=== PATIENT | male | born 1940 | race Caucasian/White ===

== ENCOUNTER → 2016-09-07 | Outpatient (CLI) | payer MEDICARE, OTHER | END | disposition home or self-care (01) | LOC: LABWHC1 11:14 | PROVIDERS: ATTEND Radiology Diagnostic Radiology | DX: I63.9 Cerebral infarction, unspecified (principal) | CPT/HCPCS: 36415; 82306; 84439; 84443 ==

== ENCOUNTER 2018-12-17 14:10 | Inpatient (IN) | payer MEDICARE, OTHER ==
[2018-12-17] MEDS ORDERED: SODIUM CHLORIDE 0.9% 500 ML 500 ML IV STA (14:45)
--- NOTE | 2018-12-17 14:55 | ED ---
General Adult HPI - General Chief complaint: Weakness Stated complaint: weakness, headache Time Seen by Provider: 12/17/18 14:35 Source: patient Mode of arrival: wheelchair Limitations: no limitations - History of Present Illness Initial comments: 78-year-old male patient presents to the emergency department today for evaluation of elevated blood pressure, shortness of breath, fatigue, and just feeling unwell. The patient states that he has been feeling unwell for the last couple of days. Patient states is unable to sleep last night. States he did have some nasal congestion and a cough for which she took Mucinex. Patient states he has had decreased appetite and bit of nausea today. States he did have one episode of diarrhea but he believes that his reaction to the Mucinex which she has had before. Denies any fever or chills. Denies chest pain. Patient states for the last couple of weeks is been having an intermittent pain to the back between the shoulder blades. States he is having some shortness of breath today. Denies any extremity swelling.Patient denies any recent rash, chest pain, constipation, back pain, numbness, tingling, dizziness, hematuria, dysuria, urinary urgency, urinary frequency, headache, visual changes, or any other complaints. - Related Data Allergies Allergy/AdvReac Type Severity Reaction Status Date / Time No Known Allergies Allergy Verified 12/17/18 14:20 Review of Systems ROS Statement: Those systems with pertinent positive or pertinent negative responses have been documented in the HPI. ROS Other: All systems not noted in ROS Statement are negative. Past Medical History Past Medical History: Chest Pain / Angina History of Any Multi-Drug Resistant Organisms: None Reported Past Surgical History: Heart Catheterization, Orthopedic Surgery Additional Past Surgical History / Comment(s): cardiac bipass. carotid artery surgery Past Psychological History: No Psychological Hx Reported Smoking Status: Never smoker Past Alcohol Use History: Occasional Past Drug Use History: None Reported General Exam Limitations: no limitations General appearance: alert, in no apparent distress, other (This is a well- developed, well-nourished elderly male patient in no acute distress. Vital signs upon presentation are temperature 97.7F, pulse 75, respirations 18, blood pressure 156/90, pulse ox 95% on room air.) Eye exam: Present: normal appearance, PERRL, EOMI. Absent: scleral icterus, conjunctival injection, periorbital swelling ENT exam: Present: normal exam, normal oropharynx, mucous membranes moist Respiratory exam: Present: normal lung sounds bilaterally. Absent: respiratory distress, wheezes, rales, rhonchi, stridor Cardiovascular Exam: Present: regular rate, normal rhythm, normal heart sounds. Absent: systolic murmur, diastolic murmur, rubs, gallop, clicks GI/Abdominal exam: Present: soft, normal bowel sounds. Absent: distended, tenderness, guarding, rebound, rigid Neurological exam: Present: alert, oriented X3, CN II-XII intact Psychiatric exam: Present: normal affect, normal mood Skin exam: Present: warm, dry, intact, normal color. Absent: rash Course Vital Signs 12/17/18 14:15 Temperature 97.7 F Pulse Rate 75 Respiratory 18 Rate Blood Pressure 156/90 O2 Sat by Pulse 95 Oximetry EKG Findings - EKG Comments: EKG Findings:: EKG obtained at 1500 to sinus rhythm with a first-degree AV block, left axis deviation with left bundle branch block. Ventricular rate is 68, ND interval 210, QRS duration 134, QTC 462, QTc 491. Medical Decision Making - Medical Decision Making 78-year-old male patient presents to the emergency department today for evaluation of fatigue, shortness of breath, and congestion. Physical examination did reveal crackles at the bilateral bases. Oxygen saturation betwe en 91 and 93% on room air. Chest x-ray did show bilateral small pleural effusions. Labs reviewed and revealed BNP at 8800. Patient denies history of congestive heart failure. He does see a package checker at [facility]. He'll be admitted to the hospital for IV Lasix and further evaluation by cardiology. Patient is agreeable. - Lab Data Result diagrams: 12/17/18 14:35 12/17/18 14:35 Lab Results 12/17/18 12/17/18 12/17/18 Range/Units 14:35 14:35 14:35 WBC 9.9 (3.8-10.6) k/uL RBC 4.67 (4.30-5.90) m/uL Hgb 14.2 (13.0-17.5) gm/dL Hct 43.4 (39.0-53.0) % MCV 92.9 (80.0-100.0) fL MCH 30.4 (25.0-35.0) pg MCHC 32.7 (31.0-37.0) g/dL RDW 16.7 H (11.5-15.5) % Plt Count 237 (150-450) k/uL Neutrophils % 84 % Lymphocytes % 8 % Monocytes % 5 % Eosinophils % 1 % Basophils % 1 % Neutrophils # 8.4 H (1.3-7.7) k/uL Lymphocytes # 0.8 L (1.0-4.8) k/uL Monocytes # 0.5 (0-1.0) k/uL Eosinophils # 0.1 (0-0.7) k/uL Basophils # 0.1 (0-0.2) k/uL Anisocytosis Slight PT (9.0-12.0) sec INR (<1.2) APTT (22.0-30.0) sec Sodium 140 (137-145) mmol/L Potassium 4.8 (3.5-5.1) mmol/L Chloride 104 (98-107) mmol/L Carbon Dioxide 23 (22-30) mmol/L Anion Gap 13 mmol/L BUN 18 (9-20) mg/dL Creatinine 1.27 H (0.66-1.25) mg/dL Est GFR (CKD-EPI)AfAm 62 (>60 ml/min/1.73 sqM) Est GFR (CKD-EPI)NonAf 53 (>60 ml/min/1.73 sqM) Glucose 141 H (74-99) mg/dL Plasma Lactic Acid Jamari 1.4 (0.7-2.0) mmol/L Calcium 9.9 (8.4-10.2) mg/dL Magnesium 2.1 (1.6-2.3) mg/dL Total Bilirubin 1.4 H (0.2-1.3) mg/dL AST 34 (17-59) U/L ALT 22 (21-72) U/L Alkaline Phosphatase 59 (38-126) U/L Troponin I (0.000-0.034) ng/mL NT-Pro-B Natriuret Pep pg/mL Total Protein 8.7 H (6.3-8.2) g/dL Albumin 4.8 (3.5-5.0) g/dL Urine Color Urine Appearance (Clear) Urine pH (5.0-8.0) Ur Specific Eden (1.001-1.035) Urine Protein (Negative) Urine Glucose (UA) (Negative) Urine Ketones (Negative) Urine Blood (Negative) Urine Nitrite (Negative) Urine Bilirubin (Negative) Urine Urobilinogen (<2.0) mg/dL Ur Leukocyte Esterase (Negative) Urine RBC (0-5) /hpf Urine WBC (0-5) /hpf Ur Squamous Epith Cells (0-4) /hpf Cellular Casts (0) /lpf Hyaline Casts (0-2) /lpf Granular Casts (0) /lpf Urine Mucus (None) /hpf 12/17/18 12/17/18 12/17/18 Range/Units 14:35 14:35 14:35 WBC (3.8-10.6) k/uL RBC (4.30-5.90) m/uL Hgb (13.0-17.5) gm/dL Hct (39.0-53.0) % MCV (80.0-100.0) fL MCH (25.0-35.0) pg MCHC (31.0-37.0) g/dL RDW (11.5-15.5) % Plt Count (150-450) k/uL Neutrophils % % Lymphocytes % % Monocytes % % Eosinophils % % Basophils % % Neutrophils # (1.3-7.7) k/uL Lymphocytes # (1.0-4.8) k/uL Monocytes # (0-1.0) k/uL Eosinophils # (0-0.7) k/uL Basophils # (0-0.2) k/uL Anisocytosis PT 11.0 (9.0-12.0) sec INR 1.0 (<1.2) APTT 26.2 (22.0-30.0) sec Sodium (137-145) mmol/L Potassium (3.5-5.1) mmol/L Chloride (98-107) mmol/L Carbon Dioxide (22-30) mmol/L Anion Gap mmol/L BUN (9-20) mg/dL Creatinine (0.66-1.25) mg/dL Est GFR (CKD-EPI)AfAm (>60 ml/min/1.73 sqM) Est GFR (CKD-EPI)NonAf (>60 ml/min/1.73 sqM) Glucose (74-99) mg/dL Plasma Lactic Acid Jamari (0.7-2.0) mmol/L Calcium (8.4-10.2) mg/dL Magnesium (1.6-2.3) mg/dL Total Bilirubin (0.2-1.3) mg/dL AST (17-59) U/L ALT (21-72) U/L Alkaline Phosphatase (38-126) U/L Troponin I <0.012 (0.000-0.034) ng/mL NT-Pro-B Natriuret Pep 8830 pg/mL Total Protein (6.3-8.2) g/dL Albumin (3.5-5.0) g/dL Urine Color Urine Appearance (Clear) Urine pH (5.0-8.0) Ur Specific Eden (1.001-1.035) Urine Protein (Negative) Urine Glucose (UA) (Negative) Urine Ketones (Negative) Urine Blood (Negative) Urine Nitrite (Negative) Urine Bilirubin (Negative) Urine Urobilinogen (<2.0) mg/dL Ur Leukocyte Esterase (Negative) Urine RBC (0-5) /hpf Urine WBC (0-5) /hpf Ur Squamous Epith Cells (0-4) /hpf Cellular Casts (0) /lpf Hyaline Casts (0-2) /lpf Granular Casts (0) /lpf Urine Mucus (None) /hpf 12/17/18 Range/Units 15:20 WBC (3.8-10.6) k/uL RBC (4.30-5.90) m/uL Hgb (13.0-17.5) gm/dL Hct (39.0-53.0) % MCV (80.0-100.0) fL MCH (25.0-35.0) pg MCHC (31.0-37.0) g/dL RDW (11.5-15.5) % Plt Count (150-450) k/uL Neutrophils % % Lymphocytes % % Monocytes % % Eosinophils % % Basophils % % Neutrophils # (1.3-7.7) k/uL Lymphocytes # (1.0-4.8) k/uL Monocytes # (0-1.0) k/uL Eosinophils # (0-0.7) k/uL Basophils # (0-0.2) k/uL Anisocytosis PT (9.0-12.0) sec INR (<1.2) APTT (22.0-30.0) sec Sodium (137-145) mmol/L Potassium (3.5-5.1) mmol/L Chloride (98-107) mmol/L Carbon Dioxide (22-30) mmol/L Anion Gap mmol/L BUN (9-20) mg/dL Creatinine (0.66-1.25) mg/dL Est GFR (CKD-EPI)AfAm (>60 ml/min/1.73 sqM) Est GFR (CKD-EPI)NonAf (>60 ml/min/1.73 sqM) Glucose (74-99) mg/dL Plasma Lactic Acid Jamari (0.7-2.0) mmol/L Calcium (8.4-10.2) mg/dL Magnesium (1.6-2.3) mg/dL Total Bilirubin (0.2-1.3) mg/dL AST (17-59) U/L ALT (21-72) U/L Alkaline Phosphatase (38-126) U/L Troponin I (0.000-0.034) ng/mL NT-Pro-B Natriuret Pep pg/mL Total Protein (6.3-8.2) g/dL Albumin (3.5-5.0) g/dL Urine Color Yellow Urine Appearance Clear (Clear) Urine pH 5.5 (5.0-8.0) Ur Specific Eden 1.025 (1.001-1.035) Urine Protein 1+ H (Negative) Urine Glucose (UA) Negative (Negative) Urine Ketones Negative (Negative) Urine Blood Negative (Negative) Urine Nitrite Negative (Negative) Urine Bilirubin Negative (Negative) Urine Urobilinogen 2.0 (<2.0) mg/dL Ur Leukocyte Esterase Negative (Negative) Urine RBC 1 (0-5) /hpf Urine WBC 4 (0-5) /hpf Ur Squamous Epith Cells <1 (0-4) /hpf Cellular Casts 3 (0) /lpf Hyaline Casts 35 H (0-2) /lpf Granular Casts 1 (0) /lpf Urine Mucus Few H (None) /hpf - Radiology Data Radiology results: report reviewed, image reviewed Two-view x-ray of the chest is obtained. Report was reviewed in its entirety. Impression by Dr. De Leon shows small bilateral pleural effusions. Disposition Clinical Impression: CHF (congestive heart failure) Disposition: ADMITTED IP TO THIS [facility] Condition: Serious Referrals: Dewey Lombardo MD [Primary Care Provider] - 1-2 days Decision to Admit Reason: Admit from EC Decision Date: 12/17/18 Decision Time: 16:58
[2018-12-17 15:04] LABS: Albumin 4.8 g/dL (3.5-5.0); Anisocytosis Slight; Basophils # (A) 0.1 k/uL (0-0.2); Basophils % (A) 1 %; Calcium 9.9 mg/dL (8.4-10.2); Eosinophils # (A) 0.1 k/uL (0-0.7); Eosinophils % (A) 1 %; HCT 43.4 % (39.0-53.0); HGB 14.2 gm/dL (13.0-17.5); Lymphocytes # (A) 0.8 k/uL (1.0-4.8); Lymphocytes % (A) 8 %; MCH 30.4 pg (25.0-35.0); MCHC 32.7 g/dL (31.0-37.0); MCV 92.9 fL (80.0-100.0); Magnesium 2.1 mg/dL (1.6-2.3); Mean Platelet Volume 7.4; Monocytes # (A) 0.5 k/uL (0-1.0); Monocytes % (A) 5 %; Neutrophils # (A) 8.4 k/uL (1.3-7.7); Neutrophils % (A) 84 %; Platelet Count 237 k/uL (150-450); Potassium 4.8 mmol/L (3.5-5.1); RBC 4.67 m/uL (4.30-5.90); RDW 16.7 % (11.5-15.5); Total Bilirubin 1.4 mg/dL (0.2-1.3); Total Protein 8.7 g/dL (6.3-8.2); WBC 9.9 k/uL (3.8-10.6)
[2018-12-17 15:09] LABS: Partial Thromboplastin Time 26.2 sec (22.0-30.0)
[2018-12-17 15:35] LABS: Appearance,Urine Clear (Clear); Bilirubin,Urine Negative (Negative); Blood,Urine Negative (Negative); Cellular Casts,Urine 3 /lpf (0); Color,Urine Yellow; Glucose,Urine (UA) Negative (Negative); Granular Casts,Urine 1 /lpf (0); Hyaline Casts,Urine 35 /lpf (0-2); Ketones,Urine Negative (Negative); Leukocyte Esterase,Urine Negative (Negative); Mucus,Urine Few /hpf; Nitrite,Urine Negative (Negative); PH, Urine 5.5 (5.0-8.0); Protein,Urine 1+ (Negative); RBC,Urine 1 /hpf (0-5); Specific Gravity,Urine 1.025 (1.001-1.035); Squamous Epithelial Cell,Urine <1 /hpf (0-4); WBC,Urine 4 /hpf (0-5)
--- NOTE | 2018-12-17 15:40 | XR ---
EXAMINATION TYPE: XR chest 2V DATE OF EXAM: 12/17/2018 COMPARISON: None INDICATION: Weakness short of breath TECHNIQUE: Frontal and lateral views of the chest are obtained. FINDINGS: The heart size is normal. The pulmonary vasculature is normal. Minimal posterior pleural effusion is present. IMPRESSION: 1. Small bilateral pleural effusions
[2018-12-17] MEDS ORDERED: NALOXONE 0.4 MG/ML 1 ML VIAL IV PRN (16:55)
[2018-12-17] MEDS ORDERED: FUROSEMIDE 10 MG/ML 4 ML VIAL IV STA (16:57)
[2018-12-17] MEDS: ATORVASTATIN 20 MG TAB PO SCH (22:14)
[2018-12-17] MEDS: CARVEDILOL 6.25 MG TAB PO SCH (22:14)
[2018-12-17] MEDS: FUROSEMIDE 10 MG/ML 4 ML VIAL IV SCH (22:15)
[2018-12-18 02:12] LABS: Potassium 4.4 mmol/L (3.5-5.1)
[2018-12-18] MEDS: CARVEDILOL 6.25 MG TAB PO SCH ×2 (06:42→18:01)
[2018-12-18] MEDS: LEVOTHYROXINE 100 MCG TAB PO SCH (06:42)
[2018-12-18 07:25] LABS: Basophils # (A) 0.1 k/uL (0-0.2); Basophils % (A) 0 %; Eosinophils # (A) 0.1 k/uL (0-0.7); Eosinophils % (A) 1 %; HCT 39.2 % (39.0-53.0); HGB 12.8 gm/dL (13.0-17.5); Lymphocytes % (A) 10 %; MCH 29.9 pg (25.0-35.0); MCHC 32.6 g/dL (31.0-37.0); MCV 91.6 fL (80.0-100.0); Monocytes # (A) 0.8 k/uL (0-1.0); Monocytes % (A) 8 %; Neutrophils # (A) 8.7 k/uL (1.3-7.7); Neutrophils % (A) 80 %; Platelet Count 225 k/uL (150-450); RBC 4.28 m/uL (4.30-5.90); RDW 15.6 % (11.5-15.5); WBC 10.9 k/uL (3.8-10.6)
[2018-12-18 07:48] LABS: Calcium 9.4 mg/dL (8.4-10.2)
[2018-12-18] MEDS: FISH OIL CAPS PO SCH (09:34)
[2018-12-18] MEDS: ASPIRIN 81 MG PO SCH (09:35)
[2018-12-18] MEDS: FUROSEMIDE 10 MG/ML 4 ML VIAL IV SCH ×3 (09:35→20:31)
[2018-12-18] MEDS: EZETIMIBE 10 MG TAB PO SCH (09:35)
[2018-12-18 11:44] VITALS: BMI 26.6
--- NOTE | 2018-12-18 11:47 | ECHOF ---
Referral Reason:chf MEASUREMENTS -------- HEIGHT: 180.3 cm WEIGHT: 83.9 kg BP: RVIDd: 2.4 cm (< 3.3) IVSd: 0.9 cm (0.6 - 1.1) LVIDd: 5.3 cm (3.9 - 5.3) LVPWd: 0.9 cm (0.6 - 1.1) IVSs: 1.2 cm LVIDs: 4.7 cm LVPWs: 1.4 cm LAESV Index (A-L): 39.22 ml/m Ao Diam: 2.4 cm (2.0 - 3.7) AV Cusp: 1.9 cm (1.5 - 2.6) LA Diam: 3.1 cm (2.7 - 3.8) MV EXCURSION: 13.189 mm (> 18.000) MV EF SLOPE: 45 mm/s (70 - 150) EPSS: 1.8 cm MV E Javi: 0.65 m/s MV DecT: 237 ms MV A Javi: 0.28 m/s MV E/A Ratio: 2.36 RAP: 5.00 mmHg RVSP: 13.29 mmHg FINDINGS -------- Resting bradycardia (HR<60bpm). This was a technically adequate study. The left ventricular size is normal. Left ventricular wall thickness is normal. Overall left vent ricular systolic function is moderate-severely impaired with, an EF between 30 - 35 %. Basal anteri or LV wall motion is hypokinetic. Basal inferoseptal LV wall motion is hypokinetic. Mid anterio r LV wall motion is hypokinetic. Mid inferoseptal LV wall motion is hypokinetic. Mid to basal i nferiorlateral is hypokinetic The right ventricle is normal in size. LA is moderately dilated 34-39 ml/m2 The right atrial size is normal. Interatrial and interventricular septum intact. Aortic valve is trileaflet and is mildly thickened. The mitral valve is normal. The mitral valve leaflets are mildly thickened. Moderate mitral regur gitation is present. The tricuspid valve appears structurally normal. Trace tricuspid regurgitation present. Right sonali tricular systolic pressure is normal at < 35 mmHg. There is no pulmonic regurgitation present. The aortic root size is normal. Normal inferior vena cava with normal inspiratory collapse consistent with estimated right atrial pre ssure of 5 mmHg. There is no pericardial effusion. CONCLUSIONS -------- 1. Resting bradycardia (HR<60bpm). 2. This was a technically adequate study. 3. The left ventricular size is normal. 4. Left ventricular wall thickness is normal. 5. Overall left ventricular systolic function is moderate-severely impaired with, an EF between 30 - 35 %. 6. Basal anterior LV wall motion is hypokinetic. 7. Basal inferoseptal LV wall motion is hypokinetic. 8. Mid anterior LV wall motion is hypokinetic. 9. Mid inferoseptal LV wall motion is hypokinetic. 10. Mid to basal inferiorlateral is hypokinetic 11. The right ventricle is normal in size. 12. LA is moderately dilated 34-39 ml/m2 13. The right atrial size is normal. 14. Interatrial and interventricular septum intact. 15. Aortic valve is trileaflet and is mildly thickened. 16. The mitral valve is normal. 17. The mitral valve leaflets are mildly thickened. 18. Moderate mitral regurgitation is present. 19. The tricuspid valve appears structurally normal. 20. Trace tricuspid regurgitation present. 21. Right ventricular systolic pressure is normal at < 35 mmHg. 22. There is no pulmonic regurgitation present. 23. The aortic root size is normal. 24. Normal inferior vena cava with normal inspiratory collapse consistent with estimated right atrial pressure of 5 mmHg. 25. There is no pericardial effusion. SMOKING PIPE COATER: Marline Christensen RDCS
--- NOTE | 2018-12-18 15:02 | CONS ---
CONSULTATION Mr. Hernandez is a 78-year-old male followed by Dr. Lombardo, has a history of coronary artery disease, status post coronary artery bypass grafting done in [place] in 1990. He had sustained a myocardial infarction, underwent angioplasty, subsequent repeat angioplasty in 1993 and subsequently 4 or 5 years ago he had 4-way bypass. He presented with symptoms of progressive fatigue, lack of energy and dyspnea. He has no chest discomfort. He denies any dizziness, palpitation. He denies any clear PND, orthopnea in the past. He has occasional peripheral edema. He has no documented history of malignant arrhythmia. His coronary risk factor is remarkable for hyperlipidemia and hypertension. He is nondiabetic. He stopped smoking in the 80s. MEDICATIONS: Include Crestor 10 mg daily, Zetia 10 mg daily, Coreg 6.5 mg twice a day, and aspirin once a day. REVIEW OF SYSTEMS: RESPIRATORY SYSTEM: He had dyspnea on exertion. No recent wheezing or cough and he has no history of obstructive lung disease. GI SYSTEM: No recent GI bleed. No peptic ulcer disease. SYSTEM: No dysuria or hematuria. NERVOUS SYSTEM: No history of seizure. He has a history of TIA. Past surgical history is marked for coronary artery bypass grafting and right carotid endarterectomy. PHYSICAL EXAMINATION: A 78-year-old male, alert, oriented, in no apparent distress. Blood pressure 113/60 with a heart rate in the 60s. HEAD: Normocephalic. EYES: Sclerae nonicteric. NECK: With soft bruit bilaterally. LUNGS: With a few crackles at the bases. HEART: Regular rate and rhythm S1, S2. No S3 with systolic murmur at the base, ejection type, no diastolic murmur, no rub. ABDOMEN: Soft, nontender. Positive bowel sounds, no organomegaly. EXTREMITIES: No edema. LAB DATA: Revealed BUN and creatinine of 21 and 1.2. Troponin less than 0.012. NT proBNP of 8830. Hemoglobin 12.8, white blood cell of 10.9. EKG revealed a sinus mechanism, rate of 68, first-degree block, left axis deviation with a left bundle branch block. Chest x-ray shows evidence of congestion. IMPRESSION: 1. Symptoms of dyspnea with element of congestive heart failure, probably LV systolic function unknown. 2. Status post coronary artery bypass grafting with no clear evidence of ischemia. 3. History of carotid disease, status post carotid endarterectomy. 4. Hyperlipidemia. RECOMMENDATION: From the cardiac standpoint, I will continue IV diuretics for 24 hours, follow his renal function. I will obtain echocardiogram with Doppler. 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 Thank you for this consult. We will follow with you. LINCOLN / RODOLFO: [id number] /
--- NOTE | 2018-12-18 17:11 | P.HPIM ---
History of Present Illness H&P Date: 12/18/18 This is a 78-year-old gentleman patient of Dr. Lombardo, with Dr. Beaulieu cardiology up in [place], he has underlying history of CAD with prior TIA, CABG, carotid endarterectomy right side admitted through the ER secondary to shortness of breath, fatigue, not feeling well. He has been sick for the past for 5 days, was seen in our clinic a few days ago, and was given Mucinex, patient did not receive any antibiotic, he also has decreased appetite, wheezing episodes, trouble breathing, and increasing weakness. Patient denies fever no chest pain no palpitations, he has one episode of diarrhea from the Mucinex, otherwise it did not persist. Patient denies any hematuria or dysuria no falls loss predicte d events, no headache no purulence, and was seen in the emergency room secondary to above symptoms symptoms including weakness, and an overall not feeling better In the emergency room, chest x-ray shows some element of congestive heart failure, small pleural effusion bilateral troponins are 0.012 and the proBNP 8830 creatinine 1.27, urinalysis negative, admission normal 2.0, hemoglobin of 12.8, WBC count of 9.9., Patient is admitted with IV diuretics for the CHF, consult cardiology, echocardiogram . Review of Systems Constitutional: Reports as per HPI, Denies anorexia, Denies chills, Denies chronic headaches, Denies chronic pain, Denies daytime sleepiness, Denies fatigue, Denies fever, Denies lethargy, Denies malaise, Denies night sweats, Denies poor appetite, Denies sweats, Denies weakness, Denies weight gain, Denies weight loss Ears, nose, mouth and throat: Reports as per HPI, Denies ant. neck pain, Denies bleeding gums, Denies dental pain, Denies dysphagia, Denies epistaxis, Denies headache, Denies hoarseness, Denies mouth pain, Denies nasal congestion, Denies nasal discharge, Denies neck fullness/pressure, Denies neck lump, Denies nose pain, Denies odynophagia, Denies post-nasal drip, Denies sinus pain, Denies sinus pressure, Denies swelling in mouth, Denies swelling in throat, Denies sore throat, Denies vertigo, Denies voice changes Cardiovascular: Reports as per HPI, Reports dyspnea on exertion, Reports shortness of breath, Denies chest pain, Denies claudication, Denies decreased exercise tolerance, Denies edema, Denies high blood pressure, Denies irregular heart beat, Denies leg edema, Denies lightheadedness, Denies orthopnea, Denies palpitations, Denies paroxysmal nocturnal dyspnea, Denies phlebitis, Denies rapid heart beat, Denies syncope Respiratory: Reports as per HPI, Denies congestion, Denies cough, Denies cough with sputum, Denies dyspnea, Denies excessive sputum, Denies hemoptysis, Denies home oxygen, Denies pain, Denies pain on inspiration, Denies pleurisy, Denies respiratory infections, Denies sleep apnea, Denies snoring, Denies wheezing Gastrointestinal: Reports as per HPI, Denies abdominal pain, Denies belching, Denies bloating, Denies BRBPR, Denies change in bowel habits, Denies coffee ground emesis, Denies constipation, Denies diarrhea, Denies dyspepsia, Denies early satiety, Denies excessive gas, Denies heartburn, Denies hematemesis, Denies hematochezia, Denies indigestion, Denies jaundice, Denies lactose intolerance, Denies loss of appetite, Denies melena, Denies nausea, Denies vomiting Genitourinary: Reports as per HPI, Denies decreased libido, Denies difficulties fathering child, Denies discharge, Denies dysuria, Denies erectile dysfunction, Denies flank pain, Denies genital pain, Denies genital sores, Denies hematuria, Denies impotence, Denies incontinence, Denies kidney stones, Denies nocturia, Denies polyuria, Denies testicular lump, Denies testicular pain, Denies urinary frequency, Denies urinary hesitancy, Denies urinary retention Musculoskeletal: Reports as per HPI, Denies arm numbness/tingling, Denies atrophy, Denies fractures, Denies frequent falls, Denies gait dysfunction, Denies hot joints, Denies leg numbness/tingling, Denies limitation of motion, Denies loss of height, Denies low back pain, Denies morning stiffness, Denies muscle cramps, Denies muscle weakness, Denies myalgias, Denies neck pain, Denies neck stiffness, Denies prior amputations, Denies redness of joints, Denies shooting arm pain, Denies shooting leg pain Integumentary: Reports as per HPI, Denies acne, Denies boils, Denies brittle nails, Denies change in hair/nails, Denies color changes, Denies darkening of skin, Denies depigmentation, Denies dryness, Denies foot/leg ulcers, Denies growths, Denies hirsutism, Denies lesions, Denies onychomycosis, Denies pruritus, Denies rash, Denies sores, Denies striae, Denies unusual bruising, Denies wounds Neurological: Reports as per HPI, Denies aphasia, Denies ataxia, Denies balance difficulties, Denies burning pain, Denies change in mentation, Denies change in smell/taste, Denies change in speech, Denies confusion, Denies convulsions, Denies double vision, Denies gait dysfunction, Denies head injury, Denies headaches, Denies hearing difficulties, Denies lack of coordination, Denies loss of vision, Denies memory loss, Denies migraines, Denies motor disturbance, Denies numbness, Denies paralysis, Denies paresthesias, Denies seizures, Denies sensory deficit, Denies spasticity, Denies syncope, Denies tic, Denies tingling, Denies transient paralysis, Denies tremors, Denies vertigo, Denies weakness, Denies visual changes Psychiatric: Reports as per HPI, Denies anhedonia, Denies anxiety, Denies anxiety attacks, Denies change in appetite, Denies change in libido, Denies change in sleep habits, Denies confusion, Denies depression, Denies difficulty concentrating, Denies disorientation, Denies hallucinations, Denies hopelessness, Denies hypersomnia, Denies insomnia, Denies irritability, Denies memory loss, Denies mood swings, Denies paranoia, Denies sadness/tearfulness, Denies sleep disturbances, Denies suicidal ideation Endocrine: Reports as per HPI Hematologic/Lymphatic: Reports as per HPI, Denies easy bleeding, Denies easy bruising, Denies lymphadenopathy, Denies lymphedema, Denies thrombophilia Allergic/Immunologic: Reports as per HPI, Denies allergic rhinitis, Denies anaphylaxis, Denies angioedema, Denies gluten intolerance, Denies persistent infections, Denies seasonal allergies, Denies urticaria, Denies wheezing Past Medical History Past Medical History: Coronary Artery Disease (CAD), Chest Pain / Angina, Hyperlipidemia, Myocardial Infarction ([place]), Thyroid Disorder Last Myocardial Infarction Date:: 1990 History of Any Multi-Drug Resistant Organisms: None Reported Past Surgical History: Heart Catheterization, Orthopedic Surgery Additional Past Surgical History / Comment(s): cardiac bipass 2014. carotid artery surgery 2017 Past Anesthesia/Blood Transfusion Reactions: No Reported Reaction Past Psychological History: No Psychological Hx Reported Smoking Status: Former smoker Past Alcohol Use History: None Reported Past Drug Use History: None Reported - Past Family History Father Family Medical History: Coronary Artery Disease (CAD), Myocardial Infarction ([place]) Mother Family Medical History: Coronary Artery Disease (CAD), Myocardial Infarction ([place]) Brother(s) Family Medical History: Hypertension Sister(s) Family Medical History: Congestive Heart Failure (CHF) (Atrial fibrillation) Son(s) Family Medical History: No Reported History Medications and Allergies Home Medications Medication Instructions Recorded Confirmed Type Aspirin EC [Ecotrin Low Dose] 81 mg PO DAILY 12/17/18 12/17/18 History Carvedilol [Coreg] 6.25 mg PO BID 12/17/18 12/17/18 History Cholecalciferol [Vitamin D3 (25 2,000 unit PO DAILY 12/17/18 12/17/18 History Mcg = 1000 Iu)] Ezetimibe [Zetia] 10 mg PO DAILY 12/17/18 12/17/18 History Fish Oil/Dha/Epa [Fish Oil 1,200 2 cap PO DAILY 12/17/18 12/17/18 History mg Fish Oil] Levothyroxine Sodium [Synthroid] 100 mcg PO DAILY 12/17/18 12/17/18 History Rosuvastatin [Crestor] 10 mg PO HS 12/17/18 12/17/18 History Ubidecarenone [Co Q-10] 400 mg PO DAILY 12/17/18 12/17/18 History Allergies Allergy/AdvReac Type Severity Reaction Status Date / Time No Known Allergies Allergy Verified 12/17/18 17:15 Physical Exam Vitals: Vital Signs Temp Pulse Pulse Resp BP BP Pulse Ox 12/18/18 12:55 98.0 F 59 L 16 112/56 12/18/18 10:20 98.0 F 51 L 16 97/53 12/18/18 10:14 51 L 16 12/18/18 04:00 67 17 113/59 12/18/18 00:00 65 17 118/61 12/17/18 21:09 77 16 12/17/18 20:48 98.2 F 77 16 158/98 12/17/18 19:38 98.2 F 77 18 158/98 12/17/18 18:30 76 16 150/98 98 12/17/18 18:00 73 17 145/97 89 L 12/17/18 17:00 75 18 152/98 91 L Intake and Output 12/18/18 12/18/18 12/18/18 06:59 14:59 22:59 Intake Total 400 340 Output Total 1050 Balance -650 340 Intake: Oral 400 340 Output: Urine 1050 Other: Voiding Method Urinal # Voids 1 0 # Bowel Movements 0 Weight 84.2 kg 84.2 kg - Constitutional General appearance: cooperative, no acute distress - EENT Eyes: anicteric sclerae, EOMI, PERRLA, dentition normal ENT: NA/AT, normal oropharynx - Neck Neck: normal ROM - Respiratory Respiratory: bilateral: CTA, negative: diminished, dullness, rales - Cardiovascular Rhythm: regular Heart sounds: normal: S1, S2 Abnormal Heart Sounds: systolic murmur, no diastolic murmur, no rub, no S3 Gallop, no S4 Gallop, no click, no other - Gastrointestinal General gastrointestinal: normal bowel sounds, soft - Neurologic Neurologic: CNII-XII intact - Musculoskeletal Musculoskeletal: gait normal, strength equal bilaterally - Psychiatric Psychiatric: A&O x's 3, appropriate affect, intact judgment & insight Results CBC & Chem 7: 12/18/18 06:30 12/18/18 06:30 Labs: Abnormal Lab Results - Last 24 Hours (Table) 12/18/18 12/18/18 Range/Units 06:30 06:30 WBC 10.9 H (3.8-10.6) k/uL RBC 4.28 L (4.30-5.90) m/uL Hgb 12.8 L (13.0-17.5) gm/dL RDW 15.6 H (11.5-15.5) % Neutrophils # 8.7 H (1.3-7.7) k/uL BUN 21 H (9-20) mg/dL Thrombosis Risk Factor Assmnt - DVT/VTE Prophylaxis DVT/VTE Prophylaxis: Pharmacologic Prophylaxis ordered, Low risk, early ambulation encouraged - Choose All That Apply Any of the Below Risk Factors Present?: Yes Each Factor Represents 1 point: Acute [place], Heart failure (<1month), Swollen legs (current) Other Risk Factors: Yes Each Risk Factor Represents 3 Points: Age 75 years or older Thrombosis Risk Factor Assessment Total Risk Factor Score: 6 Thrombosis Risk Factor Assessment Level: High Risk Assessment and Plan Plan: 1. Acute CHF exacerbation, diastolic component, known history of CAD, patient is on IV Lasix 40 mg every 12 hours, continue on Coreg, TSH is normal, cardi ology is consulted, and echocardiogram performed 2. Known CAD with prior 4 vessel CABG in the past Dr. Beaulieu cardiology is routinely following the patient, he is to continue on Coreg and crestor and aspirin patient is not on any PARKER inhibition or arbs secondary to marginally low blood pressures 3. Hyperlipidemia on Crestor 10 4. Hypothyroidism on Synthroid 100 g daily TSH is controlled 5. Acute kidney injury again CK D stage III, prior creatinine was at CK D stage II, however this values are from 2016, continue on gentle hydration and diuresing, and labs to be monitored, avoid hypotension and nephrotoxins 6. BPH without lower tract symptomatology DVT prophylaxis with subcu lvoenox GI prophylaxis
[2018-12-18] MEDS: ENOXAPARIN 40 MG/0.4 ML SYRINGE SQ SCH (17:59)
[2018-12-18] MEDS: ATORVASTATIN 20 MG TAB PO SCH (18:06)
[2018-12-18] MEDS ORDERED: FAMOTIDINE 20 MG TAB PO SCH (21:00)
[2018-12-19] MEDS: CARVEDILOL 6.25 MG TAB PO SCH (07:13)
[2018-12-19] MEDS: LEVOTHYROXINE 100 MCG TAB PO SCH (07:13)
[2018-12-19 07:51] LABS: Anisocytosis Slight; Basophils # (A) 0.1 k/uL (0-0.2); Basophils % (A) 1 %; Eosinophils # (A) 0.2 k/uL (0-0.7); Eosinophils % (A) 2 %; HCT 43.3 % (39.0-53.0); HGB 14.1 gm/dL (13.0-17.5); Lymphocytes # (A) 1.1 k/uL (1.0-4.8); Lymphocytes % (A) 10 %; MCH 29.8 pg (25.0-35.0); MCHC 32.5 g/dL (31.0-37.0); MCV 91.7 fL (80.0-100.0); Mean Platelet Volume 7.4; Monocytes % (A) 9 %; Neutrophils # (A) 8.7 k/uL (1.3-7.7); Neutrophils % (A) 78 %; Platelet Count 240 k/uL (150-450); RBC 4.71 m/uL (4.30-5.90); RDW 16.4 % (11.5-15.5); WBC 11.2 k/uL (3.8-10.6)
[2018-12-19 07:57] LABS: Calcium 9.6 mg/dL (8.4-10.2)
[2018-12-19 08:30] VITALS: RESP 16
[2018-12-19] MEDS: EZETIMIBE 10 MG TAB PO SCH (09:50)
[2018-12-19] MEDS: ASPIRIN 81 MG PO SCH (09:50)
[2018-12-19] MEDS: FISH OIL CAPS PO SCH (09:51)
[2018-12-19] MEDS: ENOXAPARIN 40 MG/0.4 ML SYRINGE SQ SCH (09:51)
[2018-12-19] MEDS: FUROSEMIDE 10 MG/ML 4 ML VIAL IV SCH (09:51)
[2018-12-19 12:35] VITALS: BP 108/68; PULSE 53; TEMP 98.1
[2018-12-19] MEDS ORDERED: LISINOPRIL 2.5 MG TAB PO SCH (13:30)
--- NOTE | 2018-12-19 14:23 | PN ---
PROGRESS NOTE Mr. Hernandez is a 78-year-old male with a history of coronary artery disease, status post coronary artery bypass grafting, history of carotid disease who presented with progressive dyspnea, who had evidence of congestive heart failure. He is feeling much better today. His breathing is better. He believes that he is back to his baseline. He is denying any chest pain. No dizziness. No palpitation. He denies any nausea. He continues to be on aspirin 81 mg daily, Lipitor 10 mg daily, Coreg 6.5 mg twice a day, Zetia 10 mg daily, Lasix 40 mg IV q.12 hours. PHYSICAL EXAMINATION: Blood pressure 108/60 with a heart rate in the 60s. LUNGS: A few crackles at the bases. HEART: Regular rate and rhythm, S1, S2. No S3 with systolic ejection murmur, no diastolic murmur, no rub. ABDOMEN: Soft and nontender. EXTREMITIES: No edema. LAB DATA: Revealed BUN and creatinine 28 and 1.34, potassium of 4.0, hemoglobin of 14.1. Echocardiogram performed showed an impaired systolic function. Ejection fraction estimated at 30% to 35% with segmental wall motion abnormality consistent with coronary artery disease. IMPRESSION: 1. Congestive heart failure with impaired systolic function. Reviewing his old data, patient has a known history of ischemic cardiomyopathy. 2. Status post coronary artery bypass grafting with prior percutaneous revascularization. 3. History of peripheral vascular disease. 4. History of hyperlipidemia. RECOMMENDATION: I will stop his IV diuretics. I will switch him to oral diuretics. I will add a low- dose PARKER inhibitor to his regimen. Increase his level of activity. If he remains stable, he may be able to be discharged home in the next 24 hours. The patient will need to follow up with his primary orange grower in [place] next week. MMODL / IJN: [id number] /
--- NOTE | 2018-12-19 15:52 | P.DS ---
Providers Date of admission: 12/18/18 13:34 Expected date of discharge: 12/19/18 Attending physician: Kelsie Knight Consults: 12/17/18 16:56 Consult Physician Routine Consulting Provider: [facility] Consult Reason/Comments: CHF Do you want consulting provider notified?: Yes Primary care physician: Dewey Lombardo [facility] Course: This is a 78-year-old gentleman patient of Dr. Lombardo, with Dr. Beaulieu cardiology up in [place], he has underlying history of CAD with prior TIA, CABG, carotid endarterectomy right side admitted through the ER secondary to shortness of breath, fatigue, not feeling well. He has been sick for the past for 5 days, was seen in our clinic a few days ago, and was given Mucinex, patient did not receive any antibiotic, he also has decreased appetite, wheezing episodes, trouble breathing, and increasing weakness. Patient denies fever no chest pain no palpitations, he has one episode of diarrhea from the Mucinex, otherwise it did not persist. Patient denies any hematuria or dysuria no falls loss predicted events, no headache no purulence, and was seen in the emergency room secondary to above symptoms symptoms including weakness, and an overall not feeling better In the emergency room, chest x-ray shows some element of congestive heart failure, small pleural effusion bilateral troponins are 0.012 and the proBNP 8830 creatinine 1.27, urinalysis negative, admission normal 2.0, hemoglobin of 12.8, WBC count of 9.9., Patient is admitted with IV diuretics for the CHF, consult cardiology, echocardiogram 12/19: Patient has been seen by cardiology and changed his IV diuretics to oral. His changed his PARKER inhibitor to 2.5 mg twice daily. Plan is for patient to follow-up with his primary jogger operator in [place] next week which appointment has been made. Patient states his breathing is back to baseline. He denies any shortness of breath. He has walked in the hallway and back without shortness of breath or chest pain. He has been afebrile, heart rate 60, blood pressure 108/62 and pulse ox 95% on room air. Patient will be discharged home today in stable condition. Discharge diagnoses: 1. Acute diastolic heart failure 2. Known CAD with prior 4 vessel CABG in the past Dr. Beaulieu cardiology 3. Hyperlipidemia 4. Hypothyroidism 5. Acute kidney injury, CK D stage III, 6. BPH Discharge plan: Home Impression and plan of care have been directed as dictated by the signing physician. Kayleen Rowley nurse practitioner acting as scribe for signing physician. Patient Condition at Discharge: Good Plan - Discharge Summary Discharge Rx Participant: Yes New Discharge Prescriptions: New Furosemide [Lasix] 20 mg PO BID #60 tab Continue Ubidecarenone [Co Q-10] 400 mg PO DAILY Cholecalciferol [Vitamin D3 (25 Mcg = 1000 Iu)] 2,000 unit PO DAILY Levothyroxine Sodium [Synthroid] 100 mcg PO DAILY Fish Oil/Dha/Epa [Fish Oil 1,200 mg Fish Oil] 2 cap PO DAILY Ezetimibe [Zetia] 10 mg PO DAILY Carvedilol [Coreg] 6.25 mg PO BID Aspirin EC [Ecotrin Low Dose] 81 mg PO DAILY Rosuvastatin [Crestor] 10 mg PO HS Changed Lisinopril [Zestril] 2.5 mg PO BID #0 Discharge Medication List Aspirin EC [Ecotrin Low Dose] 81 mg PO DAILY 12/17/18 [History] Carvedilol [Coreg] 6.25 mg PO BID 12/17/18 [History] Cholecalciferol [Vitamin D3 (25 Mcg = 1000 Iu)] 2,000 unit PO DAILY 12/17/18 [History] Ezetimibe [Zetia] 10 mg PO DAILY 12/17/18 [History] Fish Oil/Dha/Epa [Fish Oil 1,200 mg Fish Oil] 2 cap PO DAILY 12/17/18 [History] Levothyroxine Sodium [Synthroid] 100 mcg PO DAILY 12/17/18 [History] Rosuvastatin [Crestor] 10 mg PO HS 12/17/18 [History] Ubidecarenone [Co Q-10] 400 mg PO DAILY 12/17/18 [History] Furosemide [Lasix] 20 mg PO BID #60 tab 12/19/18 [Rx] Lisinopril [Zestril] 2.5 mg PO BID #0 12/19/18 [Rx] Follow up Appointment(s)/Referral(s): [place] Beaulieu MD [REFERRING] - 12/26/18 9:45 am Dewey Lombardo MD [Primary Care Provider] - 1 Week (Please call office when open) Patient Instructions/Handouts: Heart Failure (DC) Discharge Disposition: HOME SELF-CARE
[2018-12-19] MEDS ORDERED: FUROSEMIDE 20 MG TAB PO SCH (21:00)
== END 2018-12-19 16:37 | disposition home or self-care (01) | DRG 292 ==
LOC: EC 14:10 → 3SCARD 16:55 → OBSVTOIN 12-18 13:34
PROVIDERS: ADMIT Family Medicine; ATTEND Family Medicine
DX: I50.31 Acute diastolic (congestive) heart failure (principal); N17.9 Acute kidney failure, unspecified; N40.0 Benign prostatic hyperplasia without lower urinary tract symptoms; E78.5 Hyperlipidemia, unspecified; E03.9 Hypothyroidism, unspecified; N18.3 Chronic kidney disease, stage 3 (moderate); I25.10 Atherosclerotic heart disease of native coronary artery without angina pectoris; I25.5 Ischemic cardiomyopathy; I73.9 Peripheral vascular disease, unspecified; Z95.1 Presence of aortocoronary bypass graft; Z79.82 Long term (current) use of aspirin; I25.2 Old myocardial infarction; Z79.890 Hormone replacement therapy; Z79.899 Other long term (current) drug therapy; Z82.49 Family history of ischemic heart disease and other diseases of the circulatory system; Z86.73 Personal history of transient ischemic attack (TIA), and cerebral infarction without residual deficits; Z87.891 Personal history of nicotine dependence; Z98.890 Other specified postprocedural states
CPT/HCPCS: 36415; 71046; 80048; 80053; 81001; 83605; 83735; 83880; 84132; 84484; 85025; 85610; 85730; 93005; 93306; 96361; 96374; 99285

== ENCOUNTER → 2021-03-29 | Outpatient (CLI) | payer MEDICARE, OTHER ==
[2021-03-30 03:11] LABS: African American GFR (CKD) 65.3 (60.0-200.0); Anion Gap 12.5 mmol/L (10.00-18.00); BUN/Creat Ratio 14.92 Ratio (12.00-20.00); Blood Urea Nitrogen 17.9 mg/dL (9.0-27.0); Calcium 8.9 mg/dL (8.7-10.3); Carbon Dioxide 19.5 mmol/L (20.0-27.5); Magnesium 2.4 mg/dL (1.5-2.4); Non-African American GFR(CKD) 56.4 (60.0-200.0); Potassium 4.6 mmol/L (3.5-5.5)
== END | disposition home or self-care (01) ==
LOC: LABWHC1 13:59
PROVIDERS: ATTEND Specialist
DX: I42.8 Other cardiomyopathies (principal); I47.2 Ventricular tachycardia; E78.00 Pure hypercholesterolemia, unspecified; R06.02 Shortness of breath
CPT/HCPCS: 36415; 80048; 83735

== ENCOUNTER → 2021-04-04 | Outpatient (CLI) | payer MEDICARE, OTHER ==
[2021-04-05 05:08] LABS: African American GFR (CKD) 72.6 (60.0-200.0); Anion Gap 14.5 mmol/L (10.00-18.00); BUN/Creat Ratio 17.73 Ratio (12.00-20.00); Blood Urea Nitrogen 19.5 mg/dL (9.0-27.0); Calcium 9.5 mg/dL (8.7-10.3); Carbon Dioxide 21.5 mmol/L (20.0-27.5); Magnesium 2.2 mg/dL (1.5-2.4); Non-African American GFR(CKD) 62.6 (60.0-200.0); Potassium 4.7 mmol/L (3.5-5.5)
== END | disposition home or self-care (01) ==
LOC: LABWHC1 16:18
PROVIDERS: ATTEND Specialist
DX: I42.8 Other cardiomyopathies (principal); I47.2 Ventricular tachycardia; E78.00 Pure hypercholesterolemia, unspecified; R06.02 Shortness of breath
CPT/HCPCS: 36415; 80048; 83735

== ENCOUNTER 2022-10-06 05:56 | Inpatient (IN) | payer MEDICARE, OTHER ==
[2022-10-06] MEDS ORDERED: DEXTROSE 5% IN WATER 100 ML with AMIODARONE 150 MG IV ONE (06:04)
[2022-10-06] MEDS ORDERED: SODIUM CHLORIDE 0.9% 1,000 ML IV STA (06:06)
--- NOTE | 2022-10-06 06:10 | ED ---
General Adult HPI - General Stated complaint: Chest Pain - History of Present Illness Initial comments: Dictation was produced using [employer] dictation software. please excuse any grammatical, word or spelling errors. Chief Complaint: 82-year-old male past medical history of coronary artery disease, status post bypass presents to the ER for chest pain History of Present Illness: Is 82-year-old male presents emergency department for chief complaint of chest pain. Patient had a bout of chest pressure prompting him to call the EMS service. Upon EMS evaluation patient was slightly tachycardic. Initial assessment done by prehospital providers was SVT. Pro vided patient with 6 kg of adenosine followed by 12 mg of adenosine with no resolution. Patient is given aspirin. He did take nitro prior to EMS arrival. Patient states that his pain in his chest is gone he does complain of some neck pain. States that the pain is dull. Nonradiating. The ROS documented in this emergency department record has been reviewed and confirmed by me. Those systems with pertinent positive or negative responses have been documented in the HPI. All other systems are other negative and/or noncontributory. - Related Data Home Medications Medication Instructions Recorded Confirmed Aspirin EC [Ecotrin Low Dose] 81 mg PO DAILY 12/17/18 10/06/22 Cholecalciferol [Vitamin D3 (25 125 mcg PO DAILY 12/17/18 10/06/22 Mcg = 1000 Iu)] Ezetimibe [Zetia] 10 mg PO DAILY 12/17/18 10/06/22 Levothyroxine Sodium [Synthroid] 100 mcg PO DAILY 12/17/18 10/06/22 Ubidecarenone [Co Q-10] 100 mg PO DAILY 12/17/18 10/06/22 Ferrous Sulfate [Iron] 325 mg PO DAILY 10/06/22 10/06/22 Furosemide [Lasix] 20 mg PO DAILY@1400 10/06/22 10/06/22 Furosemide [Lasix] 40 mg PO DAILY 10/06/22 10/06/22 Midodrine HCl [ProAmatine] 10 mg PO TID 10/06/22 10/06/22 Pantoprazole [Protonix] 40 mg PO DAILY 10/06/22 10/06/22 Sacubitril/Valsartan [Entresto 24 0.5 tab PO BID 10/06/22 10/06/22 mg-26 mg Tablet] Spironolactone 25 mg PO DAILY 10/06/22 10/06/22 allopurinoL 100 mg PO DAILY 10/06/22 10/06/22 metOLazone 2.5 mg PO DAILY 10/06/22 10/06/22 Allergies Allergy/AdvReac Type Severity Reaction Status Date / Time No Known Allergies Allergy Verified 10/06/22 13:42 Review of Systems ROS Statement: Those systems with pertinent positive or pertinent negative responses have been documented in the HPI. ROS Other: All systems not noted in ROS Statement are negative. Past Medical History Past Medical History: Coronary Artery Disease (CAD), Chest Pain / Angina, Hyperlipidemia, Myocardial Infarction ([place]), Thyroid Disorder Last Myocardial Infarction Date:: 1990 History of Any Multi-Drug Resistant Organisms: None Reported Past Surgical History: Heart Catheterization, Orthopedic Surgery Additional Past Surgical History / Comment(s): cardiac bipass 2014. carotid artery surgery 2017 Past Anesthesia/Blood Transfusion Reactions: No Reported Reaction Past Psychological History: No Psychological Hx Reported Past Alcohol Use History: None Reported Past Drug Use History: None Reported - Past Family History Father Family Medical History: Coronary Artery Disease (CAD), Myocardial Infarction ([place]) Mother Family Medical History: Coronary Artery Disease (CAD), Myocardial Infarction ([place]) Brother(s) Family Medical History: Hypertension Sister(s) Family Medical History: Congestive Heart Failure (CHF) (Atrial fibrillation) Son(s) Family Medical History: No Reported History General Exam - General Exam Comments Initial Comments: PHYSICAL EXAM: General Impression: Alert and oriented x3, not in acute distress HEENT: Normocephalic atraumatic, extra-ocular movements intact, pupils equal and reactive to light bilaterally, mucous membranes moist. Cardiovascular: Tachycardic Chest: Able to complete full sentences, no retractions, no tachypnea Abdomen: abdomen soft, non-tender, non-distended, no organomegaly Musculoskeletal: Pulses present and equal in all extremities, no peripheral edema Motor: no focal deficits noted Neurological: CN II-XII grossly intact, no focal motor or sensory deficits noted Skin: Intact with no visualized rashes Psych: Normal affect and mood Course Vital Signs 10/06/22 10/06/22 10/06/22 05:56 07:30 08:22 Temperature 98.4 F Pulse Rate 160 H 70 68 Pulse Rate [ Left Pulse Oximetery] Respiratory 22 18 18 Rate Blood Pressure 92/68 91/71 90/62 Blood Pressure [Left Arm Supine] O2 Sat by Pulse 94 L 94 L 96 Oximetry 10/06/22 08:30 Temperature 98.4 F Pulse Rate Pulse Rate [ 64 Left Pulse Oximetery] Respiratory 17 Rate Blood Pressure Blood Pressure 86/53 [Left Arm Supine] O2 Sat by Pulse 97 Oximetry - Reevaluation(s) Reevaluation #1: 10/06/22 06:09 Patient seen and evaluated in trauma bay #2. Patient is hooked to the monitor. Monitors showed ventricular tachycardia. Patient appears to be in no acute distress. Mildly hypotensive however denies any chest pain. Clinical presentation consistent with stable ventricular tachycardia. Patient started on amiodarone therapy. EKG Findings - EKG Comments: EKG Findings:: My EKG interpretation: Ventricular rate 164, R complex tachycardia consistent with ventricular tachycardia. QRS 168, QTc 432. Previous EKG was reviewed showing patient has history of left bundle-branch blo ck however 2019 that QRS duration is 134. Procedures - Procedural Sedation *Procedural Sedation Start Time: 06:38 *Procedural Sedation Stop Time: 07:05 *Indications: other *Previous Adverse Reaction to Anesthesia/Sedation?: No *ASA Class: II *Mallampati Airway Score: 2 Preparation: tire installer applied, pulse oximeter, capnometry used, supplemental O2 applied, reversal agents at bedside, suction/airway equipment at bedside, IV secured IV Etomidate Dose (mgs): 20 Complications: hypoventilation Interventions: oxygen applied, airway repositioned, assist by BVM Patient Tolerated Procedure: well Medical Decision Making - Medical Decision Making Was pt. sent in by a medical professional or institution (, PA, PRECISION MACHINING INSTRUCTOR, urgent care, hospital, or long term...) When possible be specific @ -No Did you speak to anyone other than the patient for history (EMS, parent, family, police, friend...)? What history was obtained from this source @ -Case discussed with EMS as described above in the history of present illness Did you review nursing and triage notes (agree or disagree)? Why? @ -I reviewed and agree with nursing and triage notes Were old charts reviewed (outside hosp., previous admission, EMS record, old EKG, old radiological studies, urgent care reports/EKG's, long term records)? Report findings @ -No old charts were reviewed Differential Diagnosis (chest pain, altered mental status, abdominal pain women, abdominal pain men, vaginal bleeding, musculoskeletal, weakness, fever, dyspnea, syncope, headache, dizziness, GI bleed, back pain, seizure, CVA, palpatations, mental health)? @ -Differential Chest Pain: Stable Angina, Unstable Angina, STEMI, NSTEMI Aortic Dissection, Pneumothorax, Musculoskeletal, Esophageal Spasm GERD, Cholecystitis, Pancreatitis, Zoster, this is not meant to be an all-inclusive list. EKG interpreted by me (3pts min.). @ -See above X-rays interpreted by me (1pt min.). @ -Portable chest x-ray shows cardiomegaly with pulmonary vascular congestion CT interpreted by me (1pt min.). @ -None done U/S interpreted by me (1pt. min.). @ -None done What testing was considered but not performed or refused? (CT, X-rays, U/S, labs)? Why? @ -None What meds were considered but not given or refused? Why? @ -None Did you discuss the management of the patient with other professionals (professionals i.e. , PA, PRECISION MACHINING INSTRUCTOR, lab, RT, psych nurse, social insurance administrator, executive assistant to general counsel, teacher, minesweeping officer, case aide)? Give summary @ -Clinical presentation labs and cardioversion procedure with responses discussed with stone driller rn international Dr. Moctezuma Was smoking cessation discussed for >3mins.? @ -No Was critical care preformed (if so, how long)? @ -73 minutes Were there social determinants of health that impacted care today? How? (Homelessness, low income, unemployed, alcoholism, drug addiction, transportation, low edu. Level, literacy, decrease access to med. care, [facility], rehab)? @ -No Was there de-escalation of care discussed even if they declined (Discuss DNR or withdrawal of care, Hospice)? DNR status @ -No What co-morbidities impacted this encounter? (DM, HTN, Smoking, COPD, CAD, Cancer, CVA, ARF, Chemo, Hep., AIDS, mental health diagnosis, sleep apnea, morbid obesity)? @ -CD, history of bypass Was patient admitted / discharged? Hospital course, mention meds given and route, prescriptions, significant lab abnormalities, going to OR and other pertinent info. @ -82-year-old male presents emergency department for ACS. Upon arrival patient appeared to be in ventricular tachycardia. Initially he was stable however was slowly decompensating. Decision made to perform cardioversion. Conversion was successful and patient now and ventricular paced rhythm. There is some concern that perhaps there is a malfunctioning to his AICD pacemaker. Laboratory evaluation obtained. CBC, coag panel unremarkable. Creatinine is 2.83. There is a component of acute kidney injury. Troponin elevated 0.04. Patient started on heparin for ACS symptoms. He is currently on amiodarone infusion. Case is discussed with Dr. Moctezuma would does not feel the patient needs to be admitted to the ICU if he is stable. Patient reevaluated at bedside states that he feels much better and is chest pain free after cardioversion procedure. Undiagnosed new problem with uncertain prognosis? @ -No Drug Therapy requiring intensive monitoring for toxicity (Heparin, Nitro, Insulin, Cardizem)? @ -No Were any procedures done? @ -Synchronized cardioversion Diagnosis/symptom? Acute, or Chronic, or Acute on Chronic? Uncomplicated (without systemic symptoms) or Complicated (systemic symptoms)? @ -1. ACS, 2. Ventricular tachycardia Side effects of treatment? @ -No Exacerbation, Progression, or Severe Exacerbation? @ -No Poses a threat to life or bodily function? How? (Chest pain, [place], [place], pneumonia, PE, COPD, DKA, ARF, appy, cholecystitis, CVA, Diverticulitis, Homicidal, Suicidal, threat to staff... and all critical care pts) @ -yes - Lab Data Result diagrams: 10/06/22 06:26 10/07/22 03:20 Lab Results 10/06/22 10/06/22 10/06/22 Range/Units 06:26 06:26 06:26 WBC 7.6 (3.8-10.6) k/uL RBC 3.49 L (4.30-5.90) m/uL Hgb 10.9 L (13.0-17.5) gm/dL Hct 34.8 L (39.0-53.0) % MCV 99.8 (80.0-100.0) fL MCH 31.3 (25.0-35.0) pg MCHC 31.4 (31.0-37.0) g/dL RDW 18.3 H (11.5-15.5) % Plt Count 234 (150-450) k/uL MPV 7.9 Neutrophils % 82 % Lymphocytes % 7 % Monocytes % 6 % Eosinophils % 2 % Basophils % 0 % Neutrophils # 6.2 (1.3-7.7) k/uL Lymphocytes # 0.5 L (1.0-4.8) k/uL Monocytes # 0.4 (0-1.0) k/uL Eosinophils # 0.1 (0-0.7) k/uL Basophils # 0.0 (0-0.2) k/uL Anisocytosis Slight Macrocytosis Slight PT 11.9 (9.0-12.0) sec INR 1.2 H (<1.2) APTT 25.4 (22.0-30.0) sec Sodium 137 (137-145) mmol/L Potassium 4.2 (3.5-5.1) mmol/L Chloride 101 (98-107) mmol/L Carbon Dioxide 22 (22-30) mmol/L Anion Gap 14 mmol/L BUN 72 H (9-20) mg/dL Creatinine 2.83 H (0.66-1.25) mg/dL Est GFR (CKD-EPI)AfAm 23 (>60 ml/min/1.73 sqM) Est GFR (CKD-EPI)NonAf 20 (>60 ml/min/1.73 sqM) Glucose 122 H (74-99) mg/dL Plasma Lactic Acid Jamari (0.7-2.0) mmol/L Calcium 9.6 (8.4-10.2) mg/dL Magnesium 2.4 H (1.6-2.3) mg/dL Total Bilirubin 1.2 (0.2-1.3) mg/dL AST 33 (17-59) U/L ALT 20 (4-49) U/L Alkaline Phosphatase 95 (38-126) U/L Troponin I (0.000-0.034) ng/mL NT-Pro-B Natriuret Pep pg/mL Total Protein 8.2 (6.3-8.2) g/dL Albumin 4.2 (3.5-5.0) g/dL 10/06/22 10/06/22 10/06/22 Range/Units 06:26 06:26 06:26 WBC (3.8-10.6) k/uL RBC (4.30-5.90) m/uL Hgb (13.0-17.5) gm/dL Hct (39.0-53.0) % MCV (80.0-100.0) fL MCH (25.0-35.0) pg MCHC (31.0-37.0) g/dL RDW (11.5-15.5) % Plt Count (150-450) k/uL MPV Neutrophils % % Lymphocytes % % Monocytes % % Eosinophils % % Basophils % % Neutrophils # (1.3-7.7) k/uL Lymphocytes # (1.0-4.8) k/uL Monocytes # (0-1.0) k/uL Eosinophils # (0-0.7) k/uL Basophils # (0-0.2) k/uL Anisocytosis Macrocytosis PT (9.0-12.0) sec INR (<1.2) APTT (22.0-30.0) sec Sodium (137-145) mmol/L Potassium (3.5-5.1) mmol/L Chloride (98-107) mmol/L Carbon Dioxide (22-30) mmol/L Anion Gap mmol/L BUN (9-20) mg/dL Creatinine (0.66-1.25) mg/dL Est GFR (CKD-EPI)AfAm (>60 ml/min/1.73 sqM) Est GFR (CKD-EPI)NonAf (>60 ml/min/1.73 sqM) Glucose (74-99) mg/dL Plasma Lactic Acid Jamari 1.6 (0.7-2.0) mmol/L Calcium (8.4-10.2) mg/dL Magnesium (1.6-2.3) mg/dL Total Bilirubin (0.2-1.3) mg/dL AST (17-59) U/L ALT (4-49) U/L Alkaline Phosphatase (38-126) U/L Troponin I 0.040 H* (0.000-0.034) ng/mL NT-Pro-B Natriuret Pep 38593 pg/mL Total Protein (6.3-8.2) g/dL Albumin (3.5-5.0) g/dL Disposition Clinical Impression: V-tach, ACS (acute coronary syndrome) Disposition: ADMITTED IP TO THIS HOSP Condition: Critical
[2022-10-06] MEDS ORDERED: AMIODARONE 360 MG in DEXTROSE 5% IN WATER 200 ML IV ONE ×2 (06:15)
[2022-10-06 06:41] LABS: Anisocytosis Slight; Basophils % (A) 0 %; Eosinophils # (A) 0.1 k/uL (0-0.7); Eosinophils % (A) 2 %; HCT 34.8 % (39.0-53.0); HGB 10.9 gm/dL (13.0-17.5); Lymphocytes # (A) 0.5 k/uL (1.0-4.8); Lymphocytes % (A) 7 %; MCH 31.3 pg (25.0-35.0); MCHC 31.4 g/dL (31.0-37.0); MCV 99.8 fL (80.0-100.0); Macrocytosis Slight; Mean Platelet Volume 7.9; Monocytes # (A) 0.4 k/uL (0-1.0); Monocytes % (A) 6 %; Neutrophils # (A) 6.2 k/uL (1.3-7.7); Neutrophils % (A) 82 %; Platelet Count 234 k/uL (150-450); RBC 3.49 m/uL (4.30-5.90); RDW 18.3 % (11.5-15.5); WBC 7.6 k/uL (3.8-10.6)
--- NOTE | 2022-10-06 06:53 | XR ---
EXAMINATION TYPE: XR chest 1V portable DATE OF EXAM: 10/06/2022 6:38 AM COMPARISON: Chest radiographs from 12/18/2018 TECHNIQUE: XR chest 1V portable Frontal view of the chest. CLINICAL INDICATION:Male, 82 years old with history of vtach; FINDINGS: Lungs/Pleura: There is no evidence of pleural effusion, focal consolidation, or pneumothorax. Pulmonary vascularity: And mild pulmonary vascular congestion. Heart/mediastinum: Cardiomediastinal silhouette is enlarged and stable. Atherosclerotic calcificatio ns are seen in the aorta. Three lead cardiac conduction device overlying the left hemithorax with saw d tips projecting over the right ventricle, right atrium and coronary sinus. Musculoskeletal: No acute osseous pathology. IMPRESSION: Cardiomegaly there may be mild pulmonary vascular congestion. Correlate with BNP for congestive heart failure.
[2022-10-06 06:54] LABS: ALT 20 U/L (4-49); AST 33 U/L (17-59); African American GFR (CKD) 23 (>60 ml/min/1.73 sqM); Albumin 4.2 g/dL (3.5-5.0); Alkaline Phosphatase 95 U/L (38-126); Anion Gap 14 mmol/L; Blood Urea Nitrogen 72 mg/dL (9-20); Calcium 9.6 mg/dL (8.4-10.2); Carbon Dioxide 22 mmol/L (22-30); Chloride 101 mmol/L (98-107); Glucose 122 mg/dL (74-99); Magnesium 2.4 mg/dL (1.6-2.3); Non-African American GFR(CKD) 20 (>60 ml/min/1.73 sqM); Potassium 4.2 mmol/L (3.5-5.1); Sodium 137 mmol/L (137-145); Total Bilirubin 1.2 mg/dL (0.2-1.3); Total Protein 8.2 g/dL (6.3-8.2)
[2022-10-06 06:55] LABS: INR 1.2 (<1.2); Partial Thromboplastin Time 25.4 sec (22.0-30.0); Prothrombin Time 11.9 sec (9.0-12.0)
[2022-10-06] MEDS ORDERED: HEPARIN SODIUM 1,000 UN/ML (10ML VL) IV PRN (07:15)
[2022-10-06] MEDS ORDERED: HEPARIN SODIUM 1,000 UN/ML (10ML VL) IV ONE (07:15)
[2022-10-06] MEDS ORDERED: NALOXONE 0.4 MG/ML 1 ML VIAL IV PRN (07:21)
--- NOTE | 2022-10-06 10:53 | P.HPIM ---
History of Present Illness 82-year-old with history of for CABG in the past could not a disease EF of around 30-35% has a pacemaker in place came in tachycardic was initially believed to have SVT was given a dose and without any resolution of symptoms and patient was subsequently cardioverted thinking patient may have V. tach. Brief evaluation and assessment of defibrillator revealed that the pacemaker is not functioning appropriately. Patient creatinine went up to 2.83 baseline is around 1. Patient denied any orthopnea proximal nocturnal dyspnea although chest x-ray showed some pulmonary edema BNP is elevated to 11,000 troponin is mildly elevated patient was having chest pain. Patient is presently on amiodarone. Patient is any fever chills patient denied any cough with sputum production patient blood pressure is low. REVIEW OF SYSTEMS: CONSTITUTIONAL: No fever, no malaise, no fatigue. HEENT: No recent visual problems or hearing problems. Denied any sore throat. CARDIOVASCULAR: No orthopnea, PND, no palpitations, no syncope. PULMONARY: No shortness of breath, no cough, no hemoptysis. GASTROINTESTINAL: No diarrhea, no nausea, no vomiting, no abdominal pain. NEUROLOGICAL: No headaches, no weakness, no numbness. HEMATOLOGICAL: Denies any bleeding or petechiae. GENITOURINARY: Denies any burning micturition, frequency, or urgency. MUSCULOSKELETAL/RHEUMATOLOGICAL: Denies any joint pain, swelling, or any muscle pain. ENDOCRINE: Denies any polyuria or polydipsia. The rest of the 14-point review of systems is negative. PHYSICAL EXAMINATION: GENERAL: The patient is alert and oriented x3, not in any acute distress. Well developed, well nourished. HEENT: Pupils are round and equally reacting to light. EOMI. No scleral icterus. No conjunctival pallor. Normocephalic, atraumatic. No pharyngeal erythema. No thyromegaly. CARDIOVASCULAR: S1 and S2 present. No murmurs, rubs, or gallops. PULMONARY: Chest is clear to auscultation, no wheezing or crackles. ABDOMEN: Soft, nontender, nondistended, normoactive bowel sounds. No palpable organomegaly. MUSCULOSKELETAL: No joint swelling or deformity. EXTREMITIES: No cyanosis or clubbing, bilateral lower extremity pitting pedal edema extending up to the midshin area NEUROLOGICAL: Gross neurological examination did not reveal any focal deficits. SKIN: No rashes. Assessment and plan -Ventricular tachycardia versus SVT: Patient will be continued on amiodarone drip, cardiology will evaluate the patient pacemaker evaluation. Patient may need an echocardiogram with addition to cardiology. -Continue start failure chronic systolic dysfunction with mild acute exacerb ation patient was started on IV Lasix weekly patient will be given Lasix if his blood pressure can tolerate with the urine output monitoring -Acute renal failure: Probably secondary to heart failure exacerbation as well as medications which includes entresto which will be held -Hyperlipidemia -Coronary artery disease with CABG in the past -hyperthyroidism -Chest pain, with a troponin elevation type I ND cannot be ruled out cardiology evaluation continue with IV heparin DVT prophylaxis: Patient is on IV heparin Past Medical History Past Medical History: Coronary Artery Disease (CAD), Chest Pain / Angina, Hyperlipidemia, Myocardial Infarction ([place]), Thyroid Disorder Last Myocardial Infarction Date:: 1990 History of Any Multi-Drug Resistant Organisms: None Reported Past Surgical History: Heart Catheterization, Orthopedic Surgery Additional Past Surgical History / Comment(s): cardiac bipass 2014. carotid artery surgery 2016 Past Anesthesia/Blood Transfusion Reactions: No Reported Reaction Past Psychological History: No Psychological Hx Reported Past Alcohol Use History: None Reported Past Drug Use History: None Reported - Past Family History Father Family Medical History: Coronary Artery Disease (CAD), Myocardial Infarction ([place]) Mother Family Medical History: Coronary Artery Disease (CAD), Myocardial Infarction ([place]) Brother(s) Family Medical History: Hypertension Sister(s) Family Medical History: Congestive Heart Failure (CHF) (Atrial fibrillation) Son(s) Family Medical History: No Reported History Medications and Allergies Home Medications Medication Instructions Recorded Confirmed Type Aspirin EC [Ecotrin Low Dose] 81 mg PO DAILY 12/17/18 10/06/22 History Cholecalciferol [Vitamin D3 (25 125 mcg PO DAILY 12/17/18 10/06/22 History Mcg = 1000 Iu)] Ezetimibe [Zetia] 10 mg PO DAILY 12/17/18 10/06/22 History Levothyroxine Sodium [Synthroid] 100 mcg PO DAILY 12/17/18 10/06/22 History Ubidecarenone [Co Q-10] 100 mg PO DAILY 12/17/18 10/06/22 History Ferrous Sulfate [Iron] 325 mg PO DAILY 10/06/22 10/06/22 History Furosemide [Lasix] 20 mg PO DAILY 10/06/22 10/06/22 History Furosemide [Lasix] 40 mg PO DAILY 10/06/22 10/06/22 History Midodrine HCl [ProAmatine] 10 mg PO TID 10/06/22 10/06/22 History Pantoprazole [Protonix] 40 mg PO DAILY 10/06/22 10/06/22 History Sacubitril/Valsartan [Entresto 24 0.5 tab PO BID 10/06/22 10/06/22 History mg-26 mg Tablet] Spironolactone 25 mg PO DAILY 10/06/22 10/06/22 History allopurinoL 100 mg PO DAILY 10/06/22 10/06/22 History metOLazone 2.5 mg PO DAILY 10/06/22 10/06/22 History Allergies Allergy/AdvReac Type Severity Reaction Status Date / Time No Known Allergies Allergy Verified 12/17/18 17:15 Physical Exam Vitals: Vital Signs Temp Pulse Resp BP Pulse Ox 10/06/22 09:27 98 10/06/22 08:22 68 18 90/62 96 10/06/22 07:30 70 18 91/71 94 L 10/06/22 05:56 98.4 F 160 H 22 92/68 94 L Intake and Output 10/05/22 10/06/22 10/06/22 22:59 06:59 14:59 Intake Total 540 Output Total 0 Balance 540 Intake: Oral 540 Output: Urine 0 Other: Weight 80.286 kg Results CBC & Chem 7: 10/06/22 06:26 10/06/22 06:26 Labs: Abnormal Lab Results - Last 24 Hours (Table) 10/06/22 10/06/22 10/06/22 Range/Units 06:26 06:26 06:26 RBC 3.49 L (4.30-5.90) m/uL Hgb 10.9 L (13.0-17.5) gm/dL Hct 34.8 L (39.0-53.0) % RDW 18.3 H (11.5-15.5) % Lymphocytes # 0.5 L (1.0-4.8) k/uL INR 1.2 H (<1.2) BUN 72 H (9-20) mg/dL Creatinine 2.83 H (0.66-1.25) mg/dL Glucose 122 H (74-99) mg/dL Magnesium 2.4 H (1.6-2.3) mg/dL Troponin I (0.000-0.034) ng/mL 10/06/22 Range/Units 06:26 RBC (4.30-5.90) m/uL Hgb (13.0-17.5) gm/dL Hct (39.0-53.0) % RDW (11.5-15.5) % Lymphocytes # (1.0-4.8) k/uL INR (<1.2) BUN (9-20) mg/dL Creatinine (0.66-1.25) mg/dL Glucose (74-99) mg/dL Magnesium (1.6-2.3) mg/dL Troponin I 0.040 H* (0.000-0.034) ng/mL
[2022-10-06] MEDS ORDERED: FUROSEMIDE 10 MG/ML 4 ML VIAL IV SCH (11:00)
[2022-10-06] MEDS: AMIODARONE 450 MG in DEXTROSE 5% IN WATER 250 ML IV SCH ×2 (11:53)
[2022-10-06] MEDS: HEPARIN SOD,PORK IN 0.45% NACL 25,000 UNIT in 0.45% NACL 1 250ML.BAG IV SCH (12:01)
[2022-10-06] MEDS: SODIUM CHLORIDE 0.9% 1,000 ML IV SCH (12:01)
[2022-10-06] MEDS: MIDODRINE 5 MG TAB PO SCH ×2 (12:16→16:50)
--- NOTE | 2022-10-06 12:54 | P.CRDCN ---
History of Present Illness Consult date: 10/06/22 Chief complaint: Chest pain History of present illness: The patient is an 82-year-old gentleman with CAD and status post CABG was performed in [place] long time ago with unknown details as well as history of ischemic cardiomyopathy status post AICD as well as dyslipidemia as well as chronic kidney disease. The patient was brought to the hospital by ambulance. He was in his usual state of health until yesterday when he was laying in bed reading a book and suddenly he started experiencing discomfort in the chest associated with a feeling of heart racing. No dizziness or lightheadedness and no presyncope or syncope. Subsequently he called ambulance and when the ambulance was arrived he was diagnosed with "SVT" where he received 6 mg of adenosine and subsequently 12 mg of adenosine with no improvement. Subsequently the patient was brought to the hospital where an EKG was performed and showed wide complex rhythm and he received cardioversion. The EKG following that showed atrial sensed ventricular paced rhythm. He was slightly hypotensive with a systolic pressure in the 80s and 90s millimeters mercury. He also underwent further workup including first set of troponin came in to be slightly abnormal and creatinine came in to be abnormal. He is known to have chronic kidney disease is definitely above the baseline. Beside that he underwent NT proBNP came in to be elevated. The chest x-ray did not show any acute abnormalities. He was admitted to the hospital and started on Lasix IV as well as midodrine. The patient was seen and evaluated at bedside today. He is still having mild ongoing chest discomfort about 5/10 in intensity but definitely has improved compared to before. Further blood work ordered including second set of troponin as well as an echocardiogram is in process to be done. The last echocardiogram was in 2018 showing an EF between 30-35%. Currently the patient is on heparin as well as is on amiodarone IV. He does not recall receiving any shock. The examination is remarkable for distant heart sounds with a systolic murmur at the right and left upper sternal border with clear breathing sounds bilaterally and no lower extremities edema noted Assessment Chest discomfort Evidence of myocardial injury Wide complex tachycardia, differential diagnosis is ventricular tachycardia versus with aberrancy Hypotension Acute on chronic renal failure likely secondary to hypotension History of CAD and status post CABG History of ischemic cardiomyopathy and status post AICD Plan Continue amiodarone IV Continue heparin IV Continue aspirin and add Plavix to the current medical regimen Decrease the dose of Lasix IV in the light of low blood pressure Add a small dose of beta yoseph to the current medical regimen Add statin to the current medical regimen Obtain an echocardiogram for further risk stratification Serial cardiac enzymes Further recommendation to follow and assess the need for coronary angiogram Past Medical History Past Medical History: Coronary Artery Disease (CAD), Chest Pain / Angina, Hyperlipidemia, Myocardial Infarction ([place]), Thyroid Disorder Last Myocardial Infarction Date:: 1990 History of Any Multi-Drug Resistant Organisms: None Reported Past Surgical History: Heart Catheterization, Orthopedic Surgery Additional Past Surgical History / Comment(s): cardiac bipass 2014. carotid artery surgery 2017 Past Anesthesia/Blood Transfusion Reactions: No Reported Reaction Past Psychological History: No Psychological Hx Reported Past Alcohol Use History: None Reported Past Drug Use History: None Reported - Past Family History Father Family Medical History: Coronary Artery Disease (CAD), Myocardial Infarction ([place]) Mother Family Medical History: Coronary Artery Disease (CAD), Myocardial Infarction ([place]) Brother(s) Family Medical History: Hypertension Sister(s) Family Medical History: Congestive Heart Failure (CHF) (Atrial fibrillation) Son(s) Family Medical History: No Reported History Medications and Allergies Home Medications Medication Instructions Recorded Confirmed Type Aspirin EC [Ecotrin Low Dose] 81 mg PO DAILY 12/17/18 10/06/22 History Cholecalciferol [Vitamin D3 (25 125 mcg PO DAILY 12/17/18 10/06/22 History Mcg = 1000 Iu)] Ezetimibe [Zetia] 10 mg PO DAILY 12/17/18 10/06/22 History Levothyroxine Sodium [Synthroid] 100 mcg PO DAILY 12/17/18 10/06/22 History Ubidecarenone [Co Q-10] 100 mg PO DAILY 12/17/18 10/06/22 History Ferrous Sulfate [Iron] 325 mg PO DAILY 10/06/22 10/06/22 History Furosemide [Lasix] 20 mg PO DAILY 10/06/22 10/06/22 History Furosemide [Lasix] 40 mg PO DAILY 10/06/22 10/06/22 History Midodrine HCl [ProAmatine] 10 mg PO TID 10/06/22 10/06/22 History Pantoprazole [Protonix] 40 mg PO DAILY 10/06/22 10/06/22 History Sacubitril/Valsartan [Entresto 24 0.5 tab PO BID 10/06/22 10/06/22 History mg-26 mg Tablet] Spironolactone 25 mg PO DAILY 10/06/22 10/06/22 History allopurinoL 100 mg PO DAILY 10/06/22 10/06/22 History metOLazone 2.5 mg PO DAILY 10/06/22 10/06/22 History Allergies Allergy/AdvReac Type Severity Reaction Status Date / Time No Known Allergies Allergy Verified 12/17/18 17:15 Physical Exam Vitals: Vital Signs Temp Pulse Pulse Resp BP BP Pulse Ox 10/06/22 12:17 81/53 10/06/22 11:51 98.4 F 64 17 78/51 98 10/06/22 09:27 98 10/06/22 08:30 98.4 F 67 17 86/53 97 10/06/22 08:22 68 18 90/62 96 10/06/22 07:30 70 18 91/71 94 L 10/06/22 05:56 98.4 F 160 H 22 92/68 94 L Intake and Output 10/05/22 10/06/22 10/06/22 22:59 06:59 14:59 Intake Total 540 Output Total 0 Balance 540 Intake: Oral 540 Output: Urine 0 Other: # Voids 1 Weight 80.286 kg Results 10/06/22 06:26 10/06/22 06:26 Cardiac Enzymes 10/06/22 10/06/22 Range/Units 06:26 06:26 AST 33 (17-59) U/L Troponin I 0.040 H* (0.000-0.034) ng/mL Coagulation 10/06/22 Range/Units 06:26 PT 11.9 (9.0-12.0) sec APTT 25.4 (22.0-30.0) sec CBC 10/06/22 Range/Units 06:26 WBC 7.6 (3.8-10.6) k/uL RBC 3.49 L (4.30-5.90) m/uL Hgb 10.9 L (13.0-17.5) gm/dL Hct 34.8 L (39.0-53.0) % Plt Count 234 (150-450) k/uL Comprehensive Metabolic Panel 10/06/22 Range/Units 06:26 Sodium 137 (137-145) mmol/L Potassium 4.2 (3.5-5.1) mmol/L Chloride 101 (98-107) mmol/L Carbon Dioxide 22 (22-30) mmol/L BUN 72 H (9-20) mg/dL Creatinine 2.83 H (0.66-1.25) mg/dL Glucose 122 H (74-99) mg/dL Calcium 9.6 (8.4-10.2) mg/dL AST 33 (17-59) U/L ALT 20 (4-49) U/L Alkaline Phosphatase 95 (38-126) U/L Total Protein 8.2 (6.3-8.2) g/dL Albumin 4.2 (3.5-5.0) g/dL Current Medications Generic Name Dose Route Start Last Admin Trade Name Freq PRN Reason Stop Dose Admin Allopurinol 100 mg 10/07/22 09:00 Allopurinol 100 Mg Tab PO DAILY [facility] Aspirin 81 mg 10/07/22 09:00 Aspirin 81 Mg PO DAILY [facility] Clopidogrel Bisulfate 75 mg 10/07/22 09:00 Clopidogrel 75 Mg Tab PO DAILY [facility] Furosemide 20 mg 10/06/22 21:00 Furosemide 10 Mg/Ml 2 Ml Vial IV Q12HR [facility] Heparin Sodium (Porcine) 0 unit 10/06/22 07:15 Heparin Sodium 1,000 Un/Ml (10ml Vl) IV PER PROTOCOL PRN Low PTT Protocol Amiodarone HCl 450 mg/ 250 mls @ 16.667 mls/hr 10/06/22 12:15 10/06/22 11:53 Dextrose/Water IV 10/07/22 06:14 0.5 mg/min .Q15H [facility] 16.667 mls/hr Administration Protocol 0.5 MG/MIN Heparin Sodium/Sodium Chloride 250 mls @ 9.634 mls/hr 10/06/22 07:15 10/06/22 12:01 25,000 unit/ Sodium Chloride IV 12 units/kg/hr .Q24H [facility] 9.634 mls/hr Administration Protocol 12 UNITS/KG/HR Sodium Chloride 1,000 mls @ 20 mls/hr 10/06/22 07:30 10/06/22 12:01 Saline 0.9% IV 20 mls/hr .Q24H [facility] Administration Levothyroxine Sodium 100 mcg 10/07/22 06:30 Levothyroxine 100 Mcg Tab PO DAILY@0630 [facility] Metoprolol Tartrate 12.5 mg 10/06/22 21:00 Metoprolol Tartrate 12.5 Mg Tab PO BID [facility] Midodrine 10 mg 10/06/22 12:30 10/06/22 12:16 Midodrine 5 Mg Tab PO 10 mg AC-TID [facility] Administration Naloxone HCl 0.2 mg 10/06/22 07:21 Naloxone 0.4 Mg/Ml 1 Ml Vial IV Q2M PRN Opioid Reversal Pantoprazole Sodium 40 mg 10/07/22 07:30 Pantoprazole 40 Mg Tablet PO AC-BRKFST [facility] Intake and Output 10/05/22 10/06/22 10/06/22 22:59 06:59 14:59 Intake Total 540 Output Total 0 Balance 540 Intake: Oral 540 Output: Urine 0 Other: # Voids 1 Weight 80.286 kg 10/06/22 06:26 10/06/22 06:26
[2022-10-06] MEDS ORDERED: MORPHINE SULFATE 2 MG/ML SYRINGE IVP PRN ×2 (17:23)
[2022-10-06] MEDS ORDERED: METOPROLOL TARTRATE 12.5 MG TAB PO SCH (21:00)
[2022-10-06] MEDS: FUROSEMIDE 10 MG/ML 2 ML VIAL IV SCH (21:21)
[2022-10-07] MEDS: AMIODARONE 450 MG in DEXTROSE 5% IN WATER 250 ML IV SCH ×2 (01:46)
[2022-10-07 04:37] LABS: African American GFR (CKD) 20 (>60 ml/min/1.73 sqM); Anion Gap 11 mmol/L; Blood Urea Nitrogen 79 mg/dL (9-20); Calcium 8.5 mg/dL (8.4-10.2); Carbon Dioxide 20 mmol/L (22-30); Chloride 102 mmol/L (98-107); Glucose 94 mg/dL (74-99); Magnesium 2.3 mg/dL (1.6-2.3); Non-African American GFR(CKD) 17 (>60 ml/min/1.73 sqM); Potassium 4.6 mmol/L (3.5-5.1); Sodium 133 mmol/L (137-145)
[2022-10-07] MEDS: PANTOPRAZOLE 40 MG TABLET PO SCH (06:41)
[2022-10-07] MEDS: LEVOTHYROXINE 100 MCG TAB PO SCH (06:41)
[2022-10-07] MEDS: MIDODRINE 5 MG TAB PO SCH ×3 (06:41→17:52)
--- NOTE | 2022-10-07 07:23 | P.PN ---
Subjective Progress Note Date: 10/07/22 Principal diagnosis: Acute coronary syndrome The patient is an 82-year-old gentleman with CAD and status post CABG was performed in [place] long time ago with unknown details as well as history of ischemic cardiomyopathy status post AICD as well as dyslipidemia as well as chronic kidney disease. The patient was seen by myself in the office recently as a new patient a few weeks ago. The patient was brought to the hospital by ambulance. He was in his usual state of health until yesterday when he was laying in bed reading a book and suddenly he started experiencing discomfort in the chest associated with a feeling of heart racing. No dizziness or lightheadedness and no presyncope or syncope. Subsequently he called ambulance and when the ambulance was arrived he was diagnosed with "SVT" where he received 6 mg of adenosine and subsequently 12 mg of adenosine with no improvement. Subsequently the patient was brought to the hospital where an EKG was performed and showed wide complex rhythm and he received cardioversion. The EKG following that showed atrial sensed ventricular paced rhythm. He was slightly hypotensive with a systolic pressure in the 80s and 90s millimeters mercury. He also underwent further workup including first set of troponin came in to be slightly abnormal and creatinine came in to be abnormal. He is known to have chronic kidney disease is definitely above the baseline. Beside that he underwent NT proBNP came in to be elevated. The chest x-ray did not show any acute abnormalities. He was admitted to the hospital and started on Lasix IV as well as midodrine. The patient was seen and evaluated at bedside today. He is still having mild ongoing chest discomfort about 5/10 in intensity but definitely has improved compared to before. Further blood work ordered including second set of troponin as well as an echocardiogram is in process to be done. The last echocardiogram was in 2018 showing an EF between 30-35%. Currently the patient is on heparin as well as is on amiodarone IV. He does not recall receiving any shock. October [id number] The patient was seen and evaluated this morning. Currently he is chest pain- free. Unfortunately his creatinine is worse today. Yesterday I decrease the dose of Lasix and I will suggest to stop the Lasix completely but I would leave that to the nephrology team. He is not in any overt heart failure at this point. The hemoglobin from this morning continues to be pending. His vitals are stable with a soft blood pressure. I'm going to stop the Lopressor which could be contributing to the low blood pressure contributing to worsening kidney function. Beside that I will suggest to stop the Lasix. In addition to that he is on dual antiplatelet therapy and statin which we are going to continue. He is on amiodarone IV which going to switch him to amiodarone by mouth. The AICD interrogation was reviewed and showed ventricular tachycardia terminated by antitachycardia pacing. I would hold on doing any heart catheterization at this point in the light off worsening kidney function as well as the absence of any chest pain or chest discomfort. We will consider doing the heart catheterization once the creatinine is back to baseline. The examination is remarkable for distant heart sounds with a systolic murmur at the right and left upper sternal border with clear breathing sounds bilaterally and no lower extremities edema noted Assessment Chest discomfort which has improved Evidence of myocardial injury Sustained ventricular tachycardia Hypotension Acute on chronic renal failure likely secondary to hypotension History of CAD and status post CABG History of ischemic cardiomyopathy and status post AICD Plan Follow up on the echocardiogram DC amiodarone IV and start the patient on amiodarone orally DC metoprolol Continue dual antiplatelet therapy as well as intermediate intensity statin The Lasix to be addressed by the nephrology team. Hold on doing heart catheterization at this point in the light of worsening kidney function Follow-up with the patient Objective - Vital Signs Vital signs: Vital Signs Temp 98.4 F 10/07/22 04:00 Pulse 52 L 10/07/22 04:00 Resp 16 10/07/22 04:00 BP 93/58 10/07/22 04:00 Pulse Ox 96 10/07/22 04:00 FiO2 Intake & Output 10/06/22 10/07/22 10/07/22 18:59 06:59 18:59 Intake Total 1198 972.713 Output Total 0 150 Balance 1198 822.713 Weight 80.286 kg Intake: Intake, IV Titration 432.713 Amount Amiodarone 450 mg In 231.394 Dextrose 5% in Water 250 ml @ 0.5 MG/MIN 16.667 mls/hr IV .Q15H [facility] Rx#: [id number] Heparin Sod,Pork in 0.45% 201.319 NaCl 25,000 unit In 0.45 % NaCl 1 250ml.bag @ 12 UNITS/KG/HR 9.634 mls/hr IV .Q24H [facility] Rx#: [id number] Oral 1198 540 Output: Urine 0 150 Other: Voiding Method Urinal Urinal # Voids 2 # Bowel Movements 1 - Labs CBC & Chem 7: 10/06/22 06:26 10/07/22 03:20 Labs: Abnormal Lab Results - Last 24 Hours (Table) 10/06/22 10/06/22 10/07/22 Range/Units 13:15 17:54 03:20 APTT 39.1 H (22.0-30.0) sec Sodium 133 L (137-145) mmol/L Carbon Dioxide 20 L (22-30) mmol/L BUN 79 H (9-20) mg/dL Creatinine 3.19 H (0.66-1.25) mg/dL Troponin I 0.849 H* (0.000-0.034) ng/mL 10/07/22 Range/Units 03:20 APTT 91.6 H (22.0-30.0) sec Sodium (137-145) mmol/L Carbon Dioxide (22-30) mmol/L BUN (9-20) mg/dL Creatinine (0.66-1.25) mg/dL Troponin I (0.000-0.034) ng/mL
[2022-10-07] MEDS: FUROSEMIDE 10 MG/ML 2 ML VIAL IV SCH ×2 (10:08→20:53)
[2022-10-07] MEDS: AMIODARONE 200 MG TAB PO SCH ×2 (10:15→20:53)
--- NOTE | 2022-10-07 11:05 | P.PN ---
Subjective 82-year-old with history of for CABG in the past could not a disease EF of around 30-35% has a pacemaker in place came in tachycardic was initially believed to have SVT was given a dose and without any resolution of symptoms and patient was subsequently cardioverted thinking patient may have V. tach. Brief evaluation and assessment of defibrillator revealed that the pacemaker is not functioning appropriately. Patient creatinine went up to 2.83 baseline is around 1. Patient denied any orthopnea proximal nocturnal dyspnea although chest x-ray showed some pulmonary edema BNP is elevated to 11,000 troponin is mildly elevated patient was having chest pain. Patient is presently on amiodarone. Patient is any fever chills patient denied any cough with sputum production patient blood pressure is low. 10/07/2022 Patient overall clinical condition is bit worse with patient is more short of breath, patient still has bilateral pedal edema. Blood pressure remains low, patient creatinine went up to 3.19 and hyponatremic patient is unable to receive any Lasix. Patient may need dobutamine. Patient remains on amiodarone. Nephrology was consulted. Constitutional: Denied any fatigue denied any fever. Cardio vascular: No chest pain but does have shortness of breath Gastrointestinal denied any nausea vomiting Pulmonary: As mentioned above Neurologic denied any new focal deficits All inpatient medications were reviewed and appropriate changes in these medications as dictated in the interval history and assessment and plan. PHYSICAL EXAMINATION: GENERAL: The patient is alert and oriented x3, not in any acute distress. Well d eveloped, well nourished. HEENT: Pupils are round and equally reacting to light. EOMI. No scleral icterus. No conjunctival pallor. Normocephalic, atraumatic. No pharyngeal erythema. No thyromegaly. CARDIOVASCULAR: S1 and S2 present. No murmurs, rubs, or gallops. PULMONARY: Chest is clear to auscultation, no wheezing or crackles. ABDOMEN: Soft, nontender, nondistended, normoactive bowel sounds. No palpable organomegaly. MUSCULOSKELETAL: No joint swelling or deformity. EXTREMITIES: No cyanosis or clubbing, bilateral lower extremity pitting pedal edema extending up to the midshin area NEUROLOGICAL: Gross neurological examination did not reveal any focal deficits. SKIN: No rashes. Assessment and plan -Ventricular tachycardia versus SVT: Patient will be continued on amiodarone drip, cardiology will evaluate the patient pacemaker evaluation. Echocardiogram showed EF of around 30-35% -Continue start failure chronic systolic dysfunction with mild acute exacerbation patient was started on IV Lasix, patient did not receive Lasix because of poor renal function patient will be given Lasix if his blood pressure can tolerate with the urine output monitoring. Patient may need a dobutamine drip -Acute renal failure: Probably secondary to heart failure exacerbation as well as medications which includes entresto which will be held -Hyperlipidemia -Coronary artery disease with CABG in the past -hyperthyroidism -Chest pain, with a troponin elevation type I MO cannot be ruled out cardiology evaluation continue with IV heparin Objective - Vital Signs Vital signs: Vital Signs Temp 98.4 F 10/07/22 08:15 Pulse 55 L 10/07/22 08:15 Resp 18 10/07/22 08:15 BP 79/43 10/07/22 08:15 Pulse Ox 92 L 10/07/22 09:11 FiO2 Intake & Output 10/06/22 10/07/22 10/07/22 18:59 06:59 18:59 Intake Total 1198 972.713 32.728 Output Total 0 150 Balance 1198 822.713 32.728 Weight 80.286 kg Intake: Intake, IV Titration 432.713 32.728 Amount Amiodarone 450 mg In 231.394 Dextrose 5% in Water 250 ml @ 0.5 MG/MIN 16.667 mls/hr IV .Q15H [facility] Rx#: [id number] Heparin Sod,Pork in 0.45% 201.319 32.728 NaCl 25,000 unit In 0.45 % NaCl 1 250ml.bag @ 12 UNITS/KG/HR 9.634 mls/hr IV .Q24H [facility] Rx#: [id number] Oral 1198 540 Output: Urine 0 150 Other: Voiding Method Urinal Urinal Urinal # Voids 2 # Bowel Movements 1 - Labs CBC & Chem 7: 10/06/22 06:26 10/07/22 03:20 Labs: Abnormal Lab Results - Last 24 Hours (Table) 10/06/22 10/06/22 10/07/22 Range/Units 13:15 17:54 03:20 APTT 39.1 H (22.0-30.0) sec Sodium 133 L (137-145) mmol/L Carbon Dioxide 20 L (22-30) mmol/L BUN 79 H (9-20) mg/dL Creatinine 3.19 H (0.66-1.25) mg/dL Troponin I 0.849 H* (0.000-0.034) ng/mL 10/07/22 Range/Units 03:20 APTT 91.6 H (22.0-30.0) sec Sodium (137-145) mmol/L Carbon Dioxide (22-30) mmol/L BUN (9-20) mg/dL Creatinine (0.66-1.25) mg/dL Troponin I (0.000-0.034) ng/mL
--- NOTE | 2022-10-07 11:59 | P.NPCON ---
History of Present Illness - Reason for Consult acute renal failure - History of Present Illness Patient is an 82-year-old male with history of coronary artery disease and cardiomyopathy with ejection fraction of 30-35%. Patient was admitted to the hospital with complaints of chest pain and shortness of breath. EMS was called and patient states that he was diagnosed with SVT and received adenosine. Noted to have wide complex tachycardia and is currently maintained on amiodarone which was switched to oral this morning. Chest x-ray shows evidence of pulmonary vascular congestion. Patient is current ly being diuresed. Maintained on 3 L nasal cannula with O2 sats at 92-96% Blood pressure has been low with systolic in the 70s and 80s. Maintained on midodrine Patient has been voiding however urine output is not accurately charted. He has not voided at all this morning. Review of Systems As per HPI. Past Medical History Past Medical History: Coronary Artery Disease (CAD), Chest Pain / Angina, Hyperlipidemia, Myocardial Infarction ([place]), Thyroid Disorder Last Myocardial Infarction Date:: 1990 History of Any Multi-Drug Resistant Organisms: None Reported Past Surgical History: Heart Catheterization, Orthopedic Surgery Additional Past Surgical History / Comment(s): cardiac bipass 2014. carotid artery surgery 2017 Past Anesthesia/Blood Transfusion Reactions: No Reported Reaction Past Psychological History: No Psychological Hx Reported Past Alcohol Use History: None Reported Past Drug Use History: None Reported - Past Family History Father Family Medical History: Coronary Artery Disease (CAD), Myocardial Infarction ([place]) Mother Family Medical History: Coronary Artery Disease (CAD), Myocardial Infarction ([place]) Brother(s) Family Medical History: Hypertension Sister(s) Family Medical History: Congestive Heart Failure (CHF) (Atrial fibrillation) Son(s) Family Medical History: No Reported History Medications and Allergies Home Medications Medication Instructions Recorded Confirmed Type Aspirin EC [Ecotrin Low Dose] 81 mg PO DAILY 12/17/18 10/06/22 History Cholecalciferol [Vitamin D3 (25 125 mcg PO DAILY 12/17/18 10/06/22 History Mcg = 1000 Iu)] Ezetimibe [Zetia] 10 mg PO DAILY 12/17/18 10/06/22 History Levothyroxine Sodium [Synthroid] 100 mcg PO DAILY 12/17/18 10/06/22 History Ubidecarenone [Co Q-10] 100 mg PO DAILY 12/17/18 10/06/22 History Ferrous Sulfate [Iron] 325 mg PO DAILY 10/06/22 10/06/22 History Furosemide [Lasix] 20 mg PO DAILY@1400 10/06/22 10/06/22 History Furosemide [Lasix] 40 mg PO DAILY 10/06/22 10/06/22 History Midodrine HCl [ProAmatine] 10 mg PO TID 10/06/22 10/06/22 History Pantoprazole [Protonix] 40 mg PO DAILY 10/06/22 10/06/22 History Sacubitril/Valsartan [Entresto 24 0.5 tab PO BID 10/06/22 10/06/22 History mg-26 mg Tablet] Spironolactone 25 mg PO DAILY 10/06/22 10/06/22 History allopurinoL 100 mg PO DAILY 10/06/22 10/06/22 History metOLazone 2.5 mg PO DAILY 10/06/22 10/06/22 History Allergies Allergy/AdvReac Type Severity Reaction Status Date / Time No Known Allergies Allergy Verified 10/06/22 13:42 Physical Exam Vitals: Vital Signs Temp Pulse Resp BP BP Pulse Ox 10/07/22 09:11 92 L 10/07/22 08:15 98.4 F 55 L 18 79/43 83/52 95 10/07/22 08:00 55 L 18 10/07/22 04:00 98.4 F 52 L 16 93/58 96 10/07/22 02:00 61 16 10/07/22 00:00 97.1 F L 61 16 96/57 97 10/06/22 20:00 97.2 F L 60 16 88/52 97 10/06/22 15:27 98.1 F 64 16 92/54 98 10/06/22 13:52 64 17 10/06/22 12:17 81/53 10/06/22 11:51 98.4 F 64 17 78/51 98 Intake and Output 10/06/22 10/07/22 10/07/22 22:59 06:59 14:59 Intake Total 1150.489 362.224 32.728 Output Total 150 Balance 1150.489 212.224 32.728 Intake: Intake, IV Titration 70.489 362.224 32.728 Amount Amiodarone 450 mg In 231.394 Dextrose 5% in Water 250 ml @ 0.5 MG/MIN 16.667 mls/hr IV .Q[facility]H [facility] Rx#: [id number] Heparin Sod,Pork in 0.45% 70.489 130.83 32.728 NaCl 25,000 unit In 0.45 % NaCl 1 250ml.bag @ 12 UNITS/KG/HR 9.634 mls/hr IV .Q24H [facility] Rx#: [id number] Oral 1080 0 Output: Urine 150 Other: Voiding Method Urinal Urinal Urinal # Voids 2 # Bowel Movements 1 Patient is awake, comfortable, in no acute distress. Examination of the heart S1 and S2 Examination of the lungs decreased breath sounds at the bases with basilar crackles Abdomen is soft nontender Examination of the lower extremities shows no significant edema [employer] exam grossly intact Results - Lab Results Most recent lab results Calcium 8.5 mg/dL (8.4-10.2) 10/07/22 03:20 Magnesium 2.3 mg/dL (1.6-2.3) 10/07/22 03:20 10/06/22 06:26 10/07/22 03:20 Assessment and Plan Assessment: 1. Acute kidney injury, cardiorenal , currently oliguric. Rule out urine retention. Blood pressure remains low and patient is maintained on midodrine. Check urine analysis. Lasix was decreased. 2. Ischemic cardiomyopathy with ejection fraction 30-35% status post AICD 3. Elevated troponins with possible acute [place] 4. Sustained ventricular tachycardia maintained on amiodarone 5. CHF, acute on chronic, systolic with decreased ejection fraction at 30-35% Plan: Check bladder scan and rule out urine retention Check urine analysis Continue current dose of IV Lasix Repeat chest x-ray Consider inotropic agents given the significantly low ejection fraction and hypotension. Check ultrasound of the kidneys next Thank you for the consultation. We will continue to follow the patient with you during his hospitalization.
[2022-10-07] MEDS: HEPARIN SOD,PORK IN 0.45% NACL 25,000 UNIT in 0.45% NACL 1 250ML.BAG IV SCH (12:08)
[2022-10-07] MEDS: SODIUM CHLORIDE 0.9% 1,000 ML IV SCH (12:10)
[2022-10-07] MEDS: ONDANSETRON 4 MG/2 ML VIAL IVP PRN ×2 (13:21→20:53)
[2022-10-07] MEDS: allopurinoL 100 MG TAB PO SCH (13:21)
[2022-10-07] MEDS: ASPIRIN 81 MG PO SCH (13:25)
[2022-10-07] MEDS: CLOPIDOGREL 75 MG TAB PO SCH (13:25)
--- NOTE | 2022-10-07 13:52 | XR ---
EXAMINATION TYPE: XR chest 1V DATE OF EXAM: 10/07/2022 1:24 PM COMPARISON: Chest radiographs from 10/06/2022 TECHNIQUE: XR chest 1V Frontal view of the chest. CLINICAL INDICATION:Male, 82 years old with history of chf; FINDINGS: Lungs/Pleura: There is no evidence of pleural effusion, focal consolidation, or pneumothorax. Pulmonary vascularity: Unremarkable. Heart/mediastinum: Cardiomediastinal silhouette is enlarged and stable. Atherosclerotic calcificatio ns are seen in the aorta. Three lead cardiac conduction device overlying the left hemithorax with saw d tips projecting over the right ventricle, right atrium and coronary sinus. Musculoskeletal: No acute osseous pathology. IMPRESSION: Cardiomegaly without evidence for acute heart failure at this time.
--- NOTE | 2022-10-07 14:39 | US ---
EXAMINATION TYPE: US kidneys/renal and bladder DATE OF EXAM: 10/07/2022 COMPARISON: NONE CLINICAL INDICATION: Male, 82 years old with history of carson; CARSON EXAM MEASUREMENTS: Right Kidney: 10.5 x 4.9 x 5.1 cm Left Kidney: 10.9 x 5.1 x 5.7 cm Right Kidney: Cortex appears thin Left Kidney: Cortex appears thin Bladder: Not fully distended-unable to evaluate due to bladder being almost empty. Bilateral Jets seen: No Fluid was seen within the midline lower abdomen near the bladder. IMPRESSION: 1. No evidence for obstructive uropathy. 2. Trace ascites. 3. Cortical thinning suggestive of medical renal disease.
--- NOTE | 2022-10-07 15:26 | CA ---
Transthoracic Echo Report Name: Ayo Hernandez Age: 82 Gender: M : 1940 Exam Date: 10/06/2022 14:07 Exam Location: [facility] Ht (in): 70 Wt (lb): 177 Ordering Physician: George Moctezuma MD ([id number]) Attending/Referring Phys: Portfolio Specialist Luann Hsu RDCS Procedure CPT: Indications: Chest Pain Cardiac Hx: Technical Quality: Good Contrast 1: Total Dose (mL): Contrast 2: Total Dose (mL): MEASUREMENTS (Male / Female) Normal Values 2D ECHO LV Diastolic Diameter PLAX 6.1 cm 4.2 - 5.9 / 3.9 - 5.3 cm LV Systolic Diameter PLAX 5.2 cm IVS Diastolic Thickness 1.2 cm 0.6 - 1.0 / 0.6 - 0.9 cm LVPW Diastolic Thickness 1.0 cm 0.6 - 1.0 / 0.6 - 0.9 cm LV Relative Wall Thickness 0.4 RV Internal Dim ED PLAX 3.5 cm LA Systolic Diameter LX 4.3 cm 3.0 - 4.0 / 2.7 - 3.8 cm LV Diastolic Volume MOD BP 196.4 cm??? 67 - 155 / 56 - 104 cm??? LV Systolic Volume MOD BP 129.9 cm??? 22 - 58 / 19 - 49 cm??? LV Ejection Fraction MOD BP 33.9 % >= 55 % LV Diastolic Volume MOD 4C 183.8 cm??? LV Systolic Volume MOD 4C 129.4 cm??? LV Ejection Fraction MOD 4C 29.6 % LV Diastolic Length 4C 8.5 cm LV Systolic Length 4C 7.9 cm LV Diastolic Volume MOD 2C 196.6 cm??? LV Systolic Volume MOD 2C 126.0 cm??? LV Ejection Fraction MOD 2C 35.9 % LV Diastolic Length 2C 9.2 cm LV Systolic Length 2C 8.4 cm LA Volume 62.5 cm??? 18 - 58 / 22 - 52 cm??? M-MODE Aortic Root Diameter MM 2.9 cm MV E Point Septal Separation 1.8 cm AV Cusp Separation MM 2.1 cm DOPPLER AV Peak Velocity 120.2 cm/s AV Peak Gradient 5.8 mmHg MV Area PHT 3.9 cm??? MV Deceleration Time 250.4 ms TR Peak Velocity 277.1 cm/s TR Peak Gradient 30.7 mmHg Right Ventricular Systolic Press 35.6 mmHg FINDINGS Left Ventricle Left ventricular ejection fraction is estimated at 20 %. Severely increased left ventricular systolicMildly increased septal wall thickness. Mildly increased left ventricular diastolic diameter. Moderately increased left ventricular diastolic volume. Severely increased left ventricular systolic volume. Severly decreased left ventricular ejection fraction. Right Ventricle Mild right ventricular dilatation. Mild pulmonary hypertension. Right Atrium Normal right atrial size. Left Atrium Mildly increased left atrial diameter. Mildly increased left atrial volume. Mitral Valve Mitral valve thickened. Mild mitral annular calcification. [id number] mitral regurgitation. Aortic Valve Aortic valve not well visualized. Aortic valve sclerosis. Tricuspid Valve Structurally normal tricuspid valve. Moderate tricuspid regurgitation. Pulmonic Valve Pulmonic valve not well visualized. Pericardium Normal pericardium. No pericardial effusion. Aorta Normal size aortic root and proximal ascending aorta. CONCLUSIONS Dilated LV with severely impaired LV function and EF at to 20% with global hypokinesia Intact mitral valve leaflets with moderate to severe mitral regurgitation likely secondary to cardiomyopathy Mild pulmonary hypertension Moderate tricuspid regurgitation Previewed by: Dr. George Moctezuma MD (Electronically Signed) Final Date: 07 October 2022 15:25
[2022-10-07] MEDS: ACETAMINOPHEN TAB 325 MG TAB PO PRN (22:29)
[2022-10-08 00:55] LABS: Appearance,Urine Cloudy (Clear); Bilirubin,Urine 1+ (Negative); Blood,Urine Negative (Negative); Color,Urine Dark Yellow; Glucose,Urine (UA) Negative (Negative); Hyaline Casts,Urine 28 /lpf (0-2); Ketones,Urine Trace (Negative); Leukocyte Esterase,Urine Negative (Negative); Mucus,Urine Rare /hpf; Nitrite,Urine Negative (Negative); Protein,Urine 1+ (Negative); RBC,Urine 1 /hpf (0-5); Specific Gravity,Urine 1.019 (1.001-1.035); Squamous Epithelial Cell,Urine 3 /hpf (0-4); WBC,Urine 5 /hpf (0-5)
[2022-10-08] MEDS: CALCIUM CARBONATE 500 MG CHEWABLE PO PRN ×2 (02:00→21:03)
[2022-10-08] MEDS: MIDODRINE 5 MG TAB PO SCH ×3 (06:21→16:40)
[2022-10-08] MEDS: LEVOTHYROXINE 100 MCG TAB PO SCH (06:21)
[2022-10-08] MEDS: PANTOPRAZOLE 40 MG TABLET PO SCH (06:21)
[2022-10-08] MEDS: SODIUM CHLORIDE 0.9% 1,000 ML IV SCH (06:22)
[2022-10-08] MEDS: CLOPIDOGREL 75 MG TAB PO SCH (08:19)
[2022-10-08] MEDS: ASPIRIN 81 MG PO SCH (08:19)
[2022-10-08] MEDS: AMIODARONE 200 MG TAB PO SCH ×2 (08:19→20:53)
[2022-10-08] MEDS: allopurinoL 100 MG TAB PO SCH (08:19)
[2022-10-08 09:01] LABS: African American GFR (CKD) 13 (>60 ml/min/1.73 sqM); Anion Gap 17 mmol/L; Blood Urea Nitrogen 96 mg/dL (9-20); Calcium 8.7 mg/dL (8.4-10.2); Carbon Dioxide 16 mmol/L (22-30); Chloride 98 mmol/L (98-107); Glucose 97 mg/dL (74-99); Non-African American GFR(CKD) 12 (>60 ml/min/1.73 sqM); Potassium 4.8 mmol/L (3.5-5.1); Sodium 131 mmol/L (137-145)
[2022-10-08] MEDS: FUROSEMIDE 10 MG/ML 2 ML VIAL IV SCH (09:53)
[2022-10-08] MEDS: HEPARIN SOD,PORK IN 0.45% NACL 25,000 UNIT in 0.45% NACL 1 250ML.BAG IV SCH ×2 (09:54→22:58)
[2022-10-08] MEDS: METOPROLOL TARTRATE 12.5 MG TAB PO SCH ×2 (09:57→20:53)
[2022-10-08] MEDS: FUROSEMIDE 40 MG TAB PO SCH (09:57)
[2022-10-08] MEDS ORDERED: SODIUM CHLORIDE 0.9% 500 ML 250 ML IV ONE (10:57)
[2022-10-08] MEDS ORDERED: SODIUM CHLORIDE 0.9% 1,000 ML IV SCH (11:00)
[2022-10-08] MEDS ORDERED: SODIUM CHLORIDE 0.9% 250 ML IV ONE (11:34)
--- NOTE | 2022-10-08 11:52 | P.PN ---
Subjective Patient is seen for follow-up for acute kidney injury. Patient has underlying cardiomyopathy with ejection fraction of 30-35%. He was admitted to the hospital with shortness of breath and noted to be in SVT and wide-complex tachycardia for which he is maintained on amiodarone. Initial chest x-ray showed evidence of pulmonary vascular congestion and patient was being diuresed. Blood pressure has been low with systolic in the 70s and 80s Renal function has been progressively worsening with serum creatinine up to 4.4 today from 2.8 on initial admission. Previous creatinine 1.1 on 04/04/2021. Patient has been voiding No urine retention Ultrasound is unremarkable Diuretics have been decreased. Patient is maintained on midodrine. Chest x-ray from yesterday did not show significant pulmonary vascular congestion. O2 sats 94% on 2 L nasal cannula. Troponins have been borderline elevated at 0.849 with no plans for urgent cardiac catheterization. Objective - Vital Signs Vital signs: Vital Signs Temp 97.6 F 10/08/22 08:00 Pulse 55 L 10/08/22 11:09 Resp 18 10/08/22 11:09 BP 81/53 10/08/22 11:09 Pulse Ox 94 L 10/08/22 11:09 FiO2 Intake & Output 10/07/22 10/08/22 10/08/22 18:59 06:59 18:59 Intake Total 92.752 45.119 172.955 Output Total 168 Balance -75.248 45.119 172.955 Weight 89.5 kg Intake: Intake, IV Titration 92.752 45.119 54.955 Amount Heparin Sod,Pork in 0.45% 92.752 45.119 54.955 NaCl 25,000 unit In 0.45 % NaCl 1 250ml.bag @ 12 UNITS/KG/HR 9.634 mls/hr IV .Q24H [facility] Rx#: [id number] Oral 0 118 Output: Post Void Residual 168 Other: Voiding Method Urinal Urinal Urinal - Exam Patient is awake, comfortable, no acute distress Alert oriented 3 Examination of the heart S1 and S2 Examination of the lungs bilateral breath sounds are heard Decreased breath sounds at the bases Abdomen is soft nontender Examination of lower extremities shows no significant edema. - Labs CBC & Chem 7: 10/06/22 06:26 10/08/22 07:55 Labs: Abnormal Lab Results - Last 24 Hours (Table) 10/07/22 10/08/22 10/08/22 Range/Units 16:35 00:06 00:10 APTT 94.4 H 59.2 H (22.0-30.0) sec Sodium (137-145) mmol/L Carbon Dioxide (22-30) mmol/L BUN (9-20) mg/dL Creatinine (0.66-1.25) mg/dL Urine Protein 1+ H (Negative) Urine Ketones Trace H (Negative) Urine Bilirubin 1+ H (Negative) Hyaline Casts 28 H (0-2) /lpf Urine Mucus Rare H (None) /hpf 10/08/22 10/08/22 Range/Units 07:55 07:55 APTT 50.4 H (22.0-30.0) sec Sodium 131 L (137-145) mmol/L Carbon Dioxide 16 L (22-30) mmol/L BUN 96 H (9-20) mg/dL Creatinine 4.41 H (0.66-1.25) mg/dL Urine Protein (Negative) Urine Ketones (Negative) Urine Bilirubin (Negative) Hyaline Casts (0-2) /lpf Urine Mucus (None) /hpf Assessment and Plan Assessment: 1. Acute kidney injury, cardiorenal , currently oliguric. No evidence of urine retention. Blood pressure remains low and patient is maintained on midodrine. UA is benign. Lasix has been decreased. 2. Ischemic cardiomyopathy with ejection fraction 30-35% status post AICD 3. Elevated troponins with possible acute ID 4. Sustained ventricular tachycardia maintained on amiodarone 5. CHF, acute on chronic, systolic with decreased ejection fraction at 30-35%. Clinically not in significant failure. Plan: Challenge with IV fluids Check cortisol to rule out other causes of hypotension Continue with midodrine Place Armando catheter Repeat labs in a.m. Avoid any other nephrotoxic agents.
--- NOTE | 2022-10-08 12:01 | P.PN ---
Subjective Progress Note Date: 10/08/22 Acute coronary syndrome The patient is an 82-year-old gentleman with CAD and status post CABG was performed in [place] long time ago with unknown details as well as history of ischemic cardiomyopathy status post AICD as well as dyslipidemia as well as chronic kidney disease. The patient was seen by myself in the office recently as a new patient a few weeks ago. The patient was brought to the hospital by ambulance. He was in his usual state of health until yesterday when he was laying in bed reading a book and suddenly he started experiencing discomfort in the chest associated with a feeling of heart racing. No dizziness or lightheadedness and no presyncope or syncope. Subsequently he called ambulance and when the ambulance was arrived he was diagnosed with "SVT" where he received 6 mg of adenosine and subsequently 12 mg of adenosine with no improvement. Subsequently the patient was brought to the hospital where an EKG was performed and showed wide complex rhythm and he received cardioversion. The EKG following that showed atrial sensed ventricular paced rhythm. He was slightly hypotensive with a systolic pressure in the 80s and 90s millimeters mercury. He also underwent further workup including first set of troponin came in to be slightly abnormal and creatinine came in to be abnormal. He is known to have chronic kidney disease is definitely above the baseline. Beside that he underwent NT proBNP came in to be elevated. The chest x-ray did not show any acute abnormalities. He was admitted to the hospital and started on Lasix IV as well as midodrine. The patient was seen and evaluated at bedside today. He is still having mild ongoing chest discomfort about 5/10 in intensity but definitely has improved compared to before. Further blood work ordered including second set of troponin as well as an echocardiogram is in process to be done. The last echocardiogram was in 2018 showing an EF between 30-35%. Currently the patient is on heparin as well as is on amiodarone IV. He does not recall receiving any shock. October 072022 The patient was seen and evaluated this morning. Currently he is chest pain- free. Unfortunately his creatinine is worse today. Yesterday I decrease the dose of Lasix and I will suggest to stop the Lasix completely but I would leave that to the nephrology team. He is not in any overt heart failure at this point. The hemoglobin from this morning continues to be pending. His vitals are stable with a soft blood pressure. I'm going to stop the Lopressor which could be contributing to the low blood pressure contributing to worsening kidney function. Beside that I will suggest to stop the Lasix. In addition to that he is on dual antiplatelet therapy and statin which we are going to continue. He is on amiodarone IV which going to switch him to amiodarone by mouth. The AICD interrogation was reviewed and showed ventricular tachycardia terminated by antitachycardia pacing. I would hold on doing any heart catheterization at this point in the light off worsening kidney function as well as the absence of any chest pain or chest discomfort. We will consider doing the heart catheterization once the creatinine is back to baseline. 10/08 Patient has been seen today in follow-up. Patient had IV Lasix order which has been held because of low blood pressures, systolics in the 80s. Heart rate is in the 50s. BUN is 96 and creatinine 4.41. Chest x-ray cardiomegaly without evidence of acute heart failure. Echocardiogram reveals dilated LV with severely impaired LV function EF 20% with global hypokinesia. Intact mitral valve leaflets with moderate to severe mitral regurgitation likely secondary to cardiomyopathy. Mild pulmonary hypertension. Moderate tricuspid regurgitation. The examination is remarkable for distant heart sounds with a systolic murmur at the right and left upper sternal border with clear breathing sounds bilaterally and no lower extremities edema noted Assessment Chest discomfort which has resolved Evidence of myocardial injury Sustained ventricular tachycardia Hypotension Acute on chronic renal failure likely secondary to hypotension History of CAD and status post CABG History of ischemic cardiomyopathy and status post AICD Plan Continue patient on oral amiodarone, resume low-dose metoprolol 12.5 mg twice daily Discontinue IV Lasix and start patient back on lower dose of home Lasix 40 mg daily only if okay with nephrology Continue dual antiplatelet therapy as well as intermediate intensity statin Hold on doing heart catheterization at this point in the light of worsening kidney function Follow-up with the patient Nurse practitioner note has been reviewed, I agree with the documented findings and plan of care. Patient was seen and examined. Objective - Vital Signs Vital signs: Vital Signs Temp 97.6 F 10/08/22 08:00 Pulse 50 L 10/08/22 08:00 Resp 18 10/08/22 02:00 BP 91/55 10/08/22 08:00 Pulse Ox 98 10/08/22 08:00 FiO2 Intake & Output 10/07/22 10/08/22 10/08/22 18:59 06:59 18:59 Intake Total 92.752 45.119 118 Output Total 168 Balance -75.248 45.119 118 Weight 89.5 kg Intake: Intake, IV Titration 92.752 45.119 Amount Heparin Sod,Pork in 0.45% 92.752 45.119 NaCl 25,000 unit In 0.45 % NaCl 1 250ml.bag @ 12 UNITS/KG/HR 9.634 mls/hr IV .Q24H [facility] Rx#: [id number] Oral 0 118 Output: Post Void Residual 168 Other: Voiding Method Urinal Urinal - Labs CBC & Chem 7: 10/06/22 06:26 10/08/22 07:55 Labs: Abnormal Lab Results - Last 24 Hours (Table) 10/07/22 10/08/22 10/08/22 Range/Units 16:35 00:06 00:10 APTT 94.4 H 59.2 H (22.0-30.0) sec Sodium (137-145) mmol/L Carbon Dioxide (22-30) mmol/L BUN (9-20) mg/dL Creatinine (0.66-1.25) mg/dL Urine Protein 1+ H (Negative) Urine Ketones Trace H (Negative) Urine Bilirubin 1+ H (Negative) Hyaline Casts 28 H (0-2) /lpf Urine Mucus Rare H (None) /hpf 10/08/22 10/08/22 Range/Units 07:55 07:55 APTT 50.4 H (22.0-30.0) sec Sodium 131 L (137-145) mmol/L Carbon Dioxide 16 L (22-30) mmol/L BUN 96 H (9-20) mg/dL Creatinine 4.41 H (0.66-1.25) mg/dL Urine Protein (Negative) Urine Ketones (Negative) Urine Bilirubin (Negative) Hyaline Casts (0-2) /lpf Urine Mucus (None) /hpf
[2022-10-08] MEDS: DEXTROSE 5% IN WATER 1,000 ML with SODIUM BICARB (1 MEQ/ML) 150 ML IV SCH (20:53)
--- NOTE | 2022-10-09 03:28 | PN ---
PROGRESS NOTE DATE OF SERVICE: 10/08/2022 SUBJECTIVE: This is an 82-year-old gentleman who was admitted after ventricle tachycardia, was on amiodarone drip. The patient also had CHF. The patient was closely monitored. No chest pain, no palpitations, no fever. The patient also has renal failure, creatinine is 4.41. PAST MEDICAL HISTORY: Reviewed. REVIEW OF SYSTEMS: A 14-point review is negative except as mentioned earlier. CURRENT MEDICATIONS: Reviewed, Cordarone 400 mg, rest of the medications and rest of the dose also reviewed. OBJECTIVE: VITAL SIGNS: Pulse is 53, blood pressure 82/56, respirations 18. HEENT: Conjunctivae normal. NECK: No jugular venous distention. CARDIOVASCULAR: S1, S2. RESPIRATIONS: Few scattered rhonchi. ABDOMEN: Soft. NERVOUS SYSTEM: Nonfocal. LABORATORY DATA: Reviewed. ASSESSMENT: 1. Ventricular tachycardia, sustained. 2. Ejection fraction 30% to 35% with chronic systolic CHF. 3. Acute renal failure, possibly multifactorial. 4. Hyperlipidemia. 5. CAD, CABG. 6. Hyperthyroidism. 7. Multiple medical issues. RECOMMENDATIONS AND DISCUSSION: Recommended to continue current medications, continue symptomatic treatment. Otherwise, incentive spirometry. Will monitor creatinine closely which is worsening at this point and closely follow with Cardiology, Nephrology. Prognosis extremely guarded. Further recommendations to follow, see orders for details. MMODL / IJN: [id number] /
[2022-10-09] MEDS: PANTOPRAZOLE 40 MG TABLET PO SCH (05:47)
[2022-10-09] MEDS: LEVOTHYROXINE 100 MCG TAB PO SCH (05:47)
[2022-10-09] MEDS: MIDODRINE 5 MG TAB PO SCH ×3 (05:47→16:57)
[2022-10-09] MEDS: FUROSEMIDE 40 MG TAB PO SCH (08:33)
[2022-10-09] MEDS: allopurinoL 100 MG TAB PO SCH (08:33)
[2022-10-09] MEDS: METOPROLOL TARTRATE 12.5 MG TAB PO SCH ×2 (08:33→19:57)
[2022-10-09] MEDS: ASPIRIN 81 MG PO SCH (08:33)
[2022-10-09] MEDS: AMIODARONE 200 MG TAB PO SCH ×2 (08:33→19:55)
[2022-10-09] MEDS: CALCIUM CARBONATE 500 MG CHEWABLE PO PRN (08:33)
[2022-10-09] MEDS: CLOPIDOGREL 75 MG TAB PO SCH (08:33)
[2022-10-09 08:49] LABS: Anisocytosis Slight; Basophils # (A) 0.1 k/uL (0-0.2); Basophils % (A) 1 %; Eosinophils # (A) 0.1 k/uL (0-0.7); Eosinophils % (A) 1 %; HGB 10.8 gm/dL (13.0-17.5); Hypochromasia Slight; Lymphocytes # (A) 0.6 k/uL (1.0-4.8); Lymphocytes % (A) 5 %; MCH 32.6 pg (25.0-35.0); MCHC 31.7 g/dL (31.0-37.0); MCV 102.9 fL (80.0-100.0); Macrocytosis Moderate; Mean Platelet Volume 8.5; Monocytes # (A) 0.7 k/uL (0-1.0); Monocytes % (A) 7 %; Neutrophils # (A) 8.6 k/uL (1.3-7.7); Neutrophils % (A) 84 %; Platelet Count 239 k/uL (150-450); RDW 18.6 % (11.5-15.5); WBC 10.2 k/uL (3.8-10.6)
[2022-10-09 09:12] LABS: ALT 78 U/L (4-49); AST 143 U/L (17-59); African American GFR (CKD) 11 (>60 ml/min/1.73 sqM); Albumin 3.6 g/dL (3.5-5.0); Alkaline Phosphatase 80 U/L (38-126); Anion Gap 18 mmol/L; Calcium 8.6 mg/dL (8.4-10.2); Carbon Dioxide 16 mmol/L (22-30); Chloride 97 mmol/L (98-107); Glucose 96 mg/dL (74-99); Non-African American GFR(CKD) 10 (>60 ml/min/1.73 sqM); Potassium 4.9 mmol/L (3.5-5.1); Sodium 131 mmol/L (137-145); Total Bilirubin 1.9 mg/dL (0.2-1.3); Total Protein 7.3 g/dL (6.3-8.2)
[2022-10-09 09:30] LABS: Blood Urea Nitrogen 105 mg/dL (9-20)
--- NOTE | 2022-10-09 11:54 | CDI ---
Documentation Clarification Form Date: 10/09/2022 11:36:35 AM From: Carrie Jovel RN CCDS Phone: [phone] Admit Date: 10/06/2022 07:22:00 AM Patient Name: Ayo Hernandez Visit Number: [id number] Discharge Date: ATTENTION: The Clinical Documentation Specialists (CDI) and [facility] Coding Staff appreciate your assistance in clarifying documentation. Please respond to the clarification below the line at the bottom and electronically sign. The CDI & [facility] Coding staff will review the response and follow-up if needed. Please note: Queries are made part of the Legal Health Record. If you have any questions, please contact the author of this message via ITS. Dr. Yvonne Ruano Chronic systolic dysfunction with mild dysfunction with mild acute exacerbation. H&P, 10/06, but is not noted in subsequent documentation. Clarification is requested. History/Risk Factors: 82-year-old male presents with chest pain and pressure. EMS initial evaluation the patient was tachycardia and in SVT. Medical history: CHF, Pacemaker, CAD, Chest pain / Angina; OR and CAD. Clinical Indicators: VSS: 10/06: B/P 92/68; HR 160; Temp 98.4 F Oral; RR 22; SpO2 94% room air BNP , 10/06: 29683 Troponin I, 10/06: 0.040; 0.849 CXR, 10/06: Cardiomegaly there may be mild pulmonary vascular congestion. Treatment: 10/06 10/08 Lasix iv 20 mg Q12HR; 10/06 Lopressor 12.5mg PO x 1; 10/08 Lasix 40mg PO daily; 10/08 Lopressor 12.5mg PO BID Please clarify if the Acute systolic heart failure is: [ ] Acute and chronic systolic heart failure confirmed, remains under treatment [ ] Acute and chronic systolic heart failure confirmed, resolved [ ] Acute systolic heart failure ruled out [ ] Other condition, please specify [ ] Unable to determine (Template Last Revised: June 2020) Acute and chronic systolic heart failure confirmed, remains under treatment MTDD
--- NOTE | 2022-10-09 12:17 | CDI ---
Documentation Clarification Form Date: 10/09/2022 11:55:53 AM From: Carrie Jovel RN CCDS Phone: [phone] Admit Date: 10/06/2022 07:22:00 AM Patient Name: Ayo Hernandez Visit Number: [id number] Discharge Date: ATTENTION: The Clinical Documentation Specialists (CDI) and [facility] Coding Staff appreciate your assistance in clarifying documentation. Please respond to the clarification below the line at the bottom and electronically sign. The CDI & [facility] Coding staff will review the response and follow-up if needed. Please note: Queries are made part of the Legal Health Record. If you have any questions, please contact the author of this message via ITS. Dr. Yvonne Ruano Type 1 CT is documented H&P, 10/06 and Medicine note, 10/07, but is not noted in subsequent documentation. Clarification is requested. History/Risk Factors: 82-year-old male presents with chest pain and pressure. EMS initial evaluation the patient was tachycardia and in SVT. Medical history: CHF, Pacemaker, CAD, Chest pain / Angina; CT and CAD.H&P 10/06 Clinical Indicators: VSS: 10/06: B/P 92/68; HR 160; Temp 98.4 F Oral; RR 22; SpO2 94% room air CXR: 10/06 Cardiomegaly there may be mild pulmonary vascular congestion. BNP , 10/06: 26404 Troponin I, 10/06: 0.040; 0.849 ECHO, 10/06: Dilated LV with severely impaired LV function and EF at to 20% with global Hypokinesia Intact mitral valve leaflets with moderate to severe mitral regurgitation likely secondary to cardiomyopathy Mild pulmonary hypertension Moderate tricuspid regurgitation. 10/06, EKG: Uncertain regular rhythm. Intraventricular conduction delay. Lateral myocardial infarction of indeterminate age. Cardiology note, 10/07: Evidence of myocardial injury. Continue dual antiplatelet therapy as well as intermediate intensity statin. Treatment: 10/06 Heparin IV 2,000 units; 10/06 10/09 Heparin 250mls @0.634 mls/hr 12units/kg/hr; Holding heart catheterization at this point in the light of worsening kidney function. 10/07 Plavix 75mg PO daily; Please clarify if the Type 1 CT is: [ ] Type 1 CT confirmed [ ] Type 1 CT ruled out [ ] Other condition, please specify [ ] Unable to determine (Template Last Revised: June 2020) Type [address] CT ruled out MTDD
--- NOTE | 2022-10-09 12:28 | P.PN ---
Subjective Patient is seen for follow-up for acute kidney injury. Patient has underlying cardiomyopathy with ejection fraction of 30-35%. He was admitted to the hospital with shortness of breath and noted to be in SVT and wide-complex tachycardia for which he is maintained on amiodarone. Initial chest x-ray showed evidence of pulmonary vascular congestion and patient was being diuresed. Blood pressure has been low with systolic in the 70s and 80s Renal function has been progressively worsening with serum creatinine up to 5.1 today from 2.8 on initial admission. Previous creatinine 1.1 on 04/04/2021. Patient has been voiding No urine retention Ultrasound is unremarkable Diuretics have been held. Patient is maintained on midodrine. Chest x-ray did not show significant pulmonary vascular congestion. Patient was started on gentle IV hydration yesterday. O2 sats 94% on 2 L nasal cannula. Troponins have been borderline elevated at 0.849 with no plans for urgent cardiac catheterization. Urine output remains low with only 125 mL for 24 hours. Armando catheter was placed yesterday. Discuss renal replacement therapy with the patient. Also discussed challenges with hemodialysis given the significantly low blood pressure and poor cardiac output. I will add dobutamine if okay with cardiology. Patient is agreeable to stop trial of dialysis if no further improvement in urine output/renal function by tomorrow. Objective - Vital Signs Vital signs: Vital Signs Temp 97.6 F 10/09/22 08:31 Pulse 52 L 10/09/22 11:43 Resp 15 10/09/22 11:43 BP 92/56 10/09/22 11:43 Pulse Ox 94 L 10/09/22 11:43 FiO2 Intake & Output 10/08/22 10/09/22 10/09/22 18:59 06:59 18:59 Intake Total 612.955 86.603 75.911 Output Total 125 Balance 612.955 -38.397 75.911 Intake: Intake, IV Titration 54.955 86.603 75.911 Amount Heparin Sod,Pork in 0.45% 54.955 86.603 75.911 NaCl 25,000 unit In 0.45 % NaCl 1 250ml.bag @ 12 UNITS/KG/HR 9.634 mls/hr IV .Q24H [facility] Rx#: [id number] Oral 558 0 Output: Urine 125 Other: Voiding Method Indwelling Catheter Indwelling Catheter Indwelling Catheter - Exam Patient is awake, comfortable, no acute distress Alert oriented 3 Examination of the heart S1 and S2 Examination of the lungs bilateral breath sounds are heard Decreased breath sounds at the bases Abdomen is soft nontender Examination of lower extremities shows no significant edema. - Labs CBC & Chem 7: 10/09/22 07:41 10/09/22 07:41 Labs: Abnormal Lab Results - Last 24 Hours (Table) 10/09/22 10/09/22 10/09/22 Range/Units 07:41 07:41 07:41 RBC 3.30 L (4.30-5.90) m/uL Hgb 10.8 L (13.0-17.5) gm/dL Hct 34.0 L (39.0-53.0) % MCV 102.9 H (80.0-100.0) fL RDW 18.6 H (11.5-15.5) % Neutrophils # 8.6 H (1.3-7.7) k/uL Lymphocytes # 0.6 L (1.0-4.8) k/uL APTT 45.7 H (22.0-30.0) sec Sodium 131 L (137-145) mmol/L Chloride 97 L (98-107) mmol/L Carbon Dioxide 16 L (22-30) mmol/L BUN 105 H* (9-20) mg/dL Creatinine 5.15 H (0.66-1.25) mg/dL Total Bilirubin 1.9 H (0.2-1.3) mg/dL AST 143 H (17-59) U/L ALT 78 H (4-49) U/L Assessment and Plan Assessment: 1. Acute kidney injury, cardiorenal , currently oliguric. No evidence of urine retention. Blood pressure remains low and patient is maintained on midodrine. UA is benign. Lasix has been decreased. Started IV fluids yesterday. I will add dobutamine if okay with cardiology 2. Ischemic cardiomyopathy with ejection fraction 30-35% status post AICD 3. Elevated troponins with possible acute NE 4. Sustained ventricular tachycardia maintained on amiodarone 5. CHF, acute on chronic, systolic with decreased ejection fraction at 30-35%. Clinically not in significant failure. Plan: Continue with IV fluids Continue with midodrine Repeat labs in a.m. Avoid any other nephrotoxic agents. Add dobutamine if okay with cardiology Patient is agreeable to starting dialysis if no further improvement in urine output/renal function by tomorrow.
--- NOTE | 2022-10-09 12:45 | P.PN ---
Subjective Progress Note Date: 10/09/22 Acute coronary syndrome The patient is an 82-year-old gentleman with CAD and status post CABG was performed in [place] long time ago with unknown details as well as history of ischemic cardiomyopathy status post AICD as well as dyslipidemia as well as chronic kidney disease. The patient was seen by myself in the office recently as a new patient a few weeks ago. The patient was brought to the hospital by ambulance. He was in his usual state of health until yesterday when he was laying in bed reading a book and suddenly he started experiencing discomfort in the chest associated with a feeling of heart racing. No dizziness or lightheadedness and no presyncope or syncope. Subsequently he called ambulance and when the ambulance was arrived he was diagnosed with "SVT" where he received 6 mg of adenosine and subsequently 12 mg of adenosine with no improvement. Subsequently the patient was brought to the hospital where an EKG was performed and showed wide complex rhythm and he received cardioversion. The EKG following that showed atrial sensed ventricular paced rhythm. He was slightly hypotensive with a systolic pressure in the 80s and 90s millimeters mercury. He also underwent further workup including first set of troponin came in to be slightly abnormal and creatinine came in to be abnormal. He is known to have chronic kidney disease is definitely above the baseline. Beside that he underwent NT proBNP came in to be elevated. The chest x-ray did not show any acute abnormalities. He was admitted to the hospital and started on Lasix IV as well as midodrine. The patient was seen and evaluated at bedside today. He is still having mild ongoing chest discomfort about 5/10 in intensity but definitely has improved compared to before. Further blood work ordered including second set of troponin as well as an echocardiogram is in process to be done. The last echocardiogram was in 2018 showing an EF between 30-35%. Currently the patient is on heparin as well as is on amiodarone IV. He does not recall receiving any shock. October 072022 The patient was seen and evaluated this morning. Currently he is chest pain- free. Unfortunately his creatinine is worse today. Yesterday I decrease the dose of Lasix and I will suggest to stop the Lasix completely but I would leave that to the nephrology team. He is not in any overt heart failure at this point. The hemoglobin from this morning continues to be pending. His vitals are stable with a soft blood pressure. I'm going to stop the Lopressor which could be contributing to the low blood pressure contributing to worsening kidney function. Beside that I will suggest to stop the Lasix. In addition to that he is on dual antiplatelet therapy and statin which we are going to continue. He is on amiodarone IV which going to switch him to amiodarone by mouth. The AICD interrogation was reviewed and showed ventricular tachycardia terminated by antitachycardia pacing. I would hold on doing any heart catheterization at this point in the light off worsening kidney function as well as the absence of any chest pain or chest discomfort. We will consider doing the heart catheterization once the creatinine is back to baseline. 10/08 Patient has been seen today in follow-up. Patient had IV Lasix order which has been held because of low blood pressures, systolics in the 80s. Heart rate is in the 50s. BUN is 96 and creatinine 4.41. Chest x-ray cardiomegaly without evidence of acute heart failure. Echocardiogram reveals dilated LV with severely impaired LV function EF 20% with global hypokinesia. Intact mitral valve leaflets with moderate to severe mitral regurgitation likely secondary to cardiomyopathy. Mild pulmonary hypertension. Moderate tricuspid regurgitation. 10/09 Patient is seen today in follow-up. He denies having any chest pain. No cardiac catheterization will be planned at this time. Reviewed V. tach which is most likely scar base and not due to ischemic changes. Patient is currently on a heparin drip and yesterday was switched to oral Lasix. Repeat blood work reveals worsening renal function with BUN of 105 and creatinine 5.15. Sodium 131, potassium 4.9, chloride 97, CO2 16. Hemoglobin is 10.8. Liver function tests are elevated as well. The examination is remarkable for distant heart sounds with a systolic murmur at the right and left upper sternal border with clear breathing sounds bilaterally and no lower extremities edema noted Assessment Chest discomfort which has resolved Evidence of myocardial injury Sustained ventricular tachycardia Hypotension Acute on chronic renal failure likely secondary to hypotension History of CAD and status post CABG History of ischemic cardiomyopathy and status post AICD Plan Continue patient on oral amiodarone at 400 mg twice daily for 2 weeks and then daily for one month. Amiodarone will be tapered as an outpatient. Continue metoprolol 12.5 mg twice daily Continue dual antiplatelet therapy as well as intermediate intensity statin Discontinue heparin drip Follow-up with the patient Nurse practitioner note has been reviewed, I agree with the documented findings and plan of care. Patient was seen and examined. Objective - Vital Signs Vital signs: Vital Signs Temp 97.6 F 10/09/22 08:31 Pulse 50 L 10/09/22 08:38 Resp 17 10/09/22 08:31 BP 84/53 10/09/22 08:31 Pulse Ox 92 L 10/09/22 08:31 FiO2 Intake & Output 10/08/22 10/09/22 10/09/22 18:59 06:59 18:59 Intake Total 612.955 86.603 0 Output Total 125 Balance 612.955 -38.397 0 Intake: Intake, IV Titration 54.955 86.603 Amount Heparin Sod,Pork in 0.45% 54.955 86.603 NaCl 25,000 unit In 0.45 % NaCl 1 250ml.bag @ 12 UNITS/KG/HR 9.634 mls/hr IV .Q24H [facility] Rx#: [id number] Oral 558 0 Output: Urine 125 Other: Voiding Method Indwelling Catheter Indwelling Catheter Indwelling Catheter - Labs CBC & Chem 7: 10/09/22 07:41 10/09/22 07:41 Labs: Abnormal Lab Results - Last 24 Hours (Table) 10/09/22 10/09/22 Range/Units 07:41 07:41 RBC 3.30 L (4.30-5.90) m/uL Hgb 10.8 L (13.0-17.5) gm/dL Hct 34.0 L (39.0-53.0) % MCV 102.9 H (80.0-100.0) fL RDW 18.6 H (11.5-15.5) % Neutrophils # 8.6 H (1.3-7.7) k/uL Lymphocytes # 0.6 L (1.0-4.8) k/uL APTT 45.7 H (22.0-30.0) sec
[2022-10-09] MEDS: DEXTROSE 5% IN WATER 1,000 ML with SODIUM BICARB (1 MEQ/ML) 150 ML IV SCH (15:43)
--- NOTE | 2022-10-10 05:29 | PN ---
PROGRESS NOTE DATE OF SERVICE: 10/09/2022 SUBJECTIVE: This is an 82-year-old gentleman who was admitted with ventricular tachycardia, also had worsening renal failure. The patient's urine output appears to be reduced, and the patient's urine is colored. Multiple consultants are following the patient closely. REVIEW OF SYSTEMS: 14-point review is negative as mentioned earlier. CURRENT MEDICATIONS: Reviewed and include Cordarone, doses and rest of medication noted. PHYSICAL EXAMINATION: VITAL SIGNS: Pulse is 52, blood pressure 92/ , respirations 15. HEENT: Conjunctivae normal. NECK: No jugular venous distention. CARDIOVASCULAR: S1, S2. RESPIRATORY: Breath sounds diminished at the bases. Few scattered rhonchi. ABDOMEN: Soft. LEGS: No edema. NERVOUS SYSTEM: Nonfocal. LABORATORY DATA: Reviewed. Creatinine is 5.15. ASSESSMENT: 1. Ventricular tachycardia, sustained, present on admission. 2. Acute on chronic kidney failure, worsening. 3. Ejection fraction 30%-50% with chronic systolic congestive heart failure. 4. Acute on chronic systolic congestive heart failure. 5. Hyperlipidemia. 6. Coronary artery disease and coronary artery bypass graft history. 7. Hypothyroidism. 8. Multiple medical issues. RECOMMENDATIONS: Recommend to continue current management and symptomatic treatment. Repeat labs. Closely follow with Nephrology. Monitor urine output. Avoid nephrotoxic medications. The prognosis is guarded because of multiple complex medical issues. Further recommendations to follow. LINCOLN / RODOLFO: [id number] /
[2022-10-10] MEDS: MIDODRINE 5 MG TAB PO SCH (06:12)
[2022-10-10] MEDS: LEVOTHYROXINE 100 MCG TAB PO SCH (06:12)
[2022-10-10] MEDS: PANTOPRAZOLE 40 MG TABLET PO SCH (06:12)
[2022-10-10 07:54] LABS: Anisocytosis Slight; Basophils # (A) 0.1 k/uL (0-0.2); Basophils % (A) 1 %; Eosinophils # (A) 0.1 k/uL (0-0.7); Eosinophils % (A) 2 %; HCT 32.6 % (39.0-53.0); HGB 10.5 gm/dL (13.0-17.5); Hypochromasia Slight; Lymphocytes # (A) 0.4 k/uL (1.0-4.8); Lymphocytes % (A) 5 %; MCH 32.7 pg (25.0-35.0); MCHC 32.1 g/dL (31.0-37.0); Macrocytosis Moderate; Mean Platelet Volume 8.7; Monocytes # (A) 0.8 k/uL (0-1.0); Monocytes % (A) 9 %; Neutrophils # (A) 7.2 k/uL (1.3-7.7); Neutrophils % (A) 82 %; Platelet Count 226 k/uL (150-450); RDW 18.6 % (11.5-15.5); WBC 8.8 k/uL (3.8-10.6)
[2022-10-10 08:09] LABS: African American GFR (CKD) 10 (>60 ml/min/1.73 sqM); Anion Gap 14 mmol/L; Calcium 8.3 mg/dL (8.4-10.2); Carbon Dioxide 21 mmol/L (22-30); Chloride 93 mmol/L (98-107); Glucose 92 mg/dL (74-99); Magnesium 2.4 mg/dL (1.6-2.3); Non-African American GFR(CKD) 8 (>60 ml/min/1.73 sqM); Phosphorus 6.6 mg/dL (2.5-4.5); Potassium 4.4 mmol/L (3.5-5.1); Sodium 128 mmol/L (137-145)
[2022-10-10 08:11] LABS: Blood Urea Nitrogen 113 mg/dL (9-20)
[2022-10-10] MEDS: METOPROLOL TARTRATE 12.5 MG TAB PO SCH ×2 (08:50→21:12)
[2022-10-10] MEDS: allopurinoL 100 MG TAB PO SCH (08:50)
[2022-10-10] MEDS: ASPIRIN 81 MG PO SCH (08:50)
[2022-10-10] MEDS: FUROSEMIDE 40 MG TAB PO SCH (08:50)
[2022-10-10] MEDS: AMIODARONE 200 MG TAB PO SCH ×2 (08:50→21:12)
[2022-10-10] MEDS: CLOPIDOGREL 75 MG TAB PO SCH (08:50)
--- NOTE | 2022-10-10 09:55 | P.PN ---
Subjective Patient is seen in follow-up for acute kidney injury. Renal function continues to worsen. Currently receiving bicarb drip as well as oral Lasix. Urine output 70 mL overnight. Denies chest pain or shortness of breath. Blood pressure stable in the systolic 80s. Midodrine discontinued by cardiology this morning. Vital signs are stable. Blood pressure in the lower side General: No acute distress. HEENT: Head exam is unremarkable. On nasal cannula. LUNGS: No audible rhonchi or wheezes. HEART: Rate and Rhythm are regular. ABDOMEN: Nontender. EXTREMITITES: No edema. Objective - Vital Signs Vital signs: Vital Signs Temp 97.5 F L 10/10/22 08:44 Pulse 67 10/10/22 08:44 Resp 16 10/10/22 08:44 BP 82/51 10/10/22 08:44 Pulse Ox 95 10/10/22 08:44 FiO2 Intake & Output 10/09/22 10/10/22 10/10/22 18:59 06:59 18:59 Intake Total 100.911 125 Output Total 100 150 Balance 0.911 -150 125 Intake: Intake, IV Titration 75.911 Amount Heparin Sod,Pork in 0.45% 75.911 NaCl 25,000 unit In 0.45 % NaCl 1 250ml.bag @ 12 UNITS/KG/HR 9.634 mls/hr IV .Q24H [facility] Rx#: [id number] Oral 25 125 Output: Urine 100 150 Other: Voiding Method Indwelling Catheter Indwelling Catheter Indwelling Catheter # Bowel Movements 1 - Labs CBC & Chem 7: 10/10/22 07:02 10/10/22 07:02 Labs: Abnormal Lab Results - Last 24 Hours (Table) 10/10/22 10/10/22 Range/Units 07:02 07:02 RBC 3.20 L (4.30-5.90) m/uL Hgb 10.5 L (13.0-17.5) gm/dL Hct 32.6 L (39.0-53.0) % MCV 102.0 H (80.0-100.0) fL RDW 18.6 H (11.5-15.5) % Lymphocytes # 0.4 L (1.0-4.8) k/uL Sodium 128 L (137-145) mmol/L Chloride 93 L (98-107) mmol/L Carbon Dioxide 21 L (22-30) mmol/L BUN 113 H* (9-20) mg/dL Creatinine 5.73 H (0.66-1.25) mg/dL Calcium 8.3 L (8.4-10.2) mg/dL Phosphorus 6.6 H (2.5-4.5) mg/dL Magnesium 2.4 H (1.6-2.3) mg/dL Assessment and Plan Plan: Assessment: 1. Acute kidney injury secondary to ATN secondary to cardiorenal syndrome. No hydronephrosis noted on imaging. Renal function worsening. Creatinine 5.7. Oliguric. 2. Acute on chronic systolic CHF with ejection fraction of 20% with moderate to severe mitral and tricuspid regurgitation. 3. Hyponatremia secondary to acute kidney injury. 4. Metabolic acidosis secondary to acute kidney injury maintain a bicarb drip. Improved. 5. Hypotension due to underlying cardiomyopathy. 6. V. tach on admission on oral amiodarone. Cardiology following. 7. Hyperphosphatemia due to CARSON. Plan: Stop Lasix. Stop bicarb drip. Check chest x-ray. Add phoslo with meals. Midodrine discontinued by cardiology this morning. No dobutamine per cardiology. Due to worsening renal function, oliguria, discussed initiating renal repl acement therapy. Patient agreeable. Discussed with patient that due to low blood pressure and underlying cardiomyopathy, there is risk of arrhythmia and that he may not be able to tolerate renal replacement therapy. He understands. Consult vascular surgery for dialysis catheter placement. Plan for first treatment of hemodialysis today and assess on daily basis.
[2022-10-10] MEDS: CALCIUM ACETATE 667 MG TAB PO SCH ×2 (10:14→18:04)
--- NOTE | 2022-10-10 11:22 | P.PN ---
Subjective Progress Note Date: 10/10/22 Acute coronary syndrome The patient is an 82-year-old gentleman with CAD and status post CABG was performed in [place] long time ago with unknown details as well as history of ischemic cardiomyopathy status post AICD as well as dyslipidemia as well as chronic kidney disease. The patient was seen by myself in the office recently as a new patient a few weeks ago. The patient was brought to the hospital by ambulance. He was in his usual state of health until yesterday when he was laying in bed reading a book and suddenly he started experiencing discomfort in the chest associated with a feeling of heart racing. No dizziness or lightheadedness and no presyncope or syncope. Subsequently he called ambulance and when the ambulance was arrived he was diagnosed with "SVT" where he received 6 mg of adenosine and subsequently 12 mg of adenosine with no improvement. Subsequently the patient was brought to the hospital where an EKG was performed and showed wide complex rhythm and he received cardioversion. The EKG following that showed atrial sensed ventricular paced rhythm. He was slightly hypotensive with a systolic pressure in the 80s and 90s millimeters mercury. He also underwent further workup including first set of troponin came in to be slightly abnormal and creatinine came in to be abnormal. He is known to have chronic kidney disease is definitely above the baseline. Beside that he underwent NT proBNP came in to be elevated. The chest x-ray did not show any acute abnormalities. He was admitted to the hospital and started on Lasix IV as well as midodrine. The patient was seen and evaluated at bedside today. He is still having mild ongoing chest discomfort about 5/10 in intensity but definitely has improved compared to before. Further blood work ordered including second set of troponin as well as an echocardiogram is in process to be done. The last echocardiogram was in 2018 showing an EF between 30-35%. Currently the patient is on heparin as well as is on amiodarone IV. He does not recall receiving any shock. October 072022 The patient was seen and evaluated this morning. Currently he is chest pain- free. Unfortunately his creatinine is worse today. Yesterday I decrease the dose of Lasix and I will suggest to stop the Lasix completely but I would leave that to the nephrology team. He is not in any overt heart failure at this point. The hemoglobin from this morning continues to be pending. His vitals are stable with a soft blood pressure. I'm going to stop the Lopressor which could be contributing to the low blood pressure contributing to worsening kidney function. Beside that I will suggest to stop the Lasix. In addition to that he is on dual antiplatelet therapy and statin which we are going to continue. He is on amiodarone IV which going to switch him to amiodarone by mouth. The AICD interrogation was reviewed and showed ventricular tachycardia terminated by antitachycardia pacing. I would hold on doing any heart catheterization at this point in the light off worsening kidney function as well as the absence of any chest pain or chest discomfort. We will consider doing the heart catheterization once the creatinine is back to baseline. 10/08 Patient has been seen today in follow-up. Patient had IV Lasix order which has been held because of low blood pressures, systolics in the 80s. Heart rate is in the 50s. BUN is 96 and creatinine 4.41. Chest x-ray cardiomegaly without evidence of acute heart failure. Echocardiogram reveals dilated LV with severely impaired LV function EF 20% with global hypokinesia. Intact mitral valve leaflets with moderate to severe mitral regurgitation likely secondary to cardiomyopathy. Mild pulmonary hypertension. Moderate tricuspid regurgitation. 10/09 Patient is seen today in follow-up. He denies having any chest pain. No cardiac catheterization will be planned at this time. Reviewed V. tach which is most likely scar base and not due to ischemic changes. Patient is currently on a heparin drip and yesterday was switched to oral Lasix. Repeat blood work reveals worsening renal function with BUN of 105 and creatinine 5.15. Sodium 131, potassium 4.9, chloride 97, CO2 16. Hemoglobin is 10.8. Liver function tests are elevated as well. 10/10 Patient is seen today in follow-up. His heart rate remains in the 50s, systolic blood pressure in the 80s despite use of midodrine. Patient states at home his blood pressure is normally about 108. Midodrine was started by his PCP. Patient denies any lightheadedness or dizziness. No lower extremity edema. Repeat blood work reveals worsening renal function with BUN 113 and creatinine 5.7. Sodium is 128. Hemoglobin 10.5. Potassium is 4.4. The examination is remarkable for distant heart sounds with a systolic murmur at the right and left upper sternal border with clear breathing sounds bilaterally and no lower extremities edema noted Assessment Chest discomfort which has resolved Evidence of myocardial injury Sustained ventricular tachycardia Hypotension Acute on chronic renal failure likely secondary to hypotension History of CAD and status post CABG History of ischemic cardiomyopathy and status post AICD Plan Continue patient on oral amiodarone at 400 mg twice daily for 2 weeks and then daily for one month. Amiodarone will be tapered as an outpatient. Continue metoprolol 12.5 mg twice daily Continue dual antiplatelet therapy as well as intermediate intensity statin Discontinue midodrine and watch patient's blood pressure. Follow-up with the patient Nurse practitioner note has been reviewed, I agree with the documented findings and plan of care. Patient was seen and examined. Objective - Vital Signs Vital signs: Vital Signs Temp 97.9 F 10/10/22 04:00 Pulse 50 L 10/10/22 04:00 Resp 16 10/10/22 04:00 BP 87/53 10/10/22 04:00 Pulse Ox 97 10/10/22 04:00 FiO2 Intake & Output 10/09/22 10/10/22 10/10/22 18:59 06:59 18:59 Intake Total 100.911 Output Total 100 150 Balance 0.911 -150 Intake: Intake, IV Titration 75.911 Amount Heparin Sod,Pork in 0.45% 75.911 NaCl 25,000 unit In 0.45 % NaCl 1 250ml.bag @ 12 UNITS/KG/HR 9.634 mls/hr IV .Q24H [facility] Rx#: [id number] Oral 25 Output: Urine 100 150 Other: Voiding Method Indwelling Catheter Indwelling Catheter # Bowel Movements 1 - Labs CBC & Chem 7: 10/10/22 07:02 10/10/22 07:02 Labs: Abnormal Lab Results - Last 24 Hours (Table) 10/09/22 10/09/22 10/09/22 Range/Units 07:41 07:41 07:41 RBC 3.30 L (4.30-5.90) m/uL Hgb 10.8 L (13.0-17.5) gm/dL Hct 34.0 L (39.0-53.0) % MCV 102.9 H (80.0-100.0) fL RDW 18.6 H (11.5-15.5) % Neutrophils # 8.6 H (1.3-7.7) k/uL Lymphocytes # 0.6 L (1.0-4.8) k/uL APTT 45.7 H (22.0-30.0) sec Sodium 131 L (137-145) mmol/L Chloride 97 L (98-107) mmol/L Carbon Dioxide 16 L (22-30) mmol/L BUN 105 H* (9-20) mg/dL Creatinine 5.15 H (0.66-1.25) mg/dL Total Bilirubin 1.9 H (0.2-1.3) mg/dL AST 143 H (17-59) U/L ALT 78 H (4-49) U/L 10/10/22 Range/Units 07:02 RBC 3.20 L (4.30-5.90) m/uL Hgb 10.5 L (13.0-17.5) gm/dL Hct 32.6 L (39.0-53.0) % MCV 102.0 H (80.0-100.0) fL RDW 18.6 H (11.5-15.5) % Neutrophils # (1.3-7.7) k/uL Lymphocytes # 0.4 L (1.0-4.8) k/uL APTT (22.0-30.0) sec Sodium (137-145) mmol/L Chloride (98-107) mmol/L Carbon Dioxide (22-30) mmol/L BUN (9-20) mg/dL Creatinine (0.66-1.25) mg/dL Total Bilirubin (0.2-1.3) mg/dL AST (17-59) U/L ALT (4-49) U/L
--- NOTE | 2022-10-10 12:00 | XR ---
EXAMINATION TYPE: XR chest 1V DATE OF EXAM: 10/10/2022 COMPARISON: 10/08/2019 INDICATION: Short of breath TECHNIQUE: Single frontal view of the chest is obtained. FINDINGS: The heart size is mildly prominent. The pulmonary vasculature is slightly prominent. Some minimal infiltrate is along the lateral left diaphragm. Correlate for atelectasis. Early pneumon ia could be considered. Pacemaker overlies left chest. Sternotomy wires are in the midline. IMPRESSION: 1. Minimal infiltrate along the lateral left diaphragm. Correlate for mild atelectasis or early pneum onia. Minimal left pleural effusion may be present.
--- NOTE | 2022-10-10 12:40 | PN ---
PROGRESS NOTE DATE OF SERVICE: 10/10/2022 SUBJECTIVE: This is an 82-year-old gentleman, who was admitted with ventricular tachycardia, also had renal failure, which is worsening. 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 No chest pain. No palpitation. OBJECTIVE: VITAL SIGNS: Pulse is 50, blood pressure 94/56, respirations 16. CHEST: Clear to auscultation. CARDIOVASCULAR: S1, S2. ABDOMEN: Soft. LABORATORY DATA: Creatinine is 5.73. ASSESSMENT: 1. Ventricular tachycardia, sustained, present on admission. 2. Acute on chronic kidney failure, worsening, for possible hemodialysis. 3. Ejection fraction 30% to 50% with acute on chronic systolic dysfunction and heart failure. 4. Hyperlipidemia. 5. Coronary artery disease, coronary artery bypass graft history. 6. Hypothyroidism. 7. Multiple medical issues. RECOMMENDATIONS: Recommend to continue current medications, continue symptomatic treatment. Otherwise, recommend repeat labs. Closely follow with Nephrology and possible hemodialysis. Further recommendations to follow. MMODL / IJN: [id number] /
[2022-10-10] MEDS ORDERED: HEPARIN SODIUM 1,000 UN/ML (10ML VL) IVP STA (17:47)
--- NOTE | 2022-10-10 18:08 | P.GSCN ---
History of Present Illness History of present illness: 82-year-old gentleman patient has been admitted with cardiomyopathy ejection fraction of 30 of 35%. Patient has acute kidney injury creatinine is 5.1 and consulted for placement of a dialysis catheter. Chest examination chest is clear few crackles the lung. Bases first and second sound present Abdomen soft nontender Femorals are 1+ bilateral Plan is placement of dialysis catheter right femoral approach risk and complication discussed Past Medical History Past Medical History: Coronary Artery Disease (CAD), Chest Pain / Angina, Hyperlipidemia, Myocardial Infarction (OK), Thyroid Disorder Last Myocardial Infarction Date:: 1990 History of Any Multi-Drug Resistant Organisms: None Reported Past Surgical History: Heart Catheterization, Orthopedic Surgery Additional Past Surgical History / Comment(s): cardiac bipass 2014. carotid artery surgery 2017 Past Anesthesia/Blood Transfusion Reactions: No Reported Reaction Past Psychological History: No Psychological Hx Reported Past Alcohol Use History: None Reported Past Drug Use History: None Reported - Past Family History Father Family Medical History: Coronary Artery Disease (CAD), Myocardial Infarction (OK) Mother Family Medical History: Coronary Artery Disease (CAD), Myocardial Infarction (OK) Brother(s) Family Medical History: Hypertension Sister(s) Family Medical History: Congestive Heart Failure (CHF) (Atrial fibrillation) Son(s) Family Medical History: No Reported History Medications and Allergies Home Medications Medication Instructions Recorded Confirmed Type Aspirin EC [Ecotrin Low Dose] 81 mg PO DAILY 12/17/18 10/06/22 History Cholecalciferol [Vitamin D3 (25 125 mcg PO DAILY 12/17/18 10/06/22 History Mcg = 1000 Iu)] Ezetimibe [Zetia] 10 mg PO DAILY 12/17/18 10/06/22 History Levothyroxine Sodium [Synthroid] 100 mcg PO DAILY 12/17/18 10/06/22 History Ubidecarenone [Co Q-10] 100 mg PO DAILY 12/17/18 10/06/22 History Ferrous Sulfate [Iron] 325 mg PO DAILY 10/06/22 10/06/22 History Furosemide [Lasix] 20 mg PO DAILY@1400 10/06/22 10/06/22 History Furosemide [Lasix] 40 mg PO DAILY 10/06/22 10/06/22 History Midodrine HCl [ProAmatine] 10 mg PO TID 10/06/22 10/06/22 History Pantoprazole [Protonix] 40 mg PO DAILY 10/06/22 10/06/22 History Sacubitril/Valsartan [Entresto 24 0.5 tab PO BID 10/06/22 10/06/22 History mg-26 mg Tablet] Spironolactone 25 mg PO DAILY 10/06/22 10/06/22 History allopurinoL 100 mg PO DAILY 10/06/22 10/06/22 History metOLazone 2.5 mg PO DAILY 10/06/22 10/06/22 History Allergies Allergy/AdvReac Type Severity Reaction Status Date / Time No Known Allergies Allergy Verified 10/06/22 13:42 Surgical - Exam Vital Signs Temp Pulse Resp BP Pulse Ox 98.4 F 160 H 22 92/68 94 L 10/06/22 05:56 10/06/22 05:56 10/06/22 05:56 10/06/22 05:56 10/06/22 05:56 Results - Labs 10/10/22 07:02 10/10/22 07:02 Abnormal Lab Results - Last 24 Hours (Table) 10/10/22 10/10/22 Range/Units 07:02 07:02 RBC 3.20 L (4.30-5.90) m/uL Hgb 10.5 L (13.0-17.5) gm/dL Hct 32.6 L (39.0-53.0) % MCV 102.0 H (80.0-100.0) fL RDW 18.6 H (11.5-15.5) % Lymphocytes # 0.4 L (1.0-4.8) k/uL Sodium 128 L (137-145) mmol/L Chloride 93 L (98-107) mmol/L Carbon Dioxide 21 L (22-30) mmol/L BUN 113 H* (9-20) mg/dL Creatinine 5.73 H (0.66-1.25) mg/dL Calcium 8.3 L (8.4-10.2) mg/dL Phosphorus 6.6 H (2.5-4.5) mg/dL Magnesium 2.4 H (1.6-2.3) mg/dL Diabetes panel 10/10/22 Range/Units 07:02 Sodium 128 L (137-145) mmol/L Potassium 4.4 (3.5-5.1) mmol/L Chloride 93 L (98-107) mmol/L Carbon Dioxide 21 L (22-30) mmol/L BUN 113 H* (9-20) mg/dL Creatinine 5.73 H (0.66-1.25) mg/dL Glucose 92 (74-99) mg/dL Calcium 8.3 L (8.4-10.2) mg/dL Calcium panel 10/10/22 Range/Units 07:02 Calcium 8.3 L (8.4-10.2) mg/dL Phosphorus 6.6 H (2.5-4.5) mg/dL Pituitary panel 10/10/22 Range/Units 07:02 Sodium 128 L (137-145) mmol/L Potassium 4.4 (3.5-5.1) mmol/L Chloride 93 L (98-107) mmol/L Carbon Dioxide 21 L (22-30) mmol/L BUN 113 H* (9-20) mg/dL Creatinine 5.73 H (0.66-1.25) mg/dL Glucose 92 (74-99) mg/dL Calcium 8.3 L (8.4-10.2) mg/dL Adrenal panel 10/10/22 Range/Units 07:02 Sodium 128 L (137-145) mmol/L Potassium 4.4 (3.5-5.1) mmol/L Chloride 93 L (98-107) mmol/L Carbon Dioxide 21 L (22-30) mmol/L BUN 113 H* (9-20) mg/dL Creatinine 5.73 H (0.66-1.25) mg/dL Glucose 92 (74-99) mg/dL Calcium 8.3 L (8.4-10.2) mg/dL
--- NOTE | 2022-10-10 18:11 | P.PCN ---
Description of Procedure: Preop diagnoses is acute chronic renal failure Posterior same procedure ultrasound-guided dialysis Catheter placed to femoral approach Right groin was prepped and draped applied sterile manner 1% lidocaine with infected groin area. Ultrasound-guided micropuncture introducer right femoral vein micropuncture guidewire was passed and 4-Paraguayan dilator advanced top the guidewire. After that we passed a regular guidewire. Then dilator advanced top the guidewire. Then replaced dialysis catheter. The guidewire guidewire was removed flushed with heparin saline and Hep-Lock secured with 3-0 nylon dressing applied patient are to the procedure well
[2022-10-10] MEDS: MIDODRINE 5 MG TAB PO PRN (18:16)
[2022-10-10] MEDS ORDERED: HEPARIN SODIUM 1,000 UN/ML (10ML VL) ONE (20:30)
[2022-10-11 02:46] LABS: Hepatitis B Surface Antigen Nonreactive
[2022-10-11 02:49] LABS: Hepatitis B Surface AB- Quant 3.5 mIU/mL
[2022-10-11] MEDS: CLOPIDOGREL 75 MG TAB PO SCH (07:32)
[2022-10-11] MEDS: AMIODARONE 200 MG TAB PO SCH ×2 (07:32→20:21)
[2022-10-11] MEDS: ASPIRIN 81 MG PO SCH (07:32)
[2022-10-11] MEDS: METOPROLOL TARTRATE 12.5 MG TAB PO SCH ×2 (07:32→20:21)
[2022-10-11] MEDS: CALCIUM ACETATE 667 MG TAB PO SCH ×2 (07:32→16:52)
[2022-10-11] MEDS: LEVOTHYROXINE 100 MCG TAB PO SCH (07:32)
[2022-10-11] MEDS: PANTOPRAZOLE 40 MG TABLET PO SCH (07:32)
[2022-10-11] MEDS: allopurinoL 100 MG TAB PO SCH (07:33)
--- NOTE | 2022-10-11 09:55 | P.PN ---
Subjective Patient is seen in follow-up for acute kidney injury. Renal function continues to worsen. Off IV fluids. Oliguric. Denies chest pain or shortness of breath. Blood pressure stable in the systolic 80s-90s. Midodrine discontinued by cardiology. Started on hemodialysis 10/10/2022. No problems with dialysis yesterday. Vital signs are stable. Blood pressure on the lower side General: No acute distress. HEENT: Head exam is unremarkable. On nasal cannula. LUNGS: No audible rhonchi or wheezes. HEART: Rate and Rhythm are regular. ABDOMEN: Nontender. EXTREMITITES: No edema. Objective - Vital Signs Vital signs: Vital Signs Temp 97.5 F L 10/11/22 07:30 Pulse 51 L 10/11/22 07:41 Resp 17 10/11/22 07:30 BP 85/51 10/11/22 07:30 Pulse Ox 91 L 10/11/22 07:35 FiO2 Intake & Output 10/10/22 10/11/22 10/11/22 18:59 06:59 18:59 Intake Total 125 300 0 Output Total 150 450 Balance -25 -150 0 Intake: Oral 125 0 Hemodialysis 300 Output: Urine 150 150 Hemodialysis 300 Other: Voiding Method Indwelling Catheter Indwelling Catheter Indwelling Catheter - Labs CBC & Chem 7: 10/10/22 07:02 10/10/22 07:02 Assessment and Plan Plan: Assessment: 1. Acute kidney injury secondary to ATN secondary to cardiorenal syndrome. No hydronephrosis noted on imaging. Renal function worsening. Creatinine up to 5.73 10/10/2022. Started on hemodialysis 10/10/2022. Has a femoral catheter. Oliguric. Creatinine near 1.1 and 1.2 in March 2021. 2. Acute on chronic systolic CHF with ejection fraction of 20% with moderate to severe mitral and tricuspid regurgitation. 3. Hyponatremia secondary to acute kidney injury. 4. Metabolic acidosis secondary to acute kidney injury s/p bicarb drip. Expect improvement postdialysis. 5. Hypotension due to underlying cardiomyopathy. 6. V. tach on admission on oral amiodarone. Cardiology following. 7. Hyperphosphatemia due to CARSON. On PhosLo. Plan: Second treatment of hemodialysis today. No dobutamine per cardiology. Midodrine also discontinued. Monitor for renal recovery.
--- NOTE | 2022-10-11 10:22 | P.PN ---
Subjective Progress Note Date: 10/11/22 Acute coronary syndrome The patient is an 82-year-old gentleman with CAD and status post CABG was performed in [place] long time ago with unknown details as well as history of ischemic cardiomyopathy status post AICD as well as dyslipidemia as well as chronic kidney disease. The patient was seen by myself in the office recently as a new patient a few weeks ago. The patient was brought to the hospital by ambulance. He was in his usual state of health until yesterday when he was laying in bed reading a book and suddenly he started experiencing discomfort in the chest associated with a feeling of heart racing. No dizziness or lightheadedness and no presyncope or syncope. Subsequently he called ambulance and when the ambulance was arrived he was diagnosed with "SVT" where he received 6 mg of adenosine and subsequently 12 mg of adenosine with no improvement. Subsequently the patient was brought to the hospital where an EKG was performed and showed wide complex rhythm and he received cardioversion. The EKG following that showed atrial sensed ventricular paced rhythm. He was slightly hypotensive with a systolic pressure in the 80s and 90s millimeters mercury. He also underwent further workup including first set of troponin came in to be slightly abnormal and creatinine came in to be abnormal. He is known to have chronic kidney disease is definitely above the baseline. Beside that he underwent NT proBNP came in to be elevated. The chest x-ray did not show any acute abnormalities. He was admitted to the hospital and started on Lasix IV as well as midodrine. The patient was seen and evaluated at bedside today. He is still having mild ongoing chest discomfort about 5/10 in intensity but definitely has improved compared to before. Further blood work ordered including second set of troponin as well as an echocardiogram is in process to be done. The last echocardiogram was in 2018 showing an EF between 30-35%. Currently the patient is on heparin as well as is on amiodarone IV. He does not recall receiving any shock. October 072022 The patient was seen and evaluated this morning. Currently he is chest pain- free. Unfortunately his creatinine is worse today. Yesterday I decrease the dose of Lasix and I will suggest to stop the Lasix completely but I would leave that to the nephrology team. He is not in any overt heart failure at this point. The hemoglobin from this morning continues to be pending. His vitals are stable with a soft blood pressure. I'm going to stop the Lopressor which could be contributing to the low blood pressure contributing to worsening kidney function. Beside that I will suggest to stop the Lasix. In addition to that he is on dual antiplatelet therapy and statin which we are going to continue. He is on amiodarone IV which going to switch him to amiodarone by mouth. The AICD interrogation was reviewed and showed ventricular tachycardia terminated by antitachycardia pacing. I would hold on doing any heart catheterization at this point in the light off worsening kidney function as well as the absence of any chest pain or chest discomfort. We will consider doing the heart catheterization once the creatinine is back to baseline. 10/08 Patient has been seen today in follow-up. Patient had IV Lasix order which has been held because of low blood pressures, systolics in the 80s. Heart rate is in the 50s. BUN is 96 and creatinine 4.41. Chest x-ray cardiomegaly without evidence of acute heart failure. Echocardiogram reveals dilated LV with severely impaired LV function EF 20% with global hypokinesia. Intact mitral valve leaflets with moderate to severe mitral regurgitation likely secondary to cardiomyopathy. Mild pulmonary hypertension. Moderate tricuspid regurgitation. 10/09 Patient is seen today in follow-up. He denies having any chest pain. No cardiac catheterization will be planned at this time. Reviewed V. tach which is most likely scar base and not due to ischemic changes. Patient is currently on a heparin drip and yesterday was switched to oral Lasix. Repeat blood work reveals worsening renal function with BUN of 105 and creatinine 5.15. Sodium 131, potassium 4.9, chloride 97, CO2 16. Hemoglobin is 10.8. Liver function tests are elevated as well. 10/10 Patient is seen today in follow-up. His heart rate remains in the 50s, systolic blood pressure in the 80s despite use of midodrine. Patient states at home his blood pressure is normally about 108. Midodrine was started by his PCP. Patient denies any lightheadedness or dizziness. No lower extremity edema. Repeat blood work reveals worsening renal function with BUN 113 and creatinine 5.7. Sodium is 128. Hemoglobin 10.5. Potassium is 4.4. 10/11 Patient denies any shortness of breath, no chest pain. His blood pressure remains marginal and he has been off midodrine. He did receive 1 dose of midodrine for hemodialysis. Yesterday, it was decided that he would start on hemodialysis. Heart rate was in the 50s and 60s. No repeat blood work available today. The examination is remarkable for distant heart sounds with a systolic murmur at the right and left upper sternal border with clear breathing sounds bilaterally and no lower extremities edema noted Assessment Chest discomfort which has resolved Evidence of myocardial injury Sustained ventricular tachycardia Hypotension Acute on chronic renal failure likely secondary to hypotension History of CAD and status post CABG History of ischemic cardiomyopathy and status post AICD Plan Continue patient on oral amiodarone at 400 mg twice daily for 2 weeks and then daily for one month. Amiodarone will be tapered as an outpatient. Continue metoprolol 12.5 mg twice daily Continue dual antiplatelet therapy as well as intermediate intensity statin Re: Midodrine, would minimize use of midodrine only for dialysis treatments due to vascular congestion and underlying severe systolic dysfunction. Avoid use of dobutamine due to patient's history of ventricular tachycardia. Cardiology will sign off and follow on an as-needed basis. Please reconsult for any new concerns. Nurse practitioner note has been reviewed, I agree with the documented findings and plan of care. Patient was seen and examined. Objective - Vital Signs Vital signs: Vital Signs Temp 97.5 F L 10/11/22 07:30 Pulse 51 L 10/11/22 07:41 Resp 17 10/11/22 07:30 BP 85/51 10/11/22 07:30 Pulse Ox 91 L 10/11/22 07:35 FiO2 Intake & Output 10/10/22 10/11/22 10/11/22 18:59 06:59 18:59 Intake Total 125 300 Output Total 150 450 Balance -25 -150 Intake: Oral 125 Hemodialysis 300 Output: Urine 150 150 Hemodialysis 300 Other: Voiding Method Indwelling Catheter Indwelling Catheter Indwelling Catheter - Labs CBC & Chem 7: 10/10/22 07:02 10/10/22 07:02 Labs: Abnormal Lab Results - Last 24 Hours (Table) 10/10/22 Range/Units 07:02 Sodium 128 L (137-145) mmol/L Chloride 93 L (98-107) mmol/L Carbon Dioxide 21 L (22-30) mmol/L BUN 113 H* (9-20) mg/dL Creatinine 5.73 H (0.66-1.25) mg/dL Calcium 8.3 L (8.4-10.2) mg/dL Phosphorus 6.6 H (2.5-4.5) mg/dL Magnesium 2.4 H (1.6-2.3) mg/dL
[2022-10-11] MEDS: MIDODRINE 5 MG TAB PO PRN (10:47)
[2022-10-11 10:54] LABS: Anisocytosis Slight; Basophils % (A) 1 %; Eosinophils # (A) 0.1 k/uL (0-0.7); Eosinophils % (A) 1 %; HCT 32.8 % (39.0-53.0); HGB 10.5 gm/dL (13.0-17.5); Hypochromasia Slight; Lymphocytes # (A) 0.5 k/uL (1.0-4.8); Lymphocytes % (A) 6 %; MCH 32.8 pg (25.0-35.0); MCHC 32.1 g/dL (31.0-37.0); MCV 102.1 fL (80.0-100.0); Macrocytosis Moderate; Mean Platelet Volume 8.5; Monocytes # (A) 0.7 k/uL (0-1.0); Monocytes % (A) 8 %; Neutrophils # (A) 6.9 k/uL (1.3-7.7); Neutrophils % (A) 83 %; Platelet Count 173 k/uL (150-450); RBC 3.21 m/uL (4.30-5.90); RDW 18.4 % (11.5-15.5); WBC 8.3 k/uL (3.8-10.6)
[2022-10-11 11:03] LABS: African American GFR (CKD) 11 (>60 ml/min/1.73 sqM); Anion Gap 14 mmol/L; Blood Urea Nitrogen 99 mg/dL (9-20); Calcium 8.6 mg/dL (8.4-10.2); Carbon Dioxide 22 mmol/L (22-30); Chloride 93 mmol/L (98-107); Glucose 92 mg/dL (74-99); Non-African American GFR(CKD) 9 (>60 ml/min/1.73 sqM); Potassium 4.4 mmol/L (3.5-5.1); Sodium 129 mmol/L (137-145)
--- NOTE | 2022-10-11 23:43 | PN ---
PROGRESS NOTE DATE OF SERVICE: 10/11/2022 SUBJECTIVE: This is an 82-year-old gentleman, who was admitted with systemic ventricular tachycardia, also had worsening renal failure. Nephrology is starting hemodialysis today. The patient appears to be tolerating dialysis well. OBJECTIVE: VITAL SIGNS: Pulse 54, blood pressure 93/58, respirations 16. CHEST: Clear to auscultation. CARDIOVASCULAR: S1, S2. ABDOMEN: Soft, obese. LABORATORY DATA: Labs are reviewed. Creatinine 5.36. ASSESSMENT: 1. Ventricular tachycardia, sustained, present on admission. 2. Acute on chronic kidney failure, worsening, started on new onset hemodialysis. 3. Ejection fraction 30% to 50% with acute on chronic systolic dysfunction and congestive heart failure. 4. Hyperlipidemia. 5. Coronary artery disease, coronary artery bypass graft history. 6. Hypothyroidism. 7. Multiple medical issues. RECOMMENDATIONS: Recommend to continue current management, continue symptomatic treatment. Repeat labs in the morning. Closely follow with Cardiology and Nephrology. Guarded prognosis. Further recommendations to follow. MMODL / IJN: [id number] /
[2022-10-12] MEDS: LEVOTHYROXINE 100 MCG TAB PO SCH (06:35)
[2022-10-12] MEDS: CALCIUM ACETATE 667 MG TAB PO SCH ×2 (06:35→17:05)
[2022-10-12] MEDS: PANTOPRAZOLE 40 MG TABLET PO SCH (06:35)
[2022-10-12 08:25] LABS: Anisocytosis Slight; Basophils % (A) 0 %; Eosinophils # (A) 0.1 k/uL (0-0.7); Eosinophils % (A) 1 %; HCT 32.6 % (39.0-53.0); HGB 10.4 gm/dL (13.0-17.5); Hypochromasia Slight; Lymphocytes # (A) 0.5 k/uL (1.0-4.8); Lymphocytes % (A) 6 %; MCH 31.9 pg (25.0-35.0); MCHC 31.8 g/dL (31.0-37.0); MCV 100.2 fL (80.0-100.0); Macrocytosis Moderate; Mean Platelet Volume 9.5; Monocytes # (A) 0.5 k/uL (0-1.0); Monocytes % (A) 6 %; Neutrophils # (A) 6.7 k/uL (1.3-7.7); Neutrophils % (A) 84 %; Platelet Count 157 k/uL (150-450); RBC 3.26 m/uL (4.30-5.90); RDW 18.7 % (11.5-15.5)
[2022-10-12 08:49] LABS: African American GFR (CKD) 13 (>60 ml/min/1.73 sqM); Anion Gap 12 mmol/L; Blood Urea Nitrogen 70 mg/dL (9-20); Calcium 8.5 mg/dL (8.4-10.2); Carbon Dioxide 24 mmol/L (22-30); Chloride 94 mmol/L (98-107); Glucose 124 mg/dL (74-99); Magnesium 2.2 mg/dL (1.6-2.3); Non-African American GFR(CKD) 11 (>60 ml/min/1.73 sqM); Sodium 130 mmol/L (137-145)
[2022-10-12] MEDS: AMIODARONE 200 MG TAB PO SCH ×2 (08:58→19:56)
[2022-10-12] MEDS: METOPROLOL TARTRATE 12.5 MG TAB PO SCH ×2 (08:58→19:57)
[2022-10-12] MEDS: CLOPIDOGREL 75 MG TAB PO SCH (08:58)
[2022-10-12] MEDS: ASPIRIN 81 MG PO SCH (08:58)
[2022-10-12] MEDS: allopurinoL 100 MG TAB PO SCH (08:58)
--- NOTE | 2022-10-12 09:52 | P.PN ---
Subjective This is a pleasant 82 years old male with multiple medical problems as below. Presents because of chest pain on 10/06, his been evaluated by bread racker and sent of the case. However patient noticed to have significantly worsening kidney function with creatinine 5.3. He was started on hemodialysis by nephrology team and he was diagnosed with acute kidney injury secondary to cardiorenal syndrome. He has evidence of dilated cardiomyopathy with severely impaired ejection fraction 20% with moderate to severe mitral regurgitation and moderate tricuspid regurgitation Currently kept on aspirin and Plavix, midodrine 5 mg and metoprolol 12.5 mg and amiodarone 400 mg. Nephrology team months patient to have permacath, get hemodialysis tomorrow and possible discharge on Saturday Patient himself denies any other new complaints Vitals and labs are reviewed. Sodium 129, blood pressure 86/51 and 79/52 Objective - Vital Signs Vital signs: Vital Signs Temp 97.7 F 10/12/22 08:55 Pulse 60 10/12/22 08:55 Resp 16 10/12/22 08:55 BP 79/52 10/12/22 08:55 Pulse Ox 93 L 10/12/22 08:55 FiO2 Intake & Output 10/11/22 10/12/22 10/12/22 18:59 06:59 18:59 Intake Total 300 Output Total 350 100 Balance -50 -100 Intake: Oral 0 Hemodialysis 300 Output: Urine 50 100 Hemodialysis 300 Other: Voiding Method Indwelling Catheter Indwelling Catheter # Bowel Movements 1 1 - Exam GENERAL: The patient is alert and oriented x3, not in any acute distress. Well developed, well nourished. HEENT: Pupils are round and equally reacting to light. EOMI. No scleral icterus. No conjunctival pallor. Normocephalic, atraumatic. No pharyngeal erythema. No thyromegaly. CARDIOVASCULAR: S1 and S2 present. No murmurs, rubs, or gallops. PULMONARY: Chest is clear to auscultation, no wheezing or crackles. ABDOMEN: Soft, nontender, nondistended, normoactive bowel sounds. No palpable organomegaly. MUSCULOSKELETAL: No joint swelling or deformity. EXTREMITIES: No cyanosis, clubbing, or pedal edema. NEUROLOGICAL: Gross neurological examination did not reveal any focal deficits. SKIN: No rashes. no petechiae. - Labs CBC & Chem 7: 10/12/22 08:00 10/12/22 08:00 Labs: Abnormal Lab Results - Last 24 Hours (Table) 10/11/22 10/11/22 10/12/22 Range/Units 10:45 10:45 08:00 RBC 3.21 L (4.30-5.90) m/uL Hgb 10.5 L (13.0-17.5) gm/dL Hct 32.8 L (39.0-53.0) % MCV 102.1 H (80.0-100.0) fL RDW 18.4 H (11.5-15.5) % Lymphocytes # 0.5 L (1.0-4.8) k/uL Sodium 129 L 130 L (137-145) mmol/L Chloride 93 L 94 L (98-107) mmol/L BUN 99 H 70 H (9-20) mg/dL Creatinine 5.36 H 4.57 H (0.66-1.25) mg/dL Glucose 124 H (74-99) mg/dL 10/12/22 Range/Units 08:00 RBC 3.26 L (4.30-5.90) m/uL Hgb 10.4 L (13.0-17.5) gm/dL Hct 32.6 L (39.0-53.0) % MCV 100.2 H (80.0-100.0) fL RDW 18.7 H (11.5-15.5) % Lymphocytes # 0.5 L (1.0-4.8) k/uL Sodium (137-145) mmol/L Chloride (98-107) mmol/L BUN (9-20) mg/dL Creatinine (0.66-1.25) mg/dL Glucose (74-99) mg/dL Assessment and Plan Assessment: Acute kidney injury secondary to cardiorenal syndrome requiring hemodialysis started during this admission Dilated cardiomyopathy with systolic function impairment and EF 20% Moderate tricuspid regurgitation and moderate to severe mitral regurgitation Hyponatremia secondary to HPI Borderline low blood pressure secondary to above Plan: Continue with hemodialysis tomorrow The permacath. Web Marketing Intern team recommendation s iron worker consult to find an you hemodialysis slot as an outpatient Director Inbound Sales team signed off the case Labs and medication were reviewed.. Continue same treatment. Continue with symptomatic treatment. Resume home medication. Monitor labs and vitals. DVT and GI prophylaxis. Further recommendations as per clinical course of the patient DVT prophylaxis: Subcutaneous heparin GI Prophylaxis: Ppi Prognosis is guarded
--- NOTE | 2022-10-12 10:20 | P.PN ---
Subjective Patient is seen in follow-up for acute kidney injury. Off IV fluids. Oliguric. Denies chest pain or shortness of breath. Blood pressure remains on the lower side. Midodrine discontinued by cardiology. Started on hemodialysis 10/10/2022. No problems with dialysis yesterday. Vital signs are stable. Blood pressure on the lower side General: No acute distress. HEENT: Head exam is unremarkable. On nasal cannula. LUNGS: No audible rhonchi or wheezes. HEART: Rate and Rhythm are regular. ABDOMEN: Nontender. EXTREMITITES: No edema. Objective - Vital Signs Vital signs: Vital Signs Temp 97.7 F 10/12/22 08:55 Pulse 60 10/12/22 08:55 Resp 16 10/12/22 08:55 BP 79/52 10/12/22 08:55 Pulse Ox 93 L 10/12/22 08:55 FiO2 Intake & Output 10/11/22 10/12/22 10/12/22 18:59 06:59 18:59 Intake Total 300 Output Total 350 100 Balance -50 -100 Intake: Oral 0 Hemodialysis 300 Output: Urine 50 100 Hemodialysis 300 Other: Voiding Method Indwelling Catheter Indwelling Catheter # Bowel Movements 1 1 - Labs CBC & Chem 7: 10/12/22 08:00 10/12/22 08:00 Labs: Abnormal Lab Results - Last 24 Hours (Table) 10/11/22 10/11/22 10/12/22 Range/Units 10:45 10:45 08:00 RBC 3.21 L (4.30-5.90) m/uL Hgb 10.5 L (13.0-17.5) gm/dL Hct 32.8 L (39.0-53.0) % MCV 102.1 H (80.0-100.0) fL RDW 18.4 H (11.5-15.5) % Lymphocytes # 0.5 L (1.0-4.8) k/uL Sodium 129 L 130 L (137-145) mmol/L Chloride 93 L 94 L (98-107) mmol/L BUN 99 H 70 H (9-20) mg/dL Creatinine 5.36 H 4.57 H (0.66-1.25) mg/dL Glucose 124 H (74-99) mg/dL 10/12/22 Range/Units 08:00 RBC 3.26 L (4.30-5.90) m/uL Hgb 10.4 L (13.0-17.5) gm/dL Hct 32.6 L (39.0-53.0) % MCV 100.2 H (80.0-100.0) fL RDW 18.7 H (11.5-15.5) % Lymphocytes # 0.5 L (1.0-4.8) k/uL Sodium (137-145) mmol/L Chloride (98-107) mmol/L BUN (9-20) mg/dL Creatinine (0.66-1.25) mg/dL Glucose (74-99) mg/dL Assessment and Plan Plan: Assessment: 1. Acute kidney injury secondary to ATN secondary to cardiorenal syndrome. No hydronephrosis noted on imaging. Renal function worsened - Creatinine up to 5.73 10/10/2022. Started on hemodialysis 10/10/2022. Has a femoral catheter. Oliguric. Creatinine near 1.1 and 1.2 in March 2021. 2. Acute on chronic systolic CHF with ejection fraction of 20% with moderate to severe mitral and tricuspid regurgitation. 3. Hyponatremia secondary to acute kidney injury. Improving. 4. Metabolic acidosis secondary to acute kidney injury s/p bicarb drip. Improved postdialysis. 5. Hypotension due to underlying cardiomyopathy. Cortisol level not low. 6. V. tach on admission on oral amiodarone. Cardiology following. 7. Hyperphosphatemia due to CARSON. On PhosLo. Plan: Plan for dialysis tomorrow. That will be his third treatment. No dobutamine per cardiology. Monitor for renal recovery. Vascular surgery notified for cath placement and removal of femoral catheter. soda fountain manager to set up outpatient dialysis.
[2022-10-12 12:51] VITALS: BMI 28.3
[2022-10-12] MEDS: ACETAMINOPHEN TAB 325 MG TAB PO PRN (17:05)
[2022-10-12] MEDS: HEPARIN SODIUM,PORCINE/PF 5,000 UNIT/0.5 ML SYRINGE SQ SCH (19:56)
[2022-10-13] MEDS: HEPARIN SODIUM,PORCINE/PF 5,000 UNIT/0.5 ML SYRINGE SQ SCH ×2 (08:43→20:15)
[2022-10-13] MEDS: ASPIRIN 81 MG PO SCH (08:43)
[2022-10-13] MEDS: AMIODARONE 200 MG TAB PO SCH ×2 (08:43→20:15)
[2022-10-13] MEDS: CLOPIDOGREL 75 MG TAB PO SCH (08:43)
[2022-10-13] MEDS: CALCIUM ACETATE 667 MG TAB PO SCH ×2 (08:43→18:31)
[2022-10-13] MEDS: PANTOPRAZOLE 40 MG TABLET PO SCH (08:43)
[2022-10-13] MEDS: CALCIUM CARBONATE 500 MG CHEWABLE PO PRN ×2 (08:43→23:33)
[2022-10-13] MEDS: allopurinoL 100 MG TAB PO SCH (08:43)
[2022-10-13] MEDS: LEVOTHYROXINE 100 MCG TAB PO SCH (08:43)
[2022-10-13] MEDS: MIDODRINE 5 MG TAB PO PRN (08:45)
--- NOTE | 2022-10-13 11:32 | XR ---
EXAMINATION TYPE: XR KUB portable DATE OF EXAM: 10/13/2022 COMPARISON: NONE HISTORY: Pain TECHNIQUE: Single supine KUB image of the abdomen is obtained FINDINGS: Minimally prominent left midabdominal small bowel loops. Distended segment of sigmoid colon. No convincing evidence for pneumoperitoneum. No unusual calcifications. The lung bases are clear. The osseous structures are intact. IMPRESSION: 1. Nonspecific nonobstructive bowel gas pattern.
--- NOTE | 2022-10-13 14:54 | P.PN ---
Subjective Progress Note Date: 10/13/22 Follow for acute kidney injury on dialysis. Had dialysis today, hypotensive episodes. Objective - Vital Signs Vital signs: Vital Signs Temp 97.3 F L 10/13/22 13:19 Pulse 43 L 10/13/22 13:19 Resp 18 10/13/22 13:19 BP 87/52 10/13/22 13:19 Pulse Ox 90 L 10/13/22 11:42 FiO2 Intake & Output 10/12/22 10/13/22 10/13/22 18:59 06:59 18:59 Intake Total 930 655 Output Total 110 106 Balance 820 549 Weight 89.5 kg Intake: IV 10 Invasive Line 6 10 Oral 930 145 Hemodialysis 500 Output: Urine 110 50 Hemodialysis 56 Other: Voiding Method Indwelling Catheter Indwelling Catheter # Bowel Movements 1 - Exam No acute distress S1-S2 heard Decreased breath sounds Right groin Edward No edema - Labs CBC & Chem 7: 10/12/22 08:00 10/12/22 08:00 Assessment and Plan Assessment: #1 oliguric acute kidney injury secondary to ATN/CRS. Currently on dialysis started on 10/10/2022. -Baseline creatinine 1.1-1.2 in March 2021. #2 CHF with systolic dysfunction EF of 20%. #3 hypotensive episodes #4 V. tach on admission on midodrine. #5 hyponatremia, hypervolemic Plan: #1 currently on dialysis, discussed with vascular surgery plan to place permacath. #2 midodrine for hemodynamic support #3 avoid nephrotoxic agents and hypotensive episodes. #4 monitor for renal recovery
[2022-10-13] MEDS: METOPROLOL TARTRATE 12.5 MG TAB PO SCH ×2 (16:02→20:15)
[2022-10-13] MEDS: DOCUSATE 100 MG CAP PO SCH ×2 (16:02→20:15)
[2022-10-13] MEDS ORDERED: IOPAMIDOL CONTRAST (ORAL USE) VIAL PO PRN (17:30)
--- NOTE | 2022-10-13 17:36 | P.PN ---
Subjective This is a pleasant 82 years old male with multiple medical problems as below. Presents because of chest pain on 10/06, his been evaluated by graining press operator and sent of the case. However patient noticed to have significantly worsening kidney function with creatinine 5.3. He was started on hemodialysis by nephrology team and he was diagnosed with acute kidney injury secondary to cardiorenal syndrome. He has evidence of dilated cardiomyopathy with severely impaired ejection fraction 20% with moderate to severe mitral regurgitation and moderate tricuspid regurgitation Currently kept on aspirin and Plavix, midodrine 5 mg and metoprolol 12.5 mg and amiodarone 400 mg. Nephrology team months patient to have permacath, get hemodialysis tomorrow and possible discharge on Saturday Patient himself denies any other new complaints Vitals and labs are reviewed. Sodium 129, blood pressure 86/51 and 79/52 10/13/2022 Patient's was admitted with cardiac arrhythmia given his ischemic cardiomyopathy he is status post AICD and currently controlled on tapered dose of amiodarone per Cut And Print Machine Operator Patient also has a new onset hemodialysis, is getting permacath tomorrow Patient is not eating well and has abdominal distention which is mild, no significant abdominal pain or tenderness KUB showed no abnormality, also we will order CT of the abdomen with oral contrast Check liver enzymes Objective - Vital Signs Vital signs: Vital Signs Temp 97.3 F L 10/13/22 13:19 Pulse 43 L 10/13/22 13:19 Resp 18 10/13/22 13:19 BP 87/52 10/13/22 13:19 Pulse Ox 90 L 10/13/22 11:42 FiO2 Intake & Output 10/12/22 10/13/22 10/13/22 18:59 06:59 18:59 Intake Total 930 655 Output Total 110 106 Balance 820 549 Weight 89.5 kg Intake: IV 10 Invasive Line 6 10 Oral 930 145 Hemodialysis 500 Output: Urine 110 50 Hemodialysis 56 Other: Voiding Method Indwelling Catheter Indwelling Catheter # Bowel Movements 1 - Exam GENERAL: The patient is alert and oriented x3, not in any acute distress. Well developed, well nourished. HEENT: Pupils are round and equally reacting to light. EOMI. No scleral icterus. No conjunctival pallor. Normocephalic, atraumatic. No pharyngeal erythema. No thyromegaly. CARDIOVASCULAR: S1 and S2 present. No murmurs, rubs, or gallops. PULMONARY: Chest is clear to auscultation, no wheezing or crackles. ABDOMEN: Soft, nontender, nondistended, normoactive bowel sounds. No palpable organomegaly. MUSCULOSKELETAL: No joint swelling or deformity. EXTREMITIES: No cyanosis, clubbing, or pedal edema. NEUROLOGICAL: Gross neurological examination did not reveal any focal deficits. SKIN: No rashes. no petechiae. - Labs CBC & Chem 7: 10/12/22 08:00 10/12/22 08:00 Assessment and Plan Assessment: Acute kidney injury secondary to cardiorenal syndrome requiring hemodialysis started during this admission Dilated cardiomyopathy with systolic function impairment and EF 20% Moderate tricuspid regurgitation and moderate to severe mitral regurgitation Hyponatremia secondary to HPI Borderline low blood pressure secondary to above Plan: Continue with hemodialysis per nephrology team Tomorrow to be placed The permacath. Vascular surgery on the case cotton farmworker consult to find an you hemodialysis slot as an outpatient Cut And Print Machine Operator team signed off the case Check CT of the abdomen and pelvis and liver enzymes. Labs and medication were reviewed.. Continue same treatment. Continue with symptomatic treatment. Resume home medication. Monitor labs and vitals. DVT and GI prophylaxis. Further recommendations as per clinical course of the patient DVT prophylaxis: Subcutaneous heparin GI Prophylaxis: Ppi Prognosis is guarded
[2022-10-13 18:18] LABS: Albumin 3.3 g/dL (3.5-5.0); Bilirubin, Conjugated 0.2 mg/dL (0.0-0.3); Bilirubin, Delta 1.2 mg/dL (0.0-0.2); Bilirubin,Unconjugated 0.5 mg/dL (0.0-1.1); Total Bilirubin 1.9 mg/dL (0.2-1.3); Total Protein 6.8 g/dL (6.3-8.2)
--- NOTE | 2022-10-13 19:47 | CT ---
EXAMINATION TYPE: CT abdomen pelvis w con DATE OF EXAM: 10/13/2022 COMPARISON: None INDICATION: abd distension, loss of appetite DLP: 1441.6 mGycm, Automated exposure control for dose reduction was used. CONTRAST: 80ml mL of Isovue 300. Study performed without Oral Contrast TECHNIQUE: Axial images were obtained from above the diaphragm to the pubic rami in the axial plane a t 5 mm thick sections. Reconstructed images are reviewed on the computer in the coronal plane. FINDINGS: Limited CT sections are obtained the lung bases. Small bilateral pleural effusions are present. Mild cardiomegaly may be present. Minimal compressive atelectasis adjacent to the effusions.. CT ABDOMEN:Ascites is present adjacent to the liver and spleen and in the paracolic gutters. Some flu id is within the mesentery and through the pelvis. Liver: There is diffuse loss of density through the liver compared to the spleen compatible with mode rate fatty dictation liver. Spleen: Normal Pancreas: Normal Adrenal glands: The adrenal glands are normal. Gallbladder: Small gallstones may be within the dependent gallbladder. Kidneys: No masses are evident. No hydronephrosis is present. No cysts are present. Punctate calci fications at the upper pole left kidney without evidence of obstruction. Aorta: Aneurysmal dilatation of the abdominal aorta is present measuring 4.5 cm AP. An aortic dissect ion appears to be present within the aortic aneurysm. These begin inferior to the renal arteries and terminates at the bifurcation. No aneurysm or dissection within the iliac vessels is evident. No aneu rysmal dilatation of the descending thoracic aorta within the [id number] of the proximal abdominal aorta is evident. Celiac axis and superior mesenteric artery takeoff and calcification but are other brown unremarkable. Renal artery takeoffs have calcification. Inferior vena cava: Normal. CT PELVIS: Loops of bowel within the abdomen and pelvis are normal. This study is lateral contrast limits mariusz wel evaluation. Appendix: Not identified. No dilated tubular structure or inflammatory changes are evident. Urinary bladder: Urinary bladder is decompressed with a Armando catheter. Some air is within the urinar y bladder. Genitourinary structures: Prostate is prominent Osseous structures: No suspicious lytic or sclerotic lesions. IMPRESSIONS: 1. Abdominal aortic aneurysm 4.5 cm. This is infrarenal and terminates at the bifurcation. There suyapa ears to be a dissection within the abdominal aorta without extension into or out of the aneurysm. 2. Small bilateral pleural effusions. 3. Ascites.. 4. Moderate fatty infiltration of the liver. 5. Small gallstones. 6. Nonobstructing punctate left renal stone
[2022-10-14 00:47] LABS: African American GFR (CKD) 13 (>60 ml/min/1.73 sqM); Anion Gap 14 mmol/L; Blood Urea Nitrogen 55 mg/dL (9-20); Calcium 8.6 mg/dL (8.4-10.2); Carbon Dioxide 21 mmol/L (22-30); Chloride 95 mmol/L (98-107); Glucose 100 mg/dL (74-99); Non-African American GFR(CKD) 11 (>60 ml/min/1.73 sqM); Sodium 130 mmol/L (137-145)
[2022-10-14 01:38] LABS: Anisocytosis Slight; HCT 33.8 % (39.0-53.0); HGB 10.4 gm/dL (13.0-17.5); Hypochromasia Slight; MCH 31.1 pg (25.0-35.0); MCHC 30.9 g/dL (31.0-37.0); MCV 100.6 fL (80.0-100.0); Macrocytosis Moderate; Mean Platelet Volume 9.7; Platelet Count 139 k/uL (150-450); RBC 3.36 m/uL (4.30-5.90); RDW 17.9 % (11.5-15.5)
[2022-10-14 02:35] LABS: Eosinophils # (M) 0.11 k/uL (0-0.7); Lymphocytes # (M) 0.43 k/uL (1.0-4.8); Monocytes # (M) 0.75 k/uL (0-1.0); Neutrophils # (M) 9.52 k/uL (1.3-7.7); Neutrophils % (M) 89 %; Nucleated Red Blood Cells 2 /100 WBC (0-0); Total Cells Counted 200; WBC 10.7 k/uL (3.8-10.6)
[2022-10-14 02:36] LABS: Polychromasia Present
[2022-10-14] MEDS: LEVOTHYROXINE 100 MCG TAB PO SCH (06:23)
[2022-10-14] MEDS: PANTOPRAZOLE 40 MG TABLET PO SCH (06:23)
[2022-10-14] MEDS: ACETAMINOPHEN TAB 325 MG TAB PO PRN ×2 (08:46→17:22)
[2022-10-14] MEDS ORDERED: IV FLUID CONTINUATION 1,000 ML IV ONE (10:00)
[2022-10-14] MEDS ORDERED: MIDAZOLAM 2 MG/2 ML VIAL IV ONE (10:15)
[2022-10-14] MEDS ORDERED: LIDOCAINE 1% INJ 10MG/ML (30 ML VIAL-PF) SQ ONE (10:15)
[2022-10-14] MEDS ORDERED: LIDOCAINE 1% INJ 10MG/ML (20 ML MDV) SQ ONE (10:30)
[2022-10-14] MEDS ORDERED: IOPAMIDOL-250 100ML BTL IV ONE (10:45)
--- NOTE | 2022-10-14 11:08 | P.PCN ---
Description of Procedure: Preop diagnoses is failure Postop same patient has a AICD placement of biventricular leads CABG and right carotid endarterectomy Procedure #1 is inferior venacavogram #2 placement of a 44 cm dialysis catheter right femoral approach sedation time was 30 minutes. This patient brought to the Mechanical Engineering Professor right groin and Maximiliano of Draped for Manner this patient has a right carotid and directly done in the past and also patient has AICD and biventricular leads and had a CABG and right carotid endarterectomy done in the past discuss with nephrology we will place a permanent dialysis catheter this patient had a right temporary dialysis catheter the catheter was prepped and we gave 2 g of Guidewire Was Passed and Old Catheter Removed This Patient Is on Plavix 8 a Tendon Was Created through the Terminal Be Brought Foot for Cipro Does Catheter. Sheath Was Advanced. The Guidewire through the Sheath We Placed That Dialysis Catheter below the Renal Vein andSheath Was Removed Flushed with Heparin Saline and Hep-Lock Secured with Vicryl and and Nylon Dressing Applied Patient Tolerated the Procedure Well Patient Transferred to the [facility] Condition
[2022-10-14] MEDS: CALCIUM ACETATE 667 MG TAB PO SCH ×2 (12:15→17:21)
[2022-10-14] MEDS: allopurinoL 100 MG TAB PO SCH (12:15)
[2022-10-14] MEDS: DOCUSATE 100 MG CAP PO SCH ×2 (12:15→20:20)
[2022-10-14] MEDS: METOPROLOL TARTRATE 12.5 MG TAB PO SCH ×2 (12:15→20:20)
[2022-10-14] MEDS: ASPIRIN 81 MG PO SCH (12:15)
[2022-10-14] MEDS: CLOPIDOGREL 75 MG TAB PO SCH (12:15)
[2022-10-14] MEDS: AMIODARONE 200 MG TAB PO SCH ×2 (12:15→20:19)
[2022-10-14] MEDS: HEPARIN SODIUM,PORCINE/PF 5,000 UNIT/0.5 ML SYRINGE SQ SCH ×2 (12:17→20:20)
--- NOTE | 2022-10-14 14:27 | P.PN ---
Subjective This is a pleasant 82 years old male with multiple medical problems as below. Presents because of chest pain on 10/06, his been evaluated by electrotyper and sent of the case. However patient noticed to have significantly worsening kidney function with creatinine 5.3. He was started on hemodialysis by nephrology team and he was diagnosed with acute kidney injury secondary to cardiorenal syndrome. He has evidence of dilated cardiomyopathy with severely impaired ejection fraction 20% with moderate to severe mitral regurgitation and moderate tricuspid regurgitation Currently kept on aspirin and Plavix, midodrine 5 mg and metoprolol 12.5 mg and amiodarone 400 mg. Nephrology team months patient to have permacath, get hemodialysis tomorrow and possible discharge on Saturday Patient himself denies any other new complaints Vitals and labs are reviewed. Sodium 129, blood pressure 86/51 and 79/52 10/13/2022 Patient's was admitted with cardiac arrhythmia given his ischemic cardiomyopathy he is status post AICD and currently controlled on tapered dose of amiodarone per Wet Finisher Wool Patient also has a new onset hemodialysis, is getting permacath tomorrow Patient is not eating well and has abdominal distention which is mild, no significant abdominal pain or tenderness KUB showed no abnormality, also we will order CT of the abdomen with oral contrast Check liver enzymes 10/14/2022 Patient is started a new hemodialysis, he is going for permacath placement today and possible hemodialysis tomorrow. Blood pressure on the low side but patient is asymptomatic. Wet Finisher Wool recommended to hold on midodrine except for dialysis time. Patient also notices is not eating well, his abdomen is mildly distended but there is no tenderness, we ordered a CT of the abdomen and pelvis yesterday which showed unremarkable bowel but he has dissecting infrarenal abdominal aortic aneurysm and vascular surgical team were consulted also he has small gallstone and renal stones. Also he has mild ascites and mild pleural effusion. Labs and vitals are reviewed and LOOKS stable from today. Objective - Vital Signs Vital signs: Vital Signs Temp 98.4 F 10/14/22 08:47 Pulse 62 10/14/22 12:13 Resp 16 10/14/22 12:13 BP 82/47 10/14/22 12:13 Pulse Ox 97 10/14/22 08:47 FiO2 Intake & Output 06/24/23 06/25/23 06/25/23 18:59 06:59 18:59 Intake Total 665 20 110 Output Total 106 50 Balance 559 -30 110 Intake: IV 20 20 110 Invasive Line 6 20 20 10 Oral 145 Hemodialysis 500 Output: Urine 50 50 Hemodialysis 56 Other: Voiding Method Indwelling Catheter Indwelling Catheter Indwelling Catheter - Exam GENERAL: The patient is alert and oriented x3, not in any acute distress. Well developed, well nourished. HEENT: Pupils are round and equally reacting to light. EOMI. No scleral icterus. No conjunctival pallor. Normocephalic, atraumatic. No pharyngeal erythema. No thyromegaly. CARDIOVASCULAR: S1 and S2 present. No murmurs, rubs, or gallops. PULMONARY: Chest is clear to auscultation, no wheezing or crackles. ABDOMEN: Soft, nontender, nondistended, normoactive bowel sounds. No palpable organomegaly. MUSCULOSKELETAL: No joint swelling or deformity. EXTREMITIES: No cyanosis, clubbing, or pedal edema. NEUROLOGICAL: Gross neurological examination did not reveal any focal deficits. SKIN: No rashes. no petechiae. - Labs CBC & Chem 7: 10/13/22 23:49 10/13/22 23:49 Labs: Abnormal Lab Results - Last 24 Hours (Table) 10/13/22 10/13/22 10/13/22 Range/Units 17:56 23:49 23:49 WBC 10.7 H (3.8-10.6) k/uL RBC 3.36 L (4.30-5.90) m/uL Hgb 10.4 L (13.0-17.5) gm/dL Hct 33.8 L (39.0-53.0) % MCV 100.6 H (80.0-100.0) fL MCHC 30.9 L (31.0-37.0) g/dL RDW 17.9 H (11.5-15.5) % Plt Count 139 L (150-450) k/uL Neutrophils # (Manual) 9.52 H (1.3-7.7) k/uL Lymphocytes # (Manual) 0.43 L (1.0-4.8) k/uL Nucleated RBCs 2 H (0-0) /100 WBC Sodium 130 L (137-145) mmol/L Chloride 95 L (98-107) mmol/L Carbon Dioxide 21 L (22-30) mmol/L BUN 55 H (9-20) mg/dL Creatinine 4.62 H (0.66-1.25) mg/dL Glucose 100 H (74-99) mg/dL Total Bilirubin 1.9 H (0.2-1.3) mg/dL Delta Bilirubin 1.2 H (0.0-0.2) mg/dL ALT 62 H (4-49) U/L Albumin 3.3 L (3.5-5.0) g/dL Assessment and Plan Assessment: Ventricular tachycardia Acute kidney injury secondary to cardiorenal syndrome requiring hemodialysis started during this admission Dilated cardiomyopathy with systolic function impairment and EF 20% 4.5 cm abdominal aortic aneurysm, with dissection Moderate tricuspid regurgitation and moderate to severe mitral regurgitation Hyponatremia secondary to HPI Borderline low blood pressure secondary to above Plan: Continue with hemodialysis per nephrology team Tomorrow patient is status post permacath. Vascular surgery on the case Consults vascular surgery team for dissecting aortic aneurysm telephone worker consult to find an you hemodialysis slot as an outpatient Wet Finisher Wool team signed off the case. Recommend to continue with amiodarone and dual antiplatelet therapy Check CT of the abdomen and pelvis and liver enzymes. Labs and medication were reviewed.. Continue same treatment. Continue with symptomatic treatment. Resume home medication. Monitor labs and vitals. DVT and GI prophylaxis. Further recommendations as per clinical course of the patient DVT prophylaxis: Subcutaneous heparin GI Prophylaxis: Ppi Prognosis is guarded including shelter prognosis is very guarded
--- NOTE | 2022-10-14 15:30 | P.PN ---
Subjective Progress Note Date: 10/14/22 Follow for acute kidney injury on dialysis. Had dialysis yesterday, low blood pressures. Permacath placed in the groin today. Objective - Vital Signs Vital signs: Vital Signs Temp 98.4 F 10/14/22 08:47 Pulse 62 10/14/22 14:22 Resp 16 10/14/22 12:13 BP 82/47 10/14/22 12:13 Pulse Ox 97 10/14/22 08:47 FiO2 Intake & Output 10/13/22 10/14/22 10/14/22 18:59 06:59 18:59 Intake Total 665 20 120 Output Total 106 50 Balance 559 -30 120 Intake: IV 20 20 120 Invasive Line 6 20 20 20 Oral 145 Hemodialysis 500 Output: Urine 50 50 Hemodialysis 56 Other: Voiding Method Indwelling Catheter Indwelling Catheter Indwelling Catheter - Exam No acute distress S1-S2 heard Decreased breath sounds Right groin PermCath No edema - Labs CBC & Chem 7: 10/13/22 23:49 10/13/22 23:49 Labs: Abnormal Lab Results - Last 24 Hours (Table) 10/13/22 10/13/22 10/13/22 Range/Units 17:56 23:49 23:49 WBC 10.7 H (3.8-10.6) k/uL RBC 3.36 L (4.30-5.90) m/uL Hgb 10.4 L (13.0-17.5) gm/dL Hct 33.8 L (39.0-53.0) % MCV 100.6 H (80.0-100.0) fL MCHC 30.9 L (31.0-37.0) g/dL RDW 17.9 H (11.5-15.5) % Plt Count 139 L (150-450) k/uL Neutrophils # (Manual) 9.52 H (1.3-7.7) k/uL Lymphocytes # (Manual) 0.43 L (1.0-4.8) k/uL Nucleated RBCs 2 H (0-0) /100 WBC Sodium 130 L (137-145) mmol/L Chloride 95 L (98-107) mmol/L Carbon Dioxide 21 L (22-30) mmol/L BUN 55 H (9-20) mg/dL Creatinine 4.62 H (0.66-1.25) mg/dL Glucose 100 H (74-99) mg/dL Total Bilirubin 1.9 H (0.2-1.3) mg/dL Delta Bilirubin 1.2 H (0.0-0.2) mg/dL ALT 62 H (4-49) U/L Albumin 3.3 L (3.5-5.0) g/dL Assessment and Plan Assessment: #1 oliguric acute kidney injury secondary to ATN/CRS. Currently on dialysis sta rted on 10/10/2022. -Baseline creatinine 1.1-1.2 in March 2021. #2 CHF with systolic dysfunction EF of 20%. #3 hypotensive episodes #4 V. tach on admission on midodrine. #5 hyponatremia, hypervolemic Plan: #1 currently on dialysis, plan dialysis tomorrow. #2 midodrine for hemodynamic support #3 avoid nephrotoxic agents and hypotensive episodes. #4 monitor for renal recovery #5 outpatient dialysis placement.
--- NOTE | 2022-10-14 15:45 | IR ---
Fluoroscopy History: RENAL FAILURE 14.5X44CM 2.1MIN FLUORO RENAL FAILURE 14.5X44CM 2.1MIN FLUORO
[2022-10-15] MEDS: LEVOTHYROXINE 100 MCG TAB PO SCH (06:23)
[2022-10-15] MEDS: CALCIUM ACETATE 667 MG TAB PO SCH ×2 (06:23→20:18)
[2022-10-15] MEDS: PANTOPRAZOLE 40 MG TABLET PO SCH (06:23)
[2022-10-15] MEDS ORDERED: HEPARIN SODIUM,PORCINE 2,500 UNIT in SODIUM CHLORIDE 0.9% 250 ML IRRIGATION PRN (07:00)
[2022-10-15] MEDS ORDERED: HEPARIN SODIUM,PORCINE 10,000 UNIT in SODIUM CHLORIDE 0.9% 1,000 ML IRRIGATION PRN (07:00)
[2022-10-15 08:33] LABS: African American GFR (CKD) 9 (>60 ml/min/1.73 sqM); Anion Gap 14 mmol/L; Blood Urea Nitrogen 69 mg/dL (9-20); Calcium 8.5 mg/dL (8.4-10.2); Carbon Dioxide 24 mmol/L (22-30); Chloride 93 mmol/L (98-107); Glucose 92 mg/dL (74-99); Non-African American GFR(CKD) 8 (>60 ml/min/1.73 sqM); Potassium 4.1 mmol/L (3.5-5.1); Sodium 131 mmol/L (137-145)
[2022-10-15] MEDS: MIDODRINE 5 MG TAB PO PRN ×2 (08:51→11:25)
[2022-10-15] MEDS: ACETAMINOPHEN TAB 325 MG TAB PO PRN (08:51)
--- NOTE | 2022-10-15 12:33 | P.GSCN ---
History of Present Illness Consult date: 10/15/22 Reason for Consult: Abdominal aortic aneurysm, dissecting Requesting physician: Tomas E Sheet History of present illness: 82-year-old male with a significant history of coronary artery disease who had presented to the emergency department 9 days ago with complaints of chest pain, irregular heartbeat and was found to be in V. tach with acute coronary syndrome. Patient initially was on amiodarone and heparin drip and switched over to oral amiodarone. He also has a past medical history including coronary artery di sease status post CABG, ischemic cardiomyopathy status post AICD, dyslipidemia and chronic kidney disease with acute and chronic kidney failure at this time requiring a temporary HD catheter placement followed by a tunneled femoral HD catheter placement on currently getting hemodialysis. Cardiology has been following patient closely and according to their notes deferred cardiac catheterization due to kidney function. Looks like the patient has some concerns with abdominal bloating, he had an abdominal x-ray Reported nonspecific nonobstructive bowel gas pattern. He also underwent a CT of the abdomen and pelvis with contrast reporting abdominal aortic aneurysm 4.5 cm infrarenal and terminates at the bifurcation. There appears to be dissection within the abdominal aorta without extension into or out of the aneurysm. Small bilateral pleural effusions, ascites, moderately fatty infiltration of liver, small gallstones on nonobstructive left renal stone. Vascular surgery was consulted f or abdominal aortic aneurysm possible dissection. The patient states he currently has no abdominal pain and no pain radiating to his back. He states he has some back discomfort from lying in bed. But no acute back or abdominal pain. Currently denies any shortness breath or chest pain, no fevers or chills. He is currently undergoing hemodialysis. States that he has had CABG, and 4 stents done at [facility] as well as [facility]. He follows with Dr. Beaulieu and Dr. Moctzeuma. He was known to have an abdominal aortic aneurysm that they have been watching. Review of Systems A 14 point review systems was completed all pertinent positives and negatives as stated in the HPI. Past Medical History Past Medical History: Coronary Artery Disease (CAD), Chest Pain / Angina, Hyperlipidemia, Myocardial Infarction (PR), Thyroid Disorder Last Myocardial Infarction Date:: 1990 History of Any Multi-Drug Resistant Organisms: None Reported Past Surgical History: Heart Catheterization, Orthopedic Surgery Additional Past Surgical History / Comment(s): cardiac bipass 2015. carotid artery surgery 2017 Past Anesthesia/Blood Transfusion Reactions: No Reported Reaction Past Psychological History: No Psychological Hx Reported Past Alcohol Use History: None Reported Past Drug Use History: None Reported - Past Family History Father Family Medical History: Coronary Artery Disease (CAD), Myocardial Infarction (PR) Mother Family Medical History: Coronary Artery Disease (CAD), Myocardial Infarction (PR) Brother(s) Family Medical History: Hypertension Sister(s) Family Medical History: Congestive Heart Failure (CHF) (Atrial fibrillation) Son(s) Family Medical History: No Reported History Medications and Allergies Home Medications Medication Instructions Recorded Confirmed Type Aspirin EC [Ecotrin Low Dose] 81 mg PO DAILY 12/17/18 10/06/22 History Cholecalciferol [Vitamin D3 (25 125 mcg PO DAILY 12/17/18 10/06/22 History Mcg = 1000 Iu)] Ezetimibe [Zetia] 10 mg PO DAILY 12/17/18 10/06/22 History Levothyroxine Sodium [Synthroid] 100 mcg PO DAILY 12/17/18 10/06/22 History Ubidecarenone [Co Q-10] 100 mg PO DAILY 12/17/18 10/06/22 History Ferrous Sulfate [Iron] 325 mg PO DAILY 10/06/22 10/06/22 History Furosemide [Lasix] 20 mg PO DAILY@1400 10/06/22 10/06/22 History Furosemide [Lasix] 40 mg PO DAILY 10/06/22 10/06/22 History Midodrine HCl [ProAmatine] 10 mg PO TID 10/06/22 10/06/22 History Pantoprazole [Protonix] 40 mg PO DAILY 10/06/22 10/06/22 History Sacubitril/Valsartan [Entresto 24 0.5 tab PO BID 10/06/22 10/06/22 History mg-26 mg Tablet] Spironolactone 25 mg PO DAILY 10/06/22 10/06/22 History allopurinoL 100 mg PO DAILY 10/06/22 10/06/22 History metOLazone 2.5 mg PO DAILY 10/06/22 10/06/22 History Allergies Allergy/AdvReac Type Severity Reaction Status Date / Time No Known Allergies Allergy Verified 10/06/22 13:42 Surgical - Exam Vital Signs Temp Pulse Resp BP Pulse Ox 98.4 F 160 H 22 92/68 94 L 10/06/22 05:56 10/06/22 05:56 10/06/22 05:56 10/06/22 05:56 10/06/22 05:56 General appearance: The patient is alert, oriented, appears in no acute distress. HET: Head is normocephalic and atraumatic. Pupils are equal and reactive. Neck: Supple. Heart: Regular. Lungs: Equal expansion, normal respiratory effort. Abdomen: Soft, nontender, nondistended. Extremities: Normal skin color and turgor. Neurological: No focal deficits. Results - Labs 10/13/22 23:49 10/15/22 06:38 Abnormal Lab Results - Last 24 Hours (Table) 10/15/22 Range/Units 06:38 Sodium 131 L (137-145) mmol/L Chloride 93 L (98-107) mmol/L BUN 69 H (9-20) mg/dL Creatinine 6.01 H (0.66-1.25) mg/dL Diabetes panel 10/15/22 Range/Units 06:38 Sodium 131 L (137-145) mmol/L Potassium 4.1 (3.5-5.1) mmol/L Chloride 93 L (98-107) mmol/L Carbon Dioxide 24 (22-30) mmol/L BUN 69 H (9-20) mg/dL Creatinine 6.01 H (0.66-1.25) mg/dL Glucose 92 (74-99) mg/dL Calcium 8.5 (8.4-10.2) mg/dL Calcium panel 10/15/22 Range/Units 06:38 Calcium 8.5 (8.4-10.2) mg/dL Pituitary panel 10/15/22 Range/Units 06:38 Sodium 131 L (137-145) mmol/L Potassium 4.1 (3.5-5.1) mmol/L Chloride 93 L (98-107) mmol/L Carbon Dioxide 24 (22-30) mmol/L BUN 69 H (9-20) mg/dL Creatinine 6.01 H (0.66-1.25) mg/dL Glucose 92 (74-99) mg/dL Calcium 8.5 (8.4-10.2) mg/dL Adrenal panel 10/15/22 Range/Units 06:38 Sodium 131 L (137-145) mmol/L Potassium 4.1 (3.5-5.1) mmol/L Chloride 93 L (98-107) mmol/L Carbon Dioxide 24 (22-30) mmol/L BUN 69 H (9-20) mg/dL Creatinine 6.01 H (0.66-1.25) mg/dL Glucose 92 (74-99) mg/dL Calcium 8.5 (8.4-10.2) mg/dL Assessment and Plan Assessment: 1. 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 Chest pain with myocardial injury, stabilized 3. Sustained ventricular tachycardia 4. History of coronary artery disease status post CABG 5. Acute on chronic renal failure requiring hemodialysis 6. History of ischemic cardiomyopathy status post AICD Plan: Discussed with patient findings of this CT abdomen and pelvis of saccular abdominal aortic aneurysm and risk for rupture. At this time patient needs to be medically optimized and cleared by cardiology before proceeding with endovascular abdominal aortic aneurysm repair. Patient is not experiencing any pain he is hemodynamically stable and this can be done as outpatient in near future. Will need medical and cardiac clearance for endovascular AAA repair. The impression and plan of care has been dictated as directed. I performed a history and examination of this patient, discussed the same with the dictator. I agree with the dictator's note ,documented as a scribe. Any additional findings or plans will be noted.
[2022-10-15] MEDS ORDERED: SODIUM CHLORIDE 0.9% 1,000 ML in EMPTY BAG 1 BAG IV ONE (12:51)
[2022-10-15] MEDS ORDERED: ALPRAZolam 0.5 MG TAB PO PRN (12:51)
[2022-10-15] MEDS ORDERED: ALPRAZolam 0.25 MG TAB PO PRN (12:51)
[2022-10-15] MEDS ORDERED: ATORVASTATIN 80 MG TAB PO STA (12:51)
[2022-10-15] MEDS ORDERED: ASPIRIN 325 MG TAB PO STA (12:51)
[2022-10-15] MEDS ORDERED: NITROGLYCERIN SL TABS 0.4 MG TAB SUBLINGUAL PRN (12:51)
--- NOTE | 2022-10-15 13:07 | P.PN ---
Subjective HISTORY OF PRESENT ILLNESS: The patient is an 82-year-old gentleman with CAD and status post CABG was performed in [place] long time ago with unknown details as well as history of ischemic cardiomyopathy status post AICD as well as dyslipidemia as well as chronic kidney disease. The patient was seen by myself in the office recently as a new patient a few weeks ago. The patient was brought to the hospital by ambulance. He was in his usual state of health until yesterday when he was laying in bed reading a book and suddenly he started experiencing discomfort in the chest associated with a feeling of heart racing. No dizziness or lightheadedness and no presyncope or syncope. Subsequently he called ambulance and when the ambulance was arrived he was diagnosed with "SVT" where he received 6 mg of adenosine and subsequently 12 mg of adenosine with no improvement. Subsequently the patient was brought to the hospital where an EKG was performed and showed wide complex rhythm and he received cardioversion. The EKG following that showed atrial sensed ventricular paced rhythm. He was slightly hypotensive with a systolic pressure in the 80s and 90s millimeters mercury. He also underwent further workup including first set of troponin came in to be slightly abnormal and creatinine came in to be abnormal. He is known to have chronic kidney disease is definitely above the baseline. Beside that he underwent NT proBNP came in to be elevated. The chest x-ray did not show any acute abnormalities. He was admitted to the hospital and started on Lasix IV as well as midodrine. The patient was seen and evaluated at bedside today. He is still having mild ongoing chest discomfort about 5/10 in intensity but definitely has improved compared to before. Further blood work ordered including second set of troponin as well as an echocardiogram is in process to be done. The last echocardiogram was in 2018 showing an EF between 30-35%. Currently the patient is on heparin as well as is on amiodarone IV. He does not recall receiving any shock. October [id number] The patient was seen and evaluated this morning. Currently he is chest pain- free. Unfortunately his creatinine is worse today. Yesterday I decrease the dose of Lasix and I will suggest to stop the Lasix completely but I would leave that to the nephrology team. He is not in any overt heart failure at this point. The hemoglobin from this morning continues to be pending. His vitals are stable with a soft blood pressure. I'm going to stop the Lopressor which could be contributing to the low blood pressure contributing to worsening kidney function. Beside that I will suggest to stop the Lasix. In addition to that he is on dual antiplatelet therapy and statin which we are going to continue. He is on amiodarone IV which going to switch him to amiodarone by mouth. The AICD interrogation was reviewed and showed ventricular tachycardia terminated by antitachycardia pacing. I would hold on doing any heart catheterization at this point in the light off worsening kidney function as well as the absence of any chest pain or chest discomfort. We will consider doing the heart catheterization once the creatinine is back to baseline. 10/08 Patient has been seen today in follow-up. Patient had IV Lasix order which has been held because of low blood pressures, systolics in the 80s. Heart rate is in the 50s. BUN is 96 and creatinine 4.41. Chest x-ray cardiomegaly without evidence of acute heart failure. Echocardiogram reveals dilated LV with severely impaired LV function EF 20% with global hypokinesia. Intact mitral valve leaflets with moderate to severe mitral regurgitation likely secondary to cardiomyopathy. Mild pulmonary hypertension. Moderate tricuspid regurgitation. 10/09 Patient is seen today in follow-up. He denies having any chest pain. No cardiac catheterization will be planned at this time. Reviewed V. tach which is most likely scar base and not due to ischemic changes. Patient is currently on a heparin drip and yesterday was switched to oral Lasix. Repeat blood work reveals worsening renal function with BUN of 105 and creatinine 5.15. Sodium 131, potassium 4.9, chloride 97, CO2 16. Hemoglobin is 10.8. Liver function tests are elevated as well. 10/10 Patient is seen today in follow-up. His heart rate remains in the 50s, systolic blood pressure in the 80s despite use of midodrine. Patient states at home his blood pressure is normally about 108. Midodrine was started by his PCP. Patie nt denies any lightheadedness or dizziness. No lower extremity edema. Repeat blood work reveals worsening renal function with BUN 113 and creatinine 5.7. Sodium is 128. Hemoglobin 10.5. Potassium is 4.4. 10/11 Patient denies any shortness of breath, no chest pain. His blood pressure remains marginal and he has been off midodrine. He did receive 1 dose of midodrine for hemodialysis. Yesterday, it was decided that he would start on hemodialysis. Heart rate was in the 50s and 60s. No repeat blood work available today. 10/15/2022 Cardiology was reconsulted for cardiac clearance for patient to undergo AAA repair with vascular surgery. Patient examined at the bedside. He just finished hemodialysis. He denies chest pain or pressure. Denies SOB. Blood pressure remains on the lower side. He is receiving Midodrine. PHYSICAL EXAM: VITAL SIGNS: Reviewed. GENERAL: Well-developed in no acute distress. NECK: Supple. No JVD or thyromegaly LUNGS: Respirations even and unlabored. Lungs essentially clear to auscultation bilaterally. HEART: Regular rate and rhythm. S1 and S2 heard. EXTREMITIES: Normal range of motion. No clubbing or cyanosis. Peripheral pulses intact. 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 Moctezuma Cardiac clearance pending cath results Further recommendations pending patient course Nurse practitioner note has been reviewed by physician. Signing provider agrees with the documented findings, assessment, and plan of care. Objective - Vital Signs Vital signs: Vital Signs Temp 97.6 F 10/15/22 07:50 Pulse 54 L 10/15/22 07:50 Resp 18 10/15/22 07:50 BP 77/47 10/15/22 07:50 Pulse Ox 96 10/15/22 10:01 FiO2 Intake & Output 10/14/22 10/15/22 10/15/22 18:59 06:59 18:59 Intake Total 120 20 Output Total 25 Balance 120 -5 Weight 89.5 kg Intake: IV 120 20 Invasive Line 6 20 20 Output: Urine 25 Other: Voiding Method Indwelling Catheter Indwelling Catheter Indwelling Catheter # Bowel Movements 1 - Labs CBC & Chem 7: 10/13/22 23:49 10/15/22 06:38 Labs: Abnormal Lab Results - Last 24 Hours (Table) 10/15/22 Range/Units 06:38 Sodium 131 L (137-145) mmol/L Chloride 93 L (98-107) mmol/L BUN 69 H (9-20) mg/dL Creatinine 6.01 H (0.66-1.25) mg/dL
[2022-10-15] MEDS: allopurinoL 100 MG TAB PO SCH (13:22)
[2022-10-15] MEDS: DOCUSATE 100 MG CAP PO SCH ×2 (13:22→20:39)
[2022-10-15] MEDS: AMIODARONE 200 MG TAB PO SCH ×2 (13:22→20:39)
[2022-10-15] MEDS: CLOPIDOGREL 75 MG TAB PO SCH (13:22)
[2022-10-15] MEDS: METOPROLOL TARTRATE 12.5 MG TAB PO SCH ×2 (13:23→20:39)
[2022-10-15] MEDS: ASPIRIN 81 MG PO SCH (13:23)
--- NOTE | 2022-10-15 13:31 | P.PN ---
Subjective Patient is seen for follow-up for acute kidney injury. Underlying history of severe cardiomyopathy with ejection fraction of 20%. Patient was started on hemodialysis on 10/10/2022 for worsening oliguric acute kidney injury. Patient has a femoral permacath and outpatient chair time is most likely Saturday schedule. Currently seen on hemodialysis. Blood pressure remains low. Patient is asymptomatic and tolerating treatment well Objective - Vital Signs Vital signs: Vital Signs Temp 97.6 F 10/15/22 07:50 Pulse 54 L 10/15/22 07:50 Resp 18 10/15/22 07:50 BP 77/47 10/15/22 07:50 Pulse Ox 96 10/15/22 10:01 FiO2 Intake & Output 10/14/22 10/15/22 10/15/22 18:59 06:59 18:59 Intake Total 120 20 Output Total 25 Balance 120 -5 Weight 89.5 kg Intake: IV 120 20 Invasive Line 6 20 20 Output: Urine 25 Other: Voiding Method Indwelling Catheter Indwelling Catheter Indwelling Catheter # Bowel Movements 1 - Exam Patient is awake, comfortable, no acute distress Alert oriented 3 Examination of the heart S1 and S2 Examination of the lungs bilateral breath sounds are heard Decreased breath sounds at the bases Abdomen is soft nontender Examination of lower extremities shows trace edema - Labs CBC & Chem 7: 10/13/22 23:49 10/15/22 06:38 Labs: Abnormal Lab Results - Last 24 Hours (Table) 10/15/22 Range/Units 06:38 Sodium 131 L (137-145) mmol/L Chloride 93 L (98-107) mmol/L BUN 69 H (9-20) mg/dL Creatinine 6.01 H (0.66-1.25) mg/dL Assessment and Plan Assessment: 1. Acute kidney injury, cardiorenal , currently oliguric. No evidence of urine retention. UA is benign. Started hemodialysis on 10/10/2022 for worsening oliguric acute kidney injury. 2. Ischemic cardiomyopathy with ejection fraction 30-35% status post AICD 3. Elevated troponins with possible acute [place] 4. Sustained ventricular tachycardia maintained on amiodarone 5. CHF, acute on chronic, systolic with decreased ejection fraction at 30-35%. Plan: Patient will continue with hemodialysis as outpatient on a TTS schedule.
[2022-10-15] MEDS: HEPARIN SODIUM,PORCINE/PF 5,000 UNIT/0.5 ML SYRINGE SQ SCH ×2 (13:57→20:40)
[2022-10-15] MEDS ORDERED: MIDODRINE 5 MG TAB PO ONE (20:26)
--- NOTE | 2022-10-15 21:45 | P.PN ---
Subjective This is a pleasant 82 years old male with multiple medical problems as below. Presents because of chest pain on 10/06, his been evaluated by business writer and sent of the case. However patient noticed to have significantly worsening kidney function with creatinine 5.3. He was started on hemodialysis by nephrology team and he was diagnosed with acute kidney injury secondary to cardiorenal syndrome. He has evidence of dilated cardiomyopathy with severely impaired ejection fraction 20% with moderate to severe mitral regurgitation and moderate tricuspid regurgitation Currently kept on aspirin and Plavix, midodrine 5 mg and metoprolol 12.5 mg and amiodarone 400 mg. Nephrology team months patient to have permacath, get hemodialysis tomorrow and possible discharge on Saturday Patient himself denies any other new complaints Vitals and labs are reviewed. Sodium 129, blood pressure 86/51 and 79/52 10/13/2022 Patient's was admitted with cardiac arrhythmia given his ischemic cardiomyopathy he is status post AICD and currently controlled on tapered dose of amiodarone per [facility] Patient also has a new onset hemodialysis, is getting permacath tomorrow Patient is not eating well and has abdominal distention which is mild, no significant abdominal pain or tenderness KUB showed no abnormality, also we will order CT of the abdomen with oral contrast Check liver enzymes 10/14/2022 Patient is started a new hemodialysis, he is going for permacath placement today and possible hemodialysis tomorrow. Blood pressure on the low side but patient is asymptomatic. [facility] recommended to hold on midodrine except for dialysis time. Patient also notices is not eating well, his abdomen is mildly distended but there is no tenderness, we ordered a CT of the abdomen and pelvis yesterday which showed unremarkable bowel but he has dissecting infrarenal abdominal aortic aneurysm and vascular surgical team were consulted also he has small gallstone and renal stones. Also he has mild ascites and mild pleural effusion. Labs and vitals are reviewed and LOOKS stable from today. 10/15/2022 Patient mildly generally weak, physical therapy reevaluated the patient today still is doing well and he still can go home with home health care which is ordered now His hemodialysis catheter in place, and plan to continue with hemodialysis as an outpatient and neonatal social worker's said a short time for him to go to dialysis as an outpatient. Hydro Operator team on the case, blood pressure on the low side, as symptomatic. Patient may benefit from midodrine, deferred to her farm machinery erector team. [facility] team are planning for cardiac cath today Vascular surgery team recommended repair office dissecting aortic aneurysm of the abdomen an outpatient the near future after medical and cardiac clearance. We will continue to follow Objective - Vital Signs Vital signs: Vital Signs Temp 97.9 F 10/15/22 04:00 Pulse 58 L 10/15/22 04:00 Resp 16 10/15/22 04:00 BP 88/46 10/15/22 04:00 Pulse Ox 96 10/15/22 10:01 FiO2 Intake & Output 10/14/22 10/15/22 10/15/22 18:59 06:59 18:59 Intake Total 120 20 Output Total 25 Balance 120 -5 Intake: IV 120 20 Invasive Line 6 20 20 Output: Urine 25 Other: Voiding Method Indwelling Catheter Indwelling Catheter # Bowel Movements 1 - Exam GENERAL: The patient is alert and oriented x3, not in any acute distress. Well developed, well nourished. HEENT: Pupils are round and equally reacting to light. EOMI. No scleral icterus. No conjunctival pallor. Normocephalic, atraumatic. No pharyngeal erythema. No thyromegaly. CARDIOVASCULAR: S1 and S2 present. No murmurs, rubs, or gallops. PULMONARY: Chest is clear to auscultation, no wheezing or crackles. ABDOMEN: Soft, nontender, nondistended, normoactive bowel sounds. No palpable organomegaly. MUSCULOSKELETAL: No joint swelling or deformity. EXTREMITIES: No cyanosis, clubbing, or pedal edema. NEUROLOGICAL: Gross neurological examination did not reveal any focal deficits. SKIN: No rashes. no petechiae. - Labs CBC & Chem 7: 10/13/22 23:49 10/15/22 06:38 Labs: Abnormal Lab Results - Last 24 Hours (Table) 10/15/22 Range/Units 06:38 Sodium 131 L (137-145) mmol/L Chloride 93 L (98-107) mmol/L BUN 69 H (9-20) mg/dL Creatinine 6.01 H (0.66-1.25) mg/dL Assessment and Plan Assessment: Ventricular tachycardia Acute kidney injury secondary to cardiorenal syndrome requiring hemodialysis started during this admission Dilated cardiomyopathy with systolic function impairment and EF 20% 4.5 cm abdominal aortic aneurysm, with dissection Moderate tricuspid regurgitation and moderate to severe mitral regurgitation Hyponatremia secondary to HPI Borderline low blood pressure secondary to above Plan: Continue with hemodialysis per nephrology team status post permacath. Vascular surgery on the case Consults vascular surgery team for dissecting aortic aneurysm, recommend out patient repair in the near future composition worker consult to find an you hemodialysis slot as an outpatient [facility] team are planning for cardiac cath now, this afternoon. And they recommended to continue with amiodarone and dual antiplatelet therapy Check CT of the abdomen and pelvis and liver enzymes. Labs and medication were reviewed.. Continue same treatment. Continue with symptomatic treatment. Resume home medication. Monitor labs and vitals. DVT and GI prophylaxis. Further recommendations as per clinical course of the patient DVT prophylaxis: Subcutaneous heparin GI Prophylaxis: Ppi Prognosis is guarded including pega developer prognosis is very guarded
[2022-10-15] MEDS: CALCIUM CARBONATE 500 MG CHEWABLE PO PRN (23:36)
[2022-10-16] MEDS: PANTOPRAZOLE 40 MG TABLET PO SCH (06:22)
[2022-10-16] MEDS: CALCIUM ACETATE 667 MG TAB PO SCH ×2 (06:22→19:02)
[2022-10-16] MEDS: LEVOTHYROXINE 100 MCG TAB PO SCH (06:22)
[2022-10-16] MEDS ORDERED: ASPIRIN 325 MG TAB PO STA (08:35)
[2022-10-16] MEDS: ACETAMINOPHEN TAB 325 MG TAB PO PRN (09:00)
[2022-10-16] MEDS: METOPROLOL TARTRATE 12.5 MG TAB PO SCH ×2 (09:00→21:15)
[2022-10-16] MEDS: allopurinoL 100 MG TAB PO SCH (09:00)
[2022-10-16] MEDS: DOCUSATE 100 MG CAP PO SCH ×2 (09:00→21:15)
[2022-10-16] MEDS: CLOPIDOGREL 75 MG TAB PO SCH (09:00)
[2022-10-16] MEDS: HEPARIN SODIUM,PORCINE/PF 5,000 UNIT/0.5 ML SYRINGE SQ SCH ×2 (09:00→21:15)
[2022-10-16] MEDS: AMIODARONE 200 MG TAB PO SCH ×2 (09:00→21:15)
[2022-10-16] MEDS: ASPIRIN 81 MG PO SCH (09:01)
[2022-10-16] MEDS: CALCIUM CARBONATE 500 MG CHEWABLE PO PRN (09:03)
[2022-10-16] MEDS ORDERED: polyethylene glycoL 3350 17 GM POWD.PACK PO STA (09:56)
--- NOTE | 2022-10-16 10:50 | US ---
EXAMINATION TYPE: US arterial LE single level DATE OF EXAM: 10/16/2022 10:33 AM Exam done portable CLINICAL INDICATION: Male, 82 years old with history of non palpable DP/PT pulses; History of: Smoker: Previous Hypertension: No Diabetic: No Hyperlipidemia: Yes TIA/CVA: Yes - TIA Previous Vascular Surgery: Yes - Cardiac bypass x4 2014 OR: Yes Vascular Ulcers: No Claudication: No Gangrene: No Doppler Waveforms: Right: Biphasic Left: Biphasic Right Brachial Pressure: Deferred due to IV site Left Brachial Pressure: 88 Ankle-Brachial Indices: (Vessel hardening > 1.4; Normal 0.9 - 1.4, Moderate 0.7 - 0.9, Severe 0.5-0.7 ) Right: 1.89 Left: CNO Toe Brachial Indices: (Vessel hardening > 1.4; Normal 0.9 - 1.4, Moderate 0.7 - 0.9, Severe 0.5-0.7) Right: 0.67 Left: 0.67 IMPRESSION: Severe bilateral peripheral vascular disease in the feet. There is suggestion of vessel hardening wit hin the ankle brachial index on the right. The left ankle-brachial index was not visualized obtained
--- NOTE | 2022-10-16 11:28 | P.PN ---
Subjective Patient is seen for follow-up for acute kidney injury. Underlying history of severe cardiomyopathy with ejection fraction of 20%. Patient was started on hemodialysis on 10/10/2022 for worsening oliguric acute kidney injury. Patient has a femoral permacath and outpatient chair time is most likely Saturday schedule. Status post hemodialysis yesterday with 1.5 L of ultrafiltration. Going for cardiac catheterization today. Objective - Vital Signs Vital signs: Vital Signs Temp 97.4 F L 10/16/22 08:58 Pulse 55 L 10/16/22 08:58 Resp 18 10/16/22 08:58 BP 84/50 10/16/22 08:58 Pulse Ox 97 10/16/22 09:20 FiO2 Intake & Output 10/15/22 10/16/22 10/16/22 18:59 06:59 18:59 Intake Total 400 240 Output Total 1500 10 10 Balance -1100 230 -10 Weight 89.5 kg Intake: Oral 240 Hemodialysis 400 Output: Stool 10 10 Hemodialysis 1500 Other: Voiding Method Indwelling Catheter Indwelling Catheter Indwelling Catheter # Bowel Movements 3 - Exam Patient is awake, comfortable, no acute distress Alert oriented 3 Examination of the heart S1 and S2 Examination of the lungs bilateral breath sounds are heard Decreased breath sounds at the bases Abdomen is soft nontender Examination of lower extremities shows trace edema - Labs CBC & Chem 7: 10/13/22 23:49 10/15/22 06:38 Assessment and Plan Assessment: 1. Acute kidney injury, cardiorenal , currently oliguric. No evidence of urine retention. UA is benign. Started hemodialysis on 10/10/2022 for worsening oliguric acute kidney injury. 2. Ischemic cardiomyopathy with ejection fraction 30-35% status post AICD 3. Elevated troponins with possible acute [place] 4. Sustained ventricular tachycardia maintained on amiodarone 5. CHF, acute on chronic, systolic with decreased ejection fraction at 30-35%. Plan: Hemodialysis today post cardiac catheterization Patient will continue with hemodialysis as outpatient on a TTS schedule.
--- NOTE | 2022-10-16 11:55 | P.PN ---
Subjective Progress Note Date: 10/16/22 Principal diagnosis: Abdominal aortic aneurysm Patient was seen and examined today as a follow-up. He has no new complaints other than some abdominal gas pain and he's had some loose stool. The patient is scheduled to undergo cardiac catheterization today. He is denying any s hortness of breath or chest pain. No back pain. Objective - Vital Signs Vital signs: Vital Signs Temp 97.4 F L 10/16/22 08:58 Pulse 55 L 10/16/22 08:58 Resp 18 10/16/22 08:58 BP 84/50 10/16/22 08:58 Pulse Ox 97 10/16/22 08:58 FiO2 Intake & Output 10/15/22 10/16/22 10/16/22 18:59 06:59 18:59 Intake Total 400 240 Output Total 1500 10 Balance -1100 230 Weight 89.5 kg Intake: Oral 240 Hemodialysis 400 Output: Stool 10 Hemodialysis 1500 Other: Voiding Method Indwelling Catheter Indwelling Catheter # Bowel Movements 3 - Exam General appearance: The patient is alert, oriented, appears in no acute distress. HET: Head is normocephalic and atraumatic. Pupils are equal and reactive. Neck: Supple. Heart: Irregular. Lungs: Equal expansion, normal respiratory effort. Abdomen: Soft, nontender, nondistended. Extremities: Normal skin color and turgor. Lower extremity edema. Nonpalpable PT and DP pulses. Right lower extremity with multiphasic PT signal, left foot with monophasic PT signal. No DP signal bilaterally. Neurological: No focal deficits. Strength and sensation are grossly intact. - Labs CBC & Chem 7: 10/13/22 23:49 10/15/22 06:38 Assessment and Plan Assessment: 1. 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 Chest pain with myocardial injury, stabilized 3. Sustained ventricular tachycardia 4. History of coronary artery disease status post CABG 5. Acute on chronic renal failure requiring hemodialysis 6. History of ischemic cardiomyopathy status post AICD Plan: Discussed with patient findings of this CT abdomen and pelvis of saccular abdominal aortic aneurysm and risk for rupture. Patient would like to proceed with intervention at some point. At this time patient needs to be medically optimized and cleared by cardiology before proceeding with endovascular abdominal aortic aneurysm repair. Patient undergoing cardiac catheterization today. Arterial duplex of lower extremities ordered for nonpalpable DP pulses. Patient is not experiencing any pain he is hemodynamically stable and this can be done as outpatient in near future. Will need medical and cardiac clearance for endovascular AAA repair. The impression and plan of care has been dictated as directed. I performed a history and examination of this patient, discussed the same with the dictator. I agree with the dictator's note ,documented as a scribe. Any additional findings or plans will be noted.
--- NOTE | 2022-10-16 12:06 | P.PN ---
Subjective HISTORY OF PRESENT ILLNESS: The patient is an 82-year-old gentleman with CAD and status post CABG was performed in [place] long time ago with unknown details as well as history of ischemic cardiomyopathy status post AICD as well as dyslipidemia as well as chronic kidney disease. The patient was seen by myself in the office recently as a new patient a few weeks ago. The patient was brought to the hospital by ambulance. He was in his usual state of health until yesterday when he was laying in bed reading a book and suddenly he started experiencing discomfort in the chest associated with a feeling of heart racing. No dizziness or lightheadedness and no presyncope or syncope. Subsequently he called ambulance and when the ambulance was arrived he was diagnosed with "SVT" where he received 6 mg of adenosine and subsequently 12 mg of adenosine with no improvement. Subsequently the patient was brought to the hospital where an EKG was performed and showed wide complex rhythm and he received cardioversion. The EKG following that showed atrial sensed ventricular paced rhythm. He was slightly hypotensive with a systolic pressure in the 80s and 90s millimeters mercury. He also underwent further workup including first set of troponin came in to be slightly abnormal and creatinine came in to be abnormal. He is known to have chronic kidney disease is definitely above the baseline. Beside that he underwent NT proBNP came in to be elevated. The chest x-ray did not show any acute abnormalities. He was admitted to the hospital and started on Lasix IV as well as midodrine. The patient was seen and evaluated at bedside today. He is still having mild ongoing chest discomfort about 5/10 in intensity but definitely has improved compared to before. Further blood work ordered including second set of troponin as well as an echocardiogram is in process to be done. The last echocardiogram was in 2018 showing an EF between 30-35%. Currently the patient is on heparin as well as is on amiodarone IV. He does not recall receiving any shock. October [id number] The patient was seen and evaluated this morning. Currently he is chest pain- free. Unfortunately his creatinine is worse today. Yesterday I decrease the dose of Lasix and I will suggest to stop the Lasix completely but I would leave that to the nephrology team. He is not in any overt heart failure at this point. The hemoglobin from this morning continues to be pending. His vitals are stable with a soft blood pressure. I'm going to stop the Lopressor which could be contributing to the low blood pressure contributing to worsening kidney function. Beside that I will suggest to stop the Lasix. In addition to that he is on dual antiplatelet therapy and statin which we are going to continue. He is on amiodarone IV which going to switch him to amiodarone by mouth. The AICD interrogation was reviewed and showed ventricular tachycardia terminated by antitachycardia pacing. I would hold on doing any heart catheterization at this point in the light off worsening kidney function as well as the absence of any chest pain or chest discomfort. We will consider doing the heart catheterization once the creatinine is back to baseline. 10/08 Patient has been seen today in follow-up. Patient had IV Lasix order which has been held because of low blood pressures, systolics in the 80s. Heart rate is in the 50s. BUN is 96 and creatinine 4.41. Chest x-ray cardiomegaly without evidence of acute heart failure. Echocardiogram reveals dilated LV with severely impaired LV function EF 20% with global hypokinesia. Intact mitral valve leaflets with moderate to severe mitral regurgitation likely secondary to cardiomyopathy. Mild pulmonary hypertension. Moderate tricuspid regurgitation. 10/09 Patient is seen today in follow-up. He denies having any chest pain. No cardiac catheterization will be planned at this time. Reviewed V. tach which is most likely scar base and not due to ischemic changes. Patient is currently on a heparin drip and yesterday was switched to oral Lasix. Repeat blood work reveals worsening renal function with BUN of 105 and creatinine 5.15. Sodium 131, potassium 4.9, chloride 97, CO2 16. Hemoglobin is 10.8. Liver function tests are elevated as well. 10/10 Patient is seen today in follow-up. His heart rate remains in the 50s, systolic blood pressure in the 80s despite use of midodrine. Patient states at home his blood pressure is normally about 108. Midodrine was started by his PCP. Patie nt denies any lightheadedness or dizziness. No lower extremity edema. Repeat blood work reveals worsening renal function with BUN 113 and creatinine 5.7. Sodium is 128. Hemoglobin 10.5. Potassium is 4.4. 10/11 Patient denies any shortness of breath, no chest pain. His blood pressure remains marginal and he has been off midodrine. He did receive 1 dose of midodrine for hemodialysis. Yesterday, it was decided that he would start on hemodialysis. Heart rate was in the 50s and 60s. No repeat blood work available today. 10/15/2022 Cardiology was reconsulted for cardiac clearance for patient to undergo AAA repair with vascular surgery. Patient examined at the bedside. He just finished hemodialysis. He denies chest pain or pressure. Denies SOB. Blood pressure remains on the lower side. He is receiving Midodrine. 10/16/2022 Patient examined this morning at the bedside. Patient denies chest pain or pressure. Denies SOB. Blood pressures remain soft. He is receiving Midodrine. PHYSICAL EXAM: VITAL SIGNS: Reviewed. GENERAL: Well-developed in no acute distress. NECK: Supple. No JVD or thyromegaly LUNGS: Respirations even and unlabored. Lungs essentially clear to auscultation bilaterally. HEART: Regular rate and rhythm. S1 and S2 heard. EXTREMITIES: Normal range of motion. No clubbing or cyanosis. Peripheral pulses intact. 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 Moctezuma Cardiac clearance pending cath results Further recommendations pending patient course Nurse practitioner note has been reviewed by physician. Signing provider agrees with the documented findings, assessment, and plan of care. Objective - Vital Signs Vital signs: Vital Signs Temp 97.4 F L 10/16/22 08:58 Pulse 55 L 10/16/22 11:48 Resp 16 10/16/22 11:48 BP 88/52 10/16/22 11:48 Pulse Ox 97 10/16/22 11:48 FiO2 Intake & Output 10/15/22 10/16/22 10/16/22 18:59 06:59 18:59 Intake Total 400 240 Output Total 1500 10 10 Balance -1100 230 -10 Weight 89.5 kg Intake: Oral 240 Hemodialysis 400 Output: Stool 10 10 Hemodialysis 1500 Other: Voiding Method Indwelling Catheter Indwelling Catheter Indwelling Catheter # Bowel Movements 3 - Labs CBC & Chem 7: 10/13/22 23:49 10/15/22 06:38
[2022-10-16] MEDS ORDERED: IV FLUID CONTINUATION 1,000 ML IV ONE (13:10)
[2022-10-16] MEDS ORDERED: HEPARIN SODIUM 1,000 UN/ML (10ML VL) ONE (13:13)
[2022-10-16] MEDS ORDERED: LIDOCAINE 1% INJ 10MG/ML (20 ML MDV) ONE (13:13)
[2022-10-16] MEDS ORDERED: fentaNYL (PF) 50 MCG/ML 2 ML AMP ONE (13:17)
[2022-10-16] MEDS ORDERED: LIDOCAINE 1% INJ 10MG/ML (20 ML MDV) SQ ONE (13:18)
[2022-10-16] MEDS ORDERED: fentaNYL (PF) 50 MCG/ML 2 ML AMP IV ONE (13:18)
[2022-10-16] MEDS ORDERED: IOPAMIDOL-370 100ML BTL INJ ONE ×2 (13:35→13:47)
[2022-10-16] MEDS ORDERED: RX INFO: IV CONTRAST WAS GIVEN 1 EACH MISC MISCELLANE PRN (13:58)
[2022-10-16] MEDS ORDERED: SODIUM CHLORIDE 0.9% 1,000 ML IV SCH (14:00)
[2022-10-16] MEDS: MIDODRINE 5 MG TAB PO PRN ×2 (15:32→16:21)
--- NOTE | 2022-10-16 19:24 | P.PCN ---
Date of Procedure: 10/16/22 Operative Findings: CARDIAC CATHETERIZATION PERFORMING PHYSICIAN: George Moctezuma MD, RPVI PROCEDURE PERFORMED: 1. Selective right and left coronary angiogram 2. FLOOD into LAD angiogram, SVG to diagonal angiogram, SVG to LCx angiogram 3. 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 Local anesthesia was performed using lidocaine subcutaneously. The left common femoral artery was cannulated using Seldinger technique, the guidewire passed easily, following that we advanced a 6 Dutch sheath dilator as sembly, the wire and dilator were removed and sheath was flushed. Selective right and left coronary angiogram using a 6-Dutch JR4 and JL catheters. The FLOOD into LAD angiogram and SVG to diagonal angiogram and SVG to LCx angiogram performed using the JR4 catheter. Subsequently echo did not opacify the SVG to left circumflex but we did an aortic root angiogram using 6- Dutch pigtail catheter. The procedure was completed was no complication The procedure was completed there was no complication. SELECTIVE CORONARY ANGIOGRAM: The right coronary artery: Is chronically occluded. Left main: Appears to be disease in the range of 50-60%. The left circumflex: As critical lesion in the proximal portion. The left anterior descending artery: Subtotally occluded in the proximal to midportion Coronary bypasses angiogram: The FLOOD to LAD is patent The SVG to diagonal is patent TheSVG to LCx is patent AORTIC ROOT ANGIOGRAM: Was performed in the JASPREET projection and using a power injection. The aortic root appears to be mildly elevated but no evidence of SVG to RCA opacify medication. CONCLUSION: 1. Severe triple-vessel coronary artery disease 2. Patent FLOOD into LAD and patent SVG to diagonal and patent SVG to LCx 3. Occluded SVG to RCA POSTPROCEDURE MANAGEMENT: Medical treatment and follow-up with the patient
--- NOTE | 2022-10-16 23:36 | P.PN ---
Subjective This is a pleasant 82 years old male with multiple medical problems as below. Presents because of chest pain on 10/06, his been evaluated by lsat instructor and sent of the case. However patient noticed to have significantly worsening kidney function with creatinine 5.3. He was started on hemodialysis by nephrology team and he was diagnosed with acute kidney injury secondary to cardiorenal syndrome. He has evidence of dilated cardiomyopathy with severely impaired ejection fraction 20% with moderate to severe mitral regurgitation and moderate tricuspid regurgitation Currently kept on aspirin and Plavix, midodrine 5 mg and metoprolol 12.5 mg and amiodarone 400 mg. Nephrology team months patient to have permacath, get hemodialysis tomorrow and possible discharge on Saturday Patient himself denies any other new complaints Vitals and labs are reviewed. Sodium 129, blood pressure 86/51 and 79/52 10/13/2022 Patient's was admitted with cardiac arrhythmia given his ischemic cardiomyopathy he is status post AICD and currently controlled on tapered dose of amiodarone per Supervisor [employer] Patient also has a new onset hemodialysis, is getting permacath tomorrow Patient is not eating well and has abdominal distention which is mild, no significant abdominal pain or tenderness KUB showed no abnormality, also we will order CT of the abdomen with oral contrast Check liver enzymes 10/14/2022 Patient is started a new hemodialysis, he is going for permacath placement today and possible hemodialysis tomorrow. Blood pressure on the low side but patient is asymptomatic. Supervisor [employer] recommended to hold on midodrine except for dialysis time. Patient also notices is not eating well, his abdomen is mildly distended but there is no tenderness, we ordered a CT of the abdomen and pelvis yesterday which showed unremarkable bowel but he has dissecting infrarenal abdominal aortic aneurysm and vascular surgical team were consulted also he has small gallstone and renal stones. Also he has mild ascites and mild pleural effusion. Labs and vitals are reviewed and LOOKS stable from today. 10/15/2022 Patient mildly generally weak, physical therapy reevaluated the patient today still is doing well and he still can go home with home health care which is ordered now His hemodialysis catheter in place, and plan to continue with hemodialysis as an outpatient and mental health social worker's said a short time for him to go to dialysis as an outpatient. Presentation Manager team on the case, blood pressure on the low side, as symptomatic. Patient may benefit from midodrine, deferred to her radiation protection specialist team. Supervisor [employer] team are planning for cardiac cath today Vascular surgery team recommended repair office dissecting aortic aneurysm of the abdomen an outpatient the near future after medical and cardiac clearance. We will continue to follow 10/16/2022 Patient clinically looks the same over the last few days, hip uncomfortable. Denies any specific symptoms. Mildly tired but hemodynamically stable. Vitals stable, blood pressure is low normal with systolic 80s to 90s but patient is as symptomatic over several days Labs reviewed and looks stable as well. Today he underwent to test once his arterial ultrasound showing severe peripheral artery disease especially in the feet Anchored to the afternoon he underwent cardiac cath showing severe triple vessel coronary artery disease with patent FLOOD and patent SVG to the circumflex but occluded SVG to RCA. Supervisor [employer] recommended medical management and follow-up with the patient Her meds on aspirin and Plavix Objective - Vital Signs Vital signs: Vital Signs Temp 97.4 F L 10/16/22 08:58 Pulse 55 L 10/16/22 11:48 Resp 16 10/16/22 11:48 BP 88/52 10/16/22 11:48 Pulse Ox 97 10/16/22 11:48 FiO2 Intake & Output 10/15/22 10/16/22 10/16/22 18:59 06:59 18:59 Intake Total 400 240 Output Total 1500 10 10 Balance -1100 230 -10 Weight 89.5 kg Intake: Oral 240 Hemodialysis 400 Output: Stool 10 10 Hemodialysis 1500 Other: Voiding Method Indwelling Catheter Indwelling Catheter Indwelling Catheter # Bowel Movements 3 - Exam GENERAL: The patient is alert and oriented x3, not in any acute distress. Well developed, well nourished. HEENT: Pupils are round and equally reacting to light. EOMI. No scleral icterus. No conjunctival pallor. Normocephalic, atraumatic. No pharyngeal erythema. No thyromegaly. CARDIOVASCULAR: S1 and S2 present. No murmurs, rubs, or gallops. PULMONARY: Chest is clear to auscultation, no wheezing or crackles. ABDOMEN: Soft, nontender, nondistended, normoactive bowel sounds. No palpable organomegaly. MUSCULOSKELETAL: No joint swelling or deformity. EXTREMITIES: No cyanosis, clubbing, or pedal edema. NEUROLOGICAL: Gross neurological examination did not reveal any focal deficits. SKIN: No rashes. no petechiae. - Labs CBC & Chem 7: 10/13/22 23:49 10/15/22 06:38 Assessment and Plan Assessment: -Ventricular tachycardia -Coronary artery disease, cardiac cath showing severe triple vessel coronary artery disease with patent FLOOD and patent SVG to the circumflex but occluded SVG to RCA. Supervisor [employer] recommended medical management and follow-up with the patient -severe peripheral artery disease especially in the feet -Acute kidney injury secondary to cardiorenal syndrome requiring hemodialysis started during this admission -Dilated cardiomyopathy with systolic function impairment and EF 20% -4.5 cm abdominal aortic aneurysm, with dissection, vascular surgery recommended outpatient follow-up -Moderate tricuspid regurgitation and moderate to severe mitral regurgitation -Hyponatremia secondary to HPI -Borderline low blood pressure secondary to above Plan: Continue with hemodialysis per nephrology team status post permacath. Vascular surgery on the case Consults vascular surgery team for dissecting aortic aneurysm, recommend o utpatient repair in the near future general i farmworker consult to find an you hemodialysis slot as an outpatient Supervisor [employer] recommended medical management for his severe triple-vessel coronary artery disease Labs and medication were reviewed.. Continue same treatment. Continue with symptomatic treatment. Resume home medication. Monitor labs and vitals. DVT and GI prophylaxis. Further recommendations as per clinical course of the patient DVT prophylaxis: Subcutaneous heparin GI Prophylaxis: Ppi Prognosis is guarded including terminal operations supervisor prognosis is very guarded Possible discharge in a
[2022-10-17] MEDS: LEVOTHYROXINE 100 MCG TAB PO SCH (05:56)
[2022-10-17] MEDS: PANTOPRAZOLE 40 MG TABLET PO SCH (05:56)
[2022-10-17] MEDS: CALCIUM ACETATE 667 MG TAB PO SCH (05:57)
[2022-10-17 07:20] LABS: Anisocytosis Slight; Basophils % (A) 0 %; Eosinophils # (A) 0.1 k/uL (0-0.7); Eosinophils % (A) 1 %; HCT 32.4 % (39.0-53.0); Hypochromasia Moderate; Lymphocytes # (A) 1.8 k/uL (1.0-4.8); Lymphocytes % (A) 17 %; MCH 31.3 pg (25.0-35.0); MCHC 30.8 g/dL (31.0-37.0); MCV 101.5 fL (80.0-100.0); Macrocytosis Moderate; Mean Platelet Volume 9.4; Monocytes # (A) 0.6 k/uL (0-1.0); Monocytes % (A) 6 %; Neutrophils # (A) 7.6 k/uL (1.3-7.7); Neutrophils % (A) 74 %; Poikilocytosis Slight; RBC 3.19 m/uL (4.30-5.90); RDW 18.1 % (11.5-15.5); WBC 10.4 k/uL (3.8-10.6)
[2022-10-17 07:38] LABS: African American GFR (CKD) 17 (>60 ml/min/1.73 sqM); Anion Gap 14 mmol/L; Blood Urea Nitrogen 36 mg/dL (9-20); Calcium 8.1 mg/dL (8.4-10.2); Carbon Dioxide 21 mmol/L (22-30); Chloride 98 mmol/L (98-107); Glucose 105 mg/dL (74-99); Non-African American GFR(CKD) 15 (>60 ml/min/1.73 sqM); Potassium 3.9 mmol/L (3.5-5.1); Sodium 133 mmol/L (137-145)
[2022-10-17 08:17] LABS: Platelet Count 97 k/uL (150-450)
[2022-10-17] MEDS: AMIODARONE 200 MG TAB PO SCH (08:38)
[2022-10-17] MEDS: DOCUSATE 100 MG CAP PO SCH (08:38)
[2022-10-17] MEDS: allopurinoL 100 MG TAB PO SCH (08:38)
[2022-10-17] MEDS: METOPROLOL TARTRATE 12.5 MG TAB PO SCH (08:38)
[2022-10-17] MEDS: CLOPIDOGREL 75 MG TAB PO SCH (08:38)
[2022-10-17] MEDS: ASPIRIN 81 MG PO SCH (08:38)
[2022-10-17] MEDS: HEPARIN SODIUM,PORCINE/PF 5,000 UNIT/0.5 ML SYRINGE SQ SCH (08:38)
--- NOTE | 2022-10-17 12:09 | P.PN ---
Subjective Progress Note Date: 10/17/22 Principal diagnosis: Abdominal aortic aneurysm Patient was seen and examined today as follow-up. Yesterday he underwent cardiac catheterization with Dr. Moctezuma reporting severe triple-vessel coronary artery disease, patent FLOOD into LAD and patent SVG to diagonal and patent SVG t o LCx, occluded SVG to RCA. Patient denies any shortness of breath or chest pain. States he has some abdominal fullness, apparently patient has urinary retention and will be getting an indwelling Armando catheter placed. Objective - Vital Signs Vital signs: Vital Signs Temp 97.4 F L 10/16/22 21:15 Pulse 52 L 10/17/22 04:00 Resp 16 10/17/22 04:00 BP 85/53 10/17/22 04:00 Pulse Ox 96 10/17/22 08:49 FiO2 Intake & Output 10/16/22 10/17/22 10/17/22 18:59 06:59 18:59 Intake Total 418 118 Output Total 910 Balance -492 118 Intake: Oral 118 118 Hemodialysis 300 Output: Stool 10 Hemodialysis 900 Other: Voiding Method Indwelling Catheter Indwelling Catheter # Voids 1 # Bowel Movements 1 - Exam General appearance: The patient is alert, oriented, appears in no acute distress. HET: Head is normocephalic and atraumatic. Pupils are equal and reactive. Neck: Supple. Heart: Irregular. Lungs: Equal expansion, normal respiratory effort. Abdomen: Soft, nontender, nondistended. Extremities: Normal skin color and turgor. Lower extremity edema. Nonpalpable PT and DP pulses. Right lower extremity with multiphasic PT signal, left foot with monophasic PT signal. No DP signal bilaterally. Neurological: No focal deficits. Strength and sensation are grossly intact. - Labs CBC & Chem 7: 10/17/22 06:34 10/17/22 06:34 Labs: Abnormal Lab Results - Last 24 Hours (Table) 10/17/22 10/17/22 Range/Units 06:34 06:34 RBC 3.19 L (4.30-5.90) m/uL Hgb 10.0 L (13.0-17.5) gm/dL Hct 32.4 L (39.0-53.0) % MCV 101.5 H (80.0-100.0) fL MCHC 30.8 L (31.0-37.0) g/dL RDW 18.1 H (11.5-15.5) % Plt Count 97 L (150-450) k/uL Sodium 133 L (137-145) mmol/L Carbon Dioxide 21 L (22-30) mmol/L BUN 36 H (9-20) mg/dL Creatinine 3.61 H (0.66-1.25) mg/dL Glucose 105 H (74-99) mg/dL Calcium 8.1 L (8.4-10.2) mg/dL Assessment and Plan Assessment: 1. 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 Chest pain with myocardial injury, stabilized 3. Sustained ventricular tachycardia 4. History of coronary artery disease status post CABG. Severe triple-vessel coronary artery disease, Occluded SVG to RCA per cardiac catheterization. 5. Acute on chronic renal failure requiring hemodialysis 6. History of ischemic cardiomyopathy status post AICD Plan: Discussed with patient findings of this CT abdomen and pelvis of saccular abdominal aortic aneurysm and risk for rupture. Patient would like to proceed with intervention at some point. At this time patient needs to be medically optimized and cleared by cardiology before proceeding with endovascular abdominal aortic aneurysm repair. Patient underwent cardiac catheterization and recommendation is medical management. Patient is cleared to proceed for abdominal aortic aneurysm as high risk. Patient is cleared for discharge from vascular surgery. The impression and plan of care has been dictated as directed. I performed a history and examination of this patient, discussed the same with the dictator. I agree with the dictator's note ,documented as a scribe. Any additional findings or plans will be noted.
--- NOTE | 2022-10-17 12:32 | P.PN ---
Subjective Progress Note Date: 10/17/22 HISTORY OF PRESENT ILLNESS: The patient is an 82-year-old gentleman with CAD and status post CABG was performed in [place] long time ago with unknown details as well as history of isc hemic cardiomyopathy status post AICD as well as dyslipidemia as well as chronic kidney disease. The patient was seen by myself in the office recently as a new patient a few weeks ago. The patient was brought to the hospital by ambulance. He was in his usual state of health until yesterday when he was laying in bed reading a book and suddenly he started experiencing discomfort in the chest asso ciated with a feeling of heart racing. No dizziness or lightheadedness and no presyncope or syncope. Subsequently he called ambulance and when the ambulance was arrived he was diagnosed with "SVT" where he received 6 mg of adenosine and subsequently 12 mg of adenosine with no improvement. Subsequently the patient was brought to the hospital where an EKG was performed and showed wide complex rhythm and he received cardioversion. The EKG following that showed atrial sensed ventricular paced rhythm. He was slightly hypotensive with a systolic pressure in the 80s and 90s millimeters mercury. He also underwent further workup including first set of troponin came in to be slightly abnormal and creatinine came in to be abnormal. He is known to have chronic kidney disease is definitely above the baseline. Beside that he underwent NT proBNP came in to be elevated. The chest x-ray did not show any acute abnormalities. He was admitted to the hospital and started on Lasix IV as well as midodrine. The patient was seen and evaluated at bedside today. He is still having mild ongoing chest discomfort about 5/10 in intensity but definitely has improved compared to before. Further blood work ordered including second set of troponin as well as an echocardiogram is in process to be done. The last echocardiogram was in 2018 showing an EF between 30-35%. Currently the patient is on heparin as well as is on amiodarone IV. He does not recall receiving any shock. October [id number] The patient was seen and evaluated this morning. Currently he is chest pain- free. Unfortunately his creatinine is worse today. Yesterday I decrease the dose of Lasix and I will suggest to stop the Lasix completely but I would leave that to the nephrology team. He is not in any overt heart failure at this point. The hemoglobin from this morning continues to be pending. His vitals are stable with a soft blood pressure. I'm going to stop the Lopressor which could be contributing to the low blood pressure contributing to worsening kidney function. Beside that I will suggest to stop the Lasix. In addition to that he is on dual antiplatelet therapy and statin which we are going to continue. He is on amiodarone IV which going to switch him to amiodarone by mouth. The AICD interrogation was reviewed and showed ventricular tachycardia terminated by antitachycardia pacing. I would hold on doing any heart catheterization at this point in the light off worsening kidney function as well as the absence of any chest pain or chest discomfort. We will consider doing the heart catheterization once the creatinine is back to baseline. 10/08 Patient has been seen today in follow-up. Patient had IV Lasix order which has been held because of low blood pressures, systolics in the 80s. Heart rate is in the 50s. BUN is 96 and creatinine 4.41. Chest x-ray cardiomegaly without evidence of acute heart failure. Echocardiogram reveals dilated LV with severely impaired LV function EF 20% with global hypokinesia. Intact mitral valve leaflets with moderate to severe mitral regurgitation likely secondary to cardiomyopathy. Mild pulmonary hypertension. Moderate tricuspid regurgitation. 10/09 Patient is seen today in follow-up. He denies having any chest pain. No cardiac catheterization will be planned at this time. Reviewed V. tach which is most likely scar base and not due to ischemic changes. Patient is currently on a heparin drip and yesterday was switched to oral Lasix. Repeat blood work reveals worsening renal function with BUN of 105 and creatinine 5.15. Sodium 131, potassium 4.9, chloride 97, CO2 16. Hemoglobin is 10.8. Liver function tests are elevated as well. 10/10 Patient is seen today in follow-up. His heart rate remains in the 50s, systolic blood pressure in the 80s despite use of midodrine. Patient states at home his blood pressure is normally about 108. Midodrine was started by his PCP. Patient denies any lightheadedness or dizziness. No lower extremity edema. Repeat blood work reveals worsening renal function with BUN 113 and creatinine 5.7. Sodium is 128. Hemoglobin 10.5. Potassium is 4.4. 10/11 Patient denies any shortness of breath, no chest pain. His blood pressure remains marginal and he has been off midodrine. He did receive 1 dose of midodrine for hemodialysis. Yesterday, it was decided that he would start on hemodialysis. Heart rate was in the 50s and 60s. No repeat blood work available today. 10/15/2022 Cardiology was reconsulted for cardiac clearance for patient to undergo AAA repair with vascular surgery. Patient examined at the bedside. He just finished hemodialysis. He denies chest pain or pressure. Denies SOB. Blood pressure remains on the lower side. He is receiving Midodrine. 10/16/2022 Patient examined this morning at the bedside. Patient denies chest pain or pressure. Denies SOB. Blood pressures remain soft. He is receiving Midodrine. 10/17/2022 Patient examined this might bedside. Patient underwent cardiac catheterization yesterday revealing severe triple vessel coronary artery disease. Patent FLOOD to LAD. Patent SVG to diagonal and patent SVG to left circumflex. Occluded SVG to RCA. Medical management was recommended. PHYSICAL EXAM: VITAL SIGNS: Reviewed. GENERAL: Well-developed in no acute distress. NECK: Supple. No JVD or thyromegaly LUNGS: Respirations even and unlabored. Lungs essentially clear to auscultation bilaterally. HEART: Regular rate and rhythm. S1 and S2 heard. EXTREMITIES: Normal range of motion. No clubbing or cyanosis. Peripheral pulses intact. 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 However there are no absolute contraindications from a cardiac standpoint Patient may be discharged home today from a cardiac standpoint and follow up on an outpatient basis. Nurse practitioner note has been reviewed by physician. Signing provider agrees with the documented findings, assessment, and plan of care. Objective - Vital Signs Vital signs: Vital Signs Temp 97.8 F 10/17/22 08:00 Pulse 56 L 10/17/22 08:00 Resp 18 10/17/22 08:00 BP 80/52 10/17/22 08:00 Pulse Ox 96 10/17/22 08:49 FiO2 Intake & Output 10/16/22 10/17/22 10/17/22 18:59 06:59 18:59 Intake Total 418 118 Output Total 910 10 Balance -492 108 Intake: Oral 118 118 Hemodialysis 300 Output: Stool 10 10 Hemodialysis 900 Other: Voiding Method Indwelling Catheter Indwelling Catheter Indwelling Catheter # Voids 1 # Bowel Movements 1 - Labs CBC & Chem 7: 10/17/22 06:34 10/17/22 06:34 Labs: Abnormal Lab Results - Last 24 Hours (Table) 10/17/22 10/17/22 Range/Units 06:34 06:34 RBC 3.19 L (4.30-5.90) m/uL Hgb 10.0 L (13.0-17.5) gm/dL Hct 32.4 L (39.0-53.0) % MCV 101.5 H (80.0-100.0) fL MCHC 30.8 L (31.0-37.0) g/dL RDW 18.1 H (11.5-15.5) % Plt Count 97 L (150-450) k/uL Sodium 133 L (137-145) mmol/L Carbon Dioxide 21 L (22-30) mmol/L BUN 36 H (9-20) mg/dL Creatinine 3.61 H (0.66-1.25) mg/dL Glucose 105 H (74-99) mg/dL Calcium 8.1 L (8.4-10.2) mg/dL
[2022-10-17 14:39] VITALS: BP 89/51; RESP 20; TEMP 98
[2022-10-17 14:40] VITALS: PULSE 56
--- NOTE | 2022-10-17 15:14 | XR ---
EXAMINATION TYPE: XR chest 1V portable DATE OF EXAM: 10/17/2022 3:10 PM COMPARISON: Chest radiographs from 10/10/2022 TECHNIQUE: XR chest 1V portable Frontal view of the chest. CLINICAL INDICATION:Male, 82 years old with history of n/o SOB; FINDINGS: Lungs/Pleura: No evidence of focal consolidation or pneumothorax. Blunting of the costophrenic angles is present. Pulmonary vascularity: Unremarkable. Heart/mediastinum: Cardiomediastinal silhouette is unremarkable. Three lead cardiac conduction device overlying the left hemithorax with lead tips projecting over the right ventricle, right atrium and c oronary sinus. Musculoskeletal: No acute osseous pathology. Midline sternotomy wires are noted. IMPRESSION: Cardiomegaly, pulmonary vascular congestion and bilateral pleural effusions. Correlate with BNP for c ongestive heart failure.
--- NOTE | 2022-10-17 21:13 | P.DS ---
Providers Date of admission: 10/06/22 07:22 Attending physician: Yvonne Ruano Consults: 10/06/22 07:16 Consult Physician Stat Consulting Provider: George Moctezuma Consult Reason/Comments: vtach, acs Do you want consulting provider notified?: Already Contacted 10/07/22 10:07 Consult Physician Routine Consulting Provider: Marily Maya Consult Reason/Comments: CARSON Do you want consulting provider notified?: Yes 10/10/22 09:16 Consult Physician Routine Consulting Provider: Gutierrez Cardoso Consult Reason/Comments: temp dialysis catheter Do you want consulting provider notified?: Yes 10/14/22 00:24 Consult Physician Urgent Consulting Provider: Renetta Armando Consult Reason/Comments: AAA, dissecting Do you want consulting provider notified?: Yes, Notify in am 10/15/22 12:28 Consult Physician Routine Consulting Provider: Latrell Zelaya Consult Reason/Comments: Cardiac clearance for endovascular AAA repair Do you want consulting provider notified?: Already Contacted Primary care physician: [facility] Hospital Course: Diagnoses: -Ventricular tachycardia -Coronary artery disease, cardiac cath showing severe triple vessel coronary artery disease with patent FLOOD and patent SVG to the circumflex but occluded SVG to RCA. Washing Machine Striper recommended medical management and follow-up with the patient -severe peripheral artery disease especially in the feet -Acute kidney injury secondary to cardiorenal syndrome requiring hemodialysis started during this admission -Dilated cardiomyopathy with systolic function impairment and EF 20% -4.5 cm abdominal aortic aneurysm, with dissection, vascular surgery recommended outpatient follow-up -Moderate tricuspid regurgitation and moderate to severe mitral regurgitation -Hyponatremia secondary to HPI -Borderline low blood pressure secondary to above Hospital course: This is a pleasant 82 years old male with multiple medical problems as below. Presents because of chest pain on 10/06, his been evaluated by pearl cutter and sent of the case. Also patient found to have cardiac arrhythmia and she is been evaluated by pearl cutter, her crit is been stabilized with amiodarone with recommendation to discharge the patient on tapered amiodarone patient informed and he agrees (see discharge instructions) However patient noticed to have significantly worsening kidney function with creatinine 5.3. He was started on hemodialysis by nephrology team and he was diagnosed with acute kidney injury secondary to cardiorenal syndrome. He has evidence of dilated cardiomyopathy with severely impaired ejection fraction 20% with moderate to severe mitral regurgitation and moderate tricuspid regurgitation Currently kept on aspirin and Plavix, midodrine 5 mg and metoprolol 12.5 mg and amiodarone 400 mg. permacath was placed and manager social responsibility arrange outpatient hemodialysis arrangements for the patient to which he agreeable. Blood pressure was on the low normal, however is asymptomatic and stable on midodrine. Due to his cardiac arrhythmia and abnormal cardiac function patient underwent cardiac cath yesterday: showing severe triple vessel coronary artery disease with patent FLOOD and patent SVG to the circumflex but occluded SVG to RCA. Ca rdiologist recommended medical management and follow-up with the patient patient was on aspirin at home, Plavix added for him, risk of bleeding expected for him extensively and he agrees. Patient was not eating well and was complaining of from mild abdominal discomfort and distention, CT of the abdomen with oral contrast obtained showing dissecting infrarenal abdominal aortic aneurysm and vascular surgical team were consulted who recommended close outpatient follow-up for surgical repair of his aneurysm and patient verbalized understanding and acceptance, pearl cutter its preop evaluation and found to be high-risk for such procedure, however there is a contraindication. he underwent to test once his arterial ultrasound showing severe peripheral artery disease especially in the feet Patient clinically got stabilized, today he is as symptomatic denies chest pain dyspnea, no abdominal pain, physical therapy recommended home with home care as he is able to ambulates, no other new complaints and patient is able to be discharged home today Patient was cleared for discharge by all consultants including pearl cutter, vascular surgery team, crocodile farmer Problems and management plan were discussed with the patient and he verbalized understanding and acceptance Patient was found stable and can be discharged home in guarded prognosis however he needs follow-up as an outpatient. Patient was instructed to follow up with PCP Dr. Baker within one week and patient agrees Patient was instructed to follow up with Dr. Armando in 1 week after discharge and he verbalized understanding and acceptance to call and make appointment Also patient was instructed to follow up with his pearl cutter Dr. Moctezuma in one week after discharge. Patient also follow for hemodialysis instructed to follow up with crocodile farmer Dr. Duong/Dr. Maya in 1-2 weeks and he agrees Physical exam Gen: patient is a AAOx3, no distress CVS: S1-S2, RRR, no murmur Lungs: B/L CTA, no wheezing Abdomen: soft, no distention, no tenderness, positive bowel sounds Extremity: no leg edema or induration Time spent more than 35 minutes Patient Condition at Discharge: Critical Plan - Discharge Summary Discharge Rx Participant: No New Discharge Prescriptions: New Amiodarone [Cordarone] 400 mg PO BID 14 Days #28 tab Amiodarone [Cordarone] 400 mg PO DAILY #30 tablet Metoprolol Tartrate [Lopressor] 12.5 mg PO BID #60 tab Nitroglycerin Sl Tabs [Nitrostat] 0.4 mg SUBLINGUAL Q5M PRN #20 tab PRN Reason: Chest Pain Calcium Acetate [PhosLo] 667 mg PO BID-W/MEALS #60 tab Clopidogrel [Plavix] 75 mg PO DAILY #30 tab Docusate [Colace] 100 mg PO BID #40 cap Midodrine [ProAmatine] 5 mg PO AC-TID #90 tab Calcium Carbonate [Tums] 500 mg PO QID PRN #60 tab PRN Reason: Heartburn Continue Ubidecarenone [Co Q-10] 100 mg PO DAILY Cholecalciferol [Vitamin D3 (25 Mcg = 1000 Iu)] 125 mcg PO DAILY Levothyroxine Sodium [Synthroid] 100 mcg PO DAILY Ezetimibe [Zetia] 10 mg PO DAILY allopurinoL 100 mg PO DAILY Aspirin EC [Ecotrin Low Dose] 81 mg PO DAILY #30 tab Pantoprazole [Protonix] 40 mg PO DAILY Ferrous Sulfate [Iron] 325 mg PO DAILY Discontinued Furosemide [Lasix] 20 mg PO DAILY@1400 Furosemide [Lasix] 40 mg PO DAILY metOLazone 2.5 mg PO DAILY Spironolactone 25 mg PO DAILY Midodrine HCl [ProAmatine] 10 mg PO TID Sacubitril/Valsartan [Entresto 24 mg-26 mg Tablet] 0.5 tab PO BID Discharge Medication List Cholecalciferol [Vitamin D3 (25 Mcg = 1000 Iu)] 125 mcg PO DAILY 12/17/18 [History] Ezetimibe [Zetia] 10 mg PO DAILY 12/17/18 [History] Levothyroxine Sodium [Synthroid] 100 mcg PO DAILY 12/17/18 [History] Ubidecarenone [Co Q-10] 100 mg PO DAILY 12/17/18 [History] Ferrous Sulfate [Iron] 325 mg PO DAILY 10/06/22 [History] Pantoprazole [Protonix] 40 mg PO DAILY 10/06/22 [History] allopurinoL 100 mg PO DAILY 10/06/22 [History] Amiodarone [Cordarone] 400 mg PO BID 14 Days #28 tab 10/17/22 [Rx] Amiodarone [Cordarone] 400 mg PO DAILY #30 tablet 10/17/22 [Rx] Aspirin EC [Ecotrin Low Dose] 81 mg PO DAILY #30 tab 10/17/22 [Rx] Calcium Acetate [PhosLo] 667 mg PO BID-W/MEALS #60 tab 10/17/22 [Rx] Calcium Carbonate [Tums] 500 mg PO QID PRN #60 tab 10/17/22 [Rx] Clopidogrel [Plavix] 75 mg PO DAILY #30 tab 10/17/22 [Rx] Docusate [Colace] 100 mg PO BID #40 cap 10/17/22 [Rx] Metoprolol Tartrate [Lopressor] 12.5 mg PO BID #60 tab 10/17/22 [Rx] Midodrine [ProAmatine] 5 mg PO AC-TID #90 tab 10/17/22 [Rx] Nitroglycerin Sl Tabs [Nitrostat] 0.4 mg SUBLINGUAL Q5M PRN #20 tab 10/17/22 [Rx] Follow up Appointment(s)/Referral(s): Marily Maya MD [STAFF PHYSICIAN] - 2 Weeks (kid doctor ) Chico Beaulieu MD [Family Provider] - 1 Week Dewey Lombardo MD [Primary Care Provider] - 1-2 days Renetta Armando DO [STAFF PHYSICIAN] - 1 Week (vascular surgeon for your aortic abdominal aneurysm) Latrell Zelaya MD [STAFF PHYSICIAN] - 2 Weeks (heart dr) [facility] Visiting Nurse, [NON-STAFF] - Patient Instructions/Handouts: Heart Failure (DC), Dialysis Diet (DC) Activity/Diet/Wound Care/Special Instructions: Outpatient hemodialysis at [facility] - Saturday, , Saturday @1150 a.m. Start date 10/18/22 - arrive at 11:30 on this day. HEART HEALTHY DIET, RENAL DIET Activity is restricted till you see your doctor about Amiodarone: Continue on oral amiodarone at 400 mg ((twice daily)) for 2 weeks and then ((daily)) for one month. Amiodarone will be tapered as an outpatient. follow up with your heart doctor Discharge Disposition: HOME WITH HOME HEALTH SERVICES
--- NOTE | 2022-10-18 21:15 | CONS ---
CONSULTATION ADDENDUM: This is an addendum to the cardiology consultation that has already been dictated by my nurse practitioner. The patient came to hospital following a sudden loss of consciousness at home. I reviewed all the information including the recent cardiac catheterization, rhythm strips from the EMS. The exact etiology for his loss of consciousness is unclear at this moment. I doubt cardiac etiology at this time. He has an elevated D-dimer and has renal insufficiency and we have not been able to test him for pulmonary embolism. Pulmonary embolism could have very well caused the loss of consciousness. Hence, we are going to start him on heparin provided the hemoglobin is stable from the draw that he had earlier this morning. There is nothing to suggest the patient is having rupture of the abdominal aortic aneurysm. He did not have any abdominal symptoms prior. LINCOLN / RODOLFO: [id number] /
== END 2022-10-17 18:10 | disposition home health service (06) | DRG 280 ==
LOC: EC 05:56 → 3SCARD 07:22
PROVIDERS: ADMIT Hospitalist; ATTEND Hospitalist
PROC: 5A2204Z Restoration of Cardiac Rhythm, Single (ICD-10-PCS; 2022-10-06)
PROC: 4B02XTZ Measurement of Cardiac Defibrillator, External Approach (ICD-10-PCS; 2022-10-07)
PROC: 06HY33Z Insertion of Infusion Device into Lower Vein, Percutaneous Approach (ICD-10-PCS; principal; 2022-10-10)
PROC: 5A1D70Z Performance of Urinary Filtration, Intermittent, Less than 6 Hours Per Day (ICD-10-PCS; 2022-10-10)
PROC: 06HY33Z Insertion of Infusion Device into Lower Vein, Percutaneous Approach (ICD-10-PCS; 2022-10-14)
PROC: B2111ZZ Fluoroscopy of Multiple Coronary Arteries using Low Osmolar Contrast (ICD-10-PCS; 2022-10-16)
PROC: B3101ZZ Fluoroscopy of Thoracic Aorta using Low Osmolar Contrast (ICD-10-PCS; 2022-10-16)
PROC: 4A023N7 Measurement of Cardiac Sampling and Pressure, Left Heart, Percutaneous Approach (ICD-10-PCS; 2022-10-16 13:00)
DX: I47.20 Ventricular tachycardia, unspecified (principal); I21.4 Non-ST elevation (NSTEMI) myocardial infarction; I50.23 Acute on chronic systolic (congestive) heart failure; I71.02 Dissection of abdominal aorta; N18.6 End stage renal disease; I13.2 Hypertensive heart and chronic kidney disease with heart failure and with stage 5 chronic kidney disease, or end stage renal disease; N17.9 Acute kidney failure, unspecified; I42.0 Dilated cardiomyopathy; E87.20 Acidosis, unspecified; R18.8 Other ascites; E87.1 Hypo-osmolality and hyponatremia; E83.39 Other disorders of phosphorus metabolism; I27.20 Pulmonary hypertension, unspecified; K76.0 Fatty (change of) liver, not elsewhere classified; I95.9 Hypotension, unspecified; Z99.2 Dependence on renal dialysis; I73.9 Peripheral vascular disease, unspecified; E05.90 Thyrotoxicosis, unspecified without thyrotoxic crisis or storm; I08.1 Rheumatic disorders of both mitral and tricuspid valves; E03.9 Hypothyroidism, unspecified; I44.7 Left bundle-branch block, unspecified; E78.5 Hyperlipidemia, unspecified; I25.5 Ischemic cardiomyopathy; R33.9 Retention of urine, unspecified; N20.0 Calculus of kidney; I49.8 Other specified cardiac arrhythmias; Z82.49 Family history of ischemic heart disease and other diseases of the circulatory system; I25.2 Old myocardial infarction; Z95.810 Presence of automatic (implantable) cardiac defibrillator; Z79.899 Other long term (current) drug therapy; Z79.890 Hormone replacement therapy; Z79.82 Long term (current) use of aspirin; Z95.1 Presence of aortocoronary bypass graft; Z87.891 Personal history of nicotine dependence
CPT/HCPCS: 36415; 36581; 71045; 74018; 74177; 76770; 80048; 80053; 80076; 81001; 82533; 83605; 83735; 83880; 84100; 84443; 84484; 85025; 85610; 85730; 86706; 87340; 90935; 92960; 93005; 93306; 93455; 93567; 93922; 94760; 96374; 99291

== ENCOUNTER 2022-10-18 11:54 | Inpatient (IN) | payer MEDICARE, OTHER ==
[2022-10-18] MEDS ORDERED: SODIUM CHLORIDE 0.9% 500 ML 500 ML IV ONE (12:12)
--- NOTE | 2022-10-18 12:12 | ED ---
General Adult HPI - General Stated complaint: Cardiac,YONG Time Seen by Provider: 10/18/22 11:54 Source: patient, RN notes reviewed, old records reviewed - History of Present Illness Initial comments: This is an 82-year-old male who presents emergency Department after he collapsed from her family. According to EMS when they arrived he was in asystole they started CPR 3 rounds of epi were given patient started to have a pulse and a paced rhythm. Patient was intubated at the scene and according to EMS he took about 5 minutes to get there and about another 5 minutes prior to risk getting pulses back. No other history is available this time no family is with the patient at this time. According to EMS he does not believe any CPR was done at the scene - Related Data Home Medications Medication Instructions Recorded Confirmed Ezetimibe [Zetia] 10 mg PO DAILY 12/17/18 10/18/22 Levothyroxine Sodium [Synthroid] 100 mcg PO DAILY 12/17/18 10/18/22 Ferrous Sulfate [Iron] 325 mg PO DAILY 10/06/22 10/18/22 Pantoprazole [Protonix] 40 mg PO DAILY 10/06/22 10/18/22 allopurinoL 100 mg PO DAILY 10/06/22 10/18/22 Amiodarone [Cordarone] 400 mg PO DIRECTED 10/18/22 10/18/22 Cholecalciferol [Vitamin D3 (125 125 mcg PO DAILY 10/18/22 10/18/22 Mcg = 5000 Iu)] Metoprolol Tartrate [Lopressor] 12.5 mg PO BID 10/18/22 10/18/22 Ubidecarenone [Coenzyme Q10] 100 mg PO DAILY 10/18/22 10/18/22 Previous Rx's Medication Instructions Recorded Amiodarone [Cordarone] 400 mg PO BID 14 Days #28 tab 10/17/22 Aspirin EC [Ecotrin Low Dose] 81 mg PO DAILY #30 tab 10/17/22 Calcium Acetate [PhosLo] 667 mg PO BID-W/MEALS #60 tab 10/17/22 Calcium Carbonate [Tums] 500 mg PO QID PRN #60 tab 10/17/22 Clopidogrel [Plavix] 75 mg PO DAILY #30 tab 10/17/22 Docusate [Colace] 100 mg PO BID #40 cap 10/17/22 Midodrine [ProAmatine] 5 mg PO AC-TID #90 tab 10/17/22 Nitroglycerin Sl Tabs [Nitrostat] 0.4 mg SUBLINGUAL Q5M PRN #20 tab 10/17/22 Allergies Allergy/AdvReac Type Severity Reaction Status Date / Time No Known Allergies Allergy Verified 10/18/22 12:40 Review of Systems ROS Statement: Those systems with pertinent positive or pertinent negative responses have been documented in the HPI. ROS Other: All systems not noted in ROS Statement are negative. Past Medical History Past Medical History: Coronary Artery Disease (CAD), Chest Pain / Angina, Hyperlipidemia, Myocardial Infarction (CO), Thyroid Disorder Last Myocardial Infarction Date:: 1990 History of Any Multi-Drug Resistant Organisms: None Reported Past Surgical History: Heart Catheterization, Orthopedic Surgery Additional Past Surgical History / Comment(s): cardiac bipass 2014. carotid artery surgery 2017 Past Anesthesia/Blood Transfusion Reactions: No Reported Reaction Past Psychological History: No Psychological Hx Reported Past Alcohol Use History: None Reported Past Drug Use History: None Reported - Past Family History Father Family Medical History: Coronary Artery Disease (CAD), Myocardial Infarction (CO) Mother Family Medical History: Coronary Artery Disease (CAD), Myocardial Infarction (CO) Brother(s) Family Medical History: Hypertension Sister(s) Family Medical History: Congestive Heart Failure (CHF) (Atrial fibrillation) Son(s) Family Medical History: No Reported History General Exam - General Exam Comments Initial Comments: GENERAL: Patient is well-developed and well-nourished. Patient is completely unresponsive ENT: Neck is soft and supple. No significant lymphadenopathy is noted. Oropharynx is clear. Moist mucous membranes. Neck has full range of motion without eliciting any pain. PULMONARY: Patient is being bagged and has good breath sounds bilaterally CARDIOVASCULAR: There is a regular rate and rhythm without any murmurs gallops or rubs. ABDOMEN: Abdomen is nondistended SKIN: Skin is clear with no lesions or rashes and otherwise unremarkable. NEUROLOGIC: Patient is unresponsive. PSYCHIATRIC: Unable to assess Course Vital Signs 10/18/22 10/18/22 10/18/22 11:57 11:58 12:05 Pulse Rate 56 L Respiratory 18 Rate Blood Pressure 99/74 O2 Sat by Pulse 95 Oximetry Fraction of 100 100 Inspired Oxygen (FIO2) 10/18/22 10/18/22 10/18/22 12:44 12:57 13:11 Pulse Rate 50 L 49 L 50 L Respiratory 20 14 14 Rate Blood Pressure 77/42 77/48 80/49 O2 Sat by Pulse 77 L 80 L Oximetry Fraction of Inspired Oxygen (FIO2) 10/18/22 10/18/22 10/18/22 13:20 13:41 14:05 Pulse Rate 48 L 50 L Respiratory 22 22 Rate Blood Pressure 90/48 92/51 O2 Sat by Pulse 82 L Oximetry Fraction of 100 Inspired Oxygen (FIO2) 10/18/22 14:15 Pulse Rate 50 L Respiratory 22 Rate Blood Pressure 94/51 O2 Sat by Pulse 92 L Oximetry Fraction of Inspired Oxygen (FIO2) Procedures - Central Line Placement Right IJ Consent Obtained: emergent situation Patient Placed on Monitor/Pulse Ox: Yes MD Prep: mask, gown, gloves Central Line Prep: Chlorhexidine scrub Local Anesthesia Used: Lidocaine 1% Ultrasound Used for Placement: No Central Line Lumen Inserted: triple Bloods Obtained for Lab: No Central Line Position: good blood return, all ports aspirated, flushed, capped, sutured in place with nylon Dressing Applied: Tegaderm Post Procedure X-Ray: tip of catheter in good position Patient Tolerated Procedure: well Complications: none Medical Decision Making - Medical Decision Making EKG is interpreted by myself shows a paced rhythm at 57 bpm QRS is under 95 Q-T intervals 453 QTC is 447. Was pt. sent in by a medical professional or institution ([facility], [employer], urgent care, hospital, or skilled nursing...) When possible be specific @ -No Did you speak to anyone other than the patient for history (EMS, parent, family, police, friend...)? What history was obtained from this source @ -No Did you review nursing and triage notes (agree or disagree)? Why? @ -I reviewed and agree with nursing and triage notes Were old charts reviewed (outside hosp., previous admission, EMS record, old EKG, old radiological studies, urgent care reports/EKG's, skilled nursing records)? Report findings @ -I reviewed prior charts from prior laboratory. Prior radiological studies Differential Diagnosis (chest pain, altered mental status, abdominal pain women, abdominal pain men, vaginal bleeding, weakness, fever, dyspnea, syncope, headache, dizziness, GI bleed, back pain, seizure, CVA, palpatations, mental health, musculoskeletal)? @ -Differential Syncope: Valvular disease, hypertrophic cardiomyopathy, pulmonary embolism, tamponade, tachycardia, bradycardia, CO, hypovolemia, hemorrhage, dissection, anemia, intracranial hemorrhage, seizure, hypoglycemia, carbon monoxide poisoning, this is not meant to be an all-inclusive list. EKG interpreted by me (3pts min.). @ -As above X-rays interpreted by me (1pt min.). @ -Chest x-ray shows no acute abnormality. Second chest x-ray showed no acute abnormality but there was good placement of the ET tube CT interpreted by me (1pt min.). @ -None done U/S interpreted by me (1pt. min.). @ -Fraction showed an ejection fraction of less than 10% What testing was considered but not performed or refused? (CT, X-rays, U/S, labs)? Why? @ -None What meds were considered but not given or refused? Why? @ -None Did you discuss the management of the patient with other professionals (professionals i.e. , PA, PLANT ELECT[employer]ICIAN, lab, RT, psych nurse, social media campaign manager, semiconductor processor, teacher, transit authority police officer, case resource manager)? Give summary @ -[place] with Dr. Watt doctor tomorrow and Dr. amaya all of which came down and saw the patient emergency department Was smoking cessation discussed for >3mins.? @ -No Was critical care preformed (if so, how long)? @ -45 minutes Were there social determinants of health that impacted care today? How? (Homelessness, low income, unemployed, alcoholism, drug addiction, transportation, low edu. Level, literacy, decrease access to med. care, long-term, rehab)? @ -No Was there de-escalation of care discussed even if they declined (Discuss DNR or withdrawal of care, Hospice)? DNR status @ -No What co-morbidities impacted this encounter? (DM, HTN, Smoking, COPD, CAD, Cancer, CVA, ARF, Chemo, Hep., AIDS, mental health diagnosis, sleep apnea, morbid obesity)? @ -None Was patient admitted / discharged? Hospital course, mention meds given and route, prescriptions, significant lab abnormalities, going to OR and other pertinent info. @ -Patient was initially seen in emergency department blood pressure started to lower and patient was put on Levophed and was given some fluid. Patient also had ventilatory changes made to try to better oxygenate the patient. Patient was also put on propofol for sedation. Dr. oliveira doctor tomorrow and Dr. Watt also the patient on emergency department. Patient will be admitted to the ICU . 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 Watt doctor tomorrow were aware Undiagnosed new problem with uncertain prognosis? @ -No Drug Therapy requiring intensive monitoring for toxicity (Heparin, Nitro, Insulin, Cardizem)? @ -No Were any procedures done? @ -No Diagnosis/symptom? @ -Cardiac arrest Acute, or Chronic, or Acute on Chronic? @ -Acute Uncomplicated (without systemic symptoms) or Complicated (systemic symptoms)? @ -Complicated Side effects of treatment? @ -No Exacerbation, Progression, or Severe Exacerbation? @ -No Poses a threat to life or bodily function? How? (Chest pain, USA, CO, pneumonia, PE, COPD, DKA, ARF, appy, cholecystitis, CVA, Diverticulitis, Homicidal, Suicidal, threat to staff... and all critical care pts) @ -Yes this could lead to the patient's Diagnosis/symptom? @ -Elevated D-dimer Acute, or Chronic, or Acute on Chronic? @ -Acute Uncomplicated (without systemic symptoms) or Complicated (systemic symptoms)? @ -default Side effects of treatment? @ -none Exacerbation, Progression, or Severe Exacerbation] @ -no Poses a threat to life or bodily function? @ -no - Lab Data Result diagrams: 10/18/22 12:22 10/18/22 12:22 Lab Results 10/18/22 10/18/22 10/18/22 Range/Units 12:22 12:22 12:22 WBC 10.9 H (3.8-10.6) k/uL RBC 3.17 L (4.30-5.90) m/uL Hgb 10.0 L (13.0-17.5) gm/dL Hct 33.2 L (39.0-53.0) % MCV 104.9 H (80.0-100.0) fL MCH 31.5 (25.0-35.0) pg MCHC 30.0 L (31.0-37.0) g/dL RDW 17.8 H (11.5-15.5) % Plt Count 118 L (150-450) k/uL MPV 9.2 Neutrophils % 83 % Lymphocytes % 8 % Monocytes % 6 % Eosinophils % 0 % Basophils % 0 % Neutrophils # 9.0 H (1.3-7.7) k/uL Lymphocytes # 0.9 L (1.0-4.8) k/uL Monocytes # 0.7 (0-1.0) k/uL Eosinophils # 0.0 (0-0.7) k/uL Basophils # 0.1 (0-0.2) k/uL Manual Slide Review Performed Hypochromasia Marked Poikilocytosis (manual Present Anisocytosis Slight Macrocytosis Marked A PT 12.7 H (9.0-12.0) sec INR 1.2 H (<1.2) APTT 29.8 (22.0-30.0) sec D-Dimer 9.19 H (<0.60) mg/L FEU Sample Site ABG pH (7.35-7.45) ABG pCO2 (35-45) mmHg ABG pO2 (83-108) mmHg ABG HCO3 (21-25) mmol/L ABG Total CO2 (19-24) mmol/L ABG O2 Saturation (94-97) % ABG Base Excess mmol/L Brayden Test FiO2 % Sodium 134 L (137-145) mmol/L Potassium 4.0 (3.5-5.1) mmol/L Chloride 99 (98-107) mmol/L Carbon Dioxide 11 L (22-30) mmol/L Anion Gap 24 mmol/L BUN 42 H (9-20) mg/dL Creatinine 5.13 H (0.66-1.25) mg/dL Est GFR (CKD-EPI)AfAm 11 (>60 ml/min/1.73 sqM) Est GFR (CKD-EPI)NonAf 10 (>60 ml/min/1.73 sqM) Glucose 117 H (74-99) mg/dL POC Glucose (mg/dL) (70-110) mg/dL POC Glu Powerhouse Mechanic Supervisor ID Calcium 9.2 (8.4-10.2) mg/dL Magnesium 2.4 H (1.6-2.3) mg/dL Total Bilirubin 1.6 H (0.2-1.3) mg/dL AST 56 (17-59) U/L ALT 35 (4-49) U/L Alkaline Phosphatase 88 (38-126) U/L Troponin I (0.000-0.034) ng/mL Total Protein 7.0 (6.3-8.2) g/dL Albumin 3.3 L (3.5-5.0) g/dL 10/18/22 10/18/22 10/18/22 Range/Units 12:22 12:22 12:45 WBC (3.8-10.6) k/uL RBC (4.30-5.90) m/uL Hgb (13.0-17.5) gm/dL Hct (39.0-53.0) % MCV (80.0-100.0) fL MCH (25.0-35.0) pg MCHC (31.0-37.0) g/dL RDW (11.5-15.5) % Plt Count (150-450) k/uL MPV Neutrophils % % Lymphocytes % % Monocytes % % Eosinophils % % Basophils % % Neutrophils # (1.3-7.7) k/uL Lymphocytes # (1.0-4.8) k/uL Monocytes # (0-1.0) k/uL Eosinophils # (0-0.7) k/uL Basophils # (0-0.2) k/uL Manual Slide Review Hypochromasia Poikilocytosis (manual Anisocytosis Macrocytosis PT (9.0-12.0) sec INR (<1.2) APTT (22.0-30.0) sec D-Dimer (<0.60) mg/L FEU Sample Site rrad ABG pH 7.22 L (7.35-7.45) ABG pCO2 30 L (35-45) mmHg ABG pO2 59 L* (83-108) mmHg ABG HCO3 12 L (21-25) mmol/L ABG Total CO2 13 L (19-24) mmol/L ABG O2 Saturation 83.1 L (94-97) % ABG Base Excess -15.5 mmol/L Brayden Test Yes FiO2 100 % Sodium (137-145) mmol/L Potassium (3.5-5.1) mmol/L Chloride (98-107) mmol/L Carbon Dioxide (22-30) mmol/L Anion Gap mmol/L BUN (9-20) mg/dL Creatinine (0.66-1.25) mg/dL Est GFR (CKD-EPI)AfAm (>60 ml/min/1.73 sqM) Est GFR (CKD-EPI)NonAf (>60 ml/min/1.73 sqM) Glucose (74-99) mg/dL POC Glucose (mg/dL) 122 H (70-110) mg/dL POC Glu Powerhouse Mechanic Supervisor ID Nancy Reynoso Calcium (8.4-10.2) mg/dL Magnesium (1.6-2.3) mg/dL Total Bilirubin (0.2-1.3) mg/dL AST (17-59) U/L ALT (4-49) U/L Alkaline Phosphatase (38-126) U/L Troponin I 0.102 H* (0.000-0.034) ng/mL Total Protein (6.3-8.2) g/dL Albumin (3.5-5.0) g/dL 10/18/22 Range/Units 13:57 WBC (3.8-10.6) k/uL RBC (4.30-5.90) m/uL Hgb (13.0-17.5) gm/dL Hct (39.0-53.0) % MCV (80.0-100.0) fL MCH (25.0-35.0) pg MCHC (31.0-37.0) g/dL RDW (11.5-15.5) % Plt Count (150-450) k/uL MPV Neutrophils % % Lymphocytes % % Monocytes % % Eosinophils % % Basophils % % Neutrophils # (1.3-7.7) k/uL Lymphocytes # (1.0-4.8) k/uL Monocytes # (0-1.0) k/uL Eosinophils # (0-0.7) k/uL Basophils # (0-0.2) k/uL Manual Slide Review Hypochromasia Poikilocytosis (manual Anisocytosis Macrocytosis PT (9.0-12.0) sec INR (<1.2) APTT (22.0-30.0) sec D-Dimer (<0.60) mg/L FEU Sample Site RRAD ABG pH 7.24 L (7.35-7.45) ABG pCO2 27 L (35-45) mmHg ABG pO2 59 L* (83-108) mmHg ABG HCO3 12 L (21-25) mmol/L ABG Total CO2 13 L (19-24) mmol/L ABG O2 Saturation 83.9 L (94-97) % ABG Base Excess -15.7 mmol/L Brayden Test Yes FiO2 100 % Sodium (137-145) mmol/L Potassium (3.5-5.1) mmol/L Chloride (98-107) mmol/L Carbon Dioxide (22-30) mmol/L Anion Gap mmol/L BUN (9-20) mg/dL Creatinine (0.66-1.25) mg/dL Est GFR (CKD-EPI)AfAm (>60 ml/min/1.73 sqM) Est GFR (CKD-EPI)NonAf (>60 ml/min/1.73 sqM) Glucose (74-99) mg/dL POC Glucose (mg/dL) (70-110) mg/dL POC Glu Powerhouse Mechanic Supervisor ID Calcium (8.4-10.2) mg/dL Magnesium (1.6-2.3) mg/dL Total Bilirubin (0.2-1.3) mg/dL AST (17-59) U/L ALT (4-49) U/L Alkaline Phosphatase (38-126) U/L Troponin I (0.000-0.034) ng/mL Total Protein (6.3-8.2) g/dL Albumin (3.5-5.0) g/dL Critical Care Time Critical Care Time: Yes Total Critical Care Time: 35 Disposition Clinical Impression: Cardiac arrest Disposition: ADMITTED IP TO THIS [facility] Time of Disposition: 14:20
[2022-10-18 12:29] LABS: Glucose,Whole Blood 122 mg/dL (70-110)
[2022-10-18 12:30] LABS: Anisocytosis Slight; Basophils # (A) 0.1 k/uL (0-0.2); Basophils % (A) 0 %; Eosinophils % (A) 0 %; HCT 33.2 % (39.0-53.0); Hypochromasia Marked; Lymphocytes # (A) 0.9 k/uL (1.0-4.8); Lymphocytes % (A) 8 %; MCH 31.5 pg (25.0-35.0); MCV 104.9 fL (80.0-100.0); Macrocytosis Marked; Mean Platelet Volume 9.2; Monocytes # (A) 0.7 k/uL (0-1.0); Monocytes % (A) 6 %; Neutrophils % (A) 83 %; Platelet Count 118 k/uL (150-450); RBC 3.17 m/uL (4.30-5.90); RDW 17.8 % (11.5-15.5); WBC 10.9 k/uL (3.8-10.6)
--- NOTE | 2022-10-18 12:44 | XR ---
EXAMINATION TYPE: XR chest 1V portable DATE OF EXAM: 10/18/2022 12:32 PM COMPARISON: Chest radiographs from 10/17/2022 TECHNIQUE: XR chest 1V portable Portable AP radiograph of the chest. CLINICAL INDICATION:Male, 82 years old with history of Chest Pain; FINDINGS: Lungs/Pleura: No evidence of focal consolidation or pneumothorax. Blunting of the costophrenic angles is present. Pulmonary vascularity: Pulmonary vascular congestion. Heart/mediastinum: Cardiomediastinal silhouette is enlarged and stable. Three lead cardiac conduction device overlying the left hemithorax with lead tips projecting over the right ventricle, right atriu m and coronary sinus. Musculoskeletal: No acute osseous pathology. Midline sternotomy wires are noted. Lines/tubes: Interval placement of endotracheal tube with distal tip approximately 3.9 cm above the gustavo. OG tub e appropriately positioned with distal tip and sidehole in the left upper quadrant. IMPRESSION: 1. Appropriate position of endotracheal and OG tubes. 2. Cardiomegaly with pulmonary vascular congestion and small bilateral pleural effusions suggesting CHF exacerbation.
[2022-10-18 12:48] LABS: INR 1.2 (<1.2); Partial Thromboplastin Time 29.8 sec (22.0-30.0); Prothrombin Time 12.7 sec (9.0-12.0)
[2022-10-18 12:49] LABS: ABG Base Excess -15.5 mmol/L; ABG HCO3 12 mmol/L (21-25); ABG Oxygen Saturation 83.1 % (94-97); ABG PCO2 30 mmHg (35-45); ABG PH 7.22 (7.35-7.45); ABG TCO2 13 mmol/L (19-24); Allen Test Performed? Yes
[2022-10-18 12:50] LABS: Poikilocytosis (M) Present
[2022-10-18 12:53] LABS: ABG PO2 59 mmHg (83-108)
[2022-10-18] MEDS: NOREPINEPHRINE 4 MG in SODIUM CHLORIDE 0.9% 250 ML IV SCH ×4 (12:53→21:21)
[2022-10-18 12:54] LABS: AST 56 U/L (17-59); African American GFR (CKD) 11 (>60 ml/min/1.73 sqM); Albumin 3.3 g/dL (3.5-5.0); Alkaline Phosphatase 88 U/L (38-126); Anion Gap 24 mmol/L; Blood Urea Nitrogen 42 mg/dL (9-20); Calcium 9.2 mg/dL (8.4-10.2); Carbon Dioxide 11 mmol/L (22-30); Chloride 99 mmol/L (98-107); Glucose 117 mg/dL (74-99); Magnesium 2.4 mg/dL (1.6-2.3); Non-African American GFR(CKD) 10 (>60 ml/min/1.73 sqM); Sodium 134 mmol/L (137-145); Total Bilirubin 1.6 mg/dL (0.2-1.3)
[2022-10-18 13:00] LABS: ALT 35 U/L (4-49)
[2022-10-18] MEDS ORDERED: LORazepam 2 MG/ML INJ IV STA (13:23)
--- NOTE | 2022-10-18 13:33 | XR ---
EXAMINATION TYPE: XR chest 1V portable DATE OF EXAM: 10/18/2022 1:28 PM COMPARISON: Chest radiographs from 10/18/2022 TECHNIQUE: XR chest 1V portable Portable AP radiograph of the chest. CLINICAL INDICATION:Male, 82 years old with history of DESATS; FINDINGS: Lungs/Pleura: No evidence of focal consolidation or pneumothorax. Blunting of the costophrenic angles is present. Pulmonary vascularity: Minimal pulmonary vascular congestion. Heart/mediastinum: Cardiomediastinal silhouette is enlarged and stable. Three lead cardiac conduction device overlying the left hemithorax with lead tips projecting over the right ventricle, right atriu m and coronary sinus. Musculoskeletal: No acute osseous pathology. Midline sternotomy wires are noted. Lines/tubes: Endotracheal tube in stable position at the level of the aortic arch. OG tube courses below the diaphragm. IMPRESSION: 1. Overall no smoking change from prior examination with cardiomegaly and minimal pulmonary vascular congestion with small left pleural effusion. 2. Stable support tubes.
[2022-10-18 14:00] LABS: ABG Base Excess -15.7 mmol/L; ABG HCO3 12 mmol/L (21-25); ABG Oxygen Saturation 83.9 % (94-97); ABG PCO2 27 mmHg (35-45); ABG PH 7.24 (7.35-7.45); ABG TCO2 13 mmol/L (19-24); Allen Test Performed? Yes
[2022-10-18 14:03] LABS: ABG PO2 59 mmHg (83-108)
[2022-10-18] MEDS ORDERED: NALOXONE 0.4 MG/ML 1 ML VIAL IV PRN (14:21)
--- NOTE | 2022-10-18 14:36 | P.CRDCN ---
History of Present Illness History of present illness: HISTORY OF PRESENT ILLNESS: This is a 82-year-old male with a past medical history significant for coronary artery disease with previous CABG, ischemic cardiomyopathy, AICD implantation, hyperlipidemia, chronic kidney disease on hemodialysis, and ventricular tachyca rdia. Patient follows in the office with Dr. Moctezuma. We have been asked to see the patient in consultation for cardiac arrest. Patient examined at the bedside in the emergency room. Patient has obtunded. He remains on mechanical ventilation. There is no family present at the time of examination. The patient was just discharged from the hospital yesterday after being admitted for chest pain, acute renal failure requiring initiation of hemodialysis, ventricular tachycardia, and AAA. He was evaluated by vascular surgery at that time and plan was for outpatient repair of AAA. The patient underwent cardiac catheterization with Dr. Moctezuma in preparation to give cardiac clearance for patient to undergo surgery with the vascular team. Cardiac catheterization performed on 10/16/2022 revealed severe triple vessel coronary artery disease. Pain and FLOOD to LAD. Patent SVG to diagonal and patent SVG to left circumflex. Occluded SVG to RCA. Medical management was recommended. According to ER documentation, the patient collapsed at home and EMS was called. The patient was found to be in PEA. He received epi x 3. Discussed case with EMS at the bedside in the ER. They state the patients heart rate was in the 30s but they were unable to provide telemetry strips showing this. Patient does have a pacemaker/ICD so unsure if the patient was actually bradycardic in the 30s or not. * EKG reveals ventricular paced rhythm. Heart rate 57. * Chest xray appropriate position of endotracheal an OG tube. Cardiomegaly with pulmonary vascular congestion and small bilateral pleural effusions suggesting CHF exacerbation. * Laboratory data: WBC 10.9. Hemoglobin 10.0. Platelet count 118. D-dimer 9. 19. Sodium 134. Potassium 4.0. BUN 42. Creatinine 5.13. Magnesium 2.4. Troponin 0.102. * Current home cardiac medications include metoprolol tartrate 12.5 mg twice a day, Plavix 75 mg daily, aspirin 81 mg daily, amiodarone 400 mg twice a day * Most recent echocardiogram obtained on 10/06/2022 revealing dilated LV with severely impaired LV function. Ejection fraction 20% with global hypokinesis. Moderate to severe mitral regurgitation, mild pulmonary hypertension, moderate tricuspid regurgitation. * Cardiac catheterization history: 10/16/2022 revealed severe triple vessel coronary artery disease. Pain and FLOOD to LAD. Patent SVG to diagonal and patent SVG to left circumflex. Occluded SVG to RCA. Medical management was recommended REVIEW OF SYSTEMS: At the time of my exam: Unable to obtain thorough review of systems as patient is obtunded on mechanical ventilation PHYSICAL EXAM: VITAL SIGNS: Reviewed. GENERAL: Well-developed in no acute distress. HEENT: Head is normocephalic. Pupils are equal, round. Sclerae anicteric. Mucous membranes of the mouth are moist. Neck supple. No JVD or thyromegaly LUNGS: Respirations even and unlabored. Lungs diminished to auscultation bilaterally. HEART: Regular rate and rhythm. S1 and S2 heard. Systolic murmur ABDOMEN: Soft. Nondistended. Nontender. EXTREMITIES: Normal range of motion. No clubbing or cyanosis. Peripheral pulses intact. 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 Zelaya. Etiology of patients cardiac arrest unclear. Patient had recent heart cath with Dr. Moctezuma as noted above. Patient does have a history of ventricular tachycardia and was discharged home on oral amiodarone. We will interrogate patient's AICD to determine if patient had any ventricular tachycardia leading to his cardiac arrest. Prognosis guarded. Nurse practitioner note has been reviewed by physician. Signing provider agrees with the documented findings, assessment, and plan of care. Past Medical History Past Medical History: Coronary Artery Disease (CAD), Chest Pain / Angina, Hyperlipidemia, Myocardial Infarction ([place]), Thyroid Disorder Last Myocardial Infarction Date:: 1990 History of Any Multi-Drug Resistant Organisms: None Reported Past Surgical History: Heart Catheterization, Orthopedic Surgery Additional Past Surgical History / Comment(s): cardiac bipass 2014. carotid artery surgery 2017 Past Anesthesia/Blood Transfusion Reactions: No Reported Reaction Past Psychological History: No Psychological Hx Reported Past Alcohol Use History: None Reported Past Drug Use History: None Reported - Past Family History Father Family Medical History: Coronary Artery Disease (CAD), Myocardial Infarction ([place]) Mother Family Medical History: Coronary Artery Disease (CAD), Myocardial Infarction ([place]) Brother(s) Family Medical History: Hypertension Sister(s) Family Medical History: Congestive Heart Failure (CHF) (Atrial fibrillation) Son(s) Family Medical History: No Reported History Medications and Allergies Home Medications Medication Instructions Recorded Confirmed Type Ezetimibe [Zetia] 10 mg PO DAILY 12/17/18 10/18/22 History Levothyroxine Sodium [Synthroid] 100 mcg PO DAILY 12/17/18 10/18/22 History Ferrous Sulfate [Iron] 325 mg PO DAILY 10/06/22 10/18/22 History Pantoprazole [Protonix] 40 mg PO DAILY 10/06/22 10/18/22 History allopurinoL 100 mg PO DAILY 10/06/22 10/18/22 History Amiodarone [Cordarone] 400 mg PO BID 14 Days #28 tab 10/17/22 10/18/22 Rx Aspirin EC [Ecotrin Low Dose] 81 mg PO DAILY #30 tab 10/17/22 10/18/22 Rx Calcium Acetate [PhosLo] 667 mg PO BID-W/MEALS #60 tab 10/17/22 10/18/22 Rx Calcium Carbonate [Tums] 500 mg PO QID PRN #60 tab 10/17/22 10/18/22 Rx Clopidogrel [Plavix] 75 mg PO DAILY #30 tab 10/17/22 10/18/22 Rx Docusate [Colace] 100 mg PO BID #40 cap 10/17/22 10/18/22 Rx Midodrine [ProAmatine] 5 mg PO AC-TID #90 tab 10/17/22 10/18/22 Rx Nitroglycerin Sl Tabs [Nitrostat] 0.4 mg SUBLINGUAL Q5M PRN #20 tab 10/17/22 10/18/22 Rx Amiodarone [Cordarone] 400 mg PO DIRECTED 10/18/22 10/18/22 History Cholecalciferol [Vitamin D3 (125 125 mcg PO DAILY 10/18/22 10/18/22 History Mcg = 5000 Iu)] Metoprolol Tartrate [Lopressor] 12.5 mg PO BID 10/18/22 10/18/22 History Ubidecarenone [Coenzyme Q10] 100 mg PO DAILY 10/18/22 10/18/22 History Allergies Allergy/AdvReac Type Severity Reaction Status Date / Time No Known Allergies Allergy Verified 10/18/22 12:40 Physical Exam Vitals: Vital Signs Pulse Resp BP Pulse Ox FiO2 10/18/22 14:15 50 L 22 94/51 92 L 10/18/22 14:05 100 10/18/22 13:41 50 L 22 92/51 82 L 10/18/22 13:20 48 L 22 90/48 10/18/22 13:11 50 L 14 80/49 10/18/22 12:57 49 L 14 77/48 80 L 10/18/22 12:44 50 L 20 77/42 77 L 10/18/22 12:05 56 L 18 99/74 95 10/18/22 11:58 100 10/18/22 11:57 100 Intake and Output 10/17/22 10/18/22 10/18/22 22:59 06:59 14:59 Intake Total 102.292 Balance 102.292 Intake: Intake, IV Titration 102.292 Amount Norepinephrine 4 mg In 102.292 Sodium Chloride 0.9% 250 ml @ 0.03 MCG/KG/MIN 10. 173 mls/hr IV .Q24H [facility] Rx#:[id number] Other: Weight 89 kg Results 10/18/22 12:22 10/18/22 12:22 Cardiac Enzymes 10/18/22 10/18/22 Range/Units 12:22 12:22 AST 56 (17-59) U/L Troponin I 0.102 H* (0.000-0.034) ng/mL Coagulation 10/18/22 Range/Units 12: PT 12.7 H (9.0-12.0) sec APTT 29.8 (22.0-30.0) sec CBC 10/18/22 Range/Units 12:22 WBC 10.9 H (3.8-10.6) k/uL RBC 3.17 L (4.30-5.90) m/uL Hgb 10.0 L (13.0-17.5) gm/dL Hct 33.2 L (39.0-53.0) % Plt Count 118 L (150-450) k/uL Comprehensive Metabolic Panel 10/18/22 Range/Units 12:22 Sodium 134 L (137-145) mmol/L Potassium 4.0 (3.5-5.1) mmol/L Chloride 99 (98-107) mmol/L Carbon Dioxide 11 L (22-30) mmol/L BUN 42 H (9-20) mg/dL Creatinine 5.13 H (0.66-1.25) mg/dL Glucose 117 H (74-99) mg/dL Calcium 9.2 (8.4-10.2) mg/dL AST 56 (17-59) U/L ALT 35 (4-49) U/L Alkaline Phosphatase 88 (38-126) U/L Total Protein 7.0 (6.3-8.2) g/dL Albumin 3.3 L (3.5-5.0) g/dL Current Medications Generic Name Dose Route Start Last Admin Trade Name Freq PRN Reason Stop Dose Admin Norepinephrine Bitartrate 4 mg 254 mls @ 10.173 mls/hr 10/18/22 13:00 10/18/22 14:15 / Sodium Chloride IV 0.5 mcg/kg/min .Q24H PURA 169.545 mls/hr Titration Protocol 0.03 MCG/KG/MIN Propofol 1,000 mg/ IV Solution 100 mls @ 8.01 mls/hr 10/18/22 14:00 10/18/22 14:01 IV 30 mcg/kg/min .[id number] PURA 16.02 mls/hr Administration Protocol 15 MCG/KG/MIN Intake and Output 10/17/22 10/18/22 10/18/22 22:59 06:59 14:59 Intake Total 102.292 Balance 102.292 Intake: Intake, IV Titration 102.292 Amount Norepinephrine 4 mg In 102.292 Sodium Chloride 0.9% 250 ml @ 0.03 MCG/KG/MIN 10. 173 mls/hr IV .Q24H [facility] Rx#:[id number] Other: Weight 89 kg Patient Weight 10/19/22 06:59 Weight 89 kg 10/18/22 12:22 10/18/22 12:22
--- NOTE | 2022-10-18 14:50 | P.CNPUL ---
History of Present Illness Consult date: 10/18/22 Requesting physician: Tomas E Sheet Reason for consult: other (Cardiac arrest, patient is on mechanical ventilation) Chief complaint: Cardiac arrest History of present illness: This is an 82-year-old white male with history of severe ischemic cardiomyopathy and LV dysfunction, patient was discharged from the hospital yesterday. Patient was admitted on 10/06/22, discharged home on 10/17/2022. Patient was seen by cardiology for his ventricular tachycardia and LV dysfunction he was also seen b y nephrology for acute kidney injury and he was also seen by vascular surgery for his abdominal aortic aneurysm. Patient is known to have triple-vessel coronary artery disease with patent FLOOD and patent SVG to the circumflex but occluded SVG to RCA. Ejection fraction on the last visit was 20% his aneurysm measured 4.5 cm with dissection, evaluated previously by vascular surgery for his aneurysm. In addition to all of this the patient has moderate tricuspid regurgitation and moderate to severe mitral regurgitation. During his last admission patient had a temporary dialysis catheter placed in the right groin, and he was supposed to follow-up with nephrology for hemodialysis in one to 2 we eks post discharge. Looking at the discharge medications patient was discharged home on amiodarone 400 twice a day, metoprolol 12.5 twice a day nitroglycerin, Plavix, Colace, midodrine for low blood pressure, and Tums his other meds included levothyroxine, Zetia, allopurinol, pantoprazole, and iron. Today patient collapsed at home witnessed by family, according to EMS, they arrived and he was in asystole and they started CPR, patient received 3 rounds of epinephrine, and he was noted to have a paced rhythm intubated at the scene, brought into ER, down time was supposedly about 10 minutes. Total CPR time was about 5 minutes. And prior to that before EMS arrived, patient was not receiving any CPR. In the ER, patient is now on mechanical ventilation, assist control rate of 2010 volume 450 FiO2 on the percent and PEEP was 8 I increased the PEEP up to 10. ABG on this setting showed a pO2 of 59 pCO2 of 27 pH of 7.24. Patient was given 1 amp of bicarbonate. And he will likely need to be placed on bicarb drip. Basic metabolic profile was noted to be relatively normal renal profile is abnormal with a BUN of 42 creatinine 5.13 but that is his baseline. Initial troponin 0.102 d-dimer is 9.19, cardiology to decide on whether the patient needs to go on heparin most likely it's contraindicated with the fact that the patient had recently diagnosed dissecting abdominal aortic aneurysm. Looking back at his CT of the abdomen and pelvis from the last admission dated 10/13, his aneurysm measured 4.5 cm there was dissection within the abdominal aorta without extension into or out of the aneurysm. There was also evidence of ascites and moderate fatty infiltration of the liver. Patient is now on norepinephrine at 0.4 mcg/kg/m, he is intubated, mechanically ventilated, hypotensive, metabolically acidotic, and the relatively hypoxic in spite of relatively high FiO2 and high PEEP Review of Systems ROS unobtainable: due to endotracheal tube Past Medical History Past Medical History: Coronary Artery Disease (CAD), Chest Pain / Angina, Hyperlipidemia, Myocardial Infarction ([place]), Thyroid Disorder Last Myocardial Infarction Date:: 1990 History of Any Multi-Drug Resistant Organisms: None Reported Past Surgical History: Heart Catheterization, Orthopedic Surgery Additional Past Surgical History / Comment(s): cardiac bipass 2014. carotid artery surgery 2017 Past Anesthesia/Blood Transfusion Reactions: No Reported Reaction Past Psychological History: No Psychological Hx Reported Past Alcohol Use History: None Reported Past Drug Use History: None Reported - Past Family History Father Family Medical History: Coronary Artery Disease (CAD), Myocardial Infarction ([place]) Mother Family Medical History: Coronary Artery Disease (CAD), Myocardial Infarction ([place]) Brother(s) Family Medical History: Hypertension Sister(s) Family Medical History: Congestive Heart Failure (CHF) (Atrial fibrillation) Son(s) Family Medical History: No Reported History Medications and Allergies Home Medications Medication Instructions Recorded Confirmed Type Ezetimibe [Zetia] 10 mg PO DAILY 12/17/18 10/18/22 History Levothyroxine Sodium [Synthroid] 100 mcg PO DAILY 12/17/18 10/18/22 History Ferrous Sulfate [Iron] 325 mg PO DAILY 10/06/22 10/18/22 History Pantoprazole [Protonix] 40 mg PO DAILY 10/06/22 10/18/22 History allopurinoL 100 mg PO DAILY 10/06/22 10/18/22 History Amiodarone [Cordarone] 400 mg PO BID 14 Days #28 tab 10/17/22 10/18/22 Rx Aspirin EC [Ecotrin Low Dose] 81 mg PO DAILY #30 tab 10/17/22 10/18/22 Rx Calcium Acetate [PhosLo] 667 mg PO BID-W/MEALS #60 tab 10/17/22 10/18/22 Rx Calcium Carbonate [Tums] 500 mg PO QID PRN #60 tab 10/17/22 10/18/22 Rx Clopidogrel [Plavix] 75 mg PO DAILY #30 tab 10/17/22 10/18/22 Rx Docusate [Colace] 100 mg PO BID #40 cap 10/17/22 10/18/22 Rx Midodrine [ProAmatine] 5 mg PO AC-TID #90 tab 10/17/22 10/18/22 Rx Nitroglycerin Sl Tabs [Nitrostat] 0.4 mg SUBLINGUAL Q5M PRN #20 tab 10/17/22 10/18/22 Rx Amiodarone [Cordarone] 400 mg PO DIRECTED 10/18/22 10/18/22 History Cholecalciferol [Vitamin D3 (125 125 mcg PO DAILY 10/18/22 10/18/22 History Mcg = 5000 Iu)] Metoprolol Tartrate [Lopressor] 12.5 mg PO BID 10/18/22 10/18/22 History Ubidecarenone [Coenzyme Q10] 100 mg PO DAILY 10/18/22 10/18/22 History Allergies Allergy/AdvReac Type Severity Reaction Status Date / Time No Known Allergies Allergy Verified 10/18/22 12:40 Physical Exam Vitals: Vital Signs Pulse Resp BP Pulse Ox FiO2 10/18/22 14:15 50 L 22 94/51 92 L 10/18/22 14:05 100 10/18/22 13:41 50 L 22 92/51 82 L 10/18/22 13:20 48 L 22 90/48 10/18/22 13:11 50 L 14 80/49 10/18/22 12:57 49 L 14 77/48 80 L 10/18/22 12:44 50 L 20 77/42 77 L 10/18/22 12:05 56 L 18 99/74 95 10/18/22 11:58 100 10/18/22 11:57 100 Intake and Output 10/17/22 10/18/22 10/18/22 22:59 06:59 14:59 Intake Total 102.292 Balance 102.292 Intake: Intake, IV Titration 102.292 Amount Norepinephrine 4 mg In 102.292 Sodium Chloride 0.9% 250 ml @ 0.03 MCG/KG/MIN 10. 173 mls/hr IV .Q24H [facility] Rx#:[id number] Other: Weight 89 kg Physical Exam: Revealed 82-year-old white male unresponsive to any stimuli, bit restless and agitated hence his propofol was increased from 10 mcg/kg/m up to 30 mcg/kg/m Head: Atraumatic, normocephalic. HEENT:[Neck is supple.] [No neck masses.] [No thyromegaly.] [No JVD.] Multiple areas of bruises noted in the neck area around the subclavian region on the right side, patient has a pacemaker on the left side below the left clavicle. Chest: [Clear throughout, no crackles, no rhonchi, no wheezes.] Cardiac Exam: [Normal S1 and S2, no S3 gallop, 2/6 systolic murmur thought the precordium. Abdomen: [Soft, nontender, no megaly, no rebound, no guarding, normal bowel sounds.] Extremities: [No clubbing, 1+ bipedal edema, diminished distal pulses bilaterally. Right femoral dialysis catheter is noted. Neurological Exam: Could not assess, patient is sedated, unresponsive to any stimuli, pupils are equally reactive, Psychiatric: Could not assess. Skin: Multiple areas of ecchymosis and bruising noted throughout, Results - Laboratory Findings CBC and BMP: 10/18/22 12:22 10/18/22 12:22 ABG ABG pH 7.24 (7.35-7.45) L 10/18/22 13:57 ABG pCO2 27 mmHg (35-45) L 10/18/22 13:57 ABG pO2 59 mmHg (83-108) L* 10/18/22 13:57 ABG O2 Saturation 83.9 % (94-97) L 10/18/22 13:57 PT/INR, D-dimer PT 12.7 sec (9.0-12.0) H 10/18/22 12:22 INR 1.2 (<1.2) H 10/18/22 12:22 D-Dimer 9.19 mg/L FEU (<0.60) H 10/18/22 12:22 Abnormal lab findings: Abnormal Labs 10/18/22 10/18/22 10/18/22 12:22 12:22 12:22 WBC 10.9 H RBC 3.17 L Hgb 10.0 L Hct 33.2 L MCV 104.9 H MCHC 30.0 L RDW 17.8 H Plt Count 118 L Neutrophils # 9.0 H Lymphocytes # 0.9 L Macrocytosis Marked A PT 12.7 H INR 1.2 H D-Dimer 9.19 H ABG pH ABG pCO2 ABG pO2 ABG HCO3 ABG Total CO2 ABG O2 Saturation Sodium 134 L Carbon Dioxide 11 L BUN 42 H Creatinine 5.13 H Glucose 117 H POC Glucose (mg/dL) Magnesium 2.4 H Total Bilirubin 1.6 H Troponin I Albumin 3.3 L 10/18/22 10/18/22 10/18/22 12:22 12:22 12:45 WBC RBC Hgb Hct MCV MCHC RDW Plt Count Neutrophils # Lymphocytes # Macrocytosis PT INR D-Dimer ABG pH 7.22 L ABG pCO2 30 L ABG pO2 59 L* ABG HCO3 12 L ABG Total CO2 13 L ABG O2 Saturation 83.1 L Sodium Carbon Dioxide BUN Creatinine Glucose POC Glucose (mg/dL) 122 H Magnesium Total Bilirubin Troponin I 0.102 H* Albumin 10/18/22 13:57 WBC RBC Hgb Hct MCV MCHC RDW Plt Count Neutrophils # Lymphocytes # Macrocytosis PT INR D-Dimer ABG pH 7.24 L ABG pCO2 27 L ABG pO2 59 L* ABG HCO3 12 L ABG Total CO2 13 L ABG O2 Saturation 83.9 L Sodium Carbon Dioxide BUN Creatinine Glucose POC Glucose (mg/dL) Magnesium Total Bilirubin Troponin I Albumin - Diagnostic Findings Chest x-ray: image reviewed (Chest x-ray showed cardiomegaly, minimal pulmonary vascular congestion with small left-sided pleural effusion.) Assessment and Plan Assessment: Impression: Cardiac arrest, asystole upon initial presentation. Cardiomyopathy and LV dysfunction, ejection fraction less than 20%, previous AICD placement. Acute congestive heart failure secondary to above/systolic congestive heart failure History of dissecting abdominal aortic aneurysm 4.5 cm Suspect anoxic brain injury considering the down time History of ventricular tachycardia Favreau heart disease including severe mitral regurgitation Chronic kidney disease, on hemodialysis Recommendation: Continue ventilatory support Continue hemodynamic support presently on norepinephrine at 0.4 mcg/kg/m Must establish central access in this patient and was in the ICU an arterial line will be placed for hemodynamic monitoring Cardiology to evaluate regarding his cardiac presentation and his abnormal troponin and d-dimer Vascular surgery to evaluate regarding his abdominal aortic aneurysm 4.5 cm/dissecting Discussed and reviewed his condition with the son at bedside in the ER, touch bases on CODE STATUS, he would like to discuss this with his brother and make a final decision GI and DVT prophylaxis Prognosis is definitely guarded and poor. We will continue to follow. Patient is critically ill. Critical care time over 50 minutes Time with Patient: Greater than 30
--- NOTE | 2022-10-18 15:26 | XR ---
EXAMINATION TYPE: XR chest 1V portable DATE OF EXAM: 10/18/2022 3:19 PM COMPARISON: Chest radiographs from 10/18/2022 TECHNIQUE: XR chest 1V portable Portable AP radiograph of the chest. CLINICAL INDICATION:Male, 82 years old with history of central line placement; FINDINGS: Lungs/Pleura: No evidence of focal consolidation or pneumothorax. Blunting of the costophrenic angles is present. Pulmonary vascularity: Minimal pulmonary vascular congestion. Heart/mediastinum: Cardiomediastinal silhouette is enlarged and stable. Atherosclerotic calcificatio ns are seen in the aorta. Three lead cardiac conduction device overlying the left hemithorax with saw d tips projecting over the right ventricle, right atrium and coronary sinus. Musculoskeletal: No acute osseous pathology. Midline sternotomy wires are noted. Other: Surgical clips in the right neck Lines/tubes: Endotracheal tube in stable position at the level of the aortic arch. OG tube courses below the diaphragm. Interval placement of right IJ central venous catheter tip at the right atrium. IMPRESSION: 1. Interval placement of right IJ central venous catheter with tip in the right atrium. No pneumotho rax. 2. Stable endotracheal and OG tubes. 3. Similar minimal pulmonary vascular congestion and cardiomegaly with small left pleural effusion.
[2022-10-18] MEDS ORDERED: Phosphorus Replacement Protoco 1 EACH MISC MISCELLANE PRN (15:48)
[2022-10-18] MEDS ORDERED: Potassium Replacement Protocol 1 EACH MISC MISCELLANE PRN (15:48)
[2022-10-18] MEDS ORDERED: Magnesium Replacement Protocol 1 EACH MISC MISCELLANE PRN (15:48)
[2022-10-18] MEDS ORDERED: IPRATROPIUM-ALBUTEROL 3 ML NEB INHALATION PRN (15:48)
--- NOTE | 2022-10-18 15:50 | P.HPIM ---
History of Present Illness Patient could not provide information because he is intubated so it was obtained from staff record concern at bedside. This is a pleasant 82 years old male with multiple medical problems as below. Who was recently in the hospital for V. tach and underwent cardiac cath and then showing severe triple vessel coronary artery disease, as below. Also started on hemodialysis for worsening kidney infection, he had low normal blood pressure. Physical therapy recommended home with home care. Also has dissecting infrarenal abdominal aortic aneurysm about 4.5 cm in which vascular surgery recommended outpatient surgical correction, patient was found high-risk but no contraindication. Patient was discharge on gradual taper off amiodarone. This morning he was doing well as per son and he was able to walk, he was going to his appointment for the hemodialysis where he passed out and became pulseless, he underwent CPR resuscitation, and the downtown is expected to be around 10 minutes. Currently patient is intubated and on mechanical ventilation in the emergency room No further information present currently. However as per son patient denies any chest pain or dyspnea or other complaints prior to this happening From the records from previous admission: Presents because of chest pain on 10/06, his been evaluated by tankroom tender and sent of the case. Also patient found to have cardiac arrhythmia and she is been evaluated by tankroom tender, her crit is been stabilized with amiodarone with recommendation to discharge the patient on tapered amiodarone patient informed and he agrees (see discharge instructions) However patient noticed to have significantly worsening kidney function with creatinine 5.3. He was started on hemodialysis by nephrology team and he was diagnosed with acute kidney injury secondary to cardiorenal syndrome. He has evidence of dilated cardiomyopathy with severely impaired ejection fraction 20% with moderate to severe mitral regurgitation and moderate tricuspid regurgitation Currently kept on aspirin and Plavix, midodrine 5 mg and metoprolol 12.5 mg and amiodarone 400 mg. permacath was placed and director of social work arrange outpatient hemodialysis arrangements for the patient to which he agreeable. Blood pressure was on the low normal, however is asymptomatic and stable on midodrine. Due to his cardiac arrhythmia and abnormal cardiac function patient underwent cardiac cath yesterday: showing severe triple vessel coronary artery disease with patent FLOOD and patent SVG to the circumflex but occluded SVG to RCA. Campus Recruiting Coordinator recommended medical management and follow-up with the patient ida smart was on aspirin at home, Plavix added for him, risk of bleeding expected for him extensively and he agrees. Patient was not eating well and was complaining of from mild abdominal discomfort and distention, CT of the abdomen with oral contrast obtained showing dissecting infrarenal abdominal aortic aneurysm and vascular surgical team were consulted who recommended close outpatient follow-up for surgical repair of his aneurysm and patient verbalized understanding and acceptance, tankroom tender its preop evaluation and found to be high-risk for such procedure, however there is a contraindication. he underwent to test once his arterial ultrasound showing severe peripheral artery disease especially in the feetCurrently he is bradycardic, slightly tachypneic, blood pressure 94/51. He is saturating 100% on mechanical ventilation, a febrile WBC 10.9, Hemoglobin 10, Platelets 118. INR 1.2, D-Dimer 9.1. PH Is 7.2, PCO2 27, PaO2 59 Troponin 0.10. Liver enzymes not significantly elevated. Bilirubin is slightly high 1.6. Creatinine 5.1. Albumin 3.3. EKG showing ventricular paced rhythm Review of Systems ROS unobtainable: due to endotracheal tube, due to mental status Past Medical History Past Medical History: Coronary Artery Disease (CAD), Chest Pain / Angina, Hyperlipidemia, Myocardial Infarction (IA), Thyroid Disorder Last Myocardial Infarction Date:: 1990 History of Any Multi-Drug Resistant Organisms: None Reported Past Surgical History: Heart Catheterization, Orthopedic Surgery Additional Past Surgical History / Comment(s): cardiac bipass 2014. carotid artery surgery 2017 Past Anesthesia/Blood Transfusion Reactions: No Reported Reaction Past Psychological History: No Psychological Hx Reported Past Alcohol Use History: None Reported Past Drug Use History: None Reported - Past Family History Father Family Medical History: Coronary Artery Disease (CAD), Myocardial Infarction (IA) Mother Family Medical History: Coronary Artery Disease (CAD), Myocardial Infarction (IA) Brother(s) Family Medical History: Hypertension Sister(s) Family Medical History: Congestive Heart Failure (CHF) (Atrial fibrillation) Son(s) Family Medical History: No Reported History Medications and Allergies Home Medications Medication Instructions Recorded Confirmed Type RX: Ezetimibe [Zetia] 10 mg PO DAILY 12/17/18 10/18/22 History RX: Levothyroxine Sodium 100 mcg PO DAILY 12/17/18 10/18/22 History [Synthroid] RX: Ferrous Sulfate [Iron] 325 mg PO DAILY 10/06/22 10/18/22 History RX: Pantoprazole [Protonix] 40 mg PO DAILY 10/06/22 10/18/22 History RX: allopurinoL 100 mg PO DAILY 10/06/22 10/18/22 History RX: Amiodarone [Cordarone] 400 mg PO BID 14 Days #28 tab 10/17/22 10/18/22 Rx RX: Aspirin EC [Ecotrin Low Dose] 81 mg PO DAILY #30 tab 10/17/22 10/18/22 Rx RX: Calcium Acetate [PhosLo] 667 mg PO BID-W/MEALS #60 tab 10/17/22 10/18/22 Rx RX: Calcium Carbonate [Tums] 500 mg PO QID PRN #60 tab 10/17/22 10/18/22 Rx RX: Clopidogrel [Plavix] 75 mg PO DAILY #30 tab 10/17/22 10/18/22 Rx RX: Docusate [Colace] 100 mg PO BID #40 cap 10/17/22 10/18/22 Rx RX: Midodrine [ProAmatine] 5 mg PO AC-TID #90 tab 10/17/22 10/18/22 Rx RX: Nitroglycerin Sl Tabs 0.4 mg SUBLINGUAL Q5M PRN #20 tab 10/17/22 10/18/22 Rx [Nitrostat] Cholecalciferol [Vitamin D3 (125 125 mcg PO DAILY 10/18/22 10/18/22 History Mcg = 5000 Iu)] Metoprolol Tartrate [Lopressor] 12.5 mg PO BID 10/18/22 10/18/22 History RX: Amiodarone [Cordarone] 400 mg PO DIRECTED 10/18/22 10/18/22 History Ubidecarenone [Coenzyme Q10] 100 mg PO DAILY 10/18/22 10/18/22 History Allergies Allergy/AdvReac Type Severity Reaction Status Date / Time No Known Allergies Allergy Verified 10/18/22 12:40 Physical Exam Vitals: Vital Signs Pulse Resp BP Pulse Ox FiO2 10/18/22 13:41 50 L 22 92/51 82 L 10/18/22 13:20 48 L 22 90/48 10/18/22 13:11 50 L 14 80/49 10/18/22 12:57 49 L 14 77/48 80 L 10/18/22 12:44 50 L 20 77/42 77 L 10/18/22 12:05 56 L 18 99/74 95 10/18/22 11:58 100 10/18/22 11:57 100 Intake and Output 10/17/22 10/18/22 10/18/22 22:59 06:59 14:59 Intake Total 27.692 Balance 27.692 Intake: Intake, IV Titration . Amount Norepinephrine 4 mg In . Sodium Chloride 0.9% 250 ml @ 0.03 MCG/KG/MIN 10. 173 mls/hr IV .Q24H [facility] Rx#:[id number] Other: Weight 89 kg -GENERAL: The patient is intubated and sedated HEENT: Pupils are round and equally reacting to light. EOMI. No scleral icterus. No conjunctival pallor. Normocephalic, atraumatic. No pharyngeal erythema. No thyromegaly. CARDIOVASCULAR: S1 and S2 present. No murmurs, rubs, or gallops. PULMONARY: Chest is clear to auscultation, no wheezing , no crackles. ABDOMEN: Soft, nontender, nondistended, normoactive bowel sounds. No palpable organomegaly. MUSCULOSKELETAL: No joint swelling or deformity. EXTREMITIES: No cyanosis, clubbing, or pedal edema. NEUROLOGICAL: Gross neurological examination did not reveal any focal deficits. SKIN: No rashes. no petechiae. Results CBC & Chem 7: 10/18/22 12:22 10/18/22 12:22 Labs: Abnormal Lab Results - Last 24 Hours (Table) 10/18/22 10/18/22 10/18/22 Range/Units 12:22 12:22 12:22 WBC 10.9 H (3.8-10.6) k/uL RBC 3.17 L (4.30-5.90) m/uL Hgb 10.0 L (13.0-17.5) gm/dL Hct 33.2 L (39.0-53.0) % MCV 104.9 H (80.0-100.0) fL MCHC 30.0 L (31.0-37.0) g/dL RDW 17.8 H (11.5-15.5) % Plt Count 118 L (150-450) k/uL Neutrophils # 9.0 H (1.3-7.7) k/uL Lymphocytes # 0.9 L (1.0-4.8) k/uL Macrocytosis Marked A PT 12.7 H (9.0-12.0) sec INR 1.2 H (<1.2) D-Dimer 9.19 H (<0.60) mg/L FEU ABG pH (7.35-7.45) ABG pCO2 (35-45) mmHg ABG pO2 (83-108) mmHg ABG HCO3 (21-25) mmol/L ABG Total CO2 (19-24) mmol/L ABG O2 Saturation (94-97) % Sodium 134 L (137-145) mmol/L Carbon Dioxide 11 L (22-30) mmol/L BUN 42 H (9-20) mg/dL Creatinine 5.13 H (0.66-1.25) mg/dL Glucose 117 H (74-99) mg/dL POC Glucose (mg/dL) (70-110) mg/dL Magnesium 2.4 H (1.6-2.3) mg/dL Total Bilirubin 1.6 H (0.2-1.3) mg/dL Troponin I (0.000-0.034) ng/mL Albumin 3.3 L (3.5-5.0) g/dL 10/18/22 10/18/22 10/18/22 Range/Units 12:22 12:22 12:45 WBC (3.8-10.6) k/uL RBC (4.30-5.90) m/uL Hgb (13.0-17.5) gm/dL Hct (39.0-53.0) % MCV (80.0-100.0) fL MCHC (31.0-37.0) g/dL RDW (11.5-15.5) % Plt Count (150-450) k/uL Neutrophils # (1.3-7.7) k/uL Lymphocytes # (1.0-4.8) k/uL Macrocytosis PT (9.0-12.0) sec INR (<1.2) D-Dimer (<0.60) mg/L FEU ABG pH 7.22 L (7.35-7.45) ABG pCO2 30 L (35-45) mmHg ABG pO2 59 L* (83-108) mmHg ABG HCO3 12 L (21-25) mmol/L ABG Total CO2 13 L (19-24) mmol/L ABG O2 Saturation 83.1 L (94-97) % Sodium (137-145) mmol/L Carbon Dioxide (22-30) mmol/L BUN (9-20) mg/dL Creatinine (0.66-1.25) mg/dL Glucose (74-99) mg/dL POC Glucose (mg/dL) 122 H (70-110) mg/dL Magnesium (1.6-2.3) mg/dL Total Bilirubin (0.2-1.3) mg/dL Troponin I 0.102 H* (0.000-0.034) ng/mL Albumin (3.5-5.0) g/dL Assessment and Plan Assessment: -Cardiac arrest with pulseless less status post CPR with the tendon of spontaneous circulation in about 10 minutes down time. -An acute hypoxic respiratory failure requiring intubation and mechanical ventilation secondary to above -Acute metabolic acidosis -Ventricular tachycardia -Coronary artery disease, cardiac cath showing severe triple vessel coronary artery disease with patent FLOOD and patent SVG to the circumflex but occluded SVG to RCA. Campus Recruiting Coordinator recommended medical management and follow-up with the patient -severe peripheral artery disease especially in the feet -Acute kidney injury secondary to cardiorenal syndrome requiring hemodialysis started during this admission -Dilated cardiomyopathy with systolic function impairment and EF 20% -4.5 cm abdominal aortic aneurysm, with dissection, vascular surgery recommended outpatient follow-up -Moderate tricuspid regurgitation and moderate to severe mitral regurgitation -Hyponatremia secondary to HPI -Borderline low blood pressure secondary to above Plan: Continuous mechanical ventilation as per pulmonary/critical care team on the case Continue with levophed Cardiology consult Nephrology consult for hemodialysis vascular surgical consult Labs and medication were reviewed.. Continue same treatment. Continue with symptomatic treatment. Resume home medication. Monitor labs and vitals. DVT and GI prophylaxis. Further recommendations as per clinical course of the patient DVT prophylaxis: Subcutaneous heparin GI Prophylaxis: Pepcid Prognosis is guarded
--- NOTE | 2022-10-18 15:53 | CT ---
EXAMINATION TYPE: CT abdomen pelvis wo con CT DLP: 1040.4 mGycm, Automated exposure control for dose reduction was used. DATE OF EXAM: 10/18/2022 3:40 PM COMPARISON: CT abdomen pelvis most recent from 10/13/2022 CLINICAL INDICATION:Male, 82 years old with history of AAA; unresponsive, hx of AAA TECHNIQUE: Axial CT of the abdomen and pelvis. Sagittal and coronal reformats were created on a [employer] workstation. Contrast used:(none if empty) Oral contrast used: without Oral Contrast (none if empty) FINDINGS: LOWER CHEST: Heart is enlarged for size. Conduction leads are present. There is trace to small bilate ral pleural effusions. ABDOMEN LIVER: Unremarkable GALLBLADDER AND BILE DUCTS: Unremarkable. Vicarious excretion of contrast within the gallbladder. PANCREAS: Unremarkable. SPLEEN: Unremarkable. ADRENAL GLANDS: Unremarkable. KIDNEYS AND URETERS: No evidence of hydronephrosis or renal calculus. The ureters are unremarkable. PELVIS BLADDER: Nondistended with Armando catheter in place. REPRODUCTIVE: Unremarkable. ABDOMEN & PELVIS STOMACH AND BOWEL: No evidence of bowel obstruction. Nasogastric tube with tip terminating in appropr iate position. PERITONEUM/RETROPERITONEUM: No evidence of pneumoperitoneum. Small amount of fluid throughout the abd omen. VASCULATURE: Stable appearance of the abdominal aortic aneurysm measuring up to 4.5 cm. MUSCULOSKELETAL: No acute osseous abnormalities. Moderate disc degeneration changes are present throu ghout the thoracolumbar spine. LYMPH NODES: No gross evidence for lymphadenopathy. SOFT TISSUE/ABDOMINAL WALL: Left inguinal canal hernia containing fluid and fat. Diffuse anasarca of the soft tissues. IMPRESSION: 1. Stable abdominal aortic aneurysm measuring up to 4.5 cm. No additional evidence for acute abdomin al process. 2. Diffuse anasarca and small abdominal ascites with cardiomegaly compatible with congestive heart f ailure. 3. Armando catheter in place. Nasogastric tube in appropriate position.
--- NOTE | 2022-10-18 15:55 | CT ---
EXAMINATION TYPE: CT brain wo con CT DLP: 1174.3 mGycm, Automated exposure control for dose reduction was used. DATE OF EXAM: 10/18/2022 3:39 PM COMPARISON: None. CLINICAL INDICATION:Male, 82 years old with history of ams, unresponsive TECHNIQUE: Brain: Multiple axial CT images of the brain were obtained without IV contrast. Coronal and sagittal reformats reviewed. FINDINGS: Brain: Extra-axial spaces: No abnormal extra-axial fluid collections. Ventricular system: Within normal limits Cerebral parenchyma: Cerebral atrophy. No acute intraparenchymal hemorrhage or mass effect. The figueroa -white junction is well differentiated. Scattered hypoattenuating areas are seen within the white mat ter. Cerebellum: Unremarkable. Mass effect: No evidence of midline shift. Intracranial vasculature: There is slightly hyperdense appearance of the venous sinuses was prominent ly involving these most prominently involving the right sagittal and transverse sinuses. Slightly hyp erdense appearance of the intracranial arterial vasculature. Atherosclerotic calcifications of the in tracranial vessels. Soft tissues: Normal. Calvarium/osseous structures: No depressed skull fracture. Paranasal sinuses and mastoid air cells: The mastoid air cells are clear. Postsurgical changes of the left maxillary ostium. Mild mucosal thickening of the left maxillary sinus. Visualized orbits: Orbital contents are intact. Bilateral scleral calcifications. Other: Partial visualization of OG and endotracheal tubes. IMPRESSION: 1. No CT evidence for hemorrhage or mass effect. 2. Slightly hyperdense appearance of the venous sinuses and intracranial arterial vasculature. Canno t exclude venous thrombus. Consider further evaluation with MRA/MRV. 3. Nonspecific white matter changes likely related to chronic small vessel disease.
[2022-10-18 16:17] LABS: Glucose,Whole Blood 92 mg/dL (70-110)
[2022-10-18] MEDS: IPRATROPIUM-ALBUTEROL 3 ML NEB INHALATION SCH ×2 (16:26→19:54)
[2022-10-18] MEDS ORDERED: DOBUTamine DRIP 500 MG in DEXTROSE/WATER 1 250ML.BAG IV SCH (17:00)
[2022-10-18 17:19] LABS: ABG Base Excess -6.4 mmol/L; ABG HCO3 18 mmol/L (21-25); ABG Oxygen Saturation 99.8 % (94-97); ABG PCO2 26 mmHg (35-45); ABG PH 7.45 (7.35-7.45); ABG PO2 294 mmHg (83-108); ABG TCO2 19 mmol/L (19-24); Allen Test Performed? Yes
[2022-10-18] MEDS: VASOPRESSIN 60 UNIT in SODIUM CHLORIDE 0.9% 150 ML IV SCH ×4 (17:27→23:09)
[2022-10-18] MEDS ORDERED: SODIUM CHLORIDE 0.9% 1,000 ML IV SCH (17:30)
[2022-10-18 17:57] LABS: Anisocytosis Slight; Basophils # (A) 0.1 k/uL (0-0.2); Basophils % (A) 0 %; Eosinophils % (A) 0 %; HCT 31.5 % (39.0-53.0); Hypochromasia Marked; Lymphocytes # (A) 0.5 k/uL (1.0-4.8); Lymphocytes % (A) 3 %; MCH 31.9 pg (25.0-35.0); MCHC 31.6 g/dL (31.0-37.0); MCV 100.9 fL (80.0-100.0); Macrocytosis Moderate; Mean Platelet Volume 9.2; Monocytes # (A) 1.1 k/uL (0-1.0); Monocytes % (A) 7 %; Neutrophils # (A) 13.6 k/uL (1.3-7.7); Neutrophils % (A) 88 %; Platelet Count 133 k/uL (150-450); Poikilocytosis Slight; RBC 3.12 m/uL (4.30-5.90); RDW 18.2 % (11.5-15.5); WBC 15.4 k/uL (3.8-10.6)
[2022-10-18 18:09] LABS: Ionized Calcium 4.5 mg/dL (4.5-5.3)
[2022-10-18 18:10] LABS: ALT 24 U/L (4-49); AST 46 U/L (17-59); African American GFR (CKD) 11 (>60 ml/min/1.73 sqM); Albumin 3.2 g/dL (3.5-5.0); Alkaline Phosphatase 94 U/L (38-126); Anion Gap 20 mmol/L; Blood Urea Nitrogen 48 mg/dL (9-20); Calcium 8.3 mg/dL (8.4-10.2); Carbon Dioxide 16 mmol/L (22-30); Chloride 97 mmol/L (98-107); Glucose 99 mg/dL (74-99); Magnesium 2.1 mg/dL (1.6-2.3); Non-African American GFR(CKD) 10 (>60 ml/min/1.73 sqM); Phosphorus 6.2 mg/dL (2.5-4.5); Potassium 4.1 mmol/L (3.5-5.1); Sodium 133 mmol/L (137-145); Total Bilirubin 1.9 mg/dL (0.2-1.3); Total Protein 6.5 g/dL (6.3-8.2)
[2022-10-18] MEDS ORDERED: HEPARIN SODIUM 1,000 UN/ML (10ML VL) IV PRN (18:16)
[2022-10-18] MEDS ORDERED: HEPARIN SODIUM 1,000 UN/ML (10ML VL) IV ONE (18:16)
[2022-10-18 18:21] LABS: INR 1.2 (<1.2); Partial Thromboplastin Time 29.1 sec (22.0-30.0); Prothrombin Time 12.6 sec (9.0-12.0)
[2022-10-18 18:22] LABS: Calcium 8.3 mg/dL (8.4-10.2)
[2022-10-18] MEDS ORDERED: HEPARIN SOD,PORK IN 0.45% NACL 25,000 UNIT in 0.45% NACL 1 250ML.BAG IV SCH (18:30)
[2022-10-18] MEDS ORDERED: DEXTROSE 5% IN WATER 1,000 ML with SODIUM BICARB (1 MEQ/ML) 150 ML IV SCH (18:45)
[2022-10-18] MEDS: BUDESONIDE 0.5 MG/2 ML NEBU INHALATION SCH (19:53)
[2022-10-18] MEDS: CHLORHEXIDINE GLUCONATE 15 ML CUP MUCOUS MEM SCH (22:08)
[2022-10-18] MEDS: NOREPINEPHRINE 8 MG in SODIUM CHLORIDE 0.9% 250 ML IV SCH (23:03)
[2022-10-18 23:14] LABS: Glucose,Whole Blood 158 mg/dL (70-110)
[2022-10-19] MEDS: IPRATROPIUM-ALBUTEROL 3 ML NEB INHALATION SCH ×5 (00:15→15:42)
[2022-10-19] MEDS: NOREPINEPHRINE 8 MG in SODIUM CHLORIDE 0.9% 250 ML IV SCH ×2 (02:43→06:54)
[2022-10-19 03:37] LABS: Glucose,Whole Blood 180 mg/dL (70-110)
[2022-10-19 04:12] LABS: Anisocytosis Slight; Basophils % (A) 0 %; Eosinophils % (A) 0 %; HCT 31.3 % (39.0-53.0); HGB 9.9 gm/dL (13.0-17.5); Hypochromasia Moderate; Lymphocytes # (A) 0.5 k/uL (1.0-4.8); Lymphocytes % (A) 4 %; MCH 31.6 pg (25.0-35.0); MCHC 31.7 g/dL (31.0-37.0); MCV 99.7 fL (80.0-100.0); Macrocytosis Slight; Mean Platelet Volume 8.9; Monocytes # (A) 0.8 k/uL (0-1.0); Monocytes % (A) 7 %; Neutrophils # (A) 11.3 k/uL (1.3-7.7); Neutrophils % (A) 88 %; Platelet Count 167 k/uL (150-450); Poikilocytosis Slight; RBC 3.14 m/uL (4.30-5.90); RDW 18.1 % (11.5-15.5); WBC 12.8 k/uL (3.8-10.6)
[2022-10-19 04:39] LABS: African American GFR (CKD) 12 (>60 ml/min/1.73 sqM); Anion Gap 14 mmol/L; Blood Urea Nitrogen 53 mg/dL (9-20); Calcium 7.9 mg/dL (8.4-10.2); Carbon Dioxide 18 mmol/L (22-30); Chloride 98 mmol/L (98-107); Glucose 149 mg/dL (74-99); Magnesium 2.1 mg/dL (1.6-2.3); Non-African American GFR(CKD) 11 (>60 ml/min/1.73 sqM); Phosphorus 6.4 mg/dL (2.5-4.5); Potassium 4.4 mmol/L (3.5-5.1); Sodium 130 mmol/L (137-145)
[2022-10-19 05:53] LABS: ABG HCO3 22 mmol/L (21-25); ABG Oxygen Saturation 99.4 % (94-97); ABG PCO2 32 mmHg (35-45); ABG PH 7.45 (7.35-7.45); ABG PO2 195 mmHg (83-108); ABG TCO2 23 mmol/L (19-24); Allen Test Performed? Yes
[2022-10-19 06:11] LABS: Glucose,Whole Blood 189 mg/dL (70-110)
[2022-10-19] MEDS: BUDESONIDE 0.5 MG/2 ML NEBU INHALATION SCH (08:22)
--- NOTE | 2022-10-19 08:35 | XR ---
EXAMINATION TYPE: XR chest 1V portable DATE OF EXAM: 10/18/2022 CLINICAL HISTORY: Difficulty breathing progress study. TECHNIQUE: Single AP portable semiupright view of the chest is obtained. COMPARISON: Chest x-ray from one day earlier and older studies FINDINGS: Stable endotracheal and orogastric tubes. Stable right internal jugular central venous cat heter. Overlying sternal wires and mediastinal clips redemonstrated. Persistent cardiomegaly with multilead pacemaker/defibrillator. Persistent small left greater than right pleural effusions and associated bi basilar opacity favoring compressive atelectasis. Osseous structures are intact. IMPRESSION: Cardiomegaly with small left greater than right right pleural effusions are redemonstrate d. No significant change from one day earlier.
[2022-10-19] MEDS: CHLORHEXIDINE GLUCONATE 15 ML CUP MUCOUS MEM SCH ×2 (08:39→21:21)
[2022-10-19] MEDS ORDERED: PANTOPRAZOLE 40 MG/10 ML VIAL IV SCH (09:00)
--- NOTE | 2022-10-19 09:15 | P.CNNES ---
History of Present Illness Consult date: 10/18/22 Requesting physician: Irasema Watt Reason for Consult: Post cardiac arrest, unknown downtime. History of Present Illness: Patient is a 82-year-old male came to the hospital by ambulance today at 11:54 AM for cardiac arrest. EMS flow sheet not available in the chart. Patient's grandson was present, who provided the history. He states that patient was discharged home just yesterday from [facility]. He had developed acute renal failure, started with hemodialysis during the hospital stay. After discharge, he arrived home at 4 PM yesterday. He was doing well overnight. He woke up this morning at 7 AM, had breakfast, with some garcias and scrambled eggs. He was getting ready to go to his first hemodialysis treatment. He was just getting down stairs from his wheelchair to the car, when he came outside, he lost breath and became unresponsive. Patient's granddaughter is a [employer], who put him down, and started CPR. EMS arrived within 4 minutes who took over, and according to patient's grandson report, the CPR was continued for about 5 more minutes, so total downtime of about 9 minutes approximately. He was brought to the hospital. Patient's son reports that prior to passing out, he was doing well, no headache, talking well, was just slightly short of breath particularly with walking. Vital signs on arrival blood pressure 99/74, which came down to 77/42, pulse rate 56. Most recent blood pressure 93/56. Chest x-ray showed appropriate positioning of endotracheal and OG tube. Cardiomegaly with pulmonary vascular congestion and small bilateral pleural effusion suggesting CHF exacerbation. EKG shows electronic ventricular pacemaker. Chest x-ray revealed overall no significant change from prior exam with cardiomegaly and minimal pulmonary vascular congestion. CT head revealed slightly hyperdense appearance of the venous sinuses and intracranial arterial vasculature. Cannot exclude venous thrombus. Consider further evaluation with MRA/MRV. Nonspecific white matter changes likely related to chronic small vessel disease. I personally reviewed CT head, agree with the findings. CT of the chest showed stable abdominal aortic aneurysm measuring up to 4.5 cm. No additional evidence for acute abdominal process. Diffuse anasarca and small abdominal ascites with cardiomegaly, compatible with congestive heart failure. Blood test shows WBC 10.9 hemoglobin 10.0, platelets 118. INR 1.2, pH 7.22, pCO2 30, pO2 59, saturation 83% was sodium 134 potassium 4.0, BUN 42, creatinine 5.13. Hepatic panel is normal, troponin mildly elevated 0.102. Patient has never smoked, none for 35 years, he was a light smoker prior. No alcohol use. No diabetes. He does have congestive heart failure, and chronic renal disease, started on hemodialysis. He has a pacemaker. Review of Systems As per report from patient's grandson report. ROS unobtainable: due to mental status Constitutional: Denies chills, Denies fever Eyes: denies blurred vision, denies pain Cardiovascular: Reports dyspnea on exertion, Reports shortness of breath, Denies chest pain Respiratory: Denies cough Musculoskeletal: Denies neck pain Neurological: Denies convulsions, Denies numbness, Denies weakness Psychiatric: Denies anxiety, Denies depression Endocrine: Reports fatigue Past Medical History Past Medical History: Coronary Artery Disease (CAD), Chest Pain / Angina, Hyperlipidemia, Myocardial Infarction (HI), Thyroid Disorder Last Myocardial Infarction Date:: 1990 History of Any Multi-Drug Resistant Organisms: None Reported Past Surgical History: Heart Catheterization, Orthopedic Surgery Additional Past Surgical History / Comment(s): cardiac bipass 2014. carotid artery surgery 2017 Past Anesthesia/Blood Transfusion Reactions: No Reported Reaction Past Psychological History: No Psychological Hx Reported Past Alcohol Use History: None Reported Past Drug Use History: None Reported - Past Family History Father Family Medical History: Coronary Artery Disease (CAD), Myocardial Infarction (HI) Mother Family Medical History: Coronary Artery Disease (CAD), Myocardial Infarction (HI) Brother(s) Family Medical History: Hypertension Sister(s) Family Medical History: Congestive Heart Failure (CHF) (Atrial fibrillation) Son(s) Family Medical History: No Reported History Medications and Allergies Home Medications Medication Instructions Recorded Confirmed Type Ezetimibe [Zetia] 10 mg PO DAILY 12/17/18 10/18/22 History Levothyroxine Sodium [Synthroid] 100 mcg PO DAILY 12/17/18 10/18/22 History Ferrous Sulfate [Iron] 325 mg PO DAILY 10/06/22 10/18/22 History Pantoprazole [Protonix] 40 mg PO DAILY 10/06/22 10/18/22 History allopurinoL 100 mg PO DAILY 10/06/22 10/18/22 History Amiodarone [Cordarone] 400 mg PO BID 14 Days #28 tab 10/17/22 10/18/22 Rx Aspirin EC [Ecotrin Low Dose] 81 mg PO DAILY #30 tab 10/17/22 10/18/22 Rx Calcium Acetate [PhosLo] 667 mg PO BID-W/MEALS #60 tab 10/17/22 10/18/22 Rx Calcium Carbonate [Tums] 500 mg PO QID PRN #60 tab 10/17/22 10/18/22 Rx Clopidogrel [Plavix] 75 mg PO DAILY #30 tab 10/17/22 10/18/22 Rx Docusate [Colace] 100 mg PO BID #40 cap 10/17/22 10/18/22 Rx Midodrine [ProAmatine] 5 mg PO AC-TID #90 tab 10/17/22 10/18/22 Rx Nitroglycerin Sl Tabs [Nitrostat] 0.4 mg SUBLINGUAL Q5M PRN #20 tab 10/17/22 10/18/22 Rx Amiodarone [Cordarone] 400 mg PO DIRECTED 10/18/22 10/18/22 History Cholecalciferol [Vitamin D3 (125 125 mcg PO DAILY 10/18/22 10/18/22 History Mcg = 5000 Iu)] Metoprolol Tartrate [Lopressor] 12.5 mg PO BID 10/18/22 10/18/22 History Ubidecarenone [Coenzyme Q10] 100 mg PO DAILY 10/18/22 10/18/22 History Allergies Allergy/AdvReac Type Severity Reaction Status Date / Time No Known Allergies Allergy Verified 10/18/22 12:40 Physical Examination - Vital Signs Vital Signs: Vital Signs Pulse Resp BP Pulse Ox FiO2 10/18/22 16:32 50 L 10/18/22 16:27 51 L 10/18/22 15:57 49 L 20 93/56 98 10/18/22 15:43 49 L 20 99/59 98 10/18/22 14:15 50 L 22 94/51 92 L 10/18/22 14:05 100 10/18/22 13:41 50 L 22 92/51 82 L 10/18/22 13:20 48 L 22 90/48 10/18/22 13:11 50 L 14 80/49 10/18/22 12:57 49 L 14 77/48 80 L 10/18/22 12:44 50 L 20 77/42 77 L 10/18/22 12:05 56 L 18 99/74 95 10/18/22 11:58 100 10/18/22 11:57 100 Intake and Output 10/18/22 10/18/22 10/18/22 06:59 14:59 22:59 Intake Total 204.731 61.284 Balance 204.731 61.284 Intake: Intake, IV Titration 204.731 61.284 Amount Norepinephrine 4 mg In 192.716 61.284 Sodium Chloride 0.9% 250 ml @ 0.03 MCG/KG/MIN 10. 173 mls/hr IV .Q24H [facility]A Rx#:[id number] propofoL 1,000 mg In 12.015 Empty Bag 1 bag @ 15 MCG/ KG/MIN 8.01 mls/hr IV . [id number] [facility]A Rx#:[id number] Other: Weight 89 kg 93.894 kg Patient is an elderly male, who is intubated, sedated on propofol. Patient also on multiple drips including dopamine, Levophed, vasopressin. Patient also started on heparin drip by cardiology. Patient is sedated, GCS of 3. Patient's pupils are equal, round, minimally reacting. Oculocephalics are absent. Corneals absent. Gaze is midline. Patient is breathing over the ventilator. Patient does not respond to noxious stimuli. Plantars are flat. No obvious seizure-like activity noted. Reflexes are almost absent, plantars are flat. Patient has mild peripheral edema. Sensory to touch and painful stimuli shows no response. Cerebellar functions cannot be tested. On general examination, there is no carotid bruit or murmur, S1-S2 audible. Patient's chest has some crackles. Abdomen is soft nontender. No organomegaly, bowel sounds present. Peripheral pulses are present. Mild edema. Results - Laboratory Findings CBC and BMP: 10/19/22 03:44 10/19/22 03:44 Abnormal Lab Findings: Abnormal Labs 10/18/22 10/18/22 10/18/22 12:22 12:22 12:22 WBC 10.9 H RBC 3.17 L Hgb 10.0 L Hct 33.2 L MCV 104.9 H MCHC 30.0 L RDW 17.8 H Plt Count 118 L Neutrophils # 9.0 H Lymphocytes # 0.9 L Macrocytosis Marked A PT 12.7 H INR 1.2 H D-Dimer 9.19 H ABG pH ABG pCO2 ABG pO2 ABG HCO3 ABG Total CO2 ABG O2 Saturation Sodium 134 L Carbon Dioxide 11 L BUN 42 H Creatinine 5.13 H Glucose 117 H POC Glucose (mg/dL) Magnesium 2.4 H Total Bilirubin 1.6 H Troponin I Albumin 3.3 L 10/18/22 10/18/22 10/18/22 12:22 12:22 12:45 WBC RBC Hgb Hct MCV MCHC RDW Plt Count Neutrophils # Lymphocytes # Macrocytosis PT INR D-Dimer ABG pH 7.22 L ABG pCO2 30 L ABG pO2 59 L* ABG HCO3 12 L ABG Total CO2 13 L ABG O2 Saturation 83.1 L Sodium Carbon Dioxide BUN Creatinine Glucose POC Glucose (mg/dL) 122 H Magnesium Total Bilirubin Troponin I 0.102 H* Albumin 10/18/22 13:57 WBC RBC Hgb Hct MCV MCHC RDW Plt Count Neutrophils # Lymphocytes # Macrocytosis PT INR D-Dimer ABG pH 7.24 L ABG pCO2 27 L ABG pO2 59 L* ABG HCO3 12 L ABG Total CO2 13 L ABG O2 Saturation 83.9 L Sodium Carbon Dioxide BUN Creatinine Glucose POC Glucose (mg/dL) Magnesium Total Bilirubin Troponin I Albumin Assessment and Plan Assessment: * Witnessed cardiac arrest with downtime of 9 minutes (as per her estimation from patient's grandson report). Cardiac arrest likely due to arrhythmia, rule out PE. * Encephalopathy, likely combination of metabolic, perhaps hypoxic/anoxic encephalopathy. * Congestive heart failure with poor ejection fraction * Elevated cardiac enzymes * Anemia * Macrocytosis * Metabolic acidosis * Recent kidney failure started dialysis. * Coronary artery disease, * History of carotid surgery 2017 Plan: * Patient's cardiac arrest is most likely related to cardiac event versus PE Further management as per cardiology and critical care. * CT head report reviewed. Some hyperdensity of the dural venous sinuses. Patient did not have any headache prior to cardiac arrest, therefore do not believe evidence of sinus thrombosis. I think hyperdensity may be related to dehydration. Patient in any case on heparin per cardiology. * Repeat CT head in the morning. * Stat EEG evaluate for encephalopathy. * Patient currently on heparin. * Neurology will follow clinically. Patient critically sick. Discussed at length with patient's grandson in detail. * Thank you for the consult. Time with Patient: Greater than 30
[2022-10-19] MEDS ORDERED: DOBUTamine DRIP 500 MG in DEXTROSE/WATER 1 250ML.BAG IV SCH (10:00)
[2022-10-19 10:08] LABS: ABG Base Excess -0.2 mmol/L; ABG HCO3 23 mmol/L (21-25); ABG Oxygen Saturation 99.3 % (94-97); ABG PCO2 31 mmHg (35-45); ABG PH 7.48 (7.35-7.45); ABG PO2 192 mmHg (83-108); ABG TCO2 24 mmol/L (19-24)
[2022-10-19 10:10] LABS: Allen Test Performed? no
[2022-10-19 10:16] LABS: INR 1.3 (<1.2); Prothrombin Time 12.9 sec (9.0-12.0)
--- NOTE | 2022-10-19 10:39 | PN ---
PROGRESS NOTE HISTORY OF PRESENT ILLNESS: An 82-year-old gentleman with complex and multiple medical problems including abdominal aortic aneurysm, coronary artery disease status post bypass surgery, status post AICD, ischemic cardiomyopathy who presented to hospital following a sudden collapse at home. The events that happened around that time were somewhat unclear. EMS responded and intubated him. They felt that he was asystolic but did not really show us any rhythm strips that showed asystole. Only rhythm strips that were there were those that were with adequate pacing spikes. The patient received epinephrine and was subsequently brought to the emergency room where we found that his device was functioning normally. The patient has had ventricular tachycardia and had been on amiodarone and we have checked the AICD. He did not have any episodes of ventricular tachycardia, received antitachycardia pacing and defibrillation since almost October 02 when it was last evaluated and since being admitted, he did not have any episodes of ventricular tachycardia. Currently, he is intubated on vent, hypotensive requiring pressors. He is on IV heparin because of an elevated D-dimer on his initial presentation and the fact that we really do not have any clear explanation as to why he had the syncopal event at home. There is mild troponin elevation also. PHYSICAL EXAMINATION: GENERAL: On exam, he is intubated, vented and sedated. VITAL SIGNS: Heart rate is about 55 beats per minute. Temperature is 36.8, blood pressure is 90/50, respiratory rate 18. CHEST: Reveals diminished air entry with occasional rhonchi bilaterally. HEART: Reveals first and second heart sounds. Systolic murmur at the apex. ABDOMEN: Soft. EXTREMITIES: Exam of extremities revealed mild edema. Peripheral pulses are diminished. LABORATORY DATA: Labs from today showed a potassium of 4.4, BUN is 53, creatinine of 4.7, hemoglobin is 9.9, platelet count is 167. ASSESSMENT AND PLAN: 1. Syncope and collapse, status post cardiorespiratory arrest. 2. Coronary artery disease, status post coronary artery bypass grafting. 3. Ischemic cardiomyopathy, status post AICD. 4. Abdominal aortic aneurysm, awaiting surgery. 5. Elevated D-dimer. PLAN: We will continue to treat the patient with intravenous heparin at this time. We will obtain a venous duplex study to rule out to see if the patient has any DVT. Prognosis is guarded. The AICD checked did not reveal any episodes of ventricular tachycardia. MMODL / IJN: [id number] /
[2022-10-19 10:58] VITALS: BMI 30.9
[2022-10-19 11:59] LABS: Glucose,Whole Blood 156 mg/dL (70-110)
--- NOTE | 2022-10-19 11:59 | P.GSCN ---
History of Present Illness Consult date: 10/19/22 Reason for Consult: AAA Requesting physician: Sagrario Tello History of present illness: This is an 82-year-old white male with history of severe ischemic cardiomyopathy and LV dysfunction, patient was discharged from the hospital 2 days ago. Patient was admitted on 10/06/22, discharged home on 10/17/2022. Patient was seen by cardiology for his ventricular tachycardia and LV dysfunction he was also seen by nephrology for acute kidney injury and he was also seen by vascular surgery for his abdominal aortic aneurysm. Patient is known to have triple- vessel coronary artery disease with patent FLOOD and patent SVG to the circumflex but occluded SVG to RCA. Ejection fraction on the last visit was 20% his aneurysm measured 4.5 cm with dissection, evaluated previously by vascular surgery for his aneurysm. In addition to all of this the patient has moderate tricuspid regurgitation and moderate to severe mitral regurgitation. During his last admission patient had a temporary dialysis catheter placed in the right groin, and he was supposed to follow-up with nephrology for hemodialysis in one to 2 weeks post discharge. Apparently yesterday patient collapsed at home witnessed by family, according to EMS, they arrived and he was in asystole and they started CPR, patient received 3 rounds of epinephrine, and he was noted to have a paced rhythm intubated at the scene, brought into ER, down time was supposedly about 10 minutes. Total CPR time was about 5 minutes. And prior to that before EMS arrived, patient was not receiving any CPR. He is now admitted to the ICU on mechanical ventilation and multiple drips. Looking back at his CT of the abdomen and pelvis from the last admission dated 10/13, his aneurysm measured 4.5 cm there was dissection within the abdominal aorta without extension into or out of the aneurysm. There was also evidence of ascites and moderate fatty infiltration of the liver. Plan from vascular surgery was the patient was given a follow-up in 1-2 weeks to discuss percutaneous endovascular aortic repair, as at that time cardiology had cleared patient is high risk to proceed with surgery. Patient has now been made a DO NOT RESUSCITATE. He is currently on a heparin drip, he remains hypotensive. Review of Systems ROS unobtainable: due to endotracheal tube Past Medical History Past Medical History: Coronary Artery Disease (CAD), Chest Pain / Angina, Hyperlipidemia, Myocardial Infarction (AL), Thyroid Disorder Last Myocardial Infarction Date:: 1990 History of Any Multi-Drug Resistant Organisms: None Reported Past Surgical History: Heart Catheterization, Orthopedic Surgery Additional Past Surgical History / Comment(s): cardiac bipass 2015. carotid artery surgery 2017. 10/16 tripple vessel disease- medical management. AAA Past Anesthesia/Blood Transfusion Reactions: No Reported Reaction Past Psychological History: No Psychological Hx Reported Smoking Status: Former smoker Past Alcohol Use History: None Reported Past Drug Use History: None Reported - Past Family History Father Family Medical History: Coronary Artery Disease (CAD), Myocardial Infarction (AL) Mother Family Medical History: Coronary Artery Disease (CAD), Myocardial Infarction (AL) Brother(s) Family Medical History: Hypertension Sister(s) Family Medical History: Congestive Heart Failure (CHF) Son(s) Family Medical History: No Reported History Medications and Allergies Home Medications Medication Instructions Recorded Confirmed Type Ezetimibe [Zetia] 10 mg PO DAILY 12/17/18 10/18/22 History Levothyroxine Sodium [Synthroid] 100 mcg PO DAILY 12/17/18 10/18/22 History Ferrous Sulfate [Iron] 325 mg PO DAILY 10/06/22 10/18/22 History Pantoprazole [Protonix] 40 mg PO DAILY 10/06/22 10/18/22 History allopurinoL 100 mg PO DAILY 10/06/22 10/18/22 History Amiodarone [Cordarone] 400 mg PO BID 14 Days #28 tab 10/17/22 10/18/22 Rx Aspirin EC [Ecotrin Low Dose] 81 mg PO DAILY #30 tab 10/17/22 10/18/22 Rx Calcium Acetate [PhosLo] 667 mg PO BID-W/MEALS #60 tab 10/17/22 10/18/22 Rx Calcium Carbonate [Tums] 500 mg PO QID PRN #60 tab 10/17/22 10/18/22 Rx Clopidogrel [Plavix] 75 mg PO DAILY #30 tab 10/17/22 10/18/22 Rx Docusate [Colace] 100 mg PO BID #40 cap 10/17/22 10/18/22 Rx Midodrine [ProAmatine] 5 mg PO AC-TID #90 tab 10/17/22 10/18/22 Rx Nitroglycerin Sl Tabs [Nitrostat] 0.4 mg SUBLINGUAL Q5M PRN #20 tab 10/17/22 10/18/22 Rx Amiodarone [Cordarone] 400 mg PO DIRECTED 10/18/22 10/18/22 History Cholecalciferol [Vitamin D3 (125 125 mcg PO DAILY 10/18/22 10/18/22 History Mcg = 5000 Iu)] Metoprolol Tartrate [Lopressor] 12.5 mg PO BID 10/18/22 10/18/22 History Ubidecarenone [Coenzyme Q10] 100 mg PO DAILY 10/18/22 10/18/22 History Allergies Allergy/AdvReac Type Severity Reaction Status Date / Time No Known Allergies Allergy Verified 10/18/22 12:40 Surgical - Exam Vital Signs FiO2 100 10/18/22 11:57 General appearance: The patient is sedated on mechanical ventilation. HET: Head is normocephalic and atraumatic. Pupils are equal and reactive. Neck: Supple. Heart: Regular. Lungs: Equal expansion. Abdomen: Soft, nondistended. Extremities: Normal skin color and turgor. Nonpalpable DP or PT pulses. Neurological: Patient sedated on mechanical ventilation. Results - Labs 10/19/22 03:44 10/19/22 03:44 Abnormal Lab Results - Last 24 Hours (Table) 10/18/22 10/18/22 10/18/22 Range/Units 12:22 12:22 12:22 WBC 10.9 H (3.8-10.6) k/uL RBC 3.17 L (4.30-5.90) m/uL Hgb 10.0 L (13.0-17.5) gm/dL Hct 33.2 L (39.0-53.0) % MCV 104.9 H (80.0-100.0) fL MCHC 30.0 L (31.0-37.0) g/dL RDW 17.8 H (11.5-15.5) % Plt Count 118 L (150-450) k/uL Neutrophils # 9.0 H (1.3-7.7) k/uL Lymphocytes # 0.9 L (1.0-4.8) k/uL Monocytes # (0-1.0) k/uL Macrocytosis Marked A PT 12.7 H (9.0-12.0) sec INR 1.2 H (<1.2) APTT (22.0-30.0) sec D-Dimer 9.19 H (<0.60) mg/L FEU ABG pH (7.35-7.45) ABG pCO2 (35-45) mmHg ABG pO2 (83-108) mmHg ABG HCO3 (21-25) mmol/L ABG Total CO2 (19-24) mmol/L ABG O2 Saturation (94-97) % Sodium 134 L (137-145) mmol/L Chloride (98-107) mmol/L Carbon Dioxide 11 L (22-30) mmol/L BUN 42 H (9-20) mg/dL Creatinine 5.13 H (0.66-1.25) mg/dL Glucose 117 H (74-99) mg/dL POC Glucose (mg/dL) (70-110) mg/dL Calcium (8.4-10.2) mg/dL Phosphorus (2.5-4.5) mg/dL Magnesium 2.4 H (1.6-2.3) mg/dL Total Bilirubin 1.6 H (0.2-1.3) mg/dL Troponin I (0.000-0.034) ng/mL Albumin 3.3 L (3.5-5.0) g/dL 10/18/22 10/18/22 10/18/22 Range/Units 12:22 12:22 12:45 WBC (3.8-10.6) k/uL RBC (4.30-5.90) m/uL Hgb (13.0-17.5) gm/dL Hct (39.0-53.0) % MCV (80.0-100.0) fL MCHC (31.0-37.0) g/dL RDW (11.5-15.5) % Plt Count (150-450) k/uL Neutrophils # (1.3-7.7) k/uL Lymphocytes # (1.0-4.8) k/uL Monocytes # (0-1.0) k/uL Macrocytosis PT (9.0-12.0) sec INR (<1.2) APTT (22.0-30.0) sec D-Dimer (<0.60) mg/L FEU ABG pH 7.22 L (7.35-7.45) ABG pCO2 30 L (35-45) mmHg ABG pO2 59 L* (83-108) mmHg ABG HCO3 12 L (21-25) mmol/L ABG Total CO2 13 L (19-24) mmol/L ABG O2 Saturation 83.1 L (94-97) % Sodium (137-145) mmol/L Chloride (98-107) mmol/L Carbon Dioxide (22-30) mmol/L BUN (9-20) mg/dL Creatinine (0.66-1.25) mg/dL Glucose (74-99) mg/dL POC Glucose (mg/dL) 122 H (70-110) mg/dL Calcium (8.4-10.2) mg/dL Phosphorus (2.5-4.5) mg/dL Magnesium (1.6-2.3) mg/dL Total Bilirubin (0.2-1.3) mg/dL Troponin I 0.102 H* (0.000-0.034) ng/mL Albumin (3.5-5.0) g/dL 10/18/22 10/18/22 10/18/22 Range/Units 13:57 17:13 17:13 WBC (3.8-10.6) k/uL RBC (4.30-5.90) m/uL Hgb (13.0-17.5) gm/dL Hct (39.0-53.0) % MCV (80.0-100.0) fL MCHC (31.0-37.0) g/dL RDW (11.5-15.5) % Plt Count (150-450) k/uL Neutrophils # (1.3-7.7) k/uL Lymphocytes # (1.0-4.8) k/uL Monocytes # (0-1.0) k/uL Macrocytosis PT 12.6 H (9.0-12.0) sec INR 1.2 H (<1.2) APTT (22.0-30.0) sec D-Dimer (<0.60) mg/L FEU ABG pH 7.24 L (7.35-7.45) ABG pCO2 27 L (35-45) mmHg ABG pO2 59 L* (83-108) mmHg ABG HCO3 12 L (21-25) mmol/L ABG Total CO2 13 L (19-24) mmol/L ABG O2 Saturation 83.9 L (94-97) % Sodium 133 L (137-145) mmol/L Chloride 97 L (98-107) mmol/L Carbon Dioxide 16 L (22-30) mmol/L BUN 48 H (9-20) mg/dL Creatinine 5.00 H (0.66-1.25) mg/dL Glucose (74-99) mg/dL POC Glucose (mg/dL) (70-110) mg/dL Calcium 8.3 L (8.4-10.2) mg/dL Phosphorus 6.2 H (2.5-4.5) mg/dL Magnesium (1.6-2.3) mg/dL Total Bilirubin 1.9 H (0.2-1.3) mg/dL Troponin I (0.000-0.034) ng/mL Albumin 3.2 L (3.5-5.0) g/dL 10/18/22 10/18/22 10/18/22 Range/Units 17:13 17:13 17:17 WBC 15.4 H (3.8-10.6) k/uL RBC 3.12 L (4.30-5.90) m/uL Hgb 10.0 L (13.0-17.5) gm/dL Hct 31.5 L (39.0-53.0) % MCV 100.9 H (80.0-100.0) fL MCHC (31.0-37.0) g/dL RDW 18.2 H (11.5-15.5) % Plt Count 133 L (150-450) k/uL Neutrophils # 13.6 H (1.3-7.7) k/uL Lymphocytes # 0.5 L (1.0-4.8) k/uL Monocytes # 1.1 H (0-1.0) k/uL Macrocytosis PT (9.0-12.0) sec INR (<1.2) APTT (22.0-30.0) sec D-Dimer (<0.60) mg/L FEU ABG pH (7.35-7.45) ABG pCO2 26 L (35-45) mmHg ABG pO2 294 H (83-108) mmHg ABG HCO3 18 L (21-25) mmol/L ABG Total CO2 (19-24) mmol/L ABG O2 Saturation 99.8 H (94-97) % Sodium (137-145) mmol/L Chloride (98-107) mmol/L Carbon Dioxide (22-30) mmol/L BUN (9-20) mg/dL Creatinine (0.66-1.25) mg/dL Glucose (74-99) mg/dL POC Glucose (mg/dL) (70-110) mg/dL Calcium 8.3 L (8.4-10.2) mg/dL Phosphorus (2.5-4.5) mg/dL Magnesium (1.6-2.3) mg/dL Total Bilirubin (0.2-1.3) mg/dL Troponin I (0.000-0.034) ng/mL Albumin (3.5-5.0) g/dL 10/18/22 10/19/22 10/19/22 Range/Units 23:12 00:51 03:35 WBC (3.8-10.6) k/uL RBC (4.30-5.90) m/uL Hgb (13.0-17.5) gm/dL Hct (39.0-53.0) % MCV (80.0-100.0) fL MCHC (31.0-37.0) g/dL RDW (11.5-15.5) % Plt Count (150-450) k/uL Neutrophils # (1.3-7.7) k/uL Lymphocytes # (1.0-4.8) k/uL Monocytes # (0-1.0) k/uL Macrocytosis PT (9.0-12.0) sec INR (<1.2) APTT >200.0 H* (22.0-30.0) sec D-Dimer (<0.60) mg/L FEU ABG pH (7.35-7.45) ABG pCO2 (35-45) mmHg ABG pO2 (83-108) mmHg ABG HCO3 (21-25) mmol/L ABG Total CO2 (19-24) mmol/L ABG O2 Saturation (94-97) % Sodium (137-145) mmol/L Chloride (98-107) mmol/L Carbon Dioxide (22-30) mmol/L BUN (9-20) mg/dL Creatinine (0.66-1.25) mg/dL Glucose (74-99) mg/dL POC Glucose (mg/dL) 158 H 180 H (70-110) mg/dL Calcium (8.4-10.2) mg/dL Phosphorus (2.5-4.5) mg/dL Magnesium (1.6-2.3) mg/dL Total Bilirubin (0.2-1.3) mg/dL Troponin I (0.000-0.034) ng/mL Albumin (3.5-5.0) g/dL 10/19/22 10/19/22 10/19/22 Range/Units 03:44 03:44 06:09 WBC 12.8 H (3.8-10.6) k/uL RBC 3.14 L (4.30-5.90) m/uL Hgb 9.9 L (13.0-17.5) gm/dL Hct 31.3 L (39.0-53.0) % MCV (80.0-100.0) fL MCHC (31.0-37.0) g/dL RDW 18.1 H (11.5-15.5) % Plt Count (150-450) k/uL Neutrophils # 11.3 H (1.3-7.7) k/uL Lymphocytes # 0.5 L (1.0-4.8) k/uL Monocytes # (0-1.0) k/uL Macrocytosis PT (9.0-12.0) sec INR (<1.2) APTT (22.0-30.0) sec D-Dimer (<0.60) mg/L FEU ABG pH (7.35-7.45) ABG pCO2 (35-45) mmHg ABG pO2 (83-108) mmHg ABG HCO3 (21-25) mmol/L ABG Total CO2 (19-24) mmol/L ABG O2 Saturation (94-97) % Sodium 130 L (137-145) mmol/L Chloride (98-107) mmol/L Carbon Dioxide 18 L (22-30) mmol/L BUN 53 H (9-20) mg/dL Creatinine 4.74 H (0.66-1.25) mg/dL Glucose 149 H (74-99) mg/dL POC Glucose (mg/dL) 189 H (70-110) mg/dL Calcium 7.9 L (8.4-10.2) mg/dL Phosphorus 6.4 H (2.5-4.5) mg/dL Magnesium (1.6-2.3) mg/dL Total Bilirubin (0.2-1.3) mg/dL Troponin I (0.000-0.034) ng/mL Albumin (3.5-5.0) g/dL Diabetes panel 10/18/22 10/18/22 10/18/22 Range/Units 12:22 17:13 17:13 Sodium 134 L 133 L (137-145) mmol/L Potassium 4.0 4.1 (3.5-5.1) mmol/L Chloride 99 97 L (98-107) mmol/L Carbon Dioxide 11 L 16 L (22-30) mmol/L BUN 42 H 48 H (9-20) mg/dL Creatinine 5.13 H 5.00 H (0.66-1.25) mg/dL Glucose 117 H 99 (74-99) mg/dL Calcium 9.2 8.3 L 8.3 L (8.4-10.2) mg/dL AST 56 46 (17-59) U/L ALT 35 24 (4-49) U/L Alkaline Phosphatase 88 94 (38-126) U/L Total Protein 7.0 6.5 (6.3-8.2) g/dL Albumin 3.3 L 3.2 L (3.5-5.0) g/dL 10/19/22 Range/Units 03:44 Sodium 130 L (137-145) mmol/L Potassium 4.4 (3.5-5.1) mmol/L Chloride 98 (98-107) mmol/L Carbon Dioxide 18 L (22-30) mmol/L BUN 53 H (9-20) mg/dL Creatinine 4.74 H (0.66-1.25) mg/dL Glucose 149 H (74-99) mg/dL Calcium 7.9 L (8.4-10.2) mg/dL AST (17-59) U/L ALT (4-49) U/L Alkaline Phosphatase (38-126) U/L Total Protein (6.3-8.2) g/dL Albumin (3.5-5.0) g/dL Calcium panel 10/18/22 10/18/22 10/18/22 Range/Units 12:22 17:13 17:13 Calcium 9.2 8.3 L 8.3 L (8.4-10.2) mg/dL Ionized Calcium Briana 4.5 (4.5-5.3) mg/dL Phosphorus 6.2 H (2.5-4.5) mg/dL Albumin 3.3 L 3.2 L (3.5-5.0) g/dL 10/19/22 Range/Units 03:44 Calcium 7.9 L (8.4-10.2) mg/dL Ionized Calcium Briana (4.5-5.3) mg/dL Phosphorus 6.4 H (2.5-4.5) mg/dL Albumin (3.5-5.0) g/dL Pituitary panel 10/18/22 10/18/22 10/18/22 Range/Units 12: 17:13 17:13 Sodium 134 L 133 L (137-145) mmol/L Potassium 4.0 4.1 (3.5-5.1) mmol/L Chloride 99 97 L (98-107) mmol/L Carbon Dioxide 11 L 16 L (22-30) mmol/L BUN 42 H 48 H (9-20) mg/dL Creatinine 5.13 H 5.00 H (0.66-1.25) mg/dL Glucose 117 H 99 (74-99) mg/dL Calcium 9.2 8.3 L 8.3 L (8.4-10.2) mg/dL 10/19/22 Range/Units 03:44 Sodium 130 L (137-145) mmol/L Potassium 4.4 (3.5-5.1) mmol/L Chloride 98 (98-107) mmol/L Carbon Dioxide 18 L (22-30) mmol/L BUN 53 H (9-20) mg/dL Creatinine 4.74 H (0.66-1.25) mg/dL Glucose 149 H (74-99) mg/dL Calcium 7.9 L (8.4-10.2) mg/dL Adrenal panel 10/18/22 10/18/22 10/18/22 Range/Units 12:22 17:13 17:13 Sodium 134 L 133 L (137-145) mmol/L Potassium 4.0 4.1 (3.5-5.1) mmol/L Chloride 99 97 L (98-107) mmol/L Carbon Dioxide 11 L 16 L (22-30) mmol/L BUN 42 H 48 H (9-20) mg/dL Creatinine 5.13 H 5.00 H (0.66-1.25) mg/dL Glucose 117 H 99 (74-99) mg/dL Calcium 9.2 8.3 L 8.3 L (8.4-10.2) mg/dL Total Bilirubin 1.6 H 1.9 H (0.2-1.3) mg/dL AST 56 46 (17-59) U/L ALT 35 24 (4-49) U/L Alkaline Phosphatase 88 94 (38-126) U/L Total Protein 7.0 6.5 (6.3-8.2) g/dL Albumin 3.3 L 3.2 L (3.5-5.0) g/dL 10/19/22 Range/Units 03:44 Sodium 130 L (137-145) mmol/L Potassium 4.4 (3.5-5.1) mmol/L Chloride 98 (98-107) mmol/L Carbon Dioxide 18 L (22-30) mmol/L BUN 53 H (9-20) mg/dL Creatinine 4.74 H (0.66-1.25) mg/dL Glucose 149 H (74-99) mg/dL Calcium 7.9 L (8.4-10.2) mg/dL Total Bilirubin (0.2-1.3) mg/dL AST (17-59) U/L ALT (4-49) U/L Alkaline Phosphatase (38-126) U/L Total Protein (6.3-8.2) g/dL Albumin (3.5-5.0) g/dL - Imaging CT scan - abdomen: report reviewed (Stable abdominal aortic aneurysm measuring up to 4.5 cm. No additional evidence for acute abdominal process. Diffuse anasarca and small abdominal ascites with cardiomegaly compatible with congestive heart failure. Armando catheter in place nasogastric tube in appropriate position.) Assessment and Plan Assessment: 1. Cardiac arrest, asystole upon initial presentation 2. Saccular Abdominal aortic aneurysm dissection stable measuring 4.5 cm 3. Cardiomyopathy and LV dysfunction, EF less than 20% previous AICD placement 4. Congestive heart failure 5. Possible anoxic brain injury from prolonged downtime 6. Chronic kidney disease on hemodialysis Plan: At this time patient is not stable or he could surgical candidate for abdominal aortic aneurysm repair. He has been made a DO NOT RESUSCITATE. No plans for any vascular surgical intervention for abdominal aortic aneurysm. Continue current ICU/medical treatment. Thank you for this consultation, we will sign off at this time. The impression and plan of care has been dictated as directed. I performed a history and examination of this patient, discussed the same with the dictator. I agree with the dictator's note ,documented as a scribe. Any additional findings or plans will be noted.
--- NOTE | 2022-10-19 12:36 | US ---
EXAMINATION TYPE: US venous doppler duplex LE DATE OF EXAM: 10/19/2022 12:27 PM Exam done portable in ICU COMPARISON: US 2009 CLINICAL INDICATION: Male, 82 years old with history of r/o DVT; Bilateral leg swelling, patient on b lood thinners SIDE PERFORMED: Bilateral TECHNIQUE: The lower extremity deep venous system is examined utilizing real time linear array sonog nicanor with graded compression, doppler sonography and color-flow sonography. VESSELS IMAGED: Common Femoral Vein Deep Femoral Vein Greater Saphenous Vein * Femoral Vein Popliteal Vein Small Saphenous Vein * Proximal Calf Veins (* superficial vessels) Right Leg: Appears negative for DVT Left Leg: Visualized portions appear negative for DVT, mid femoral vein not seen due to catheter Grayscale, color doppler, spectral doppler imaging performed of the deep veins of the bilateral lower extremities. There is normal flow, compressibility, vascular waveforms. IMPRESSION: Slightly suboptimal study without convincing evidence for acute DVT in either lower extr emity.
--- NOTE | 2022-10-19 12:38 | P.PN ---
Subjective Progress Note Date: 10/19/22 Principal diagnosis: Cardiac arrest This is an 82-year-old white male with history of severe ischemic cardiomyopathy and LV dysfunction, patient was discharged from the hospital yesterday. Patient was admitted on 10/06/22, discharged home on 10/17/2022. Patient was seen by cardiology for his ventricular tachycardia and LV dysfunction he was also seen by nephrology for acute kidney injury and he was also seen by vascular surgery for his abdominal aortic aneurysm. Patient is known to have triple-vessel coronary artery disease with patent FLOOD and patent SVG to the circumflex but occluded SVG to RCA. Ejection fraction on the last visit was 20% his aneurysm measured 4.5 cm with dissection, evaluated previously by vascular surgery for his aneurysm. In addition to all of this the patient has moderate tricuspid regurgitation and moderate to severe mitral regurgitation. During his last admission patient had a temporary dialysis catheter placed in the right groin, and he was supposed to follow-up with nephrology for hemodialysis in one to 2 weeks post discharge. Looking at the discharge medications patient was discharged home on amiodarone 400 twice a day, metoprolol 12.5 twice a day nitroglycerin, Plavix, Colace, midodrine for low blood pressure, and Tums his ot her meds included levothyroxine, Zetia, allopurinol, pantoprazole, and iron. Today patient collapsed at home witnessed by family, according to EMS, they arrived and he was in asystole and they started CPR, patient received 3 rounds of epinephrine, and he was noted to have a paced rhythm intubated at the scene, brought into ER, down time was supposedly about 10 minutes. Total CPR time was about 5 minutes. And prior to that before EMS arrived, patient was not receiving any CPR. In the ER, patient is now on mechanical ventilation, assist control rate of 2010 volume 450 FiO2 on the percent and PEEP was 8 I increased the PEEP up to 10. ABG on this setting showed a pO2 of 59 pCO2 of 27 pH of 7.24. Patient was given 1 amp of bicarbonate. And he will likely need to be placed on bicarb drip. Basic metabolic profile was noted to be relatively normal renal profile is abnormal with a BUN of 42 creatinine 5.13 but that is his baseline. Initial troponin 0.102 d-dimer is 9.19, cardiology to decide on whether the patient needs to go on heparin most likely it's contraindicated with the fact that the patient had recently diagnosed dissecting abdominal aortic aneurysm. Looking back at his CT of the abdomen and pelvis from the last admission dated 10/13, his aneurysm measured 4.5 cm there was dissection within the abdominal aorta without extension into or out of the aneurysm. There was a lso evidence of ascites and moderate fatty infiltration of the liver. Patient is now on norepinephrine at 0.4 mcg/kg/m, he is intubated, mechanically ventilated, hypotensive, metabolically acidotic, and the relatively hypoxic in spite of relatively high FiO2 and high PEEP Patient was reevaluated today on , patient remains in the ICU, I saw him yesterday in the ER. He is now intubated and mechanically ventilated. Assist control rate of 18 tidal volume 450 FiO2 50% and PEEP of 10 ABG today showed a pO2 of 192 pCO2 31 pH of 7.48, hence I cut down his FiO2 down to 40% cut down the PEEP down to 8 and cut down his rate from 18-16. Patient remains hemodynamically unstable he is on norepinephrine at 0.35 mcg/kg/m vasopressin at 0.03, the Imitrex at 2.5 mcg/kg/m, he is also on propofol at 30 mcg/kg/m. He was on bicarb drip which I have discontinued after reviewing the ABG. Left rad ial arterial line was placed today for hemodynamic monitoring. And I had a long discussion with the family/of 3 sons at bedside explaining his situation and updating them on his clinical condition. His CODE STATUS was changed to DO NOT RESUSCITATE, family is considering possibly comfort care measures. Bed that's not yet decided. Chest x-ray showed cardiomegaly with small bilateral pleural effusions. PTT is 109, patient was placed on heparin, clear on the heparin by vascular surgery considering the patient had history of abdominal aortic aneurysm/dissecting apparently repeat CT of the abdomen and pelvis showed no change. And there was no mention of active dissection of the abdominal aortic aneurysm on the CT of the abdomen and pelvis basic metabolic profile is normal BUN however is 53 creatinine 4.74, patient may be dialyzed hopefully today. WT count is 12.8 hemoglobin is 9.9. Platelets are 167,000 Objective - Vital Signs Vital signs: Vital Signs Temp 36.8 F L 10/19/22 08:00 Pulse 58 L 10/19/22 11:15 Resp 18 10/19/22 11:15 BP 78/45 10/19/22 11:15 Pulse Ox 98 10/19/22 11:15 FiO2 40 10/19/22 11:15 Intake & Output 10/18/22 10/19/22 10/19/22 18:59 06:59 18:59 Intake Total 337.535 3988.819 418.672 Output Total 0 180 35 Balance 482.493 2831.819 383.672 Weight 93.894 kg 92.2 kg 92.2 kg Intake: IV 130 690 50 Invasive Line 3 30 90 Sodium Bicarb 500 50 Sodium Chloride 0.9% 1, 100 100 000 ml @ 50 mls/hr IV . Q20H [facility] Rx#:[id number] Intake, IV Titration 481.337 891.819 368.672 Amount Dextrose 5% in Water 1, 50 000 ml @ 50 mls/hr IV . Q23H [facility] with Sodium Bicarb (1 Meq/ml) 150 ml Rx#:[id number] Heparin Sod,Pork in 0.45% 55.833 41.939 NaCl 25,000 unit In 0.45 % NaCl 1 250ml.bag @ 10. 65 UNITS/KG/HR 10 mls/hr IV .Q24H [facility] Rx#: [id number] Norepinephrine 4 mg In 469.322 187.425 Sodium Chloride 0.9% 250 ml @ 0.03 MCG/KG/MIN 10. 173 mls/hr IV .Q24H [facility] Rx#:[id number] Norepinephrine 8 mg In 428.111 169.088 Sodium Chloride 0.9% 250 ml @ 0.03 MCG/KG/MIN 5. 451 mls/hr IV .Q24H [facility] Rx#:[id number] Vasopressin 60 unit In 25.398 Sodium Chloride 0.9% 150 ml @ 0.03 UNITS/MIN 4.59 mls/hr IV .Q24H [facility] Rx#: [id number] propofoL 1,000 mg In 12.015 Empty Bag 1 bag @ 15 MCG/ KG/MIN 8.01 mls/hr IV . [id number] [facility] Rx#:[id number] propofoL 1,000 mg In 195.052 107.645 Empty Bag 1 bag @ 15 MCG/ KG/MIN 8.01 mls/hr IV . [id number] [facility] Rx#:[id number] Oral 0 Output: Gastric Drainage 140 Urine 0 40 35 Other: Voiding Method Indwelling Catheter Indwelling Catheter ABP, PAP, CO, CI - Last Documented Arterial Blood Pressure 97/43 - Exam Physical Exam: Revealed 82-year-old white male unresponsive to any stimuli, sedated, intubated, mechanically ventilated. Head: Atraumatic, normocephalic. Right IJ triple-lumen catheter is noted. HEENT:[Neck is supple.] [No neck masses.] [No thyromegaly.] [No JVD.] Multiple areas of bruises noted in the neck area around the subclavian region on the right side, patient has a pacemaker on the left side below the left clavicle. Chest: [Clear throughout, no crackles, no rhonchi, no wheezes.] Cardiac Exam: [Normal S1 and S2, no S3 gallop, 2/6 systolic murmur thought the precordium. Abdomen: [Soft, nontender, no megaly, no rebound, no guarding, normal bowel sounds.] Extremities: [No clubbing, 1+ bipedal edema, diminished distal pulses bilaterally. Right femoral dialysis catheter is noted. Neurological Exam: Could not assess, patient is sedated, unresponsive to any stimuli, pupils are equally reactive, refer to full neurological consultation. Psychiatric: Could not assess. Skin: Multiple areas of ecchymosis and bruising noted throughout, - Labs CBC & Chem 7: 10/19/22 03:44 10/19/22 03:44 Labs: Abnormal Lab Results - Last 24 Hours (Table) 10/18/22 10/18/22 10/18/22 Range/Units 12:22 12:22 12:22 WBC 10.9 H (3.8-10.6) k/uL RBC 3.17 L (4.30-5.90) m/uL Hgb 10.0 L (13.0-17.5) gm/dL Hct 33.2 L (39.0-53.0) % MCV 104.9 H (80.0-100.0) fL MCHC 30.0 L (31.0-37.0) g/dL RDW 17.8 H (11.5-15.5) % Plt Count 118 L (150-450) k/uL Neutrophils # 9.0 H (1.3-7.7) k/uL Lymphocytes # 0.9 L (1.0-4.8) k/uL Monocytes # (0-1.0) k/uL Macrocytosis Marked A PT 12.7 H (9.0-12.0) sec INR 1.2 H (<1.2) APTT (22.0-30.0) sec D-Dimer 9.19 H (<0.60) mg/L FEU ABG pH (7.35-7.45) ABG pCO2 (35-45) mmHg ABG pO2 (83-108) mmHg ABG HCO3 (21-25) mmol/L ABG Total CO2 (19-24) mmol/L ABG O2 Saturation (94-97) % Sodium 134 L (137-145) mmol/L Chloride (98-107) mmol/L Carbon Dioxide 11 L (22-30) mmol/L BUN 42 H (9-20) mg/dL Creatinine 5.13 H (0.66-1.25) mg/dL Glucose 117 H (74-99) mg/dL POC Glucose (mg/dL) (70-110) mg/dL Calcium (8.4-10.2) mg/dL Phosphorus (2.5-4.5) mg/dL Magnesium 2.4 H (1.6-2.3) mg/dL Total Bilirubin 1.6 H (0.2-1.3) mg/dL Troponin I (0.000-0.034) ng/mL Albumin 3.3 L (3.5-5.0) g/dL 10/18/22 10/18/22 10/18/22 Range/Units 12:22 12:45 13:57 WBC (3.8-10.6) k/uL RBC (4.30-5.90) m/uL Hgb (13.0-17.5) gm/dL Hct (39.0-53.0) % MCV (80.0-100.0) fL MCHC (31.0-37.0) g/dL RDW (11.5-15.5) % Plt Count (150-450) k/uL Neutrophils # (1.3-7.7) k/uL Lymphocytes # (1.0-4.8) k/uL Monocytes # (0-1.0) k/uL Macrocytosis PT (9.0-12.0) sec INR (<1.2) APTT (22.0-30.0) sec D-Dimer (<0.60) mg/L FEU ABG pH 7.22 L 7.24 L (7.35-7.45) ABG pCO2 30 L 27 L (35-45) mmHg ABG pO2 59 L* 59 L* (83-108) mmHg ABG HCO3 12 L 12 L (21-25) mmol/L ABG Total CO2 13 L 13 L (19-24) mmol/L ABG O2 Saturation 83.1 L 83.9 L (94-97) % Sodium (137-145) mmol/L Chloride (98-107) mmol/L Carbon Dioxide (22-30) mmol/L BUN (9-20) mg/dL Creatinine (0.66-1.25) mg/dL Glucose (74-99) mg/dL POC Glucose (mg/dL) (70-110) mg/dL Calcium (8.4-10.2) mg/dL Phosphorus (2.5-4.5) mg/dL Magnesium (1.6-2.3) mg/dL Total Bilirubin (0.2-1.3) mg/dL Troponin I 0.102 H* (0.000-0.034) ng/mL Albumin (3.5-5.0) g/dL 10/18/22 10/18/22 10/18/22 Range/Units 17:13 17:13 17:13 WBC 15.4 H (3.8-10.6) k/uL RBC 3.12 L (4.30-5.90) m/uL Hgb 10.0 L (13.0-17.5) gm/dL Hct 31.5 L (39.0-53.0) % MCV 100.9 H (80.0-100.0) fL MCHC (31.0-37.0) g/dL RDW 18.2 H (11.5-15.5) % Plt Count 133 L (150-450) k/uL Neutrophils # 13.6 H (1.3-7.7) k/uL Lymphocytes # 0.5 L (1.0-4.8) k/uL Monocytes # 1.1 H (0-1.0) k/uL Macrocytosis PT 12.6 H (9.0-12.0) sec INR 1.2 H (<1.2) APTT (22.0-30.0) sec D-Dimer (<0.60) mg/L FEU ABG pH (7.35-7.45) ABG pCO2 (35-45) mmHg ABG pO2 (83-108) mmHg ABG HCO3 (21-25) mmol/L ABG Total CO2 (19-24) mmol/L ABG O2 Saturation (94-97) % Sodium 133 L (137-145) mmol/L Chloride 97 L (98-107) mmol/L Carbon Dioxide 16 L (22-30) mmol/L BUN 48 H (9-20) mg/dL Creatinine 5.00 H (0.66-1.25) mg/dL Glucose (74-99) mg/dL POC Glucose (mg/dL) (70-110) mg/dL Calcium 8.3 L (8.4-10.2) mg/dL Phosphorus 6.2 H (2.5-4.5) mg/dL Magnesium (1.6-2.3) mg/dL Total Bilirubin 1.9 H (0.2-1.3) mg/dL Troponin I (0.000-0.034) ng/mL Albumin 3.2 L (3.5-5.0) g/dL 10/18/22 10/18/22 10/18/22 Range/Units 17:13 17:17 23:12 WBC (3.8-10.6) k/uL RBC (4.30-5.90) m/uL Hgb (13.0-17.5) gm/dL Hct (39.0-53.0) % MCV (80.0-100.0) fL MCHC (31.0-37.0) g/dL RDW (11.5-15.5) % Plt Count (150-450) k/uL Neutrophils # (1.3-7.7) k/uL Lymphocytes # (1.0-4.8) k/uL Monocytes # (0-1.0) k/uL Macrocytosis PT (9.0-12.0) sec INR (<1.2) APTT (22.0-30.0) sec D-Dimer (<0.60) mg/L FEU ABG pH (7.35-7.45) ABG pCO2 26 L (35-45) mmHg ABG pO2 294 H (83-108) mmHg ABG HCO3 18 L (21-25) mmol/L ABG Total CO2 (19-24) mmol/L ABG O2 Saturation 99.8 H (94-97) % Sodium (137-145) mmol/L Chloride (98-107) mmol/L Carbon Dioxide (22-30) mmol/L BUN (9-20) mg/dL Creatinine (0.66-1.25) mg/dL Glucose (74-99) mg/dL POC Glucose (mg/dL) 158 H (70-110) mg/dL Calcium 8.3 L (8.4-10.2) mg/dL Phosphorus (2.5-4.5) mg/dL Magnesium (1.6-2.3) mg/dL Total Bilirubin (0.2-1.3) mg/dL Troponin I (0.000-0.034) ng/mL Albumin (3.5-5.0) g/dL 10/19/22 10/19/22 10/19/22 Range/Units 00:51 03:35 03:44 WBC 12.8 H (3.8-10.6) k/uL RBC 3.14 L (4.30-5.90) m/uL Hgb 9.9 L (13.0-17.5) gm/dL Hct 31.3 L (39.0-53.0) % MCV (80.0-100.0) fL MCHC (31.0-37.0) g/dL RDW 18.1 H (11.5-15.5) % Plt Count (150-450) k/uL Neutrophils # 11.3 H (1.3-7.7) k/uL Lymphocytes # 0.5 L (1.0-4.8) k/uL Monocytes # (0-1.0) k/uL Macrocytosis PT (9.0-12.0) sec INR (<1.2) APTT >200.0 H* (22.0-30.0) sec D-Dimer (<0.60) mg/L FEU ABG pH (7.35-7.45) ABG pCO2 (35-45) mmHg ABG pO2 (83-108) mmHg ABG HCO3 (21-25) mmol/L ABG Total CO2 (19-24) mmol/L ABG O2 Saturation (94-97) % Sodium (137-145) mmol/L Chloride (98-107) mmol/L Carbon Dioxide (22-30) mmol/L BUN (9-20) mg/dL Creatinine (0.66-1.25) mg/dL Glucose (74-99) mg/dL POC Glucose (mg/dL) 180 H (70-110) mg/dL Calcium (8.4-10.2) mg/dL Phosphorus (2.5-4.5) mg/dL Magnesium (1.6-2.3) mg/dL Total Bilirubin (0.2-1.3) mg/dL Troponin I (0.000-0.034) ng/mL Albumin (3.5-5.0) g/dL 10/19/22 10/19/22 10/19/22 Range/Units 03:44 06:09 09:50 WBC (3.8-10.6) k/uL RBC (4.30-5.90) m/uL Hgb (13.0-17.5) gm/dL Hct (39.0-53.0) % MCV (80.0-100.0) fL MCHC (31.0-37.0) g/dL RDW (11.5-15.5) % Plt Count (150-450) k/uL Neutrophils # (1.3-7.7) k/uL Lymphocytes # (1.0-4.8) k/uL Monocytes # (0-1.0) k/uL Macrocytosis PT 12.9 H (9.0-12.0) sec INR 1.3 H (<1.2) APTT (22.0-30.0) sec D-Dimer (<0.60) mg/L FEU ABG pH (7.35-7.45) ABG pCO2 (35-45) mmHg ABG pO2 (83-108) mmHg ABG HCO3 (21-25) mmol/L ABG Total CO2 (19-24) mmol/L ABG O2 Saturation (94-97) % Sodium 130 L (137-145) mmol/L Chloride (98-107) mmol/L Carbon Dioxide 18 L (22-30) mmol/L BUN 53 H (9-20) mg/dL Creatinine 4.74 H (0.66-1.25) mg/dL Glucose 149 H (74-99) mg/dL POC Glucose (mg/dL) 189 H (70-110) mg/dL Calcium 7.9 L (8.4-10.2) mg/dL Phosphorus 6.4 H (2.5-4.5) mg/dL Magnesium (1.6-2.3) mg/dL Total Bilirubin (0.2-1.3) mg/dL Troponin I (0.000-0.034) ng/mL Albumin (3.5-5.0) g/dL 10/19/22 10/19/22 10/19/22 Range/Units 09:50 10:06 11:58 WBC (3.8-10.6) k/uL RBC (4.30-5.90) m/uL Hgb (13.0-17.5) gm/dL Hct (39.0-53.0) % MCV (80.0-100.0) fL MCHC (31.0-37.0) g/dL RDW (11.5-15.5) % Plt Count (150-450) k/uL Neutrophils # (1.3-7.7) k/uL Lymphocytes # (1.0-4.8) k/uL Monocytes # (0-1.0) k/uL Macrocytosis PT (9.0-12.0) sec INR (<1.2) APTT 109.8 H* (22.0-30.0) sec D-Dimer (<0.60) mg/L FEU ABG pH 7.48 H (7.35-7.45) ABG pCO2 31 L (35-45) mmHg ABG pO2 192 H (83-108) mmHg ABG HCO3 (21-25) mmol/L ABG Total CO2 (19-24) mmol/L ABG O2 Saturation 99.3 H (94-97) % Sodium (137-145) mmol/L Chloride (98-107) mmol/L Carbon Dioxide (22-30) mmol/L BUN (9-20) mg/dL Creatinine (0.66-1.25) mg/dL Glucose (74-99) mg/dL POC Glucose (mg/dL) 156 H (70-110) mg/dL Calcium (8.4-10.2) mg/dL Phosphorus (2.5-4.5) mg/dL Magnesium (1.6-2.3) mg/dL Total Bilirubin (0.2-1.3) mg/dL Troponin I (0.000-0.034) ng/mL Albumin (3.5-5.0) g/dL Assessment and Plan Assessment: Impression: Cardiac arrest, asystole upon initial presentation. Cardiomyopathy and LV dysfunction, ejection fraction less than 20%, previous AICD placement. 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 These will be titrated, maintaining hopefully a mean arterial pressure of 65 or higher. Left radial arterial line was placed. Reviewed consultations from cardiology and from vascular surgery on the case. Continue heparin for now. Updated his family at bedside about his condition, and I'm recommending considering comfort care measures. Prognosis is extremely poor and guarded. GI and DVT prophylaxis We will continue to follow. Patient is critically ill. DO NOT RESUSCITATE CODE STATUS. Critical care time over 30 minutes not including the time spent on procedures. Time with Patient: Greater than 30
--- NOTE | 2022-10-19 12:44 | OP ---
OPERATIVE REPORT DATE OF SERVICE : PROCEDURE PERFORMED: Placement of a left radial arterial line. PREOPERATIVE DIAGNOSES: Cardiac arrest, hypotension, the patient is on multiple pressors. POSTOPERATIVE DIAGNOSES: Cardiac arrest, hypotension, the patient is on multiple pressors. ANESTHESIA USED: None deployed. DESCRIPTION OF PROCEDURE: The patient was placed in the supine position, the left wrist was prepared in a sterile fashion. Drapes were applied. The left radial artery was palpated, cannulated easily, a guidewire was placed. A Ushahidi catheter was inserted over the guidewire, the guidewire was removed. Good blood flow, good waveform, no complications, line was secured using 3.0 silk sutures. MMODL / IJN: [id number] /
--- NOTE | 2022-10-19 12:54 | EEG ---
ELECTROENCEPHALOGRAM REPORT PREAMBLE: This is an 82-year-old male admitted with cardiac arrest. EEG FINDINGS: This is a 21-channel digital EEG recorded with video competent, utilizing 10/20 international system with referential and bipolar montages. The recording starts and continues with presence of diffuse moderate amplitude delta slowing in 1 to 2 hertz seen in bihemispheric region. Very frequent triphasic waves in predominantly frontal region were seen during the major part of the study. No epileptiform activity was seen. Photic driving response was not seen. No focal or generalized epileptiform activity was seen. IMPRESSION: This is an abnormal EEG due to background slowing of severe degree. This is suggestive of generalized cerebral dysfunction as can be seen with toxic metabolic encephalopathy or related to diffuse structural brain abnormality. The presence of triphasic waves also consistent with encephalopathy. Rule out hepatic encephalopathy. No epileptiform activity was seen. MMFRANK / RODOLFO: [id number] /
--- NOTE | 2022-10-19 13:04 | CA ---
Transthoracic Echo Report Name: Ayo Hernandez Age: 82 Gender: M : 1940 Exam Date: 10/18/2022 13:37 Exam Location: [facility] Ht (in): 68 Wt (lb): 196 Ordering Physician: Rj Osullivan MD Attending/Referring Phys: Optimization Consultant Cindy Gardner RDCS Procedure CPT: Indications: Heart failure Cardiac Hx: Technical Quality: Fair Contrast 1: Lumason Total Dose (mL): 4 Contrast 2: Total Dose (mL): MEASUREMENTS (Male / Female) Normal Values DOPPLER TR Peak Velocity 294.3 cm/s TR Peak Gradient 34.6 mmHg Right Ventricular Systolic Press 39.6 mmHg FINDINGS Left Ventricle Severely reduced global left ventricular systolic function. Left ventricular ejection fraction is estimated at < 20 %. Right Ventricle Right ventricular dilatation. Mild pulmonary hypertension. Right Atrium Left Atrium Mitral Valve [id number] mitral regurgitation. Aortic Valve Tricuspid Valve Severe tricuspid regurgitation. Pulmonic Valve Pericardium No pericardial effusion. Aorta CONCLUSIONS Enlarged left ventricle with severe decrease in contractility globally severe mitral regurgitation and severe tricuspid regurgitation no pericardial effusion Previewed by: Dr. Nic Dejesus MD (Electronically Signed) Final Date: 19 October 2022 13:03
[2022-10-19 13:38] VITALS: TEMP 37
--- NOTE | 2022-10-19 14:58 | P.NPCON ---
History of Present Illness - Reason for Consult acute renal failure - History of Present Illness Patient is an 82 yr old male with h/o CAD, CHF and cadiomyopathy recently started on hemodialysis last admission due to severe oliguric ATN. Pt did not make it to his out patient chair time as he collapsed at home while getting ready to go to the dialysis unit. Patient was pulseless when EMS arrived. EMS started CPR and patient was intubated on scene. Downtime about 9-10 min. He is currently in the ICU, on the vent and on high dose pressors with levofed and vasopressin. Also on dobutamine. Family is present at bedside and there is consideration for hospice/ comfort care. There are no plans on hemodialysis due to severe hypotension. Neurology has also evaluated the patient and EEG is being performed now. Review of Systems as per HPI Past Medical History Past Medical History: Coronary Artery Disease (CAD), Chest Pain / Angina, Hype rlipidemia, Myocardial Infarction (NH), Thyroid Disorder Last Myocardial Infarction Date:: 1990 History of Any Multi-Drug Resistant Organisms: None Reported Past Surgical History: Heart Catheterization, Orthopedic Surgery Additional Past Surgical History / Comment(s): cardiac bipass 2015. carotid a rtery surgery 2017. 10/16 tripple vessel disease- medical management. AAA Past Anesthesia/Blood Transfusion Reactions: No Reported Reaction Past Psychological History: No Psychological Hx Reported Smoking Status: Former smoker Past Alcohol Use History: None Reported Past Drug Use History: None Reported - Past Family History Father Family Medical History: Coronary Artery Disease (CAD), Myocardial Infarction (NH) Mother Family Medical History: Coronary Artery Disease (CAD), Myocardial Infarction (NH) Brother(s) Family Medical History: Hypertension Sister(s) Family Medical History: Congestive Heart Failure (CHF) Son(s) Family Medical History: No Reported History Medications and Allergies Home Medications Medication Instructions Recorded Confirmed Type Ezetimibe [Zetia] 10 mg PO DAILY 12/17/18 10/18/22 History Levothyroxine Sodium [Synthroid] 100 mcg PO DAILY 12/17/18 10/18/22 History Ferrous Sulfate [Iron] 325 mg PO DAILY 10/06/22 10/18/22 History Pantoprazole [Protonix] 40 mg PO DAILY 10/06/22 10/18/22 History allopurinoL 100 mg PO DAILY 10/06/22 10/18/22 History Amiodarone [Cordarone] 400 mg PO BID 14 Days #28 tab 10/17/22 10/18/22 Rx Aspirin EC [Ecotrin Low Dose] 81 mg PO DAILY #30 tab 10/17/22 10/18/22 Rx Calcium Acetate [PhosLo] 667 mg PO BID-W/MEALS #60 tab 10/17/22 10/18/22 Rx Calcium Carbonate [Tums] 500 mg PO QID PRN #60 tab 10/17/22 10/18/22 Rx Clopidogrel [Plavix] 75 mg PO DAILY #30 tab 10/17/22 10/18/22 Rx Docusate [Colace] 100 mg PO BID #40 cap 10/17/22 10/18/22 Rx Midodrine [ProAmatine] 5 mg PO AC-TID #90 tab 10/17/22 10/18/22 Rx Nitroglycerin Sl Tabs [Nitrostat] 0.4 mg SUBLINGUAL Q5M PRN #20 tab 10/17/22 10/18/22 Rx Amiodarone [Cordarone] 400 mg PO DIRECTED 10/18/22 10/18/22 History Cholecalciferol [Vitamin D3 (125 125 mcg PO DAILY 10/18/22 10/18/22 History Mcg = 5000 Iu)] Metoprolol Tartrate [Lopressor] 12.5 mg PO BID 10/18/22 10/18/22 History Ubidecarenone [Coenzyme Q10] 100 mg PO DAILY 10/18/22 10/18/22 History Allergies Allergy/AdvReac Type Severity Reaction Status Date / Time No Known Allergies Allergy Verified 10/18/22 12:40 Physical Exam Vitals: Vital Signs Temp Pulse Resp BP Pulse Ox FiO2 10/19/22 13:30 61 11 L 86/50 98 10/19/22 13:15 60 16 86/50 98 10/19/22 13:00 58 L 18 86/50 98 10/19/22 12:45 59 L 16 86/50 98 10/19/22 12:30 59 L 19 86/50 98 10/19/22 12:15 59 L 22 86/50 98 10/19/22 12:00 37 F L 59 L 27 H 78/45 98 40 10/19/22 11:45 54 L 18 78/45 97 10/19/22 11:30 58 L 19 78/45 98 10/19/22 11:15 58 L 18 78/45 98 40 10/19/22 11:00 58 L 16 80/46 98 10/19/22 10:45 57 L 24 70/47 98 10/19/22 10:30 57 L 23 79/45 98 10/19/22 10:15 57 L 15 80/47 99 10/19/22 10:11 40 10/19/22 10:00 56 L 18 77/43 100 10/19/22 09:45 56 L 17 78/48 100 10/19/22 09:30 54 L 18 80/47 100 10/19/22 09:15 59 L 7 L 88/54 99 10/19/22 09:00 57 L 18 86/52 99 10/19/22 08:45 58 L 19 90/58 99 10/19/22 08:39 55 L 10/19/22 08:30 56 L 18 87/54 99 10/19/22 08:23 55 L 10/19/22 08:15 56 L 18 86/54 99 10/19/22 08:00 36.8 F L 53 L 18 90/50 99 50 10/19/22 07:50 50 10/19/22 07:45 52 L 17 86/51 99 10/19/22 07:30 51 L 18 83/52 99 10/19/22 07:15 50 L 17 82/52 99 10/19/22 07:00 51 L 19 77/44 99 10/19/22 06:45 50 L 18 85/51 99 10/19/22 06:15 50 L 12 86/51 99 10/19/22 06:00 45 L 18 86/50 99 10/19/22 05:30 51 L 18 88/52 99 10/19/22 05:15 49 L 18 92/52 99 10/19/22 05:00 49 L 18 93/55 99 10/19/22 04:45 49 L 18 94/56 99 10/19/22 04:30 49 L 18 96/57 100 10/19/22 04:28 49 L 10/19/22 04:15 49 L 19 94/55 99 10/19/22 04:11 50 10/19/22 04:00 96 F L 49 L 18 94/56 100 50 10/19/22 03:45 49 L 18 93/59 100 10/19/22 03:30 49 L 18 95/56 100 10/19/22 03:15 49 L 18 91/57 100 10/19/22 03:00 49 L 18 91/57 89 L 10/19/22 02:45 49 L 18 91/50 99 10/19/22 02:30 49 L 18 89/50 99 10/19/22 02:15 49 L 18 90/49 99 10/19/22 02:00 49 L 18 89/50 99 10/19/22 01:45 49 L 18 89/48 99 10/19/22 01:30 49 L 18 89/50 99 10/19/22 01:15 49 L 18 87/50 99 10/19/22 01:00 49 L 18 85/51 99 10/19/22 00:45 49 L 18 85/48 99 10/19/22 00:30 49 L 18 84/47 99 10/19/22 00:26 49 L 10/19/22 00:15 49 L 18 88/51 100 10/19/22 00:11 50 10/19/22 00:06 96 F L 50 L 18 88/51 99 10/19/22 00:00 49 L 18 91/52 99 50 10/18/22 23:55 50 10/18/22 23:45 49 L 18 91/53 99 10/18/22 23:30 49 L 18 92/55 99 10/18/22 23:23 49 L 18 92/55 99 10/18/22 23:00 49 L 18 92/57 99 10/18/22 22:45 49 L 18 87/47 99 10/18/22 22:30 49 L 18 91/55 99 10/18/22 22:15 49 L 18 90/53 99 10/18/22 22:00 49 L 18 91/54 99 10/18/22 21:45 49 L 18 92/55 99 10/18/22 21:30 49 L 18 92/54 99 10/18/22 21:15 50 L 18 89/57 99 10/18/22 21:00 49 L 18 92/56 99 10/18/22 20:45 49 L 18 96/55 99 10/18/22 20:30 50 L 18 103/60 99 10/18/22 20:19 49 L 10/18/22 20:15 49 L 18 103/63 100 10/18/22 20:00 96.9 F L 49 L 18 101/61 100 50 10/18/22 19:56 49 L 10/18/22 19:46 50 10/18/22 19:45 49 L 18 102/62 100 10/18/22 19:30 49 L 18 102/63 100 10/18/22 19:15 49 L 18 100/63 100 10/18/22 19:00 49 L 18 105/63 100 10/18/22 18:45 49 L 18 105/66 100 10/18/22 18:30 50 L 18 106/64 100 10/18/22 18:15 50 L 18 105/66 100 10/18/22 18:00 96.1 F L 50 L 19 104/66 100 10/18/22 17:45 50 L 19 102/61 100 10/18/22 17:33 50 10/18/22 17:30 50 L 20 109/71 100 10/18/22 17:15 52 L 18 101/65 100 10/18/22 17:00 51 L 18 107/66 100 10/18/22 16:45 51 L 18 97/55 100 10/18/22 16:32 50 L 10/18/22 16:30 50 L 18 107/65 100 10/18/22 16:27 51 L 10/18/22 16:20 50 10/18/22 16:15 50 L 18 100 10/18/22 16:14 95.4 F L 100 10/18/22 15:57 49 L 20 93/56 98 10/18/22 15:43 49 L 20 99/59 98 Intake and Output 10/18/22 10/19/22 10/19/22 22:59 06:59 14:59 Intake Total 559.370 9561.944 418.672 Output Total 5 175 55 Balance 939.481 868.944 363.672 Intake: IV 360 460 50 Invasive Line 3 60 60 Sodium Bicarb 100 400 50 Sodium Chloride 0.9% 1, 200 000 ml @ 50 mls/hr IV . Q20H [facility] Rx#:[id number] Intake, IV Titration 584.481 583.944 368.672 Amount Dextrose 5% in Water 1, 50 000 ml @ 50 mls/hr IV . Q23H [facility] with Sodium Bicarb (1 Meq/ml) 150 ml Rx#:[id number] Heparin Sod,Pork in 0.45% 55.833 41.939 NaCl 25,000 unit In 0.45 % NaCl 1 250ml.bag @ 10. 65 UNITS/KG/HR 10 mls/hr IV .Q24H [facility] Rx#: [id number] Norepinephrine 4 mg In 464.031 Sodium Chloride 0.9% 250 ml @ 0.03 MCG/KG/MIN 10. 173 mls/hr IV .Q24H [facility] Rx#:[id number] Norepinephrine 8 mg In 428.111 169.088 Sodium Chloride 0.9% 250 ml @ 0.03 MCG/KG/MIN 5. 451 mls/hr IV .Q24H [facility] Rx#:[id number] Vasopressin 60 unit In 25.398 Sodium Chloride 0.9% 150 ml @ 0.03 UNITS/MIN 4.59 mls/hr IV .Q24H [facility] Rx#: [id number] propofoL 1,000 mg In 95.052 100 107.645 Empty Bag 1 bag @ 15 MCG/ KG/MIN 8.01 mls/hr IV . [id number] [facility] Rx#:[id number] Oral 0 Output: Gastric Drainage 140 Urine 5 35 55 Other: Voiding Method Indwelling Catheter Indwelling Catheter Indwelling Catheter Weight 93.894 kg 92.2 kg 92.5 kg ABP, PAP, CO, CI - Last 8 Hours Arterial Blood Pressure 91/42 Arterial Blood Pressure 92/40 Arterial Blood Pressure 90/39 Arterial Blood Pressure 92/40 Arterial Blood Pressure 90/39 Arterial Blood Pressure 98/47 Arterial Blood Pressure 98/42 Arterial Blood Pressure 73/33 Arterial Blood Pressure 97/44 Arterial Blood Pressure 97/43 Arterial Blood Pressure 92/41 Arterial Blood Pressure 95/43 Arterial Blood Pressure 95/42 Arterial Blood Pressure 95/43 Arterial Blood Pressure 95/43 Arterial Blood Pressure 98/43 Arterial Blood Pressure 94/51 Patient is on the vent. Bilateral breath sounds are heard. CVS S1 and S2 Abdomen is soft , nontender Extremities show trace edema. Right femoral p cath in place. Results - Lab Results Most recent lab results ABG pH 7.48 (7.35-7.45) H 10/19/22 10:06 ABG pCO2 31 mmHg (35-45) L 10/19/22 10:06 ABG pO2 192 mmHg (83-108) H 10/19/22 10:06 ABG HCO3 23 mmol/L (21-25) 10/19/22 10:06 ABG O2 Saturation 99.3 % (94-97) H 10/19/22 10:06 Calcium 7.9 mg/dL (8.4-10.2) L 10/19/22 03:44 Phosphorus 6.4 mg/dL (2.5-4.5) H 10/19/22 03:44 Magnesium 2.1 mg/dL (1.6-2.3) 10/19/22 03:44 10/19/22 03:44 10/19/22 03:44 Assessment and Plan Assessment: 1. Acute kidney injury, oliguric ATN, Hemodialysis dependent. Started HD about 10 days ago. No plans on HD given the severe hypotension. Agree with plans for possible comfort care. 2. S/p cardiac arrest, down time about 9 min. 3. Acute hypoxic respiratory failure. 4. Ischemic cardiomyopathy. 5. CAD 6. Metabolic acidosis secondary to cardiac arrest, CARSON, started bicarb drip yesterday. Plan: No plan for HD today given the severe hypotension. 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 Will re evaluate again for HD tomorrow if hemodynamically stable. Agree with discussion regarding comfort care measures.
--- NOTE | 2022-10-19 15:36 | P.PN ---
Subjective Progress Note Date: 10/19/22 Patient was seen for follow-up. Patient continues to be intubated, sedated Patient's medications include propofol 10 mcg/kg per minute, dobutamine 5 mcg/kg per minute, norepinephrine 0.33 mcg/kg per minute, vaso 0.03 units per minute, bicarbonate. Patient not responding to calling his name. Objective - Vital Signs Vital signs: Vital Signs Temp 36.8 F L 10/19/22 08:00 Pulse 58 L 10/19/22 11:15 Resp 18 10/19/22 11:15 BP 78/45 10/19/22 11:15 Pulse Ox 98 10/19/22 11:15 FiO2 40 10/19/22 11:15 Intake & Output 10/18/22 10/19/22 10/19/22 18:59 06:59 18:59 Intake Total 445.124 2653.819 418.672 Output Total 0 180 35 Balance 683.958 9263.819 383.672 Weight 93.894 kg 92.2 kg 92.2 kg Intake: IV 130 690 50 Invasive Line 3 30 90 Sodium Bicarb 500 50 Sodium Chloride 0.9% 1, 100 100 000 ml @ 50 mls/hr IV . Q20H [facility] Rx#:[id number] Intake, IV Titration 481.337 891.819 368.672 Amount Dextrose 5% in Water 1, 50 000 ml @ 50 mls/hr IV . Q23H [facility] with Sodium Bicarb (1 Meq/ml) 150 ml Rx#:[id number] Heparin Sod,Pork in 0.45% 55.833 41.939 NaCl 25,000 unit In 0.45 % NaCl 1 250ml.bag @ 10. 65 UNITS/KG/HR 10 mls/hr IV .Q24H [facility] Rx#: [id number] Norepinephrine 4 mg In 469.322 187.425 Sodium Chloride 0.9% 250 ml @ 0.03 MCG/KG/MIN 10. 173 mls/hr IV .Q24H [facility] Rx#:[id number] Norepinephrine 8 mg In 428.111 169.088 Sodium Chloride 0.9% 250 ml @ 0.03 MCG/KG/MIN 5. 451 mls/hr IV .Q24H [facility] Rx#:[id number] Vasopressin 60 unit In 25.398 Sodium Chloride 0.9% 150 ml @ 0.03 UNITS/MIN 4.59 mls/hr IV .Q24H [facility] Rx#: [id number] propofoL 1,000 mg In 12.015 Empty Bag 1 bag @ 15 MCG/ KG/MIN 8.01 mls/hr IV . [id number] [facility] Rx#:[id number] propofoL 1,000 mg In 195.052 107.645 Empty Bag 1 bag @ 15 MCG/ KG/MIN 8.01 mls/hr IV . [id number] [facility] Rx#:[id number] Oral 0 Output: Gastric Drainage 140 Urine 0 40 35 Other: Voiding Method Indwelling Catheter Indwelling Catheter ABP, PAP, CO, CI - Last Documented Arterial Blood Pressure 97/43 - Exam Patient is intubated, sedated, on multiple pressors as mentioned above. Patient is comatose, with GCS of 3. Patient's pupils are equal, round and reactive to light. Gaze is midline. Corneals are present. Oculocephalics absent. Patient has some facial grimacing to painful stimuli. Patient does not squeeze hand, or wiggle feet. Reflexes are absent, plantars are upgoing bilaterally. Patient has mild peripheral edema, but has significant swelling of the thigh regions bilaterally. - Labs CBC & Chem 7: 10/19/22 03:44 10/19/22 03:44 Labs: Abnormal Lab Results - Last 24 Hours (Table) 10/18/22 10/18/22 10/18/22 Range/Units 13:57 17:13 17:13 WBC (3.8-10.6) k/uL RBC (4.30-5.90) m/uL Hgb (13.0-17.5) gm/dL Hct (39.0-53.0) % MCV (80.0-100.0) fL RDW (11.5-15.5) % Plt Count (150-450) k/uL Neutrophils # (1.3-7.7) k/uL Lymphocytes # (1.0-4.8) k/uL Monocytes # (0-1.0) k/uL PT 12.6 H (9.0-12.0) sec INR 1.2 H (<1.2) APTT (22.0-30.0) sec ABG pH 7.24 L (7.35-7.45) ABG pCO2 27 L (35-45) mmHg ABG pO2 59 L* (83-108) mmHg ABG HCO3 12 L (21-25) mmol/L ABG Total CO2 13 L (19-24) mmol/L ABG O2 Saturation 83.9 L (94-97) % Sodium 133 L (137-145) mmol/L Chloride 97 L (98-107) mmol/L Carbon Dioxide 16 L (22-30) mmol/L BUN 48 H (9-20) mg/dL Creatinine 5.00 H (0.66-1.25) mg/dL Glucose (74-99) mg/dL POC Glucose (mg/dL) (70-110) mg/dL Calcium 8.3 L (8.4-10.2) mg/dL Phosphorus 6.2 H (2.5-4.5) mg/dL Total Bilirubin 1.9 H (0.2-1.3) mg/dL Albumin 3.2 L (3.5-5.0) g/dL 10/18/22 10/18/22 10/18/22 Range/Units 17:13 17:13 17:17 WBC 15.4 H (3.8-10.6) k/uL RBC 3.12 L (4.30-5.90) m/uL Hgb 10.0 L (13.0-17.5) gm/dL Hct 31.5 L (39.0-53.0) % MCV 100.9 H (80.0-100.0) fL RDW 18.2 H (11.5-15.5) % Plt Count 133 L (150-450) k/uL Neutrophils # 13.6 H (1.3-7.7) k/uL Lymphocytes # 0.5 L (1.0-4.8) k/uL Monocytes # 1.1 H (0-1.0) k/uL PT (9.0-12.0) sec INR (<1.2) APTT (22.0-30.0) sec ABG pH (7.35-7.45) ABG pCO2 26 L (35-45) mmHg ABG pO2 294 H (83-108) mmHg ABG HCO3 18 L (21-25) mmol/L ABG Total CO2 (19-24) mmol/L ABG O2 Saturation 99.8 H (94-97) % Sodium (137-145) mmol/L Chloride (98-107) mmol/L Carbon Dioxide (22-30) mmol/L BUN (9-20) mg/dL Creatinine (0.66-1.25) mg/dL Glucose (74-99) mg/dL POC Glucose (mg/dL) (70-110) mg/dL Calcium 8.3 L (8.4-10.2) mg/dL Phosphorus (2.5-4.5) mg/dL Total Bilirubin (0.2-1.3) mg/dL Albumin (3.5-5.0) g/dL 10/18/22 10/19/22 10/19/22 Range/Units 23:12 00:51 03:35 WBC (3.8-10.6) k/uL RBC (4.30-5.90) m/uL Hgb (13.0-17.5) gm/dL Hct (39.0-53.0) % MCV (80.0-100.0) fL RDW (11.5-15.5) % Plt Count (150-450) k/uL Neutrophils # (1.3-7.7) k/uL Lymphocytes # (1.0-4.8) k/uL Monocytes # (0-1.0) k/uL PT (9.0-12.0) sec INR (<1.2) APTT >200.0 H* (22.0-30.0) sec ABG pH (7.35-7.45) ABG pCO2 (35-45) mmHg ABG pO2 (83-108) mmHg ABG HCO3 (21-25) mmol/L ABG Total CO2 (19-24) mmol/L ABG O2 Saturation (94-97) % Sodium (137-145) mmol/L Chloride (98-107) mmol/L Carbon Dioxide (22-30) mmol/L BUN (9-20) mg/dL Creatinine (0.66-1.25) mg/dL Glucose (74-99) mg/dL POC Glucose (mg/dL) 158 H 180 H (70-110) mg/dL Calcium (8.4-10.2) mg/dL Phosphorus (2.5-4.5) mg/dL Total Bilirubin (0.2-1.3) mg/dL Albumin (3.5-5.0) g/dL 10/19/22 10/19/22 10/19/22 Range/Units 03:44 03:44 06:09 WBC 12.8 H (3.8-10.6) k/uL RBC 3.14 L (4.30-5.90) m/uL Hgb 9.9 L (13.0-17.5) gm/dL Hct 31.3 L (39.0-53.0) % MCV (80.0-100.0) fL RDW 18.1 H (11.5-15.5) % Plt Count (150-450) k/uL Neutrophils # 11.3 H (1.3-7.7) k/uL Lymphocytes # 0.5 L (1.0-4.8) k/uL Monocytes # (0-1.0) k/uL PT (9.0-12.0) sec INR (<1.2) APTT (22.0-30.0) sec ABG pH (7.35-7.45) ABG pCO2 (35-45) mmHg ABG pO2 (83-108) mmHg ABG HCO3 (21-25) mmol/L ABG Total CO2 (19-24) mmol/L ABG O2 Saturation (94-97) % Sodium 130 L (137-145) mmol/L Chloride (98-107) mmol/L Carbon Dioxide 18 L (22-30) mmol/L BUN 53 H (9-20) mg/dL Creatinine 4.74 H (0.66-1.25) mg/dL Glucose 149 H (74-99) mg/dL POC Glucose (mg/dL) 189 H (70-110) mg/dL Calcium 7.9 L (8.4-10.2) mg/dL Phosphorus 6.4 H (2.5-4.5) mg/dL Total Bilirubin (0.2-1.3) mg/dL Albumin (3.5-5.0) g/dL 10/19/22 10/19/22 10/19/22 Range/Units 09:50 09:50 10:06 WBC (3.8-10.6) k/uL RBC (4.30-5.90) m/uL Hgb (13.0-17.5) gm/dL Hct (39.0-53.0) % MCV (80.0-100.0) fL RDW (11.5-15.5) % Plt Count (150-450) k/uL Neutrophils # (1.3-7.7) k/uL Lymphocytes # (1.0-4.8) k/uL Monocytes # (0-1.0) k/uL PT 12.9 H (9.0-12.0) sec INR 1.3 H (<1.2) APTT 109.8 H* (22.0-30.0) sec ABG pH 7.48 H (7.35-7.45) ABG pCO2 31 L (35-45) mmHg ABG pO2 192 H (83-108) mmHg ABG HCO3 (21-25) mmol/L ABG Total CO2 (19-24) mmol/L ABG O2 Saturation 99.3 H (94-97) % Sodium (137-145) mmol/L Chloride (98-107) mmol/L Carbon Dioxide (22-30) mmol/L BUN (9-20) mg/dL Creatinine (0.66-1.25) mg/dL Glucose (74-99) mg/dL POC Glucose (mg/dL) (70-110) mg/dL Calcium (8.4-10.2) mg/dL Phosphorus (2.5-4.5) mg/dL Total Bilirubin (0.2-1.3) mg/dL Albumin (3.5-5.0) g/dL 10/19/22 Range/Units 11:58 WBC (3.8-10.6) k/uL RBC (4.30-5.90) m/uL Hgb (13.0-17.5) gm/dL Hct (39.0-53.0) % MCV (80.0-100.0) fL RDW (11.5-15.5) % Plt Count (150-450) k/uL Neutrophils # (1.3-7.7) k/uL Lymphocytes # (1.0-4.8) k/uL Monocytes # (0-1.0) k/uL PT (9.0-12.0) sec INR (<1.2) APTT (22.0-30.0) sec ABG pH (7.35-7.45) ABG pCO2 (35-45) mmHg ABG pO2 (83-108) mmHg ABG HCO3 (21-25) mmol/L ABG Total CO2 (19-24) mmol/L ABG O2 Saturation (94-97) % Sodium (137-145) mmol/L Chloride (98-107) mmol/L Carbon Dioxide (22-30) mmol/L BUN (9-20) mg/dL Creatinine (0.66-1.25) mg/dL Glucose (74-99) mg/dL POC Glucose (mg/dL) 156 H (70-110) mg/dL Calcium (8.4-10.2) mg/dL Phosphorus (2.5-4.5) mg/dL Total Bilirubin (0.2-1.3) mg/dL Albumin (3.5-5.0) g/dL Assessment and Plan Assessment: * Witnessed cardiac arrest with downtime of 9 minutes (as per her estimation from patient's grandson report). Cardiac arrest likely due to arrhythmia, rule out PE. * Encephalopathy, likely combination of metabolic, perhaps hypoxic/anoxic encephalopathy. * Congestive heart failure with poor ejection fraction * Elevated cardiac enzymes * Anemia * Macrocytosis * Metabolic acidosis * Recent kidney failure started dialysis. * Coronary artery disease, * History of carotid surgery 2017 Plan: * Patient's cardiac arrest is most likely related to cardiac event versus PE Further management as per cardiology and critical care. * CT head report reviewed. Some hyperdensity of the dural venous sinuses. Patient did not have any headache prior to cardiac arrest, therefore do not believe evidence of sinus thrombosis. I think hyperdensity may be related to dehydration. Patient in any case on heparin per cardiology. * Repeat CT head when medically possible. * EEG was abnormal due to background slowing of severe degree. This is suggestive of generalized cerebral dysfunction as can be seen with toxic me tabolic encephalopathy or related to diffuse structural brain abnormality. The presence of triphasic waves also consistent with encephalopathy. Rule out hepatic encephalopathy. No epileptiform activity was seen. * Check ammonia level. * Patient currently on heparin. PTT 109.8. * Prognosis very guarded, partly due to underlying critical cardiopulmonary status. * Patient is now no CODE STATUS.
[2022-10-19] MEDS ORDERED: LORazepam 2 MG/ML INJ IV PRN (15:49)
[2022-10-19] MEDS ORDERED: ATROPINE OPHTH SOLN 1% 5ML BTL SUBLINGUAL PRN (15:49)
[2022-10-19] MEDS ORDERED: GLYCOPYRROLATE 0.2 MG/ML 2 ML VIAL IVP PRN (15:49)
[2022-10-19] MEDS ORDERED: SCOPOLAMINE 1 MG/72 HR PATCH TRANSDERM SCH (16:00)
[2022-10-19] MEDS: MORPHINE SULFATE 4 MG/ML SYRINGE IV PRN ×5 (16:10→17:51)
[2022-10-19] MEDS: MORPHINE SULFATE (100 MG/2 ML) 100 MG in SODIUM CHLORIDE 0.9% 100 ML IV SCH ×2 (16:49→19:48)
[2022-10-19 22:13] VITALS: BP 51/33; PULSE 49; RESP 6
--- NOTE | 2022-10-19 23:20 | P.PN ---
Subjective Patient could not provide information because he is intubated so it was obtained from staff record concern at bedside. This is a pleasant 82 years old male with multiple medical problems as below. Who was recently in the hospital for V. tach and underwent cardiac cath and then showing severe triple vessel coronary artery disease, as below. Also started on hemodialysis for worsening kidney infection, he had low normal blood pressure. Physical therapy recommended home with home care. Also has dissecting infrarenal abdominal aortic aneurysm about 4.5 cm in which vascular surgery recommended outpatient surgical correction, patient was found high-risk but no contraindication. Patient was discharge on gradual taper off amiodarone. This morning he was doing well as per son and he was able to walk, he was going to his appointment for the hemodialysis where he passed out and became pulseless, he underwent CPR resuscitation, and the downtown is expected to be around 10 minutes. Currently patient is intubated and on mechanical ventilation in the emergency room No further information present currently. However as per son patient denies any chest pain or dyspnea or other complaints prior to this happening From the records from previous admission: Presents because of chest pain on 10/06, his been evaluated by telesales manager and sent of the case. Also patient found to have cardiac arrhythmia and she is been evaluated by telesales manager, her crit is been stabilized with amiodarone with recommendation to discharge the patient on tapered amiodarone patient informed and he agrees (see discharge instructions) However patient noticed to have significantly worsening kidney function with creatinine 5.3. He was started on hemodialysis by nephrology team and he was diagnosed with acute kidney injury secondary to cardiorenal syndrome. He has evidence of dilated cardiomyopathy with severely impaired ejection fraction 20% with moderate to severe mitral regurgitation and moderate tricuspid regurgitation Currently kept on aspirin and Plavix, midodrine 5 mg and metoprolol 12.5 mg and amiodarone 400 mg. permacath was placed and director social arrange outpatient hemodialysis arrangements for the patient to which he agreeable. Blood pressure was on the low normal, however is asymptomatic and stable on midodrine. Due to his cardiac arrhythmia and abnormal cardiac function patient underwent cardiac cath yesterday: showing severe triple vessel coronary artery disease with patent FLOOD and patent SVG to the circumflex but occluded SVG to RCA. Outreach Specialist recommended medical management and follow-up with the patient patient was on aspirin at home, Plavix added for him, risk of bleeding expected for him extensively and he agrees. Patient was not eating well and was complaining of from mild abdominal discomfort and distention, CT of the abdomen with oral contrast obtained showing dissecting infrarenal abdominal aortic aneurysm and vascular surgical team were consulted who recommended close outpatient follow-up for surgical repair of his aneurysm and patient verbalized understanding and acceptance, telesales manager its preop evaluation and found to be high-risk for such procedure, however there is a contraindication. he underwent to test once his arterial ultrasound showing severe peripheral artery disease especially in the feetCurrently he is bradycardic, slightly tachypneic, blood pressure 94/51. He is saturating 100% on mechanical ventilation, a febrile WBC 10.9, Hemoglobin 10, Platelets 118. INR 1.2, D-Dimer 9.1. PH Is 7.2, PCO2 27, PaO2 59 Troponin 0.10. Liver enzymes not significantly elevated. Bilirubin is slightly high 1.6. Creatinine 5.1. Albumin 3.3. EKG showing ventricular paced rhythm 10/19/2022 Patient remains treated and pulmonary/critical care team following him closely and help with the pain management Patient still requiring high doses of pressors including vasopressin, dobutamine as well as the he is on heparin drip. And bicarbonate drip. However despite all these risks still hypotensive, bradycardic and hypothermic abs reviewed and basically they are the same with mild leukocytosis, mild anemia, mild hyponatremia Several consultants on the case discussed the critical care team and pulmonary including cardiology, vascular surgery, nephrology and urology However I already discussed with the son that side and informed with the bad prognosis Objective - Vital Signs Vital signs: Vital Signs Temp 36.8 F L 10/19/22 08:00 Pulse 56 L 10/19/22 09:45 Resp 17 10/19/22 09:45 BP 78/48 10/19/22 09:45 Pulse Ox 100 10/19/22 09:45 FiO2 50 10/19/22 08:00 Intake & Output 10/18/22 10/19/22 10/19/22 18:59 06:59 18:59 Intake Total 279.723 3672.819 356.397 Output Total 0 180 0 Balance 030.309 3053.819 356.397 Weight 93.894 kg 92.2 kg Intake: IV 130 690 50 Invasive Line 3 30 90 Sodium Bicarb 500 50 Sodium Chloride 0.9% 1, 100 100 000 ml @ 50 mls/hr IV . Q20H [facility] Rx#:[id number] Intake, IV Titration 481.337 891.819 306.397 Amount Dextrose 5% in Water 1, 50 000 ml @ 50 mls/hr IV . Q23H [facility] with Sodium Bicarb (1 Meq/ml) 150 ml Rx#:[id number] Heparin Sod,Pork in 0.45% 55.833 NaCl 25,000 unit In 0.45 % NaCl 1 250ml.bag @ 10. 65 UNITS/KG/HR 10 mls/hr IV .Q24H [facility] Rx#: [id number] Norepinephrine 4 mg In 469.322 187.425 Sodium Chloride 0.9% 250 ml @ 0.03 MCG/KG/MIN 10. 173 mls/hr IV .Q24H [facility] Rx#:[id number] Norepinephrine 8 mg In 428.111 169.088 Sodium Chloride 0.9% 250 ml @ 0.03 MCG/KG/MIN 5. 451 mls/hr IV .Q24H [facility] Rx#:[id number] Vasopressin 60 unit In 25.398 Sodium Chloride 0.9% 150 ml @ 0.03 UNITS/MIN 4.59 mls/hr IV .Q24H [facility] Rx#: [id number] propofoL 1,000 mg In 12.015 Empty Bag 1 bag @ 15 MCG/ KG/MIN 8.01 mls/hr IV . [id number] [facility] Rx#:[id number] propofoL 1,000 mg In 195.052 87.309 Empty Bag 1 bag @ 15 MCG/ KG/MIN 8.01 mls/hr IV . [id number] [facility] Rx#:[id number] Oral 0 Output: Gastric Drainage 140 Urine 0 40 0 Other: Voiding Method Indwelling Catheter ABP, PAP, CO, CI - Last Documented Arterial Blood Pressure 98/43 - Exam -GENERAL: The patient is intubated and sedated HEENT: Pupils are round and equally reacting to light. EOMI. No scleral icterus. No conjunctival pallor. Normocephalic, atraumatic. No pharyngeal erythema. No thyromegaly. CARDIOVASCULAR: S1 and S2 present. No murmurs, rubs, or gallops. PULMONARY: Chest is clear to auscultation, no wheezing . no crackles. ABDOMEN: Soft, nontender, nondistended, normoactive bowel sounds. No palpable organomegaly. MUSCULOSKELETAL: No joint swelling or deformity. EXTREMITIES: No cyanosis, clubbing, . No leg edema. NEUROLOGICAL: Gross neurological examination did not reveal any focal deficits. SKIN: No rashes. no petechiae. - Labs CBC & Chem 7: 10/19/22 03:44 10/19/22 03:44 Labs: Abnormal Lab Results - Last 24 Hours (Table) 10/18/22 10/18/22 10/18/22 Range/Units 12:22 12:22 12:22 WBC 10.9 H (3.8-10.6) k/uL RBC 3.17 L (4.30-5.90) m/uL Hgb 10.0 L (13.0-17.5) gm/dL Hct 33.2 L (39.0-53.0) % MCV 104.9 H (80.0-100.0) fL MCHC 30.0 L (31.0-37.0) g/dL RDW 17.8 H (11.5-15.5) % Plt Count 118 L (150-450) k/uL Neutrophils # 9.0 H (1.3-7.7) k/uL Lymphocytes # 0.9 L (1.0-4.8) k/uL Monocytes # (0-1.0) k/uL Macrocytosis Marked A PT 12.7 H (9.0-12.0) sec INR 1.2 H (<1.2) APTT (22.0-30.0) sec D-Dimer 9.19 H (<0.60) mg/L FEU ABG pH (7.35-7.45) ABG pCO2 (35-45) mmHg ABG pO2 (83-108) mmHg ABG HCO3 (21-25) mmol/L ABG Total CO2 (19-24) mmol/L ABG O2 Saturation (94-97) % Sodium 134 L (137-145) mmol/L Chloride (98-107) mmol/L Carbon Dioxide 11 L (22-30) mmol/L BUN 42 H (9-20) mg/dL Creatinine 5.13 H (0.66-1.25) mg/dL Glucose 117 H (74-99) mg/dL POC Glucose (mg/dL) (70-110) mg/dL Calcium (8.4-10.2) mg/dL Phosphorus (2.5-4.5) mg/dL Magnesium 2.4 H (1.6-2.3) mg/dL Total Bilirubin 1.6 H (0.2-1.3) mg/dL Troponin I (0.000-0.034) ng/mL Albumin 3.3 L (3.5-5.0) g/dL 10/18/22 10/18/22 10/18/22 Range/Units 12:22 12:22 12:45 WBC (3.8-10.6) k/uL RBC (4.30-5.90) m/uL Hgb (13.0-17.5) gm/dL Hct (39.0-53.0) % MCV (80.0-100.0) fL MCHC (31.0-37.0) g/dL RDW (11.5-15.5) % Plt Count (150-450) k/uL Neutrophils # (1.3-7.7) k/uL Lymphocytes # (1.0-4.8) k/uL Monocytes # (0-1.0) k/uL Macrocytosis PT (9.0-12.0) sec INR (<1.2) APTT (22.0-30.0) sec D-Dimer (<0.60) mg/L FEU ABG pH 7.22 L (7.35-7.45) ABG pCO2 30 L (35-45) mmHg ABG pO2 59 L* (83-108) mmHg ABG HCO3 12 L (21-25) mmol/L ABG Total CO2 13 L (19-24) mmol/L ABG O2 Saturation 83.1 L (94-97) % Sodium (137-145) mmol/L Chloride (98-107) mmol/L Carbon Dioxide (22-30) mmol/L BUN (9-20) mg/dL Creatinine (0.66-1.25) mg/dL Glucose (74-99) mg/dL POC Glucose (mg/dL) 122 H (70-110) mg/dL Calcium (8.4-10.2) mg/dL Phosphorus (2.5-4.5) mg/dL Magnesium (1.6-2.3) mg/dL Total Bilirubin (0.2-1.3) mg/dL Troponin I 0.102 H* (0.000-0.034) ng/mL Albumin (3.5-5.0) g/dL 10/18/22 10/18/22 10/18/22 Range/Units 13:57 17:13 17:13 WBC (3.8-10.6) k/uL RBC (4.30-5.90) m/uL Hgb (13.0-17.5) gm/dL Hct (39.0-53.0) % MCV (80.0-100.0) fL MCHC (31.0-37.0) g/dL RDW (11.5-15.5) % Plt Count (150-450) k/uL Neutrophils # (1.3-7.7) k/uL Lymphocytes # (1.0-4.8) k/uL Monocytes # (0-1.0) k/uL Macrocytosis PT 12.6 H (9.0-12.0) sec INR 1.2 H (<1.2) APTT (22.0-30.0) sec D-Dimer (<0.60) mg/L FEU ABG pH 7.24 L (7.35-7.45) ABG pCO2 27 L (35-45) mmHg ABG pO2 59 L* (83-108) mmHg ABG HCO3 12 L (21-25) mmol/L ABG Total CO2 13 L (19-24) mmol/L ABG O2 Saturation 83.9 L (94-97) % Sodium 133 L (137-145) mmol/L Chloride 97 L (98-107) mmol/L Carbon Dioxide 16 L (22-30) mmol/L BUN 48 H (9-20) mg/dL Creatinine 5.00 H (0.66-1.25) mg/dL Glucose (74-99) mg/dL POC Glucose (mg/dL) (70-110) mg/dL Calcium 8.3 L (8.4-10.2) mg/dL Phosphorus 6.2 H (2.5-4.5) mg/dL Magnesium (1.6-2.3) mg/dL Total Bilirubin 1.9 H (0.2-1.3) mg/dL Troponin I (0.000-0.034) ng/mL Albumin 3.2 L (3.5-5.0) g/dL 10/18/22 10/18/22 10/18/22 Range/Units 17:13 17:13 17:17 WBC 15.4 H (3.8-10.6) k/uL RBC 3.12 L (4.30-5.90) m/uL Hgb 10.0 L (13.0-17.5) gm/dL Hct 31.5 L (39.0-53.0) % MCV 100.9 H (80.0-100.0) fL MCHC (31.0-37.0) g/dL RDW 18.2 H (11.5-15.5) % Plt Count 133 L (150-450) k/uL Neutrophils # 13.6 H (1.3-7.7) k/uL Lymphocytes # 0.5 L (1.0-4.8) k/uL Monocytes # 1.1 H (0-1.0) k/uL Macrocytosis PT (9.0-12.0) sec INR (<1.2) APTT (22.0-30.0) sec D-Dimer (<0.60) mg/L FEU ABG pH (7.35-7.45) ABG pCO2 26 L (35-45) mmHg ABG pO2 294 H (83-108) mmHg ABG HCO3 18 L (21-25) mmol/L ABG Total CO2 (19-24) mmol/L ABG O2 Saturation 99.8 H (94-97) % Sodium (137-145) mmol/L Chloride (98-107) mmol/L Carbon Dioxide (22-30) mmol/L BUN (9-20) mg/dL Creatinine (0.66-1.25) mg/dL Glucose (74-99) mg/dL POC Glucose (mg/dL) (70-110) mg/dL Calcium 8.3 L (8.4-10.2) mg/dL Phosphorus (2.5-4.5) mg/dL Magnesium (1.6-2.3) mg/dL Total Bilirubin (0.2-1.3) mg/dL Troponin I (0.000-0.034) ng/mL Albumin (3.5-5.0) g/dL 10/18/22 10/19/22 10/19/22 Range/Units 23:12 00:51 03:35 WBC (3.8-10.6) k/uL RBC (4.30-5.90) m/uL Hgb (13.0-17.5) gm/dL Hct (39.0-53.0) % MCV (80.0-100.0) fL MCHC (31.0-37.0) g/dL RDW (11.5-15.5) % Plt Count (150-450) k/uL Neutrophils # (1.3-7.7) k/uL Lymphocytes # (1.0-4.8) k/uL Monocytes # (0-1.0) k/uL Macrocytosis PT (9.0-12.0) sec INR (<1.2) APTT >200.0 H* (22.0-30.0) sec D-Dimer (<0.60) mg/L FEU ABG pH (7.35-7.45) ABG pCO2 (35-45) mmHg ABG pO2 (83-108) mmHg ABG HCO3 (21-25) mmol/L ABG Total CO2 (19-24) mmol/L ABG O2 Saturation (94-97) % Sodium (137-145) mmol/L Chloride (98-107) mmol/L Carbon Dioxide (22-30) mmol/L BUN (9-20) mg/dL Creatinine (0.66-1.25) mg/dL Glucose (74-99) mg/dL POC Glucose (mg/dL) 158 H 180 H (70-110) mg/dL Calcium (8.4-10.2) mg/dL Phosphorus (2.5-4.5) mg/dL Magnesium (1.6-2.3) mg/dL Total Bilirubin (0.2-1.3) mg/dL Troponin I (0.000-0.034) ng/mL Albumin (3.5-5.0) g/dL 10/19/22 10/19/22 10/19/22 Range/Units 03:44 03:44 06:09 WBC 12.8 H (3.8-10.6) k/uL RBC 3.14 L (4.30-5.90) m/uL Hgb 9.9 L (13.0-17.5) gm/dL Hct 31.3 L (39.0-53.0) % MCV (80.0-100.0) fL MCHC (31.0-37.0) g/dL RDW 18.1 H (11.5-15.5) % Plt Count (150-450) k/uL Neutrophils # 11.3 H (1.3-7.7) k/uL Lymphocytes # 0.5 L (1.0-4.8) k/uL Monocytes # (0-1.0) k/uL Macrocytosis PT (9.0-12.0) sec INR (<1.2) APTT (22.0-30.0) sec D-Dimer (<0.60) mg/L FEU ABG pH (7.35-7.45) ABG pCO2 (35-45) mmHg ABG pO2 (83-108) mmHg ABG HCO3 (21-25) mmol/L ABG Total CO2 (19-24) mmol/L ABG O2 Saturation (94-97) % Sodium 130 L (137-145) mmol/L Chloride (98-107) mmol/L Carbon Dioxide 18 L (22-30) mmol/L BUN 53 H (9-20) mg/dL Creatinine 4.74 H (0.66-1.25) mg/dL Glucose 149 H (74-99) mg/dL POC Glucose (mg/dL) 189 H (70-110) mg/dL Calcium 7.9 L (8.4-10.2) mg/dL Phosphorus 6.4 H (2.5-4.5) mg/dL Magnesium (1.6-2.3) mg/dL Total Bilirubin (0.2-1.3) mg/dL Troponin I (0.000-0.034) ng/mL Albumin (3.5-5.0) g/dL Assessment and Plan Assessment: -Cardiac arrest with pulseless less status post CPR with the tendon of spontaneous circulation in about 10 minutes down time. -An acute hypoxic respiratory failure requiring intubation and mechanical ventilation secondary to above -Acute metabolic acidosis -Ventricular tachycardia -Coronary artery disease, cardiac cath showing severe triple vessel coronary artery disease with patent FLOOD and patent SVG to the circumflex but occluded SVG to RCA. Outreach Specialist recommended medical management and follow-up with the patient -severe peripheral artery disease especially in the feet -Acute kidney injury secondary to cardiorenal syndrome requiring hemodialysis started during this admission -Dilated cardiomyopathy with systolic function impairment and EF 20% -4.5 cm abdominal aortic aneurysm, with dissection, vascular surgery recommended outpatient follow-up -Moderate tricuspid regurgitation and moderate to severe mitral regurgitation -Hyponatremia secondary to HPI -Borderline low blood pressure secondary to above Plan: Continuous mechanical ventilation as per pulmonary/critical care team on the case Continue with levophed Cardiology consult Nephrology consult for hemodialysis vascular surgical consult Neurology and nephrology consult Labs and medication were reviewed.. Continue same treatment. Continue with symptomatic treatment. Resume home medication. Monitor labs and vitals. DVT and GI prophylaxis. Further recommendations as per clinical course of the patient DVT prophylaxis: heparin GI Prophylaxis: Pepcid Prognosis is guarded
--- NOTE | 2022-10-19 23:22 | P.DS ---
Providers Date of admission: 10/18/22 14:22 Attending physician: Tomas Cleveland MD Consults: 10/18/22 14:21 Consult Physician Stat Consulting Provider: Irasema Watt Consult Reason/Comments: Critical care management Do you want consulting provider notified?: Yes Consult Physician Urgent Consulting Provider: Latrell Zelaya Consult Reason/Comments: Cardiac arrest, poor ejection fraction Do you want consulting provider notified?: Yes 10/18/22 15:10 Consult Physician Routine Consulting Provider: Renetta Armando Consult Reason/Comments: AAA Do you want consulting provider notified?: Yes 10/18/22 15:44 Consult Physician Urgent Consulting Provider: Marily Maya Consult Reason/Comments: acute on chronic renal failulre, post cardiac arrest Do you want consulting provider notified?: Yes 10/18/22 15:48 Consult Physician Routine Consulting Provider: Leander Don Consult Reason/Comments: Post cardiac arrest, unknown downtime. Do you want consulting provider notified?: Yes Primary care physician: [facility] Course: Patient at 20:45 Please refer to note from today for further details Plan - Discharge Summary Discharge Rx Participant: No New Discharge Prescriptions: No Action Levothyroxine Sodium [Synthroid] 100 mcg PO DAILY Ezetimibe [Zetia] 10 mg PO DAILY allopurinoL 100 mg PO DAILY Amiodarone [Cordarone] 400 mg PO BID 14 Days #28 tab Nitroglycerin Sl Tabs [Nitrostat] 0.4 mg SUBLINGUAL Q5M PRN #20 tab PRN Reason: Chest Pain Calcium Acetate [PhosLo] 667 mg PO BID-W/MEALS #60 tab Clopidogrel [Plavix] 75 mg PO DAILY #30 tab Aspirin EC [Ecotrin Low Dose] 81 mg PO DAILY #30 tab Metoprolol Tartrate [Lopressor] 12.5 mg PO BID Cholecalciferol [Vitamin D3 (125 Mcg = 5000 Iu)] 125 mcg PO DAILY Ubidecarenone [Coenzyme Q10] 100 mg PO DAILY Pantoprazole [Protonix] 40 mg PO DAILY Ferrous Sulfate [Iron] 325 mg PO DAILY Docusate [Colace] 100 mg PO BID #40 cap Midodrine [ProAmatine] 5 mg PO AC-TID #90 tab Calcium Carbonate [Tums] 500 mg PO QID PRN #60 tab PRN Reason: Heartburn Amiodarone [Cordarone] 400 mg PO DIRECTED Discharge Medication List Ezetimibe [Zetia] 10 mg PO DAILY 12/17/18 [History] Levothyroxine Sodium [Synthroid] 100 mcg PO DAILY 12/17/18 [History] Ferrous Sulfate [Iron] 325 mg PO DAILY 10/06/22 [History] Pantoprazole [Protonix] 40 mg PO DAILY 10/06/22 [History] allopurinoL 100 mg PO DAILY 10/06/22 [History] Amiodarone [Cordarone] 400 mg PO BID 14 Days #28 tab 10/17/22 [Rx] Aspirin EC [Ecotrin Low Dose] 81 mg PO DAILY #30 tab 10/17/22 [Rx] Calcium Acetate [PhosLo] 667 mg PO BID-W/MEALS #60 tab 10/17/22 [Rx] Calcium Carbonate [Tums] 500 mg PO QID PRN #60 tab 10/17/22 [Rx] Clopidogrel [Plavix] 75 mg PO DAILY #30 tab 10/17/22 [Rx] Docusate [Colace] 100 mg PO BID #40 cap 10/17/22 [Rx] Midodrine [ProAmatine] 5 mg PO AC-TID #90 tab 10/17/22 [Rx] Nitroglycerin Sl Tabs [Nitrostat] 0.4 mg SUBLINGUAL Q5M PRN #20 tab 10/17/22 [Rx] Amiodarone [Cordarone] 400 mg PO DIRECTED 10/18/22 [History] Cholecalciferol [Vitamin D3 (125 Mcg = 5000 Iu)] 125 mcg PO DAILY 10/18/22 [History] Metoprolol Tartrate [Lopressor] 12.5 mg PO BID 10/18/22 [History] Ubidecarenone [Coenzyme Q10] 100 mg PO DAILY 10/18/22 [History] Follow up Appointment(s)/Referral(s): Dewey Lombardo MD [Primary Care Provider] - 1-2 days Discharge Disposition: - Preliminary Cause of Preliminary Cause of : heart attack and cardiac arrest
== END 2022-10-19 21:00 | disposition expired ==
LOC: EC 11:54 → 2SICU 14:22
PROVIDERS: ADMIT Internal Medicine; ATTEND Internal Medicine
PROC: 3E043XZ Introduction of Vasopressor into Central Vein, Percutaneous Approach (ICD-10-PCS; principal; 2022-10-18)
PROC: 02H633Z Insertion of Infusion Device into Right Atrium, Percutaneous Approach (ICD-10-PCS; principal; 2022-10-18)
PROC: 5A1945Z Respiratory Ventilation, 24-96 Consecutive Hours (ICD-10-PCS; principal; 2022-10-18)
PROC: 03HY32Z Insertion of Monitoring Device into Upper Artery, Percutaneous Approach (ICD-10-PCS; 2022-10-19)
PROC: 4A133B1 Monitoring of Arterial Pressure, Peripheral, Percutaneous Approach (ICD-10-PCS; 2022-10-19)
PROC: 4A133J1 Monitoring of Arterial Pulse, Peripheral, Percutaneous Approach (ICD-10-PCS; 2022-10-19)
DX: I21.9 Acute myocardial infarction, unspecified (principal); G93.41 Metabolic encephalopathy; I71.02 Dissection of abdominal aorta; N18.6 End stage renal disease; N17.0 Acute kidney failure with tubular necrosis; J96.01 Acute respiratory failure with hypoxia; I50.23 Acute on chronic systolic (congestive) heart failure; R18.8 Other ascites; G93.1 Anoxic brain damage, not elsewhere classified; I13.2 Hypertensive heart and chronic kidney disease with heart failure and with stage 5 chronic kidney disease, or end stage renal disease; I42.0 Dilated cardiomyopathy; I25.810 Atherosclerosis of coronary artery bypass graft(s) without angina pectoris; E87.1 Hypo-osmolality and hyponatremia; E87.21 Acute metabolic acidosis; I47.20 Ventricular tachycardia, unspecified; I46.2 Cardiac arrest due to underlying cardiac condition; Z66 Do not resuscitate; K76.0 Fatty (change of) liver, not elsewhere classified; I95.9 Hypotension, unspecified; I25.5 Ischemic cardiomyopathy; I27.20 Pulmonary hypertension, unspecified; T68.XXXA Hypothermia, initial encounter; I71.43 Infrarenal abdominal aortic aneurysm, without rupture; I25.10 Atherosclerotic heart disease of native coronary artery without angina pectoris; Z51.5 Encounter for palliative care; I08.1 Rheumatic disorders of both mitral and tricuspid valves; E78.5 Hyperlipidemia, unspecified; I73.9 Peripheral vascular disease, unspecified; D75.89 Other specified diseases of blood and blood-forming organs; D63.1 Anemia in chronic kidney disease; I25.2 Old myocardial infarction; Z87.891 Personal history of nicotine dependence; Z99.2 Dependence on renal dialysis; Z95.810 Presence of automatic (implantable) cardiac defibrillator; Z79.899 Other long term (current) drug therapy; Z79.890 Hormone replacement therapy; Z79.82 Long term (current) use of aspirin; Z79.02 Long term (current) use of antithrombotics/antiplatelets; Z95.1 Presence of aortocoronary bypass graft
CPT/HCPCS: 36415; 36556; 36600; 70450; 71045; 74176; 80048; 80053; 82310; 82330; 82805; 83735; 84100; 84484; 85025; 85379; 85610; 85730; 93005; 93306; 93970; 94002; 94003; 94640; 95819; 96361; 96365; 96366; 96375; 96376